=== PATIENT | female | born 1965 | race Caucasian/White ===

== ENCOUNTER 2016-04-28 14:10 | Emergency (ER) | payer MEDICAID ==
[2016-04-28] MEDS ORDERED: NORMAL SALINE 1000 ML 1,000 ML IV ONE ×2 (14:49→18:01)
--- NOTE | 2016-04-28 15:07 | ER Document Report ---
ED General - General Chief Complaint: High Blood Sugar Stated Complaint: ALTERED MENTAL STATUS Mode of Arrival: Medic Information source: Patient, [facility] Records Notes: This is a 51-year-old female with multiple medical problems to include type I diabetes who presents to the emergency department via EMS with a chief complaint of high blood sugar. She states that her blood sugar has been in the 300s since awakening this morning, and she has also had several episodes of nausea vomiting and diarrhea today. The patient was reportedly somewhat combative with EMS and she received Benadryl and Haldol in route to the ER. Per EMS, this patient has a history of becoming combative when her blood sugar is high. Currently patient states that she feels okay other than "pain all over ". She has no chest pain. No shortness of breath. She denies any recent fevers. She states that she last ate 2 days ago. TRAVEL OUTSIDE OF THE [place] IN LAST 30 DAYS: No - Related Data Allergies/Adverse Reactions: erythromycin base [Erythromycin Base] Allergy (Severe, Verified 03/11/15 16:27) Anaphylaxis fexofenadine HCl [From Shae] Allergy (Severe, Verified 03/11/15 16:27) Confusion levetiracetam [From Keppra] Allergy (Severe, Verified 03/11/15 16:27) passes out, loses time Penicillins Allergy (Severe, Verified 03/11/15 16:27) Anaphylaxis vancomycin [Vancomycin] Allergy (Severe, Verified 03/11/15 16:27) Blood pressure bottomed out Past Medical History - General Information source: Patient, [facility] Records - Social History Smoking Status: Former Smoker Family History: Reviewed & Not Pertinent - Past Medical History Cardiac Medical History: Reports: Hx Coronary Artery Disease - 2 blockages, Hx DVT, Hx Hypertension, Hx Pulmonary Embolism, Hx Heart Murmur Pulmonary Medical History: Reports: Hx COPD, Hx Pneumonia - 2 weeks ago Comment Only: Hx Bronchitis - Not since she quit smoking Neurological Medical History: Reports: Hx Cerebrovascular Accident - 5 yrs ago Endocrine Medical History: Reports: Hx Diabetes Mellitus Type 1 - History of DKA GI Medical History: Reports: Hx Gastroesophageal Reflux Disease, Hx Ulcer Musculoskeltal Medical History: Reports Hx Arthritis Past Surgical History: Reports: Hx Appendectomy, Hx Hysterectomy, Hx Orthopedic Surgery - Neck fusion, wrist surgery, knee surgery, Hx Tubal Ligation - Immunizations Hx Diphtheria, Pertussis, Tetanus Vaccination: Yes Hx Pneumococcal Vaccination: 11/09/11 Review of Systems - Review of Systems Notes: REVIEW OF SYSTEMS: CONSTITUTIONAL : Denies fever, chills, or sweats. Denies recent illness. EENT: Denies eye, ear, throat, or mouth pain or symptoms. Denies nasal or sinus congestion. CARDIOVASCULAR: Denies chest pain. RESPIRATORY: Denies cough, cold, or chest congestion. Denies shortness of breath, difficulty breathing, or wheezing. GASTROINTESTINAL: Denies abdominal pain. Nausea vomiting and diarrhea today as per history of present illness GENITOURINARY: She endorses dysuria for the past few days MUSCULOSKELETAL: Denies neck or back pain or joint pain or swelling. SKIN: Denies rash or skin lesions. HEMATOLOGIC : Denies easy bruising or bleeding. LYMPHATIC: Denies swollen, enlarged glands. NEUROLOGICAL: Denies headache. Denies focal weakness or paresthesias. PSYCHIATRIC: Denies anxiety or stress or depression. ALL OTHER SYSTEMS REVIEWED AND NEGATIVE. Physical Exam - Vital signs Vitals: Temp 97.8 F 04/28/16 14:15 - Notes Notes: PHYSICAL EXAMINATION: GENERAL: Frail, disheveled, appears older than stated age but in no acute distress. HEAD: Atraumatic, normocephalic. EYES: Pupils equal round and reactive to light, extraocular movements intact, sclera anicteric, conjunctiva are normal. ENT: nares patent, oropharynx clear without exudates. Dry mucous membranes. NECK: Normal range of motion, supple without lymphadenopathy LUNGS: Breath sounds clear to auscultation bilaterally and equal. No wheezes rales or rhonchi. HEART: Regular rate and rhythm. Harsh 3/6 systolic murmur at the sternal border ABDOMEN: Thin,Soft, nontender, normoactive bowel sounds. No guarding, no rebound. No masses appreciated. EXTREMITIES: Normal range of motion, no pitting or edema. No cyanosis. NEUROLOGICAL: Cranial nerves grossly intact. Normal speech Normal sensory, motor exams. Alert to person and place, not to date PSYCH: Normal mood, somewhat anxious affect. SKIN: Warm, Dry, no rashes or lesions noted. Course - Re-evaluation Re-evalutation: 04/28/16 23:34 Patient was reevaluated. She is alert and conversant and states she feels so much better. She has tolerated fluids by mouth here in the emergency department and she has had no vomiting or diarrhea. She has a benign abdominal exam and her vital signs are stable her Accu-Chek is 217. She states that she is ready to go home and she does not want hospitalization. She has had multiple prior episodes of altered mental status and combativeness secondary to her hyperglycemia, and this episode was very similar to prior episodes. She is instructed to follow-up with her primary care physician this week. We also discussed strict return precautions and she is comfortable with this plan. 04/29/16 03:40 - Vital Signs Vital signs: Temp Pulse Resp BP Pulse Ox 97.8 F 90 19 162/96 H 100 04/28/16 14:15 04/29/16 00:00 04/29/16 00:00 04/29/16 00:00 04/29/16 00:00 - Laboratory Result Diagrams: 04/28/16 16:46 04/28/16 16:46 Laboratory results interpreted by me: 04/28/16 04/28/16 04/28/16 15:15 16:46 16:46 Hgb 16.7 H Hct 49.7 H MCV 102 H MCH 34.2 H Plt Count 136 L Seg Neutrophils % 79.7 H Lymphocytes % 12.8 L Absolute Neutrophils 8.4 H Sodium 136.9 L Carbon Dioxide 17 L Anion Gap 20 H BUN 32 H Est GFR (Non-Af Amer) 59 L Glucose 366 H POC Glucose Total Bilirubin 1.5 H Creatine Kinase 329 H Urine Glucose (UA) >=500 H Urine Ketones 80 H Ur Leukocyte Esterase TRACE H Salicylates < 1.0 L Acetaminophen < 10 L 04/28/16 04/28/16 04/28/16 20:43 21:30 23:23 Hgb Hct MCV MCH Plt Count Seg Neutrophils % Lymphocytes % Absolute Neutrophils Sodium Carbon Dioxide Anion Gap BUN Est GFR (Non-Af Amer) Glucose POC Glucose 378 H 289 H 216 H Total Bilirubin Creatine Kinase Urine Glucose (UA) Urine Ketones Ur Leukocyte Esterase Salicylates Acetaminophen - Diagnostic Test Radiology reviewed: Reports reviewed - hyperexpansion, no consolidation/effusion - EKG Interpretation by Me EKG shows normal: Sinus rhythm Rate: Normal Rhythm: NSR Discharge - Discharge Clinical Impression: Hyperglycemia due to type 1 diabetes mellitus Altered mental status Qualifiers: Altered mental status type: transient alteration of awareness Qualified Code(s) : R40.4 - Transient alteration of awareness UTI (urinary tract infection) Qualifiers: Urinary tract infection type: site unspecified Hematuria presence: without hematuria Qualified Code(s): N39.0 - Urinary tract infection, site not specified Condition: Stable Disposition: HOME, SELF-CARE Instructions: Nitrofurantoin ([facility]) Additional Instructions: HYPERGLYCEMIA (HIGH BLOOD SUGAR): You have an abnormally high blood sugar. Not all high blood sugar requires long-term treatment. High blood sugar can be due to medications, , or the stress of illness. (These cases are "borderline diabetes.") If the doctor feels your high blood sugar might resolve with time, you may not require treatment now. It's very important that you follow through, to see if the blood sugar returns to normal levels. Uncontrolled high blood sugar leads to early heart disease, strokes, nerve damage, eye damage, and kidney damage. Call the physician if there is faintness, excess sleepiness, or very rapid breathing. INSULIN: Insulin is a natural hormone that lowers blood sugar. Normal blood sugar prevents complications of diabetes. For most diabetics, insulin is the best way to treat the illness. Be sure you know how to measure the insulin correctly. Insulin is measured in "units." There are three types of insulin: N (NPH or long acting), R (regular or short acting), and L (Lente or very long acting). Be sure you are using the right amount of each type. Insulin must be injected into the fat. You can use the abdomen, upper arms , and thighs. Select a different injection site every time. Wipe the site with alcohol before injecting. When first starting insulin, some adjusting of the insulin dose is necessary. Keep a record of each insulin dose and time of injection, and of the blood sugar and the time you test it. Sometimes insulin can make the blood sugar too low. If you become dizzy, sweaty, shaky, or confused, you may be having a hypoglycemic episode. Immediately use juice or some other sweet food. Call the doctor if the symptoms don't go away. URINARY TRACT INFECTION: Your evaluation indicates that you have a urinary tract infection. This is due to germs growing in the bladder. This is a common problem. This infection usually responds quickly to antibiotics. Your antibiotic should be taken exactly as prescribed. Drink plenty of fluids -- three to four quarts a day. Occasionally, a bladder anesthetic will be prescribed to help stop the feeling of urgency until the antibiotic has a chance to clear the infection. This may cause your urine to be dark orange. Certain urine infections require a culture. If the doctor obtained a culture, the results will be back in two days. You should call to see if a change in treatment is needed. A repeat urinalysis after you finish treatment is often recommended. The physician will let you know if further testing is required. Call the doctor if you develop fever, chills, flank pain, inability to urinate, or blood in the urine. ANTIBIOTIC THERAPY: You have been given an antibiotic prescription. It's important that you take all the medication, unless instructed otherwise by your physician. Failure to complete the entire course can result in relapse of your condition. Common side effects of antibiotics include nausea, intestinal cramping, or diarrhea. Women may develop vaginal yeast infections, and babies can get yeast (thrush) in the mouth following the use of antibiotics. Contact your physician if you develop significant side effects from this medication. Allergy to this antibiotic can result in hives, wheezing, faintness, or itching. If symptoms of allergy occur, stop the medication and call the doctor. NITROFURANTOIN (MACRODANTIN, MACROBID): You have received a prescription for nitrofurantoin (Macrodantin). This antibiotic is used for urinary tract infections. Women who are or nursing should notify the physician before taking this medicine. If you have ever had a problem caused by this medication in the past, be sure the physician is aware of it. Common side effects of this medicine include nausea, vomiting, or decreased appetite. Notify your physician if these side effects become severe. Immediately stop this medicine and call the physician if you develop cough , shortness of breath, chest pain, weakness, jaundice (yellow color of the skin and whites of the eyes), or a skin rash. FOLLOW-UP CARE: If you have been referred to a physician for follow-up care, call the physician s office for an appointment as you were instructed or within the next two days. If you experience worsening or a significant change in your symptoms, notify the physician immediately or return to the Emergency Department at any time for re-evaluation. FOLLOW-UP CARE: If you have been referred to a physician for follow-up care, call the physician s office for an appointment as you were instructed or within the next two days. If you experience worsening or a significant change in your symptoms, notify the physician immediately or return to the Emergency Department at any time for re-evaluation. Prescriptions: Nitrofurantoin/Nitrofuran Mac [Macrobid 100 mg Capsule] 1 tab PO BID #20 capsule Referrals: CONCEPCION GONCALVES MD [Primary Care Provider] - Follow up as needed
[2016-04-28 15:32] LABS: APPEARANCE,URINE SLIGHTLY-CLOUDY; BILIRUBIN,URINE NEGATIVE (NEGATIVE); GLUCOSE, URINE >=500 mg/dL (NEGATIVE); KETONES,URINE 80 mg/dL (NEGATIVE); LEUKOCYTE ESTERASE,URINE TRACE (NEGATIVE); NITRITE,URINE NEGATIVE (NEGATIVE); PROTEIN,URINE NEGATIVE (NEGATIVE); URINE SPECIFIC GRAVITY 1.027; UROBILINOGEN,URINE NEGATIVE mg/dL (<2.0)
[2016-04-28] MEDS ORDERED: CEFTRIAXONE 1 GM/D5W RTU 50 ML IV ONE (15:37)
[2016-04-28 15:47] LABS: URINE BARBITURATES SCREEN NEGATIVE; URINE METHADONE SCREEN NEGATIVE; URINE OPIATES LOW NEGATIVE; URINE PHENCYCLIDINE SCREEN NEGATIVE
[2016-04-28 16:59] LABS: ABSOLUTE BASOPHILS # (AUTO) 0.1 10^3/uL (0.0-0.2); ABSOLUTE LYMPHOCYTES (AUTO) 1.3 10^3/uL (0.5-4.7); ABSOLUTE MONOCYTES (AUTO) 0.6 10^3/uL (0.1-1.4); ABSOLUTE NEUT (AUTO) 8.4 10^3/uL (1.7-8.2); BASOPHILS % (AUTO) 1.1 % (0-2); EOSINOPHILS % (AUTO) 0.3 % (0-6); HEMATOCRIT 49.7 % (36.0-47.0); HEMOGLOBIN 16.7 g/dL (12.0-15.5); HGB HCT DIFFERENCE 0.4; LYMPHOCYTES % (AUTO) 12.8 % (13-45); MEAN CORPUSCULAR HEMOGLOBIN 34.2 pg (27.0-33.4); MEAN CORPUSCULAR HGB CONC 33.6 g/dL (32.0-36.0); MEAN CORPUSCULAR VOLUME 102 fl (80-97); MONOCYTES % (AUTO) 6.1 % (3-13); RED BLOOD COUNT 4.87 10^6/uL (3.72-5.28); RED CELL DISTRIBUTION WIDTH 13.5 % (11.5-14.0); SEGMENTED NEUTROPHILS % (AUTO) 79.7 % (42-78); WHITE BLOOD COUNT 10.5 10^3/uL (4.0-10.5)
[2016-04-28 17:08] LABS: PARTIAL THROMBOPLASTIN TIME 23.8 SEC (23.5-35.8)
[2016-04-28 17:14] LABS: ALANINE AMINOTRANSFERASE 17 U/L (9-52); ALBUMIN 4.1 g/dL (3.5-5.0); ALKALINE PHOSPHATASE 87 U/L (38-126); ASPARTATE AMINO TRANSFERASE 30 U/L (14-36); BILIRUBIN,TOTAL 1.5 mg/dL (0.2-1.3); BLOOD UREA NITROGEN 32 mg/dL (7-20); CALCIUM 9.5 mg/dL (8.4-10.2); CARBON DIOXIDE 17 mmol/L (22-30); CHLORIDE 100 mmol/L (98-107); CREATINE KINASE 329 U/L (30-135); CREATININE RESULT 0.99 mg/dL (0.52-1.25); GLUCOSE 366 mg/dL (75-110); MAGNESIUM 1.8 mg/dL (1.6-2.3); SODIUM 136.9 mmol/L (137-145); TOTAL PROTEIN 6.9 g/dL (6.3-8.2)
[2016-04-28 17:23] LABS: ALCOHOL < 10 mg/dL (NONE DETECTED); ANION GAP 20 (5-19)
[2016-04-28 17:25] LABS: CREATINE KINASE MB 2.89 ng/mL (<4.55)
[2016-04-28 17:31] LABS: TROPONIN I 0.042 ng/mL
[2016-04-28] MEDS ORDERED: INSULIN REG, HUMAN 100 UNIT/ML 3 ML VIAL (PYX) IV ONE ×2 (17:42→21:38)
--- NOTE | 2016-04-28 21:52 | EKG REPORT ---
SEVERITY:- ABNORMAL ECG - SINUS RHYTHM SHORT ND INTERVAL, ACCELERATED AV CONDUCTION RIGHT ATRIAL ABNORMALITY BORDERLINE INFERIOR Q WAVES ST DEPRESSION, CONSIDER ISCHEMIA, INF LEADS BORDERLINE ST ELEVATION, ANTEROLATERAL LEADS : Confirmed by: Gabriella Redding 28-Apr-2016 21:52:00
[2016-04-29 00:04] VITALS: BP 162/96
== END 2016-04-29 | disposition home or self-care (01) ==
LOC: ER 14:10
DX: E10.65 Type 1 diabetes mellitus with hyperglycemia (principal); N39.0 Urinary tract infection, site not specified; R11.2 Nausea with vomiting, unspecified; R19.7 Diarrhea, unspecified; R52 Pain, unspecified; I25.10 Atherosclerotic heart disease of native coronary artery without angina pectoris; I10 Essential (primary) hypertension; J44.9 Chronic obstructive pulmonary disease, unspecified; Z88.8 Allergy status to other drugs, medicaments and biological substances; Z88.0 Allergy status to penicillin; Z87.892 Personal history of anaphylaxis; Z88.1 Allergy status to other antibiotic agents; Z87.891 Personal history of nicotine dependence; Z86.73 Personal history of transient ischemic attack (TIA), and cerebral infarction without residual deficits; Z90.49 Acquired absence of other specified parts of digestive tract; Z90.710 Acquired absence of both cervix and uterus; Z86.711 Personal history of pulmonary embolism; Z86.718 Personal history of other venous thrombosis and embolism; R01.1 Cardiac murmur, unspecified
CPT/HCPCS: 93005; 99284; 96361; 96365; 36415; 82553; 82962; 80307 ×4; 82550; 83735; 85025; 85610; 85730; 80053; 81001; 84484; 71010; 93010; J1815; J7030; J0696

== ENCOUNTER 2016-06-15 14:37 | Inpatient (IN) | payer MEDICAID ==
--- NOTE | 2016-06-15 15:06 | ER Document Report ---
ED General - General Stated Complaint: NAUSEA,VOMITING,DIARRHEA Time seen by provider: 15:03 Mode of Arrival: Medic Information source: Patient, Emergency Med Personnel Notes: This is a 51-year-old female with a complicated medical history including insulin requiring diabetes, primary hypothyroidism, hypertension, metabolic encephalopathy in the past, chronic pain syndrome. EMS was called to the home today because of an altered mental status in the setting of 2 day history of nausea, vomiting and diarrhea and not tolerating oral medicines. EMS arrived at the scene and found the patient to be combative. Her blood sugar at that time was 308. Currently, the patient is lethargic but does answer questions and complains of "dehydration, nausea". TRAVEL OUTSIDE OF THE [place] IN LAST 30 DAYS: No - HPI Onset: Last week Onset/Duration: Sudden Quality of pain: No pain Severity: None Pain Level: Denies Associated symptoms: None. denies: Fever, Shortness of breath Exacerbated by: Denies Relieved by: Denies Similar symptoms previously: No Recently seen / treated by doctor: No - Related Data Allergies/Adverse Reactions: erythromycin base [Erythromycin Base] Allergy (Severe, Verified 03/11/15 16:27) Anaphylaxis fexofenadine HCl [From Shae] Allergy (Severe, Verified 03/11/15 16:27) Confusion levetiracetam [From Keppra] Allergy (Severe, Verified 03/11/15 16:27) passes out, loses time Penicillins Allergy (Severe, Verified 03/11/15 16:27) Anaphylaxis vancomycin [Vancomycin] Allergy (Severe, Verified 03/11/15 16:27) Blood pressure bottomed out Past Medical History - General Information source: Patient - Social History Smoking Status: Never Smoker Cigarette use (# per day): No Chew tobacco use (# tins/day): No Frequency of alcohol use: None Drug Abuse: None Lives with: Family Family History: Reviewed & Not Pertinent - Past Medical History Cardiac Medical History: Reports: Hx Coronary Artery Disease - 2 blockages, Hx DVT, Hx Hypertension, Hx Pulmonary Embolism, Hx Heart Murmur Pulmonary Medical History: Reports: Hx COPD, Hx Pneumonia - 2 weeks ago Comment Only: Hx Bronchitis - Not since she quit smoking Neurological Medical History: Reports: Hx Cerebrovascular Accident - 5 yrs ago Endocrine Medical History: Reports: Hx Diabetes Mellitus Type 1 - History of DKA GI Medical History: Reports: Hx Gastroesophageal Reflux Disease, Hx Ulcer Musculoskeltal Medical History: Reports Hx Arthritis Past Surgical History: Reports: Hx Appendectomy, Hx Hysterectomy, Hx Orthopedic Surgery - Neck fusion, wrist surgery, knee surgery, Hx Tubal Ligation - Immunizations Hx Diphtheria, Pertussis, Tetanus Vaccination: Yes Hx Pneumococcal Vaccination: 11/09/11 Review of Systems - Review of Systems Notes: Review of systems: Constitutional: See H&P EENT: Denies ear pain, sinus tenderness, throat pain, throat swelling. Cardiovascular: Denies chest pain, palpitations, dyspnea or edema. Respiratory: Denies wheezing, cough, hemoptysis. Abdomen: Positive for nausea, vomiting, diarrhea. Denies abdominal pain. Denies BRBPR or melena. Genitourinary: Denies dysuria, pyuria, hematuria, flank pain. Musculoskeletal: denies joint pain or swelling, denies back pain. Neurologic: Altered mental status: Confusion, combativeness. Denies headache, photophobia, neck stiffness, weakness. Denies loss of bowel or bladder function. Denies saddle anesthesia. Skin: Denies rash, lesions. Constitutional: No symptoms reported EENT: No symptoms reported Cardiovascular: No symptoms reported Respiratory: No symptoms reported Gastrointestinal: See HPI Genitourinary: No symptoms reported Female Genitourinary: No symptoms reported Musculoskeletal: No symptoms reported Skin: No symptoms reported Hematologic/Lymphatic: No symptoms reported Neurological/Psychological: No symptoms reported Physical Exam - Vital signs Vitals: Temp Pulse Resp BP Pulse Ox 98.3 F 99 18 144/90 H 100 06/15/16 15:14 06/15/16 15:14 06/15/16 15:14 06/15/16 15:14 06/15/16 15:14 Notes: Physical exam: GENERAL: 51-year-old female, appears weak and dehydrated. She is answering questions. HEAD: Atraumatic, normocephalic. EYES: Pupils equal round and reactive to light, extraocular movements intact, sclera anicteric, conjunctiva are normal. ENT: TMs normal, nares patent, oropharynx clear without exudates. Dry mucous membranes. NECK: Normal range of motion, supple without lymphadenopathy or JVD. LUNGS: Breath sounds clear to auscultation bilaterally and equal. No wheezes rales or rhonchi. HEART: Regular rate and rhythm without murmurs, rubs or gallops. ABDOMEN: Soft, normoactive bowel sounds. No tenderness to palpation. No guarding, no rebound. No masses appreciated. EXTREMITIES: Normal range of motion, no pitting or edema. No clubbing or cyanosis. NEUROLOGICAL: Cranial nerves II through XII grossly intact. Normal speech, normal gait. SKIN: Warm, Dry, normal turgor, no rashes or lesions noted. Course - Re-evaluation Re-evalutation: 06/16/16 00:26 Note: Patient has been observed several hours, treated with IV fluids and IV antiemetics. She remains quite unsteady and is still having significant vomiting and does not feel significantly better. - Vital Signs Vital signs: Temp Pulse Resp BP Pulse Ox 98.3 F 99 18 144/90 H 100 06/15/16 15:14 06/15/16 15:14 06/15/16 15:14 06/15/16 15:14 06/15/16 15:14 - Laboratory Result Diagrams: 06/15/16 17:29 06/15/16 17:29 Laboratory results interpreted by me: 06/15/16 06/15/16 06/15/16 17:29 17:29 20:30 WBC 12.8 H Hgb 16.9 H Hct 51.0 H MCV 101 H MCH 33.6 H Seg Neutrophils % 83.8 H Lymphocytes % 10.0 L Absolute Neutrophils 10.7 H Carbon Dioxide 21 L BUN 27 H Glucose 300 H POC Glucose 234 H Creatine Kinase 29 L Urine Glucose (UA) Urine Ketones 06/15/16 21:34 WBC Hgb Hct MCV MCH Seg Neutrophils % Lymphocytes % Absolute Neutrophils Carbon Dioxide BUN Glucose POC Glucose Creatine Kinase Urine Glucose (UA) >=500 H Urine Ketones 20 H - Diagnostic Test Radiology reviewed: Image reviewed, Reports reviewed - EKG Interpretation by Me Rate: Tachycardia Rhythm: NSR - EKG shows sinus tachycardia with a ventricular rate of 101, evidence of LVH. The EKG is very similar to an EKG on 04/28/2016. Discharge - Discharge Clinical Impression: intractable nausea and vomiting, dehydration Condition: Stable Disposition: ADMITTED OBSERVATION Admitting Provider: Hospitalist - Dr. Macdonald
[2016-06-15] MEDS ORDERED: ONDANSETRON 4 MG TAB.RAPDIS PO ONE (16:38)
[2016-06-15] MEDS ORDERED: NORMAL SALINE 1000 ML 1,000 ML IV PRN (17:33)
[2016-06-15 17:43] LABS: ABSOLUTE BASOPHILS # (AUTO) 0.1 10^3/uL (0.0-0.2); ABSOLUTE LYMPHOCYTES (AUTO) 1.3 10^3/uL (0.5-4.7); ABSOLUTE MONOCYTES (AUTO) 0.7 10^3/uL (0.1-1.4); ABSOLUTE NEUT (AUTO) 10.7 10^3/uL (1.7-8.2); BASOPHILS % (AUTO) 0.6 % (0-2); HEMOGLOBIN 16.9 g/dL (12.0-15.5); HGB HCT DIFFERENCE -0.3; MEAN CORPUSCULAR HEMOGLOBIN 33.6 pg (27.0-33.4); MEAN CORPUSCULAR HGB CONC 33.2 g/dL (32.0-36.0); MEAN CORPUSCULAR VOLUME 101 fl (80-97); MONOCYTES % (AUTO) 5.6 % (3-13); RED BLOOD COUNT 5.04 10^6/uL (3.72-5.28); RED CELL DISTRIBUTION WIDTH 13.4 % (11.5-14.0); SEGMENTED NEUTROPHILS % (AUTO) 83.8 % (42-78); WHITE BLOOD COUNT 12.8 10^3/uL (4.0-10.5)
[2016-06-15 18:03] LABS: ALANINE AMINOTRANSFERASE 23 U/L (9-52); ALBUMIN 4.5 g/dL (3.5-5.0); ALKALINE PHOSPHATASE 79 U/L (38-126); ANION GAP 16 (5-19); ASPARTATE AMINO TRANSFERASE 15 U/L (14-36); BILIRUBIN,DIRECT 0.4 mg/dL (0.0-0.4); BILIRUBIN,TOTAL 1.1 mg/dL (0.2-1.3); BLOOD UREA NITROGEN 27 mg/dL (7-20); CALCIUM 9.9 mg/dL (8.4-10.2); CARBON DIOXIDE 21 mmol/L (22-30); CHLORIDE 100 mmol/L (98-107); CREATINE KINASE 29 U/L (30-135); CREATININE RESULT 0.89 mg/dL (0.52-1.25); GLUCOSE 300 mg/dL (75-110); POTASSIUM 3.6 mmol/L (3.6-5.0); SODIUM 137.2 mmol/L (137-145); TOTAL PROTEIN 6.6 g/dL (6.3-8.2)
--- NOTE | 2016-06-15 20:44 | EKG REPORT ---
SEVERITY:- ABNORMAL ECG - SINUS RHYTHM NONSPECIFIC INTRAVENTRICULAR CONDUCTION DELAY ANTERIOR INFARCT, AGE INDETERMINATE ST DEPRESSION, CONSIDER ISCHEMIA, INF LEADS RIGHTATRIAL AND LEFT ATRIAL ENLARGEMENT : Confirmed by: Gabriella Redding 15-Jun-2016 20:44:19
[2016-06-15] MEDS ORDERED: 1/2 NORMAL SALINE 1,000 ML IV ONE (21:06)
[2016-06-15] MEDS ORDERED: ONDANSETRON HCL INJ/PF 4 MG/2 ML SDV IV ONE (21:07)
[2016-06-15 21:54] LABS: APPEARANCE,URINE SLIGHTLY-CLOUDY; BILIRUBIN,URINE NEGATIVE (NEGATIVE); GLUCOSE, URINE >=500 mg/dL (NEGATIVE); KETONES,URINE 20 mg/dL (NEGATIVE); LEUKOCYTE ESTERASE,URINE NEGATIVE (NEGATIVE); NITRITE,URINE NEGATIVE (NEGATIVE); PROTEIN,URINE NEGATIVE (NEGATIVE); URINE SPECIFIC GRAVITY 1.009; UROBILINOGEN,URINE NEGATIVE mg/dL (<2.0)
[2016-06-16 01:11] LABS: ADD ON TESTING BLD IN LAB ACKNOWLEDGE
[2016-06-16 01:22] LABS: MAGNESIUM 1.9 mg/dL (1.6-2.3)
[2016-06-16] MEDS ORDERED: DEXTROSE 50%-WATER 25 GM/50 ML DISP.SYRIN IV PRN ×2 (03:37)
[2016-06-16] MEDS ORDERED: GLUCAGON,HUMAN RECOMB 1 MG INJ IM PRN (03:37)
[2016-06-16] MEDS ORDERED: DEXTROSE 40% GEL 15 GM TUBE PO PRN ×2 (03:37)
[2016-06-16] MEDS ORDERED: NICOTINE 7 MG/24 HR PATCH.TD24 TD PRN (03:38)
[2016-06-16] MEDS ORDERED: ACETAMINOPHEN 325 MG TABLET PO PRN (03:42)
[2016-06-16] MEDS ORDERED: IPRATROPIUM/ALBUTEROL 0.5-2.5 MG/3 ML AMPUL NEB PRN (03:42)
[2016-06-16] MEDS ORDERED: PROMETHAZINE HCL INJ 25 MG/1 ML VIAL IV PRN (03:46)
[2016-06-16] MEDS: NORMAL SALINE 1000 ML 1,000 ML IV PRN (03:57)
--- NOTE | 2016-06-16 04:23 | PDOC H&P ---
History of Present Illness Admission Date/PCP: 06/16/16 00:37 PCP ?? Patient complains of: N/V/D, AMS History of Present Illness: TEX MORRIS is a 51 year old female with a fairly complicated past medical history who presents to the emergency room by EMS for evaluation of above complaints. Patient has been discussed with emergency room physician who evaluated the patient. Patient herself is a quite poor historian. She answers most questions with only one or 2 word answers, typically "yes," or "no," even when some questions are asked more than one time. Rather odd affect at times. Seems almost resistant at times to answering questions. She's had approximately 2 day history of nausea vomiting and diarrhea. No blood. No unusual oral intake. No friends or family with similar complaints. Subjective fever. examination of the chart reveals comment that she was treated for pneumonia 2 weeks ago. I asked her if she were hospitalized. She stated yes. When I ask her where, she stated at our facility. I ask her if she were sure that she simply did not come to the emergency room. She stated no she was hospitalized at our facility. There is no record of her presenting to our facility, even to the emergency room, before current ER visit, since April of this year. The last discharge summary we have for her is dated November of last year. Note from EMS is on the chart that patient was noted to be verbally abusive and physically violent. 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 History and physical and discharge summary have been reviewed. Laboratory results are listed in [email or web address] and are reviewed. X-ray summary results are listed below, with full report(s) reviewed. . EKG reviewed. And compared to a tracing from April 28 of this year. Social history/personal habits: . One child. Unemployed. Does not live alone. Denies use of alcohol or illicit drugs. When asked her how much she is currently smoking, she stated "enough." She would not elaborate. Allergies/adverse reactions are listed in [email or web address] and are reviewed. Home medications Home medications initially autopopulated into [employer] may not accurately reflect patient's true medications, dosages, and/or frequencies. environmental tech to reconcile medications. Unfortunately, patient uncertain of medications/dosages/frequencies. REVIEW OF SYSTEMS: Constitutional: See history and present illness. Eyes: Wears contacts. ENT: Chronic dysphagia without aspiration. States her primary care provider is aware of this. No hearing problems or complaints. Pulmonary: No current complaints. Cardiovascular: No current complaints, including chest pain. Gastrointestinal: See history and present illness. Skin: No current complaints, including rashes. Hematologic: Easy bruising. Neurologic: Prior stroke, but when asked patient if it still affects her, she merely stated "it affects me." Musculoskeletal: Chronic back pain Psychiatric: depression; denies suicidal or homicidal ideation. Endocrine: No current complaints, including polyuria. Genitourinary: No current complaints, including dysuria. 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 5 feet 4 inches tall. 48.5 kg. BMI 18.4 kg/m.Temperature 98.3. Pulse 76 and regular. Blood pressure 145/89. Respirations are 15 and unlabored. 100% saturation on room air. Thin chronically ill-appearing female who appears quite a number of years older than her stated age. She is awake, but appears somewhat fatigued. Mildly anxious, without agitation. As noted in history and present illness, answers virtually all questions with only one or 2 word answers, typically either "yes," or "no." Makes no attempt to elaborate answers, even when some questions are asked more than one time. Skin is warm and dry. No grossly obvious evidence of rash in areas of skin examined. No subcutaneous nodules palpated. ENT: Hearing grossly normal to normal conversation. Tongue midline on protrusion pink and slightly tacky. Eyes: No scleral icterus. Pupils equal and reactive to light at 4 mm. [place] conjunctivae. Neck is supple and nontender to gentle active range of motion and palpation. Midline trachea. No palpable thyroid nodule mass enlargement or tenderness. Lymphatic: No palpable cervical or clavicular nodes. Neck and lymphatic exams limited by patient body habitus. Psychiatric: At best appears to have poor insight into acute and chronic medical issues. Patient realizes she is at [facility], but did not know the year. When asked her why she was here, she stated "I had nothing better to do.". Lungs: Auscultation reveals clear and equal breath sounds bilaterally. No use of accessory respiratory muscles. Cardiovascular: Heart regular rate and rhythm, without gallop murmur or rub. No carotid or abdominal aortic bruits. No ankle or pedal edema. Faintly palpable dorsalis pedis pulses. Abdomen: soft, , nontender with positive bowel sounds. No upper abdominal mass or organomegaly is palpated.. Extremities: Feet are warm and dry. No calf tenderness to compression. No grossly obvious visual evidence of calf swelling. Gentle manipulation of lower extremities fails to reveal any obvious evidence of injury or instability to knees hips or ankles. Neurologic: Moves upper extremities grossly normally. Patellar reflexes absent. Absent Babinski. Light touch is intact at feet. Dorsiflexion and plantarflexion of feet 5 / 5 and symmetric. Occasional mild tremor involving her lower extremities. Past Medical History Cardiac Medical History: Reports: Coronary Artery Disease - 2 blockages, DVT - States her anticoagulant was stopped by her physician., Hyperlipidema, Hypertension, Pulmonary Embolism, Heart Murmur Pulmonary Medical History: Reports: Chronic Obstructive Pulmonary Disease (COPD) , Pneumonia - 2 weeks ago Comment Only: Bronchitis - Not since she quit smoking Neurological Medical History: Reports: Ischemic CVA - Uncertain long-term effects., Seizures - History of same; states she is not supposed to be on antiepileptics. Endocrine Medical History: Reports: Diabetes Mellitus Type 1 - History of DKA, Hypothyroidism Denies: Hyperthyroidism GI Medical History: Reports: Cirrhosis, Gastroesophageal Reflux Disease Denies: Hepatitis Musculoskeltal Medical History: Reports: Arthritis, Other - Chronic back pain Psychiatric Medical History: Reports: Depression, Tobacco Dependency Denies: Alcohol Dependency, General Anxiety Disorder, Substance Abuse Hematology: Reports: Anemia - As a child Infectious Medical History: Denies: Hepatitis B, Hepatitis C Past Surgical History Past Surgical History: Reports: Appendectomy, Hysterectomy, Orthopedic Surgery - Neck fusion, wrist surgery, knee surgery, Tubal Ligation Social History Information Source: Patient, Emergency Med Personnel, [facility] Records Lives with: Family Smoking Status: Current Every Day Smoker Frequency of Alcohol Use: None Hx Recreational Drug Use: No Drugs: None Hx Prescription Drug Abuse: No - Advance Directive Resuscitation Status: Full Code Surrogate healthcare decision maker:: Her sons Family History Family History: Reviewed & Not Pertinent, Malignancy Parental Family History Reviewed: Yes Children Family History Reviewed: Yes Sibling(s) Family History Reviewed.: Yes Medication/Allergy Home Medications: RX: Insulin Pump Syringe, 3 ml [Minimed [place]] 1 dose SUBCUT CONTINUOUS PRN 02/26/11 RX: Amlodipine Besylate [Norvasc 2.5 mg Tablet] 5 mg PO BID 05/16/11 RX: Ropinirole HCl 1 mg PO QHS 05/16/11 RX: Metoclopramide HCl [Reglan 10 mg Tablet] 10 mg PO BID 09/22/11 RX: Lisinopril [Prinivil 2.5 mg Tablet] 2.5 mg PO QHS 05/20/12 RX: Diazepam [Valium] 10 mg PO TIDP PRN 09/29/13 RX: Fludrocortisone Acetate 0.1 mg PO DAILY 10/28/15 RX: Omeprazole 20 mg PO DAILY 10/28/15 RX: Ondansetron [Zofran Odt] 8 mg PO TID PRN 10/28/15 RX: Venlafaxine HCl ER [Effexor Xr 37.5 mg Cap.sr] 37.5 mg PO DAILY #30 cap.sr.24h 10/30/15 RX: Atorvastatin Calcium [Lipitor 20 mg Tablet] 40 mg PO QHS #30 tablet RX: Levothyroxine Sodium [Synthroid 0.05 mg Tablet] 0.05 mg PO DAILY #30 tablet 11/24/15 RX: Cyclobenzaprine HCl 5 mg PO TID 06/16/16 RX: Escitalopram Oxalate 10 mg PO DAILY 06/16/16 RX: Gabapentin [Neurontin 100 mg Capsule] 100 mg PO TID 06/16/16 RX: Ranolazine [Ranexa] 1,000 mg PO Q12 06/16/16 RX: Trazodone HCl 100 mg PO QHS 06/16/16 RX: Valacyclovir HCl [Valacyclovir] 500 mg PO DAILY 06/16/16 Allergies/Adverse Reactions: erythromycin base [Erythromycin Base] Allergy (Severe, Verified 03/11/15 16:27) Anaphylaxis fexofenadine HCl [From Shae] Allergy (Severe, Verified 03/11/15 16:27) Confusion levetiracetam [From Keppra] Allergy (Severe, Verified 03/11/15 16:27) passes out, loses time Penicillins Allergy (Severe, Verified 01/02/16 16:27) Anaphylaxis vancomycin [Vancomycin] Allergy (Severe, Verified 03/11/15 16:27) Blood pressure bottomed out Physical Exam Vital Signs: Temp Pulse Resp BP Pulse Ox 98.3 F 99 15 145/89 H 100 06/15/16 15:14 06/15/16 15:14 06/16/16 02:00 06/16/16 02:00 06/16/16 02:00 Intake & Output 06/15/16 06/16/16 06/17/16 00:59 00:59 00:59 Weight 48.5 kg Results Impressions: Acute Abdomen Series 06/15/16 17:34 IMPRESSION: Nonspecific bowel gas pattern. Clear lungs. Assessment & Plan - Diagnosis (1) Acute encephalopathy Is this a current diagnosis for this admission?: YesPlan: Should resolve with time and treatment. Suspect at least partly due to an element of dehydration. (2) Nausea vomiting and diarrhea Is this a current diagnosis for this admission?: YesPlan: IV fluids. Clear liquid diet. When necessary Phenergan. I have strongly encouraged patient not to get out of bed without notifying staff , to avoid a fall with injury. Knee high SCDs for DVT prophylaxis, [along with subcutaneous heparin. Impression and plans were discussed with patient, who concurs. Time spent in evaluation and management of patient: 62 minutes. (3) Cirrhosis Qualifiers: Hepatic cirrhosis type: unspecified hepatic cirrhosis (4) Diabetes mellitus type 1 Qualifiers: Diabetes mellitus complication status: without complication Qualified Code(s): E10.9 - Type 1 diabetes mellitus without complications Is this a current diagnosis for this admission?: YesPlan: Patient to continue her insulin pump. Clear liquid diet; advance as tolerated. Accu-Cheks before meals and at bedtime. (5) HLD (hyperlipidemia) Qualifiers: Hyperlipidemia type: unspecified Qualified Code(s): E78.5 - Hyperlipidemia, unspecified Is this a current diagnosis for this admission?: YesPlan: Resume home medications as appropriate once these have been determined and reviewed. (6) History of seizure Is this a current diagnosis for this admission?: YesPlan: Seizure precautions (7) Hypothyroid Qualifiers: Hypothyroidism type: unspecified Qualified Code(s): E03.9 - Hypothyroidism, unspecified Is this a current diagnosis for this admission?: YesPlan: TSH. Resume home medications as appropriate once these have been determined and reviewed. (8) Tobacco dependency Is this a current diagnosis for this admission?: YesPlan: When necessary nicotine patch.
[2016-06-16 04:49] LABS: ABSOLUTE BASOPHILS # (AUTO) 0.1 10^3/uL (0.0-0.2); ABSOLUTE LYMPHOCYTES (AUTO) 1.4 10^3/uL (0.5-4.7); ABSOLUTE MONOCYTES (AUTO) 0.6 10^3/uL (0.1-1.4); ABSOLUTE NEUT (AUTO) 7.5 10^3/uL (1.7-8.2); BASOPHILS % (AUTO) 0.9 % (0-2); EOSINOPHILS % (AUTO) 0.2 % (0-6); HEMATOCRIT 48.1 % (36.0-47.0); HEMOGLOBIN 16.8 g/dL (12.0-15.5); HGB HCT DIFFERENCE 2.3; LYMPHOCYTES % (AUTO) 14.9 % (13-45); MEAN CORPUSCULAR HEMOGLOBIN 34.6 pg (27.0-33.4); MEAN CORPUSCULAR HGB CONC 34.9 g/dL (32.0-36.0); MEAN CORPUSCULAR VOLUME 99 fl (80-97); MONOCYTES % (AUTO) 5.9 % (3-13); RED BLOOD COUNT 4.85 10^6/uL (3.72-5.28); RED CELL DISTRIBUTION WIDTH 13.2 % (11.5-14.0); SEGMENTED NEUTROPHILS % (AUTO) 78.1 % (42-78); WHITE BLOOD COUNT 9.7 10^3/uL (4.0-10.5)
[2016-06-16 05:06] LABS: ANION GAP 13 (5-19); BLOOD UREA NITROGEN 20 mg/dL (7-20); CARBON DIOXIDE 23 mmol/L (22-30); CHLORIDE 102 mmol/L (98-107); CREATININE RESULT 0.72 mg/dL (0.52-1.25); GLUCOSE 225 mg/dL (75-110); MAGNESIUM 1.5 mg/dL (1.6-2.3); POTASSIUM 3.3 mmol/L (3.6-5.0); SODIUM 137.9 mmol/L (137-145)
[2016-06-16] MEDS ORDERED: POTASSI CL 20 MEQ/50 ML RIDER 20 MEQ/50 ML RTUPB IV SCH (06:00)
[2016-06-16] MEDS: MAGNESIUM SULFATE/D5W 1 GM/100 ML RTUPB IV SCH ×2 (06:28→07:54)
[2016-06-16] MEDS: HEPARIN SOD (PORCINE) 5,000 UNIT/ML 1 ML SYRINGE SUBCUT SCH ×2 (09:29→09:32)
[2016-06-16] MEDS ORDERED: ONDANSETRON HCL INJ/PF 4 MG/2 ML SDV IV PRN (11:27)
--- NOTE | 2016-06-16 14:11 | PDOC PROGRESS REPORT ---
Subjective Progress Note for:: 06/16/16 Subjective:: Patient is seen on morning rounds. She is sleeping soundly in bed. She awakens served stimuli. She continues to complain of nausea, no further emesis or diarrhea at the present time. She does not want to eat or drink. She continues to appear somewhat altered in her answers. Vitals stable. She denies any other symptoms. Physical Exam Vital Signs: Temp Pulse Resp BP Pulse Ox 98.5 F 80 16 137/78 H 100 06/16/16 11:16 06/16/16 11:16 06/16/16 11:16 06/16/16 11:16 06/16/16 11:16 Intake & Output 06/15/16 06/16/16 06/17/16 06:59 06:59 06:59 Intake Total 425 Balance 425 General appearance: PRESENT: no acute distress, thin, well-developed, other - older than stated age Head exam: PRESENT: atraumatic, normocephalic Eye exam: PRESENT: conjunctiva pink, EOMI, PERRLA. ABSENT: scleral icterus Ear exam: PRESENT: normal external ear exam Mouth exam: PRESENT: moist, tongue midline Neck exam: ABSENT: carotid bruit, JVD, lymphadenopathy, thyromegaly Respiratory exam: PRESENT: clear to auscultation peterson. ABSENT: rales, rhonchi, wheezes Cardiovascular exam: PRESENT: RRR. ABSENT: diastolic murmur, rubs, systolic murmur Pulses: PRESENT: normal dorsalis pedis pul Vascular exam: PRESENT: normal capillary refill GI/Abdominal exam: PRESENT: normal bowel sounds, soft. ABSENT: distended, guarding, mass, organolmegaly, rebound, tenderness Rectal exam: PRESENT: deferred Extremities exam: PRESENT: full ROM. ABSENT: calf tenderness, clubbing, pedal edema Neurological exam: PRESENT: alert, awake, oriented to person, oriented to place , oriented to time, oriented to situation, CN II-XII grossly intact. ABSENT: motor sensory deficit Psychiatric exam: PRESENT: flat affect, normal mood. ABSENT: homicidal ideation , suicidal ideation Skin exam: PRESENT: dry, intact, warm. ABSENT: cyanosis, rash Results Laboratory Results: 06/16/16 04:41 06/16/16 04:41 06/16/16 06/16/16 06/16/16 04:41 04:41 04:41 WBC 9.7 RBC 4.85 Hgb 16.8 H Hct 48.1 H MCV 99 H MCH 34.6 H MCHC 34.9 RDW 13.2 Plt Count 115 L Seg Neutrophils % 78.1 H Lymphocytes % 14.9 Monocytes % 5.9 Eosinophils % 0.2 Basophils % 0.9 Absolute Neutrophils 7.5 Absolute Lymphocytes 1.4 Absolute Monocytes 0.6 Absolute Eosinophils 0.0 Absolute Basophils 0.1 Sodium 137.9 Potassium 3.3 L Chloride 102 Carbon Dioxide 23 Anion Gap 13 BUN 20 Creatinine 0.72 Est GFR ( Amer) > 60 Est GFR (Non-Af Amer) > 60 Glucose 225 H Calcium 9.0 Magnesium 1.5 L TSH 0.03 L Impressions: Acute Abdomen Series 06/15/16 17:34 IMPRESSION: Nonspecific bowel gas pattern. Clear lungs. Assessment & Plan - Diagnosis (1) Nausea vomiting and diarrhea Is this a current diagnosis for this admission?: YesPlan: Continue IV fluids and when necessary Zofran. She is a type I diabetic, therefore we are concerned regarding DKA occurring (2) Acute encephalopathy Is this a current diagnosis for this admission?: YesPlan: This has resolved she is now cooperative. Question overuse of narcotic opioids and dehydration causing encephalopathy (3) Diabetes mellitus type 1 Qualifiers: Diabetes mellitus complication status: without complication Qualified Code(s): E10.9 - Type 1 diabetes mellitus without complications Is this a current diagnosis for this admission?: YesPlan: A new insulin pump and sliding scale (4) Intractable vomiting Qualifiers: Vomiting type: unspecified Nausea presence: with nausea Qualified Code(s): R11.2 - Nausea with vomiting, unspecified Is this a current diagnosis for this admission?: YesPlan: Now resolved we'll continue IV fluids and Zofran (5) Tobacco dependency Is this a current diagnosis for this admission?: YesPlan: Patient has been counseled - Time Time Spent with patient: 25-34 minutes Critical Time spent with patient: 15-24 minutes Smoking Cessation Education: 3 to 10 minutes Medications reviewed and adjusted accordingly: Yes Anticipated discharge: Home
[2016-06-16 17:19] LABS: URINE BARBITURATES SCREEN NEGATIVE; URINE METHADONE SCREEN NEGATIVE; URINE OPIATES LOW NEGATIVE; URINE PHENCYCLIDINE SCREEN NEGATIVE
[2016-06-16] MEDS ORDERED: INSULIN LISPRO 100 UNIT/ML 3 ML VIAL ONE (22:27)
[2016-06-16] MEDS: INSULIN LISPRO 100 UNIT/ML 3 ML VIAL SUBCUT PRN (22:45)
[2016-06-17] MEDS ORDERED: DIAZEPAM 5 MG TABLET PO PRN (07:49)
[2016-06-17] MEDS ORDERED: LEVOTHYROXINE SODIUM 0.05 MG TABLET PO SCH (08:00)
--- NOTE | 2016-06-17 08:46 | Physician Advisory Note ---
Physician Advisor ProgressNote .: Pursuant to the plan for [facility], I have reviewed the medical record for this patient. Physician Advisor Statement: Nice documentation of concerns 06/16, need for continued hospital care. Possible documentation opportunities if attending agrees: 1. Status - see below. As always, if concerned about any unstable VS or abnormal labs, please comment on them & note what doing about them, & please document each day the potential clinical problems you are concerned could occur if pt not kept in hospital for tx at this time. Discussion: 51yo female w/ chronic co-morbidities including DM-1, central hypothyroidism, HTN, metabolic encephalopathy felt to be due to opiates, chronic pain syndrome, CAD, DVT/PE, COPD, CVA - presented 06/15 PM to ED w/AMS - combative then lethargic, not tolerating po meds. (+) appearing weak & lethargic in ED, w/dry mucosae, HR 99, R 18, BP 144/90. WBC 12.8, Hgb 16.9, bicarb 21, BUN 27, Cr 0.89, glc 300, lactate 1.0, U/A w/> 500 glc & 20 ketones, UDS (+)benzo, C.diff neg. Given IVF, IV antiemetics in ED but "still quite unsteady, still signifcant vomiting." Attending ordered I/Os, tele monitoring, falls prec.s, seizure precautions, NS @ 125 after 2L IVF boluses, PRN IV Phenergan. Status: A pt w/N/V/D/dehydration is typically most appropriate for Outpt Obs status initially, w/hopes for quick response to IVF etc & quick D/C. However, this pt, after 1 night in hospital care in ED, still w/significant sx, still w/high Hgb 16.8 consistent with intravascular hypovolemia (baseline Hgb 13 -15 in past 6mo), new hypokalemia & hypomagnesemia, continued hyperglycemia. Having continued nausea, not ready to eat/drink, still altered mental status in answering ?s. Had FSBS as high as 448 on 06/16 PM, with recurrent tachycardia 90 -95 on 49 PM. Attending concerned for risk of DKA, need for continued IVF, adding IV Zofran for further anti-nausea control. Also suspecting overuse narcotics contributing to sx. Continued tx & monitoring in inpatient hospital setting medically reasonable & necessary to protect pt's health, safety, & medical condition. Appropriate to change to Inpt status as of 4/9 PM. Thanks for your help with documentation accuracy/specificity improvement! Sophia Adan MD [facility] Physician Advisor, Fellow of Hospital Medicine
[2016-06-17] MEDS: GABAPENTIN 100 MG CAPSULE PO SCH ×2 (09:19→14:10)
[2016-06-17] MEDS: CYCLOBENZAPRINE HCL 10 MG TABLET PO SCH ×2 (09:20→14:10)
[2016-06-17] MEDS ORDERED: RANOLAZINE 500 MG TAB.SR.12H PO SCH (10:00)
[2016-06-17] MEDS ORDERED: FLUDROCORTISONE ACETATE 0.1 MG TABLET PO SCH (10:00)
[2016-06-17] MEDS ORDERED: ESCITALOPRAM OXALATE 10 MG TABLET PO SCH (10:00)
[2016-06-17] MEDS ORDERED: (PENDING PHARMACY ID) (Ranolazine [Ranexa] 1,000 MG) PO SCH (10:00)
[2016-06-17] MEDS ORDERED: VALACYCLOVIR HCL 500 MG TABLET PO SCH (10:00)
[2016-06-17] MEDS ORDERED: METOCLOPRAMIDE HCL 10 MG TABLET PO SCH (10:00)
[2016-06-17] MEDS ORDERED: INSULIN GLARGINE,HUM.REC.ANLOG 300 UNIT/3 ML INSULN.PEN SUBCUT SCH (10:00)
[2016-06-17] MEDS ORDERED: (PENDING PHARMACY ID) (Cyclobenzaprine Hcl [Cyclobenzaprine Hcl] 5 MG) PO SCH (10:00)
[2016-06-17] MEDS ORDERED: VENLAFAXINE HCL 37.5 MG CAP.SR.24H PO SCH (10:00)
[2016-06-17] MEDS ORDERED: AMLODIPINE BESYLATE 5 MG TABLET PO SCH (10:00)
[2016-06-17] MEDS: INSULIN LISPRO 100 UNIT/ML 3 ML VIAL SUBCUT PRN (11:27)
[2016-06-17] MEDS: NORMAL SALINE 1000 ML 1,000 ML IV PRN (14:37)
--- NOTE | 2016-06-17 15:19 | PDOC DISCHARGE SUMMARY ---
General - Admit/Disc Date/PCP Admission Date/Primary Care Provider: 06/16/16 14:00 Discharge Date: 06/17/16 - Discharge Diagnosis (1) Nausea vomiting and diarrhea Is this a current diagnosis for this admission?: YesSummary: Secondary to viral gastroenteritis and narcotic use. Now resolved (2) Acute encephalopathy Is this a current diagnosis for this admission?: YesSummary: Secondary to dehydration and narcotic use. She has been rehydrated with IV fluid and now resolved. She is now tolerating a regular diabetic diet. Counseled on the need for adequate hydration with her DMI. (3) Diabetes mellitus type 1 Is this a current diagnosis for this admission?: YesSummary: Patient's insulin pump malfunction. Social work assisted patient's in contacting [employer] they will ship a new pump to her house overnight. In the interim she will check her sugars every 4 hours and cover with her sliding scale Humalog insulin. She will call [facility] once she receives the pump tomorrow. (4) Intractable vomiting Is this a current diagnosis for this admission?: YesSummary: This resolved (5) Tobacco dependency Is this a current diagnosis for this admission?: YesSummary: Counseled on her need to quit. She verbalizses no intentions - Additional Information Resuscitation Status: Full Code Discharge Activity: Activity As Tolerated, Balance Activity w/Rest Home Medications: Insulin Pump Syringe, 3 ml [Minimed Tamora] 1 dose SUBCUT CONTINUOUS PRN 27/01 Amlodipine Besylate [Norvasc 2.5 mg Tablet] 5 mg PO BID 05/16/11 Ropinirole HCl 1 mg PO QHS 05/16/11 Metoclopramide HCl [Reglan 10 mg Tablet] 10 mg PO BID 09/22/11 Lisinopril [Prinivil 2.5 mg Tablet] 2.5 mg PO QHS 05/20/12 Diazepam [Valium] 10 mg PO TIDP PRN 09/29/13 Fludrocortisone Acetate 0.1 mg PO DAILY 10/28/15 Omeprazole 20 mg PO DAILY 10/28/15 Ondansetron [Zofran Odt] 8 mg PO TID PRN 10/28/15 Venlafaxine HCl ER [Effexor Xr 37.5 mg Cap.sr] 37.5 mg PO DAILY #30 cap.sr.24h 10/30/15 Atorvastatin Calcium [Lipitor 20 mg Tablet] 40 mg PO QHS #30 tablet 11/24/15 Levothyroxine Sodium [Synthroid 0.05 mg Tablet] 0.05 mg PO DAILY #30 tablet Cyclobenzaprine HCl 5 mg PO TID 06/16/16 Escitalopram Oxalate 10 mg PO DAILY 06/16/16 Gabapentin [Neurontin 100 mg Capsule] 100 mg PO TID 06/16/16 Ranolazine [Ranexa] 1,000 mg PO Q12 06/16/16 Trazodone HCl 100 mg PO QHS 06/16/16 Valacyclovir HCl [Valacyclovir] 500 mg PO DAILY 06/16/16 History of Present Illness Patient complains of: Nausea, vomiting, diarrhea, and altered mental status History of Present Illness: TEX MORRIS is a 51 year old female with a fairly complicated past medical history who presents to the emergency room by EMS for evaluation of above complaints. Patient has been discussed with emergency room physician who evaluated the patient. Patient herself is a quite poor historian. He answers most questions with only one or 2 word answers, typically "yes," or "no," even when some questions are asked more than one time. Rather odd affect at times. Seems almost resistant at times to answering questions. examination of the chart that she was treated for pneumonia 2 weeks ago. I asked her if she were hospitalized. She stated yes. When I ask her where, she stated at this facility. I ask her if she were sure that she simply did not come to the emergency room. She stated no she was hospitalized at this facility. There is no record of her presenting to our facility, even to the emergency room before current ER visit since April of this year. The last discharge summary we have for her is dated November of last year. Note from EMS is on the chart that patient was noted to be verbally abusive and physically violent. According to emergency room physician note, patient was noted to be "combative." She's had approximately 2 day history of nausea vomiting and diarrhea. No blood. No unusual oral intake. No friends or family with similar complaints. Subjective fever. 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 History and physical and discharge summary have been reviewed. Hospital Course Hospital Course: Patient was referred to the hospitalist service she was admitted to telemetry overnight. She was hydrated with IV fluids and given Zofran for nausea. The following morning she continued to be nauseated, tolerating only small amounts of clear liquids. We therefore continued IV fluids due to our concerns for patient with type I diabetes mellitus, develop dehydration easily and ending up in DKA. Her mentation also cleared IV hydration. Today she feels much improved she was able to eat a regular diabetic breakfast and lunch. She was found to have her insulin pump malfunctioning. Discharge planning was called to help her require new pump from [facility] prior to her being discharged. She will have a new insulin pump she [facility] overnight to her home. In the meantime she was counseled to check her sugars every 4 hours while she is awake , and cover with Humalog sliding scale coverage at her circular head saw operator has provided her. Physical Exam Vital Signs: Temp Pulse Resp BP Pulse Ox 99.0 F 82 18 149/90 H 99 06/17/16 07:33 06/17/16 11:14 06/17/16 11:14 06/17/16 07:33 06/17/16 11:14 Intake & Output 06/16/16 06/17/16 06/18/16 06:59 06:59 06:59 Intake Total 4853 Output Total 2800 Balance 2052 Weight 49.4 kg General appearance: PRESENT: no acute distress, thin, well-developed Head exam: PRESENT: atraumatic, normocephalic Eye exam: PRESENT: conjunctiva pink, EOMI, PERRLA. ABSENT: scleral icterus Ear exam: PRESENT: normal external ear exam Mouth exam: PRESENT: moist, tongue midline Neck exam: ABSENT: carotid bruit, JVD, lymphadenopathy, thyromegaly Respiratory exam: PRESENT: clear to auscultation peterson. ABSENT: rales, rhonchi, wheezes Cardiovascular exam: PRESENT: RRR. ABSENT: diastolic murmur, rubs, systolic murmur Pulses: PRESENT: normal dorsalis pedis pul Vascular exam: PRESENT: normal capillary refill GI/Abdominal exam: PRESENT: normal bowel sounds, soft. ABSENT: distended, guarding, mass, organolmegaly, rebound, tenderness Rectal exam: PRESENT: deferred Extremities exam: PRESENT: full ROM. ABSENT: calf tenderness, clubbing, pedal edema Neurological exam: PRESENT: alert, awake, oriented to person, oriented to place , oriented to time, oriented to situation, CN II-XII grossly intact. ABSENT: motor sensory deficit Psychiatric exam: PRESENT: flat affect, normal mood. ABSENT: homicidal ideation , suicidal ideation Skin exam: PRESENT: dry, intact, warm. ABSENT: cyanosis, rash Results Impressions: Acute Abdomen Series 06/15/16 17:34 IMPRESSION: Nonspecific bowel gas pattern. Clear lungs. Qualifiers PATEINT BEING DISCHARGED WITH ANY OF THE FOLLOWING DIAGNOSIS?: No Plan Discharge Plan: Discharge home Time Spent: Less than 30 Minutes
[2016-06-17 16:29] VITALS: BP 139/82
[2016-06-17] MEDS ORDERED: ROPINIROLE HCL 1 MG TABLET PO SCH (22:00)
[2016-06-17] MEDS ORDERED: (PENDING PHARMACY ID) (Lisinopril [Prinivil 2.5 Mg Tablet] 2.5 MG) PO SCH (22:00)
[2016-06-17] MEDS ORDERED: TRAZODONE HCL 50 MG TABLET PO SCH (22:00)
[2016-06-17] MEDS ORDERED: LISINOPRIL 5 MG TABLET PO SCH (22:00)
[2016-06-17] MEDS ORDERED: ATORVASTATIN CALCIUM 40 MG TABLET PO SCH (22:00)
== END 2016-06-17 17:30 | disposition home or self-care (01) | DRG 640 ==
LOC: ER 14:37 → UNDOADMOB 06-16 00:37 → EH 06-16 00:37 → 4S 06-16 02:45 → EH 06-16 02:45 → 4S 06-16 03:42 → OBSVTOIN 06-16 14:00
PROVIDERS: ADMIT Family Medicine; ATTEND Family Medicine
DX: E86.0 Dehydration (principal); G93.41 Metabolic encephalopathy; T85.694A Other mechanical complication of insulin pump, initial encounter; A08.4 Viral intestinal infection, unspecified; E03.9 Hypothyroidism, unspecified; E10.65 Type 1 diabetes mellitus with hyperglycemia; Z96.41 Presence of insulin pump (external) (internal); F17.200 Nicotine dependence, unspecified, uncomplicated; I10 Essential (primary) hypertension; G89.4 Chronic pain syndrome; I25.10 Atherosclerotic heart disease of native coronary artery without angina pectoris; K21.9 Gastro-esophageal reflux disease without esophagitis; J44.9 Chronic obstructive pulmonary disease, unspecified; G40.909 Epilepsy, unspecified, not intractable, without status epilepticus; Z79.891 Long term (current) use of opiate analgesic; M19.90 Unspecified osteoarthritis, unspecified site; Z86.718 Personal history of other venous thrombosis and embolism; Z86.711 Personal history of pulmonary embolism; Z86.73 Personal history of transient ischemic attack (TIA), and cerebral infarction without residual deficits; Z90.710 Acquired absence of both cervix and uterus; Z90.49 Acquired absence of other specified parts of digestive tract; Z98.51 Tubal ligation status; Z79.899 Other long term (current) drug therapy; Z88.0 Allergy status to penicillin; Z88.1 Allergy status to other antibiotic agents; Z79.4 Long term (current) use of insulin
CPT/HCPCS: 36415; 36591; 74022; 80048; 80053; 80307; 81001; 82272; 82550; 82553; 82962; 83605; 83735; 84443; 84484; 85025; 87045; 87205; 87493; 93005; 93010; 96361; 96374; 99285; G0378; J1644; J1815; J2405; J3475; J3480; J3490; J7030

== ENCOUNTER 2016-07-10 18:03 | Emergency (ER) | payer MEDICAID ==
[2016-07-10 18:09] VITALS: BP 102/77
[2016-07-10] MEDS ORDERED: OXYCODONE-ACETAMINOPHEN 5-325 MG TABLET PO ONE (18:38)
--- NOTE | 2016-07-10 18:41 | ER Document Report ---
ED Extremity Problem, Upper - General Chief Complaint: Arm Injury Stated Complaint: FALL,LEFT ARM PAIN/SWELLING Time seen by provider: 18:39 Mode of Arrival: Ambulatory Information source: Patient TRAVEL OUTSIDE OF THE [place] IN LAST 30 DAYS: No - HPI Patient complains to provider of: Injury, Left, Wrist Onset: This morning Recent injury: Yes Where: Home Quality of pain: Achy Severity of pain: Moderate Pain Level: 4 Context: Fall Associated symptoms: None Exacerbated by: Movement Relieved by: Nothing Similar symptoms previously: No Recently seen / treated by doctor: No Notes: Patient is a 51-year-old female presents to the emergency room complaining of trip and fall over her dog this morning, falling backwards and landing on outstretched arm, causing injury to her left wrist, she reports pain with range of motion testing, swelling, reports mild pain in the elbow and shoulder, but her main area of concern is the left wrist, she denies a head injury or loss of consciousness - Related Data Allergies/Adverse Reactions: erythromycin base [Erythromycin Base] Allergy (Severe, Verified 07/10/16 18:06) Anaphylaxis fexofenadine HCl [From Shae] Allergy (Severe, Verified 07/10/16 18:06) Confusion levetiracetam [From Keppra] Allergy (Severe, Verified 07/10/16 18:06) passes out, loses time Penicillins Allergy (Severe, Verified 07/10/16 18:06) Anaphylaxis vancomycin [Vancomycin] Allergy (Severe, Verified 07/10/16 18:06) Blood pressure bottomed out Past Medical History - General Information source: Patient - Social History Smoking Status: Current Every Day Smoker Family History: Reviewed & Not Pertinent, Malignancy Patient has suicidal ideation: No Patient has homicidal ideation: No - Past Medical History Cardiac Medical History: Reports: Hx Coronary Artery Disease - 2 blockages, Hx DVT - States her anticoagulant was stopped by her physician., Hx Hypercholesterolemia, Hx Hypertension, Hx Pulmonary Embolism, Hx Heart Murmur Pulmonary Medical History: Reports: Hx COPD, Hx Pneumonia - 2 weeks ago Comment Only: Hx Bronchitis - Not since she quit smoking Neurological Medical History: Reports: Hx Cerebrovascular Accident - 5 yrs ago, Hx Seizures - History of same; states she is not supposed to be on antiepileptics. Endocrine Medical History: Reports: Hx Diabetes Mellitus Type 1 - History of DKA , Hx Hypothyroidism. Denies: Hx Hyperthyroidism Renal/ Medical History: Denies: Hx Peritoneal Dialysis GI Medical History: Reports: Hx Cirrhosis, Hx Gastroesophageal Reflux Disease, Hx Ulcer. Denies: Hx Hepatitis Musculoskeltal Medical History: Reports Hx Arthritis Psychiatric Medical History: Reports: Hx Depression Infectious Medical History: Denies: Hx Hepatitis Past Surgical History: Reports: Hx Appendectomy, Hx Hysterectomy, Hx Orthopedic Surgery - Neck fusion, wrist surgery, knee surgery, Hx Tubal Ligation - Immunizations Hx Diphtheria, Pertussis, Tetanus Vaccination: Yes Hx Pneumococcal Vaccination: 11/09/11 Review of Systems - Review of Systems Constitutional: No symptoms reported EENT: No symptoms reported Cardiovascular: No symptoms reported Respiratory: No symptoms reported Gastrointestinal: No symptoms reported Genitourinary: No symptoms reported Female Genitourinary: No symptoms reported Musculoskeletal: See HPI Skin: No symptoms reported Hematologic/Lymphatic: No symptoms reported Neurological/Psychological: No symptoms reported -: Yes All other systems reviewed and negative Physical Exam - Vital signs Vitals: Temp Pulse Resp BP Pulse Ox 99.0 F 95 16 102/77 96 07/10/16 18:06 07/10/16 18:06 07/10/16 18:06 07/10/16 18:06 07/10/16 18:06 - Notes Notes: - General General appearance: Appears well, Alert In distress: None - HEENT Head: Normocephalic, Atraumatic Eyes: Normal Conjunctiva: Normal Extraocular movements intact: Yes Eyelashes: Normal Pupils: PERRL - Respiratory Respiratory status: No respiratory distress - Cardiovascular Rhythm: Regular - Abdominal Inspection: Normal - Back Back: Normal - Extremities General upper extremity: Left wrist with swelling, tenderness to palpate, pain with range of motion testing, 2+ radial pulses, distal sensation and motor is intact General lower extremity: Normal inspection - Neurological Neuro grossly intact: Yes Orientation: AAOx4 Jonn Coma Scale Eye Opening: Spontaneous Jonn Coma Scale Verbal: Oriented Jonn Coma Scale Motor: Obeys Commands Sterling Coma Scale Total: 15 - Psychological Associated symptoms: Normal affect, Normal mood - Skin Skin Temperature: Warm Skin Moisture: Dry Skin Color: Normal Course - Re-evaluation Re-evalutation: 07/10/16 19:18 Imaging findings discussed with patient, which are unremarkable, symptoms consistent with wrist sprain, she was placed in a splint, provided with pain medication and information for follow-up with orthopedics, advised to return if symptoms worsen, patient acknowledges understanding and agreement with this plan - Vital Signs Vital signs: Temp Pulse Resp BP Pulse Ox 99.0 F 95 16 102/77 96 07/10/16 18:06 07/10/16 18:06 07/10/16 18:06 07/10/16 18:06 07/10/16 18:06 - Diagnostic Test Radiology reviewed: Image reviewed, Reports reviewed Procedures - Immobilization Left Wrist Time completed: 19:18 Pre-Proc Neuro Vasc Exam: Normal Immobilizer type: Volar splint Performed by: PCT Post-Proc Neuro Vasc Exam: Normal Alignment checked and good: Yes Discharge - Discharge Clinical Impression: Left wrist sprain Qualifiers: Encounter type: initial encounter Qualified Code(s): S63.502A - Unspecified sprain of left wrist, initial encounter Condition: Stable Disposition: HOME, SELF-CARE Instructions: Wrist Sprain ([facility]), Temporary Splint ([facility]), Ice & Elevation ([facility]) Additional Instructions: Follow up with your primary care provider and an orthopedic surgeon in one to 2 days. Return to the emergency room immediately if symptoms worsen or any additional concerns. Ice and elevate the affected extremity. Prescriptions: Hydrocodone/Acetaminophen [Hydrocodon-Acetaminophen 5-325] 1 each PO Q6 #20 tablet Referrals: KWAN BOOKER MD [ACTIVE STAFF] - Follow up as needed
[2016-07-10] MEDS ORDERED: HYDROCODONE/ACETAMINOPHEN 5-325 MG 6 TAB/DSPK PO PRN (19:17)
== END 2016-07-10 19:43 | disposition home or self-care (01) ==
LOC: ER 18:03
PROC: 2W3DX1Z Immobilization of Left Lower Arm using Splint (ICD-10-PCS; principal; 2016-07-10)
DX: S63.502A Unspecified sprain of left wrist, initial encounter (principal); W01.0XXA Fall on same level from slipping, tripping and stumbling without subsequent striking against object, initial encounter; Y92.009 Unspecified place in unspecified non-institutional (private) residence as the place of occurrence of the external cause; M25.529 Pain in unspecified elbow; M25.519 Pain in unspecified shoulder; I25.10 Atherosclerotic heart disease of native coronary artery without angina pectoris; I10 Essential (primary) hypertension; J44.9 Chronic obstructive pulmonary disease, unspecified; F17.200 Nicotine dependence, unspecified, uncomplicated; Z88.8 Allergy status to other drugs, medicaments and biological substances; Z87.892 Personal history of anaphylaxis; Z88.1 Allergy status to other antibiotic agents; Z88.0 Allergy status to penicillin; Z86.718 Personal history of other venous thrombosis and embolism; Z86.711 Personal history of pulmonary embolism
CPT/HCPCS: 99283

== ENCOUNTER 2016-08-24 15:17 | Inpatient (IN) | payer MEDICAID ==
[2016-08-24] MEDS ORDERED: NORMAL SALINE 1000 ML 1,000 ML IV ONE (15:31)
--- NOTE | 2016-08-24 15:36 | ER Document Report ---
ED General - General Mode of Arrival: Medic Information source: Patient, Emergency Med Personnel Cannot obtain history due to: Uncooperative TRAVEL OUTSIDE OF THE [place] IN LAST 30 DAYS: No - HPI Onset: Other - Refer to HPI notes Similar symptoms previously: No Recently seen / treated by doctor: No <DORIS PAYNE - Last Filed: 08/24/16 17:51> <SILVINA GUILLERMO - Last Filed: 09/01/16 06:58> - General Chief Complaint: Altered Mental Status Stated Complaint: CHANGE IN MENTAL STATUS Notes: Patient is a 51 year old female presenting to the emergency department for hyperglycemia and altered metal status. Patient is uncooperative with history. Patient states she has recently been sick. Patient and states her checked her blood glucose level at home and her level was too high to read. Patient has an insulin pump connected. Patient's son told EMS that she has not been getting out of bed or eating over the last few days. EMS removed the patient's Fentanyl patch en route. Patient also received 2 mg versed for "swinging her face at EMS. " Patient is very uncooperative and does not provide much information for the HPI. Patient's primary care physician is Dr. Saenz. (DORIS PAYNE) - Related Data Allergies/Adverse Reactions: erythromycin base [Erythromycin Base] Allergy (Severe, Verified 07/10/16 18:06) Anaphylaxis fexofenadine HCl [From Shae] Allergy (Severe, Verified 07/10/16 18:06) Confusion levetiracetam [From Keppra] Allergy (Severe, Verified 07/10/16 18:06) passes out, loses time Penicillins Allergy (Severe, Verified 07/10/16 18:06) Anaphylaxis vancomycin [Vancomycin] Allergy (Severe, Verified 07/10/16 18:06) Blood pressure bottomed out Home Medications: Current Home Medications Acetaminophen with Codeine [Tylenol #3 Tablet] 1 tab PO Q6HP PRN 08/25/16 [ History] Amlodipine Besylate [Norvasc 5 mg Tablet] 5 mg PO Q12 08/25/16 [History] Atorvastatin Calcium [Lipitor 40 mg Tablet] 40 mg PO QHS 08/25/16 [History] Cyclobenzaprine HCl [Flexeril 5 mg Tablet] 5 mg PO TIDP PRN 08/25/16 [History] Diazepam [Valium] 10 mg PO TIDP PRN 08/25/16 [History] Escitalopram Oxalate [Lexapro 10 mg Tablet] 10 mg PO DAILY 08/25/16 [History] Estrogens,Conjugated [Premarin Vaginal Cream (0.625 mg/gm) 30 gm] 1 applic VG QHS 08/25/16 [History] Fentanyl [Duragesic 100 Mcg/Hr Transdermal Patch] 1 patch TD Q2D 08/25/16 [ History] Fludrocortisone Acetate [Florinef 0.1 mg Tablet] 0.1 mg PO DAILY 08/25/16 [ History] Gabapentin [Neurontin 100 mg Capsule] 100 mg PO Q8 08/25/16 [History] Levothyroxine Sodium [Synthroid 0.05 mg Tablet] 50 mcg PO DAILY 08/25/16 [ History] Lisinopril [Prinivil 2.5 mg Tablet] 2.5 mg PO QHS 08/25/16 [History] Metoclopramide HCl [Reglan 10 mg Tablet] 10 mg PO Q12 08/25/16 [History] Omeprazole 20 mg PO DAILY 08/25/16 [History] Ondansetron HCl [Zofran 8 mg Tablet] 8 mg PO Q8HP PRN 08/25/16 [History] Ranolazine [Ranexa] 1,000 mg PO Q12 08/25/16 [History] Ropinirole HCl 1 mg PO QHS 08/25/16 [History] Trazodone HCl [Desyrel] 100 mg PO QHS 08/25/16 [History] Valacyclovir HCl [Valacyclovir] 500 mg PO DAILY 08/25/16 [History] Past Medical History - General Information source: Patient - Social History Smoking Status: Current Every Day Smoker Frequency of alcohol use: Occasional Family History: Malignancy - Past Medical History Cardiac Medical History: Reports: Hx Coronary Artery Disease - 2 blockages, Hx DVT - States her anticoagulant was stopped by her physician., Hx Hypercholesterolemia, Hx Hypertension, Hx Pulmonary Embolism, Hx Heart Murmur Pulmonary Medical History: Reports: Hx Bronchitis - Not since she quit smoking, Hx COPD, Hx Pneumonia - 2 weeks ago Neurological Medical History: Reports: Hx Cerebrovascular Accident - 5 yrs ago, Hx Seizures - History of same; states she is not supposed to be on antiepileptics. 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 History of DKA., Hx Hypothyroidism GI Medical History: Reports: Hx Cirrhosis, Hx Gastroesophageal Reflux Disease, Hx Ulcer Musculoskeltal Medical History: Reports Hx Arthritis Psychiatric Medical History: Reports: Hx Depression Past Surgical History: Reports: Hx Appendectomy, Hx Hysterectomy, Hx Orthopedic Surgery - Neck fusion, wrist surgery, knee surgery, Hx Tubal Ligation - Immunizations Hx Diphtheria, Pertussis, Tetanus Vaccination: Yes Hx Pneumococcal Vaccination: 11/09/11 <DORIS PAYNE - Last Filed: 08/24/16 17:51> Review of Systems - Review of Systems -: Yes ROS unobtainable due to patient's medical condition - Patient is altered and has a high blood glucose level <DORIS PAYNE - Last Filed: 08/24/16 17:51> Physical Exam - General General appearance: Alert, Other - Chronically ill-appearing, uncooperative In distress: Mild - HEENT Head: Normocephalic, Atraumatic Eyes: Normal Pupils: PERRL Mucous membranes: Dry - Respiratory Respiratory status: No respiratory distress Chest status: Nontender Breath sounds: Normal Chest palpation: Normal - Cardiovascular Rhythm: Regular Heart sounds: Normal auscultation Murmur: No - Abdominal Inspection: Other - Insulin pump in place Distension: No distension Bowel sounds: Normal Tenderness: Nontender Organomegaly: No organomegaly - Back Back: Normal, Nontender - Extremities General upper extremity: Normal inspection, Normal ROM, Normal strength General lower extremity: Normal inspection, Normal ROM, Normal strength - Neurological Neuro grossly intact: Yes Cognition: Normal Jonn Coma Scale Eye Opening: Spontaneous Rogers Coma Scale Verbal: Oriented Jonn Coma Scale Motor: Obeys Commands Rogers Coma Scale Total: 15 Speech: Normal - Psychological Associated symptoms: Uncooperative - Skin Skin Temperature: Warm Skin Moisture: Dry <DORIS PAYNE - Last Filed: 08/24/16 17:51> - Neurological Cognition: Confused. No: Normal Orientation: Disoriented to place, Disoriented to time Jonn Coma Scale Verbal: Confused Jonn Coma Scale Motor: Localizes to Pain - Psychological Associated symptoms: Irritable, Uncooperative <SILVINA GUILLERMO - Last Filed: 09/01/16 06:58> - Vital signs Vitals: Pulse Ox 99 08/24/16 15:46 Blood glucose level during exam was 220. (DORIS PAYNE) Course - Laboratory Result Diagrams: 08/24/16 16:35 08/24/16 16:12 - Consults Dr. Peter Time consulted: 17:49 Consulted provider: will see as inpatient <DORIS PAYNE - Last Filed: 08/24/16 17:51> - Laboratory Result Diagrams: 08/28/16 06:20 08/28/16 06:20 - Diagnostic Test Radiology reviewed: Reports reviewed <SILVINA GUILLERMO - Last Filed: 09/01/16 06:58> - Re-evaluation Re-evalutation: 08/24/16 Patient is a 51-year-old female who is brought in for altered mental status. Patient has a history of diabetes. No evidence for infection. Vitals are stable. However, the patient is still confused. Patient will be referred to the hospitalist service. She is a history of polypharmacy and I could account for her symptoms today. However, I cannot send her home with her encephalopathy at this time. (SILVINA GUILLERMO) - Vital Signs Vital signs: Temp Pulse Resp BP Pulse Ox 99.0 F 82 15 130/80 H 96 08/28/16 15:46 08/28/16 15:46 08/28/16 15:46 08/28/16 15:46 08/28/16 15:46 - Laboratory Laboratory results interpreted by me: 08/24/16 08/24/16 08/24/16 15:34 16:12 16:12 WBC Hgb MCV RDW Seg Neutrophils % Lymphocytes % Absolute Neutrophils VBG pH 7.48 H Sodium 136.6 L Potassium 3.5 L Chloride Carbon Dioxide BUN 31 H Glucose 245 H POC Glucose 220 H Urine Protein Urine Glucose (UA) Urine Ketones 08/24/16 08/24/16 08/24/16 16:35 17:07 18:23 WBC 11.5 H Hgb MCV 98 H RDW Seg Neutrophils % 82.8 H Lymphocytes % 10.3 L Absolute Neutrophils 9.5 H VBG pH Sodium Potassium Chloride Carbon Dioxide BUN Glucose POC Glucose 315 H Urine Protein 30 H Urine Glucose (UA) 150 H Urine Ketones 20 H 08/24/16 08/25/16 08/25/16 22:18 02:20 05:55 WBC 12.5 H Hgb MCV 100 H RDW 14.3 H Seg Neutrophils % 82.1 H Lymphocytes % 10.8 L Absolute Neutrophils 10.2 H VBG pH Sodium Potassium Chloride Carbon Dioxide BUN Glucose POC Glucose 417 H* 226 H Urine Protein Urine Glucose (UA) Urine Ketones 08/25/16 08/25/16 08/25/16 05:55 06:00 10:59 WBC Hgb MCV RDW Seg Neutrophils % Lymphocytes % Absolute Neutrophils VBG pH Sodium Potassium Chloride 108 H Carbon Dioxide 19 L BUN 32 H Glucose 269 H POC Glucose 255 H 362 H Urine Protein Urine Glucose (UA) Urine Ketones 08/25/16 08/25/16 08/26/16 15:05 21:40 05:50 WBC 13.7 H Hgb 15.6 H MCV 100 H RDW Seg Neutrophils % 81.5 H Lymphocytes % 11.4 L Absolute Neutrophils 11.1 H VBG pH Sodium Potassium 3.4 L Chloride 109 H Carbon Dioxide BUN 25 H Glucose 120 H POC Glucose 43 L Urine Protein Urine Glucose (UA) Urine Ketones 08/26/16 08/26/16 05:50 11:33 WBC Hgb MCV RDW Seg Neutrophils % Lymphocytes % Absolute Neutrophils VBG pH Sodium Potassium 3.5 L Chloride Carbon Dioxide BUN Glucose POC Glucose 256 H Urine Protein Urine Glucose (UA) Urine Ketones - Consults Dr. Peter Reason for consultation: 08/24/16 17:[address] Peter, he will be admitted. (DORIS PAYNE) Discharge <DORIS PAYNE - Last Filed: 08/24/16 17:51> - Discharge Admitting Provider: [facility] [place] [facility] Admitted: Telemetry <SILVINA GUILLERMO - Last Filed: 09/01/16 06:58> - Discharge Clinical Impression: Encephalopathy, Hyperglycemia Diabetes mellitus type 1 Qualifiers: Diabetes mellitus complication status: with unspecified complications Qualified Code(s): E10.8 - Type 1 diabetes mellitus with unspecified complications Condition: Stable Disposition: ADMITTED INPATIENT Scribe Attestation: 09/01/16 06:58 I personally performed the services described in the documentation, reviewed and edited the documentation which was dictated to the scribe in my presence, and it accurately records my words and actions. (SILVINA GUILLERMO) Scribe Documentation - Scribe Written by Scribe:: Doris Payne, Alainae 08/24/16 16:20 acting as scribe for :: Delia <DORIS PAYNE - Last Filed: 08/24/16 17:51>
--- NOTE | 2016-08-24 16:07 | RADIOLOGY REPORT (SQ) ---
EXAM DESCRIPTION: CHEST SINGLE VIEW COMPLETED DATE/TIME: 08/24/2016 3:55 pm REASON FOR STUDY: AMS COMPARISON: Chest films 11/22/2015, 04/28/2016 CT chest 06/05/2015 EXAM PARAMETERS: NUMBER OF VIEWS: One view. TECHNIQUE: Single frontal radiographic view of the chest acquired. RADIATION DOSE: NA LIMITATIONS: None. FINDINGS: LUNGS AND PLEURA: No opacities, masses or pneumothorax. No pleural effusion. MEDIASTINUM AND HILAR STRUCTURES: No masses. Contour normal. HEART AND VASCULAR STRUCTURES: Heart normal in size. Normal vasculature. BONES: No acute findings. HARDWARE: Left-sided permanent central line tip superior vena cava OTHER: Benign dense breast calcification projects over the left anterior 6th rib IMPRESSION: NO ACUTE RADIOGRAPHIC FINDING IN THE CHEST. TECHNICAL DOCUMENTATION: JOB ID: [id number]
[2016-08-24 16:32] LABS: VENOUS BLOOD BASE EXCESS 3.7 mmol/L; VENOUS BLOOD PCO2 36.7 mmHg (35-63); VENOUS BLOOD PH 7.48 (7.30-7.42)
[2016-08-24 16:34] LABS: PROTHROMBIN TIME 13.5 SEC (11.4-15.4)
[2016-08-24 16:46] LABS: ABSOLUTE BASOPHILS # (AUTO) 0.1 10^3/uL (0.0-0.2); ABSOLUTE LYMPHOCYTES (AUTO) 1.2 10^3/uL (0.5-4.7); ABSOLUTE MONOCYTES (AUTO) 0.7 10^3/uL (0.1-1.4); ABSOLUTE NEUT (AUTO) 9.5 10^3/uL (1.7-8.2); BASOPHILS % (AUTO) 0.5 % (0-2); EOSINOPHILS % (AUTO) 0.1 % (0-6); HEMATOCRIT 45.3 % (36.0-47.0); HEMOGLOBIN 15.1 g/dL (12.0-15.5); LYMPHOCYTES % (AUTO) 10.3 % (13-45); MEAN CORPUSCULAR HEMOGLOBIN 32.8 pg (27.0-33.4); MEAN CORPUSCULAR HGB CONC 33.4 g/dL (32.0-36.0); MEAN CORPUSCULAR VOLUME 98 fl (80-97); MONOCYTES % (AUTO) 6.3 % (3-13); RED BLOOD COUNT 4.61 10^6/uL (3.72-5.28); SEGMENTED NEUTROPHILS % (AUTO) 82.8 % (42-78); WHITE BLOOD COUNT 11.5 10^3/uL (4.0-10.5)
[2016-08-24 16:53] LABS: ALANINE AMINOTRANSFERASE 23 U/L (9-52); ALBUMIN 4.6 g/dL (3.5-5.0); ALKALINE PHOSPHATASE 86 U/L (38-126); ANION GAP 11 (5-19); ASPARTATE AMINO TRANSFERASE 17 U/L (14-36); BILIRUBIN,DIRECT 0.3 mg/dL (0.0-0.4); BILIRUBIN,TOTAL 1.2 mg/dL (0.2-1.3); BLOOD UREA NITROGEN 31 mg/dL (7-20); CARBON DIOXIDE 25 mmol/L (22-30); CHLORIDE 101 mmol/L (98-107); CREATINE KINASE 88 U/L (30-135); CREATININE RESULT 0.97 mg/dL (0.52-1.25); GLUCOSE 245 mg/dL (75-110); POTASSIUM 3.5 mmol/L (3.6-5.0); SODIUM 136.6 mmol/L (137-145); TOTAL PROTEIN 7.4 g/dL (6.3-8.2)
[2016-08-24 17:05] LABS: TROPONIN I 0.012 ng/mL
[2016-08-24 17:20] LABS: APPEARANCE,URINE SLIGHTLY-CLOUDY; BILIRUBIN,URINE NEGATIVE (NEGATIVE); GLUCOSE, URINE 150 mg/dL (NEGATIVE); KETONES,URINE 20 mg/dL (NEGATIVE); LEUKOCYTE ESTERASE,URINE NEGATIVE (NEGATIVE); NITRITE,URINE NEGATIVE (NEGATIVE); PROTEIN,URINE 30 mg/dL (NEGATIVE); URINE SPECIFIC GRAVITY 1.021; UROBILINOGEN,URINE NEGATIVE mg/dL (<2.0)
[2016-08-24] MEDS ORDERED: INSULIN LISPRO 100 UNIT/ML 3 ML VIAL SUBCUT PRN (18:03)
[2016-08-24] MEDS ORDERED: GLUCAGON,HUMAN RECOMB 1 MG INJ IM PRN (18:03)
[2016-08-24] MEDS ORDERED: DEXTROSE 40% GEL 15 GM TUBE PO PRN ×2 (18:03)
[2016-08-24] MEDS ORDERED: DEXTROSE 50%-WATER 25 GM/50 ML DISP.SYRIN IV PRN ×2 (18:03)
[2016-08-24] MEDS ORDERED: HYDRALAZINE HCL INJ/PF 20 MG/1 ML SDV IV PRN (18:06)
[2016-08-24] MEDS ORDERED: ACETAMINOPHEN 325 MG TABLET PO PRN (18:07)
--- NOTE | 2016-08-24 18:21 | RADIOLOGY REPORT (SQ) ---
EXAM DESCRIPTION: CT HEAD WITHOUT COMPLETED DATE/TIME: 08/24/2016 6:06 pm REASON FOR STUDY: AMS COMPARISON: 10/28/2015 TECHNIQUE: Axial images acquired through the brain without intravenous contrast. Images reviewed wi th bone, brain and subdural windows. Images stored on PACS. All CT scanners at this facility use dose modulation, iterative reconstruction, and/or weight based d osing when appropriate to reduce radiation dose to as low as reasonably achievable (ALARA). [facility]: Dose Right [facility]: CareDose [facility]: Dose Right [facility]: Teradose 4D [facility]: Quarterly RADIATION DOSE: 64.61 mGy. LIMITATIONS: None. FINDINGS: VENTRICLES: Normal size and contour. CEREBRUM: No masses. No hemorrhage. No midline shift. Normal falk/white matter differentiation. N o evidence for acute infarction. CEREBELLUM: No masses. No hemorrhage. No alteration of density. No evidence for acute infarction. EXTRAAXIAL SPACES: No fluid collections. No masses. ORBITS AND GLOBE: No intra- or extraconal masses. Normal contour of globe without masses. CALVARIUM: No fracture. PARANASAL SINUSES: No fluid or mucosal thickening. SOFT TISSUES: No mass or hematoma. OTHER: No other significant finding. IMPRESSION: NORMAL BRAIN CT WITHOUT CONTRAST. TECHNICAL DOCUMENTATION: JOB ID: [id number] Quality ID # [id number]: Final reports with documentation of one or more dose reduction techniques (e.g., Au tomated exposure control, adjustment of the mA and/or kV according to patient size, use of iterative reconstruction technique) 2010 [employer]- All Rights Reserved
[2016-08-24] MEDS ORDERED: DIAZEPAM 5 MG TABLET PO PRN (18:37)
--- NOTE | 2016-08-24 18:40 | PDOC H&P ---
History of Present Illness Admission Date/PCP: CONCEPCION GONCALVES MD Patient complains of: Altered mental status History of Present Illness: TEX MORRIS is a 51 year old female with past medical history of CVA, diabetes, hypertension, chronic pain with chronic opiate dependence, anxiety disorder that was found by her family today to have altered mental status. Patient had fentanyl patch on it was taken off by EMS. She is starting to act more normal in the emergency department since then. At the time that I evaluate her she is able to provide me some history although she is still a little bit drowsy. She states that she has not been feeling well in terms of generalized weakness for the past couple days. Her blood glucose has been running in the 300s. In review of records patient has had prior admissions for encephalopathy that was thought to be secondary to polypharmacy. Review of her medication list shows that she is on multiple neuroactive medications by her primary care provider. Medications listed below have not been verified. Past Medical History Cardiac Medical History: Reports: Coronary Artery Disease - 2 blockages, DVT - States her anticoagulant was stopped by her physician., Hyperlipidema, Hypertension, Pulmonary Embolism, Heart Murmur Pulmonary Medical History: Reports: Bronchitis - Not since she quit smoking, Chronic Obstructive Pulmonary Disease (COPD), Pneumonia - 2 weeks ago Neurological Medical History: Reports: Ischemic CVA, Seizures - History of same ; states she is not supposed to be on antiepileptics. Endocrine Medical History: Reports: Diabetes Mellitus Type 1 - Insulin dependent. History of DKA., Hypothyroidism Denies: Hyperthyroidism GI Medical History: Reports: Cirrhosis, Gastroesophageal Reflux Disease Denies: Hepatitis Musculoskeltal Medical History: Reports: Arthritis Psychiatric Medical History: Reports: Depression Hematology: Reports: Anemia - As a child Past Surgical History Past Surgical History: Reports: Appendectomy, Hysterectomy, Orthopedic Surgery - Neck fusion, wrist surgery, knee surgery, Tubal Ligation, Other - Left chest Port-A-Cath Social History Information Source: Patient Lives with: Family Smoking Status: Current Every Day Smoker Frequency of Alcohol Use: None Hx Recreational Drug Use: No Drugs: None Hx Prescription Drug Abuse: No - Advance Directive Resuscitation Status: Full Code Family History Family History: Malignancy Parental Family History Reviewed: Yes Children Family History Reviewed: Yes Sibling(s) Family History Reviewed.: Yes Medication/Allergy Home Medications: Insulin Pump Syringe, 3 ml [Minimed [place]] 1 dose SUBCUT CONTINUOUS PRN 27/01 Amlodipine Besylate [Norvasc 2.5 mg Tablet] 5 mg PO BID 05/16/11 Ropinirole HCl 1 mg PO QHS 05/16/11 Metoclopramide HCl [Reglan 10 mg Tablet] 10 mg PO BID 09/22/11 Lisinopril [Prinivil 2.5 mg Tablet] 2.5 mg PO QHS 05/20/12 Diazepam [Valium] 10 mg PO TIDP PRN 09/29/13 Fludrocortisone Acetate 0.1 mg PO DAILY 10/28/15 Omeprazole 20 mg PO DAILY 10/28/15 Ondansetron [Zofran Odt] 8 mg PO TID PRN 10/28/15 Venlafaxine HCl ER [Effexor Xr 37.5 mg Cap.sr] 37.5 mg PO DAILY #30 cap.sr.24h 10/30/15 Atorvastatin Calcium [Lipitor 20 mg Tablet] 40 mg PO QHS #30 tablet 11/24/15 Levothyroxine Sodium [Synthroid 0.05 mg Tablet] 0.05 mg PO DAILY #30 tablet Cyclobenzaprine HCl 5 mg PO TID 06/16/16 Escitalopram Oxalate 10 mg PO DAILY 06/16/16 Gabapentin [Neurontin 100 mg Capsule] 100 mg PO TID 06/16/16 Ranolazine [Ranexa] 1,000 mg PO Q12 06/16/16 Trazodone HCl 100 mg PO QHS 06/16/16 Valacyclovir HCl [Valacyclovir] 500 mg PO DAILY 06/16/16 Hydrocodone/Acetaminophen [Hydrocodon-Acetaminophen 5-325] 1 each PO Q6 #20 tablet 07/10/16 Allergies/Adverse Reactions: erythromycin base [Erythromycin Base] Allergy (Severe, Verified 07/10/16 18:06) Anaphylaxis fexofenadine HCl [From Shae] Allergy (Severe, Verified 07/10/16 18:06) Confusion levetiracetam [From Keppra] Allergy (Severe, Verified 07/10/16 18:06) passes out, loses time Penicillins Allergy (Severe, Verified 07/10/16 18:06) Anaphylaxis vancomycin [Vancomycin] Allergy (Severe, Verified 07/10/16 18:06) Blood pressure bottomed out Review of Systems Constitutional: PRESENT: weakness. ABSENT: chills, fever(s), headache(s), weight gain, weight loss Eyes: ABSENT: visual disturbances Ears: ABSENT: hearing changes Cardiovascular: ABSENT: chest pain, dyspnea on exertion, edema, orthropnea, palpitations Respiratory: ABSENT: cough, hemoptysis Gastrointestinal: ABSENT: abdominal pain, constipation, diarrhea, hematemesis, hematochezia, nausea, vomiting Genitourinary: ABSENT: dysuria, hematuria Musculoskeletal: ABSENT: joint swelling Integumentary: ABSENT: rash, wounds Neurological: ABSENT: abnormal gait, abnormal speech, confusion, dizziness, focal weakness, syncope Psychiatric: ABSENT: anxiety, depression, homidical ideation, suicidal ideation Endocrine: ABSENT: cold intolerance, heat intolerance, polydipsia, polyuria Hematologic/Lymphatic: ABSENT: easy bleeding, easy bruising Physical Exam Vital Signs: Temp Pulse Resp BP Pulse Ox 21 H 145/92 H 99 08/24/16 17:01 08/24/16 17:01 08/24/16 17:01 PHYSICAL EXAM: GENERAL: Appears well, no acute distress HEENT: Normocephalic, no scleral icterus, conjunctiva clear, EOEM intact, PERRLA , moist mucous membranes NECK: trachea midline, no thyromegally RESPIRATORY: Clear to auscultation, no wheezes/rhonchi CARDIAC: Regular rate and rhythm, no murmur/kristen/rub ABDOMEN: Soft, no distension, no tenderness, no guarding, normal bowel sounds, negative Noel sign RECTAL: deferred : deferred EXTREMITIES: No edema, cyanosis, clubbing MUSCULOSKELETAL: No joint swelling or deformity VASCULAR: normal peripheral pulses NEUROLOGIC: Somnolent, oriented to person/place/time, normal speech, cranial nerves grossly intact, 5/5 strength in all extremities, tactile sensation intact in all extremities SKIN: No rash, no wounds, no worrisome skin lesions PSYCHIATRIC: Normal mood, normal affect Results Laboratory Results: 08/24/16 16:35 08/24/16 16:12 08/24/16 08/24/16 08/24/16 16:12 16:12 16:12 WBC RBC Hgb Hct MCV MCH MCHC RDW Plt Count Seg Neutrophils % Lymphocytes % Monocytes % Eosinophils % Basophils % Absolute Neutrophils Absolute Lymphocytes Absolute Monocytes Absolute Eosinophils Absolute Basophils VBG pH 7.48 H VBG pCO2 36.7 VBG HCO3 27.0 VBG Base Excess 3.7 Sodium 136.6 L Potassium 3.5 L Chloride 101 Carbon Dioxide 25 Anion Gap 11 BUN 31 H Creatinine 0.97 Est GFR ( Amer) > 60 Est GFR (Non-Af Amer) > 60 Glucose 245 H Lactic Acid 1.2 Calcium 10.0 Total Bilirubin 1.2 AST 17 ALT 23 Alkaline Phosphatase 86 Total Protein 7.4 Albumin 4.6 Urine Color Urine Appearance Urine pH Ur Specific [place] Urine Protein Urine Glucose (UA) Urine Ketones Urine Blood Urine Nitrite Ur Leukocyte Esterase Urine WBC (Auto) Urine RBC (Auto) 08/24/16 08/24/16 16:35 17:07 WBC 11.5 H RBC 4.61 Hgb 15.1 Hct 45.3 MCV 98 H MCH 32.8 MCHC 33.4 RDW 14.0 Plt Count 192 Seg Neutrophils % 82.8 H Lymphocytes % 10.3 L Monocytes % 6.3 Eosinophils % 0.1 Basophils % 0.5 Absolute Neutrophils 9.5 H Absolute Lymphocytes 1.2 Absolute Monocytes 0.7 Absolute Eosinophils 0.0 Absolute Basophils 0.1 VBG pH VBG pCO2 VBG HCO3 VBG Base Excess Sodium Potassium Chloride Carbon Dioxide Anion Gap BUN Creatinine Est GFR ( Amer) Est GFR (Non-Af Amer) Glucose Lactic Acid Calcium Total Bilirubin AST ALT Alkaline Phosphatase Total Protein Albumin Urine Color YELLOW Urine Appearance SLIGHTLY-CLOUDY Urine pH 6.0 Ur Specific [place] 1.021 Urine Protein 30 H Urine Glucose (UA) 150 H Urine Ketones 20 H Urine Blood NEGATIVE Urine Nitrite NEGATIVE Ur Leukocyte Esterase NEGATIVE Urine WBC (Auto) 2 Urine RBC (Auto) 1 08/24/16 08/24/16 16:12 16:12 Creatine Kinase 88 CK-MB (CK-2) 1.00 Troponin I 0.012 Impressions: Chest X-Ray 08/24/16 15:31 IMPRESSION: NO ACUTE RADIOGRAPHIC FINDING IN THE CHEST. Head CT 08/24/16 17:55 IMPRESSION: NORMAL BRAIN CT WITHOUT CONTRAST. Assessment & Plan - Diagnosis (1) Encephalopathy Is this a current diagnosis for this admission?: YesPlan: Most likely secondary to polypharmacy as patient takes multiple neuroactive medications and has presented similarly in the past for this. I will hold neuroactive medications for now. Check ammonia level as patient has history of cirrhosis. Patient also has reported history of seizure so this is a consideration. We will use seizure precautions. (2) Chronic pain Is this a current diagnosis for this admission?: YesPlan: Hold narcotics for now, as well as other neuroactive pain medication. (3) Heart murmur Is this a current diagnosis for this admission?: Yes (4) Hypertension Is this a current diagnosis for this admission?: YesPlan: As needed IV hydralazine for now. (5) Diabetes mellitus type 1 Qualifiers: Is this a current diagnosis for this admission?: YesPlan: Hold insulin pump for now as patient has taken this off and does not have a new catheter. Temporarily start Lantus 20 units subcu daily. Sliding scale insulin. (6) Cirrhosis Qualifiers: Hepatic cirrhosis type: unspecified hepatic cirrhosis Is this a current diagnosis for this admission?: Yes (7) History of seizure Is this a current diagnosis for this admission?: Yes (8) Hypothyroid Qualifiers: Hypothyroidism type: unspecified Qualified Code(s): E03.9 - Hypothyroidism, unspecified Is this a current diagnosis for this admission?: YesPlan: Verify home dose of Synthroid and resume. (9) Tobacco dependency Is this a current diagnosis for this admission?: Yes - Time Time Spent: Greater than 70 Minutes Anticipated discharge: Home Within: within 48 hours
[2016-08-24 18:51] LABS: URINE BARBITURATES SCREEN NEGATIVE; URINE METHADONE SCREEN NEGATIVE; URINE OPIATES LOW NEGATIVE; URINE PHENCYCLIDINE SCREEN NEGATIVE
[2016-08-24] MEDS ORDERED: INSULIN GLARGINE,HUM.REC.ANLOG 1,000 UNIT/10 ML UNIT SUBCUT ONE (21:00)
[2016-08-24] MEDS ORDERED: INSULIN GLARGINE,HUM.REC.ANLOG 300 UNIT/3 ML INSULN.PEN SUBCUT ONE (21:22)
[2016-08-24] MEDS: INSULIN LISPRO 100 UNIT/ML 3 ML VIAL SUBCUT PRN (22:41)
[2016-08-24] MEDS: POTASSI CL 20 MEQ/NS 1L 1,000 ML IV PRN (22:41)
[2016-08-25 06:25] LABS: ABSOLUTE BASOPHILS # (AUTO) 0.1 10^3/uL (0.0-0.2); ABSOLUTE LYMPHOCYTES (AUTO) 1.3 10^3/uL (0.5-4.7); ABSOLUTE MONOCYTES (AUTO) 0.8 10^3/uL (0.1-1.4); ABSOLUTE NEUT (AUTO) 10.2 10^3/uL (1.7-8.2); BASOPHILS % (AUTO) 0.7 % (0-2); EOSINOPHILS % (AUTO) 0.1 % (0-6); HEMATOCRIT 45.7 % (36.0-47.0); HEMOGLOBIN 15.1 g/dL (12.0-15.5); HGB HCT DIFFERENCE -0.4; LYMPHOCYTES % (AUTO) 10.8 % (13-45); MEAN CORPUSCULAR HEMOGLOBIN 32.9 pg (27.0-33.4); MEAN CORPUSCULAR VOLUME 100 fl (80-97); MONOCYTES % (AUTO) 6.3 % (3-13); RED BLOOD COUNT 4.58 10^6/uL (3.72-5.28); RED CELL DISTRIBUTION WIDTH 14.3 % (11.5-14.0); SEGMENTED NEUTROPHILS % (AUTO) 82.1 % (42-78); WHITE BLOOD COUNT 12.5 10^3/uL (4.0-10.5)
[2016-08-25 06:39] LABS: ANION GAP 13 (5-19); BLOOD UREA NITROGEN 32 mg/dL (7-20); CALCIUM 9.2 mg/dL (8.4-10.2); CARBON DIOXIDE 19 mmol/L (22-30); CHLORIDE 108 mmol/L (98-107); CREATININE RESULT 0.86 mg/dL (0.52-1.25); GLUCOSE 269 mg/dL (75-110); POTASSIUM 3.7 mmol/L (3.6-5.0); SODIUM 139.5 mmol/L (137-145)
[2016-08-25] MEDS: ONDANSETRON HCL INJ/PF 4 MG/2 ML SDV IV PRN (08:22)
[2016-08-25] MEDS: POTASSI CL 20 MEQ/NS 1L 1,000 ML IV PRN ×2 (08:23→21:41)
[2016-08-25] MEDS: INSULIN LISPRO 100 UNIT/ML 3 ML VIAL SUBCUT PRN ×2 (09:50→11:01)
[2016-08-25] MEDS: ENOXAPARIN SODIUM INJ 40 MG/0.4 ML DISP.SYRIN SUBCUT SCH (09:51)
[2016-08-25] MEDS ORDERED: POTASSI CL 20 MEQ/NS 1L 1,000 ML IV PRN (10:13)
[2016-08-25] MEDS ORDERED: LORAZEPAM INJ 2 MG/1 ML VIAL IV PRN (10:15)
[2016-08-25] MEDS ORDERED: HYDROMORPHONE HCL INJ/PF 2 MG/ML AMPULE IV PRN (10:15)
[2016-08-25] MEDS ORDERED: NORMAL SALINE 1000 ML 1,000 ML IV ONE (10:18)
[2016-08-25] MEDS: INSULIN GLARGINE,HUM.REC.ANLOG 300 UNIT/3 ML INSULN.PEN SUBCUT SCH (10:22)
--- NOTE | 2016-08-25 12:56 | EKG REPORT ---
SEVERITY:- ABNORMAL ECG - SINUS RHYTHM SHORT HI INTERVAL, ACCELERATED AV CONDUCTION BIATRIAL ABNORMALITIES PROBABLE LEFT VENTRICULAR HYPERTROPHY BORDERLINE T ABNORMALITIES, INFERIOR LEADS : Confirmed by: Melisa Lam MD 25-Aug-2016 12:55:19
--- NOTE | 2016-08-25 14:55 | PDOC PROGRESS REPORT ---
Subjective Progress Note for:: 08/25/16 Subjective:: Patient is alert and appropriate today. She still feels generally weak and nauseous. Patient denies fever, chills, headache, new focal weakness, chest pain, shortness of breath, abdominal pain, vomiting, diarrhea, constipation. Physical Exam Vital Signs: Temp Pulse Resp BP Pulse Ox 98.2 F 88 14 135/92 H 100 08/25/16 11:08 08/25/16 11:08 08/25/16 11:08 08/25/16 11:08 08/25/16 11:08 Intake & Output 08/24/16 08/25/16 08/26/16 06:59 06:59 06:59 Intake Total 800 330 Balance 800 330 Weight 48.6 kg GENERAL: No acute distress HEENT: Conjunctiva clear, nonicteric, moist mucous membranes, no JVD, midline trachea RESPIRATORY: Clear to auscultation bilaterally, no wheezes, no rhonchi CARDIAC: Regular rate and rhythm, no murmurs/gallops/rubs ABDOMEN: Soft, nondistended, nontender, positive bowel sounds, no rebound, no guarding EXTREMETIES: No edema, cyanosis, clubbing NEUROLOGIC: Alert, oriented to person/place/time, CN's grossly intact, no focal deficits SKIN: No rash, wounds PSYCH: Normal mood, normal affect Results Laboratory Results: 08/25/16 05:55 08/25/16 05:55 08/24/16 08/25/16 08/25/16 20:00 05:55 05:55 WBC 12.5 H RBC 4.58 Hgb 15.1 Hct 45.7 MCV 100 H MCH 32.9 MCHC 33.0 RDW 14.3 H Plt Count 191 Seg Neutrophils % 82.1 H Lymphocytes % 10.8 L Monocytes % 6.3 Eosinophils % 0.1 Basophils % 0.7 Absolute Neutrophils 10.2 H Absolute Lymphocytes 1.3 Absolute Monocytes 0.8 Absolute Eosinophils 0.0 Absolute Basophils 0.1 Sodium 139.5 Potassium 3.7 Chloride 108 H Carbon Dioxide 19 L Anion Gap 13 BUN 32 H Creatinine 0.86 Est GFR ( Amer) > 60 Est GFR (Non-Af Amer) > 60 Glucose 269 H Calcium 9.2 Ammonia Cancelled Impressions: Chest X-Ray 08/24/16 15:31 IMPRESSION: NO ACUTE RADIOGRAPHIC FINDING IN THE CHEST. Head CT 08/24/16 17:55 IMPRESSION: NORMAL BRAIN CT WITHOUT CONTRAST. Assessment & Plan - Diagnosis (1) Diabetes mellitus type 1 Qualifiers: Is this a current diagnosis for this admission?: YesPlan: Continue Lantus and sliding scale insulin for now. Patient uses insulin pump as an outpatient. Give aggressive IV fluids this morning and repeat basic metabolic panel this afternoon. If patient is still hyperglycemic and acidotic may start insulin drip. (2) Encephalopathy Is this a current diagnosis for this admission?: YesPlan: Resolved. Most likely secondary to polypharmacy as patient takes multiple neuroactive medications and has presented similarly in the past for this. Patient also has reported history of seizure so this is a consideration. We will use seizure precautions. (3) Chronic pain Is this a current diagnosis for this admission?: YesPlan: Hold narcotics for now, as well as other neuroactive pain medication. (4) Heart murmur Is this a current diagnosis for this admission?: Yes (5) Hypertension Is this a current diagnosis for this admission?: YesPlan: As needed IV hydralazine for now. (6) Cirrhosis Qualifiers: Hepatic cirrhosis type: unspecified hepatic cirrhosis Is this a current diagnosis for this admission?: Yes (7) History of seizure Is this a current diagnosis for this admission?: Yes (8) Hypothyroid Qualifiers: Hypothyroidism type: unspecified Qualified Code(s): E03.9 - Hypothyroidism, unspecified Is this a current diagnosis for this admission?: YesPlan: Verify home dose of Synthroid and resume. (9) Tobacco dependency Is this a current diagnosis for this admission?: Yes - Time Time Spent with patient: 35 or more minutes
[2016-08-25 15:27] LABS: ANION GAP 9 (5-19); BLOOD UREA NITROGEN 25 mg/dL (7-20); CALCIUM 8.7 mg/dL (8.4-10.2); CARBON DIOXIDE 23 mmol/L (22-30); CHLORIDE 109 mmol/L (98-107); CREATININE RESULT 0.74 mg/dL (0.52-1.25); GLUCOSE 120 mg/dL (75-110); POTASSIUM 3.4 mmol/L (3.6-5.0); SODIUM 140.9 mmol/L (137-145)
[2016-08-26] MEDS: POTASSI CL 20 MEQ/NS 1L 1,000 ML IV PRN ×3 (04:19→19:31)
[2016-08-26 06:14] LABS: ABSOLUTE BASOPHILS # (AUTO) 0.1 10^3/uL (0.0-0.2); ABSOLUTE EOSINOPHILS # (AUTO) 0.1 10^3/uL (0.0-0.6); ABSOLUTE LYMPHOCYTES (AUTO) 1.6 10^3/uL (0.5-4.7); ABSOLUTE MONOCYTES (AUTO) 0.8 10^3/uL (0.1-1.4); ABSOLUTE NEUT (AUTO) 11.1 10^3/uL (1.7-8.2); BASOPHILS % (AUTO) 0.7 % (0-2); EOSINOPHILS % (AUTO) 0.5 % (0-6); HEMOGLOBIN 15.6 g/dL (12.0-15.5); HGB HCT DIFFERENCE -0.2; LYMPHOCYTES % (AUTO) 11.4 % (13-45); MEAN CORPUSCULAR HEMOGLOBIN 33.1 pg (27.0-33.4); MEAN CORPUSCULAR HGB CONC 33.2 g/dL (32.0-36.0); MEAN CORPUSCULAR VOLUME 100 fl (80-97); MONOCYTES % (AUTO) 5.9 % (3-13); RED BLOOD COUNT 4.72 10^6/uL (3.72-5.28); RED CELL DISTRIBUTION WIDTH 13.9 % (11.5-14.0); SEGMENTED NEUTROPHILS % (AUTO) 81.5 % (42-78); WHITE BLOOD COUNT 13.7 10^3/uL (4.0-10.5)
[2016-08-26 06:16] LABS: ANION GAP 8 (5-19); BLOOD UREA NITROGEN 14 mg/dL (7-20); CALCIUM 8.9 mg/dL (8.4-10.2); CARBON DIOXIDE 25 mmol/L (22-30); CHLORIDE 105 mmol/L (98-107); CREATININE RESULT 0.68 mg/dL (0.52-1.25); GLUCOSE 101 mg/dL (75-110); POTASSIUM 3.5 mmol/L (3.6-5.0); SODIUM 137.8 mmol/L (137-145)
[2016-08-26] MEDS: LEVOFLOXACIN 750 MG TABLET PO SCH (09:00)
[2016-08-26] MEDS: ENOXAPARIN SODIUM INJ 40 MG/0.4 ML DISP.SYRIN SUBCUT SCH (09:00)
[2016-08-26] MEDS: INSULIN GLARGINE,HUM.REC.ANLOG 300 UNIT/3 ML INSULN.PEN SUBCUT SCH (09:59)
--- NOTE | 2016-08-26 11:29 | Physician Advisory Note ---
Physician Advisor ProgressNote .: Pursuant to the plan for [facility], I have reviewed the medical record for this patient. Physician Advisor Statement: Possible documentation opportunities if attending agrees: 1. "Mild hyponatremia, likely due to intravascular volume depletion" 2. "Acute metabolic acidosis, suspect due to " [ a type of infxn? ] 3. Principal Dx - please make clear which dx is Principal Dx, by making it Dx # 1 or specifying in the text which it is [H&P states encephalop due to polypharmacy is dx #1, PN has DM-1 as dx #1.] As always, if concerned about any unstable VS or abnormal labs, please comment on them - what bad things they might indicate, why they concern you - & note what doing about them. Please also document each day the potential clinical problems you are concerned could occur if pt not kept in hospital for tx at this time. (These points are de la vega - if present in each note, attending's status decision should be sufficiently supported.) Discussion: 51yo female w/ chronic co-morbidities including repeated prior admissions for AMS due to polypharmacy, who has chronic opiate dependence, polypharmacy for chronic pain, cirrhosis, GERD, peptic ulcer, DM-1 w/insulin pump, CAD, past DVT & PE, HTN, HLD, COPD, past CVA, past sz.s but no ongoing sx meds, dep/anx - presented 08/24 to ED w/AMS & hyperglycemia complaints. She was so uncooperative she required Versed on the way in. EMS removed her Fentanyl patch. Family reported no eating or getting OOB for a few days. (+) HR 106, dry mucosae, mild distress, still confused in ED. WBC 11.5, Na 136.6, K 3.5, bicarb 25, BUN 31, Cr 0.97, glc 245, U/A w/(+)pro/glc/ketones - consistent with poor po intake of liquids & calories recently. ED gave 1L NS bolus. Attending documented pt still somnolent but starting to act more normal by time of H&P. Attending held opioids/neuroactive meds, ordered NH3 level, sz precautions, gave IVF 2/K at 100, Lantus 20 units, prn Valium, I/Os, BR w/BRP, tele monitoring, sz prec.s, VS q5h, daily wts, FSBS's & SSI, f/u labs. Status: Appropriate to bring in as Outpt Obs initially for AMS due to polypharmacy, intravascular volume depletion, given potential for quick improvement. However, on 08/25, although she was by then alert & appropriate, she was weak & nauseated, w/worsened WBC 12.5, worsened bicarb of 19, BUN no better at 32. Attending increased IVF to 150ml/hr, plus add'l KCl, Lantus 20 daily to continue in absence of her insulin pump, OOB with assist, prn IV DIlaudid & Ativan. That PM, pt developed hypoglycemia to 43 at 21:40. On 08/26, although metabolic acidosis appears resolved, leukocytosis is even worse, at 13.7, & patient continues to have recurrent tachycardia so she is not hemodynamically stable. Although BUN has dropped to 14 with IVF, she now has a high Hct that is concerning for ongoing hemoconcentration. Attending is clearly concerned for possible infectious cause, & has ordered Levaquin, as well as abd U/S, & f/u labs for 08/27. Tx & monitoring in inpatient hospital setting medically reasonable & necessary to protect pt's health, safety, & medical condition. Appropriate for INpt status. Thanks for your help with documentation accuracy/specificity improvement! Sophia Adan MD [facility] Physician Advisor, Fellow of Hospital Medicine
[2016-08-26] MEDS: INSULIN LISPRO 100 UNIT/ML 3 ML VIAL SUBCUT PRN ×3 (12:37→22:00)
--- NOTE | 2016-08-26 14:17 | RADIOLOGY REPORT (SQ) ---
EXAM DESCRIPTION: U/S ABDOMEN LTD W/DOPPLER COMPLETED DATE/TIME: 08/26/2016 2:06 pm REASON FOR STUDY: RUQ u/s. elevated WBC, RUQ tenderness COMPARISON: None. TECHNIQUE: Dynamic and static grayscale images acquired of the abdomen and recorded on PACS. Carolo tim selected color Doppler and spectral images recorded. LIMITATIONS: None. FINDINGS: PANCREAS: No masses. Visualized pancreatic duct normal caliber. LIVER: No masses. Echotexture normal. LIVER VASCULATURE: Normal directional flow of the main portal vein and hepatic veins. GALLBLADDER: Contracted. No stones. Normal wall thickness. No pericholecystic fluid. ULTRASOUND-DETECTED SAMPSON'S SIGN: Negative. INTRAHEPATIC DUCTS AND COMMON DUCT: CBD and intrahepatic ducts normal caliber. No filling defects. INFERIOR VENA CAVA: Normal flow. AORTA: No aneurysm. RIGHT KIDNEY: Normal size. Normal echogenicity. No solid or suspicious masses. No hydronephrosis. No calcifications. PERITONEAL AND RIGHT PLEURAL SPACE: No ascites or effusions. OTHER: No other significant findings. IMPRESSION: NORMAL RIGHT UPPER QUADRANT ULTRASOUND. TECHNICAL DOCUMENTATION: JOB ID: [id number]- All Rights Reserved
[2016-08-26] MEDS ORDERED: HYDRALAZINE HCL INJ/PF 20 MG/1 ML SDV IV PRN (14:53)
--- NOTE | 2016-08-26 15:15 | PDOC PROGRESS REPORT ---
Subjective Progress Note for:: 08/26/16 Subjective:: Patient is feeling better in general since she did on admission. She has no complaints but upon review review of systems does state that she has abdominal discomfort. He denies fever, chills, chest pain, shortness of breath, nausea, vomiting. Physical Exam Vital Signs: Temp Pulse Resp BP Pulse Ox 98.6 F 98 20 140/86 H 100 08/26/16 11:41 08/26/16 11:41 08/26/16 11:41 08/26/16 11:41 08/26/16 11:41 GENERAL: No acute distress HEENT: Conjunctiva clear, nonicteric, moist mucous membranes, no JVD, midline trachea RESPIRATORY: Clear to auscultation bilaterally, no wheezes, no rhonchi CARDIAC: Regular rate and rhythm, no murmurs/gallops/rubs ABDOMEN: Soft, nondistended, mild epigastric to right upper quadrant tenderness , positive bowel sounds, no rebound, no guarding EXTREMETIES: No edema, cyanosis, clubbing NEUROLOGIC: Alert, oriented to person/place/time, CN's grossly intact, no focal deficits SKIN: No rash, wounds PSYCH: Normal mood, normal affect Results Impressions: Chest X-Ray 08/24/16 15:31 IMPRESSION: NO ACUTE RADIOGRAPHIC FINDING IN THE CHEST. Head CT 08/24/16 17:55 IMPRESSION: NORMAL BRAIN CT WITHOUT CONTRAST. Abdomen Ultrasound 08/26/16 10:35 IMPRESSION: NORMAL RIGHT UPPER QUADRANT ULTRASOUND. Assessment & Plan - Diagnosis (1) Encephalopathy Is this a current diagnosis for this admission?: YesPlan: Resolved. Most likely secondary to polypharmacy as patient takes multiple neuroactive medications and has presented similarly in the past for this. Mild DKA may have been contributing as well. Patient also has reported history of seizure so this is a consideration. (2) Diabetes mellitus type 1 Qualifiers: Is this a current diagnosis for this admission?: YesPlan: Continue Lantus and sliding scale insulin for now. Patient uses insulin pump as an outpatient. Patient had mild DKA on presentation that has now corrected. She corrected within hours with just aggressive IV fluid and subcutaneous insulin. Did not require insulin drip. (3) Leukocytosis Is this a current diagnosis for this admission?: YesPlan: Etiology unclear. Started empiric Levaquin. Urinalysis negative. Chest x-ray negative. Right upper quadrant ultrasound negative. (4) Chronic pain Is this a current diagnosis for this admission?: YesPlan: Patient should readdress chronic pain regimen with Dr. Saenz she has been admitted on several occasions for altered mental status at least partially associated with polypharmacy. (5) Heart murmur Is this a current diagnosis for this admission?: Yes (6) Hypertension Is this a current diagnosis for this admission?: YesPlan: As needed IV hydralazine for now. (7) Cirrhosis Qualifiers: Hepatic cirrhosis type: unspecified hepatic cirrhosis Is this a current diagnosis for this admission?: Yes (8) History of seizure Is this a current diagnosis for this admission?: Yes (9) Hypothyroid Qualifiers: Hypothyroidism type: unspecified Qualified Code(s): E03.9 - Hypothyroidism, unspecified Is this a current diagnosis for this admission?: Yes (10) Tobacco dependency Is this a current diagnosis for this admission?: Yes (11) Metabolic acidosis Is this a current diagnosis for this admission?: Yes - Time Time Spent with patient: 35 or more minutes Anticipated discharge: Home Within: within 24 hours
[2016-08-27] MEDS: POTASSI CL 20 MEQ/NS 1L 1,000 ML IV PRN ×3 (03:09→23:34)
[2016-08-27] MEDS: ONDANSETRON HCL INJ/PF 4 MG/2 ML SDV IV PRN ×2 (04:02→23:11)
[2016-08-27 05:31] LABS: ABSOLUTE LYMPHOCYTES (AUTO) 1.4 10^3/uL (0.5-4.7); ABSOLUTE MONOCYTES (AUTO) 0.7 10^3/uL (0.1-1.4); ABSOLUTE NEUT (AUTO) 8.1 10^3/uL (1.7-8.2); BASOPHILS % (AUTO) 0.3 % (0-2); EOSINOPHILS % (AUTO) 0.1 % (0-6); HEMATOCRIT 44.1 % (36.0-47.0); HEMOGLOBIN 14.7 g/dL (12.0-15.5); LYMPHOCYTES % (AUTO) 13.8 % (13-45); MEAN CORPUSCULAR HEMOGLOBIN 33.2 pg (27.0-33.4); MEAN CORPUSCULAR HGB CONC 33.4 g/dL (32.0-36.0); MEAN CORPUSCULAR VOLUME 100 fl (80-97); RED BLOOD COUNT 4.43 10^6/uL (3.72-5.28); RED CELL DISTRIBUTION WIDTH 13.6 % (11.5-14.0); SEGMENTED NEUTROPHILS % (AUTO) 78.8 % (42-78); WHITE BLOOD COUNT 10.3 10^3/uL (4.0-10.5)
[2016-08-27 06:00] LABS: ALANINE AMINOTRANSFERASE 23 U/L (9-52); ALBUMIN 3.1 g/dL (3.5-5.0); ALKALINE PHOSPHATASE 65 U/L (38-126); ANION GAP 10 (5-19); ASPARTATE AMINO TRANSFERASE 14 U/L (14-36); BILIRUBIN,DIRECT 0.3 mg/dL (0.0-0.4); BILIRUBIN,TOTAL 1.5 mg/dL (0.2-1.3); BLOOD UREA NITROGEN 19 mg/dL (7-20); CALCIUM 7.6 mg/dL (8.4-10.2); CARBON DIOXIDE 19 mmol/L (22-30); CHLORIDE 104 mmol/L (98-107); CREATININE RESULT 0.72 mg/dL (0.52-1.25); GLUCOSE 341 mg/dL (75-110); MAGNESIUM 1.5 mg/dL (1.6-2.3); SODIUM 132.7 mmol/L (137-145); TOTAL PROTEIN 5.2 g/dL (6.3-8.2)
[2016-08-27 06:14] LABS: POTASSIUM 4.7 mmol/L (3.6-5.0)
[2016-08-27] MEDS ORDERED: (PENDING PHARMACY ID) (Cyclobenzaprine Hcl [Flexeril 5 Mg Tablet] 5 MG) PO PRN (07:34)
[2016-08-27] MEDS ORDERED: ACETAMINOPHEN WITH CODEINE #3 TABLET PO PRN (07:34)
[2016-08-27] MEDS ORDERED: NORMAL SALINE 1000 ML 1,000 ML IV ONE ×2 (07:39→12:00)
[2016-08-27] MEDS ORDERED: DIAZEPAM 5 MG TABLET PO PRN (07:44)
[2016-08-27] MEDS ORDERED: CYCLOBENZAPRINE HCL 10 MG TABLET PO PRN (07:49)
[2016-08-27] MEDS: FLUDROCORTISONE ACETATE 0.1 MG TABLET PO SCH (09:10)
[2016-08-27] MEDS: INSULIN LISPRO 100 UNIT/ML 3 ML VIAL SUBCUT PRN ×3 (09:11→16:47)
[2016-08-27] MEDS: CALCIUM CARBONATE 500 MG TAB.CHEW PO SCH ×4 (09:12→23:19)
[2016-08-27] MEDS: MAGNESIUM SULFATE/D5W 1 GM/100 ML RTUPB IV SCH ×2 (09:12→10:41)
[2016-08-27] MEDS: LEVOFLOXACIN 750 MG TABLET PO SCH (09:14)
[2016-08-27] MEDS: ENOXAPARIN SODIUM INJ 40 MG/0.4 ML DISP.SYRIN SUBCUT SCH (09:15)
[2016-08-27] MEDS: LEVOTHYROXINE SODIUM 0.05 MG TABLET PO SCH (09:16)
[2016-08-27] MEDS: SENNOSIDES/DOCUSATE 8.6-50 MG 1 EACH TABLET PO SCH ×2 (09:16→16:35)
[2016-08-27] MEDS: AMLODIPINE BESYLATE 5 MG TABLET PO SCH ×2 (09:17→23:13)
[2016-08-27] MEDS: DOCUSATE SODIUM 100 MG CAPSULE PO SCH ×2 (09:17→16:35)
[2016-08-27] MEDS: ESCITALOPRAM OXALATE 10 MG TABLET PO SCH (09:17)
[2016-08-27] MEDS: VALACYCLOVIR HCL 500 MG TABLET PO SCH (09:18)
[2016-08-27] MEDS: RANOLAZINE 500 MG TAB.SR.12H PO SCH ×2 (09:18→23:16)
--- NOTE | 2016-08-27 09:20 | RADIOLOGY REPORT (SQ) ---
EXAM DESCRIPTION: KUB/ABDOMEN (SINGLE VIEW) COMPLETED DATE/TIME: 08/27/2016 9:03 am REASON FOR STUDY: abdominal pain COMPARISON: 06/15/2016. NUMBER OF VIEWS: One view. TECHNIQUE: Supine radiographic image of the abdomen acquired. LIMITATIONS: None. FINDINGS: BOWEL GAS PATTERN: Normal bowel gas pattern. No dilated loops. Moderate amount of fecal m aterial in the colon. CALCIFICATIONS: No suspicious calcifications. Stable calcifications right pelvis felt to represent p hleboliths. SOFT TISSUES: No gross mass or suggestion of organomegaly. HARDWARE: None in the abdomen. BONES: No acute fracture. No worrisome bone lesions. OTHER: No other significant finding. IMPRESSION: NO RADIOGRAPHIC EVIDENCE FOR ACUTE ABDOMINAL DISEASE. TECHNICAL DOCUMENTATION: JOB ID: [id number] [employer]- All Rights Reserved
[2016-08-27] MEDS ORDERED: FENTANYL 100 MCG/HR PATCH.TD72 TD SCH (10:00)
[2016-08-27] MEDS ORDERED: INSULIN GLARGINE,HUM.REC.ANLOG 300 UNIT/3 ML INSULN.PEN SUBCUT SCH (10:00)
[2016-08-27] MEDS ORDERED: (PENDING PHARMACY ID) (Ranolazine [Ranexa] 1,000 MG) PO SCH (10:00)
[2016-08-27] MEDS ORDERED: MAGNESIUM CITRATE 296 ML BOTTLE PO ONE (12:00)
[2016-08-27] MEDS: LACTULOSE SYRUP 20 GM/30 ML UDCUP PO SCH ×2 (13:09→16:30)
[2016-08-27] MEDS: GABAPENTIN 100 MG CAPSULE PO SCH ×2 (13:14→23:15)
[2016-08-27] MEDS ORDERED: MAGNESIUM SULFATE/D5W 1 GM/100 ML RTUPB IV ONE (15:00)
--- NOTE | 2016-08-27 16:31 | PDOC PROGRESS REPORT ---
Subjective Progress Note for:: 08/27/16 Subjective:: Patient reports that she is leaving today. Patient is unable to recall the year. Have informed patient that I am happy to sign her out AGAINST MEDICAL ADVICE to her next of kin if they are willing to accept this responsibility. Patient complains of pain all over. Denies chest pain, shortness of breath, fever, chills. Complains of nausea and abdominal pain. Patient reports diarrhea. Physical Exam Vital Signs: Temp Pulse Resp BP Pulse Ox 98.6 F 99 16 155/97 H 99 08/27/16 07:08 08/27/16 07:08 08/27/16 07:08 08/27/16 07:08 08/27/16 07:08 Intake & Output 08/26/16 08/27/16 08/28/16 06:59 06:59 06:59 Intake Total 4009 Output Total 2350 Balance 1659 Weight 49.9 kg Exam: GENERAL: No acute distress, thin, older than stated age appearing HEENT: Right eye conjunctiva injection, mild right eye swelling, nonicteric, moist mucous membranes, no JVD, midline trachea RESPIRATORY: Clear to auscultation bilaterally, no wheezes, no rhonchi CARDIAC: Regular rate and rhythm, no murmurs/gallops/rubs ABDOMEN: Soft, nondistended, NTTP, hypoactive bowel sounds, no rebound, no guarding EXTREMETIES: No edema, cyanosis, clubbing NEUROLOGIC: Alert, oriented to person/place, not oriented to time, CN's grossly intact, tremulous SKIN: No rash, wounds PSYCH: Normal mood, normal affect Results Laboratory Results: 08/27/16 04:30 08/27/16 04:30 08/27/16 08/27/16 04:30 04:30 WBC 10.3 RBC 4.43 Hgb 14.7 Hct 44.1 MCV 100 H MCH 33.2 MCHC 33.4 RDW 13.6 Plt Count 152 Seg Neutrophils % 78.8 H Lymphocytes % 13.8 Monocytes % 7.0 Eosinophils % 0.1 Basophils % 0.3 Absolute Neutrophils 8.1 Absolute Lymphocytes 1.4 Absolute Monocytes 0.7 Absolute Eosinophils 0.0 Absolute Basophils 0.0 Sodium 132.7 L Potassium 4.7 D Chloride 104 Carbon Dioxide 19 L Anion Gap 10 BUN 19 Creatinine 0.72 Est GFR ( Amer) > 60 Est GFR (Non-Af Amer) > 60 Glucose 341 H Calcium 7.6 L Magnesium 1.5 L Total Bilirubin 1.5 H AST 14 ALT 23 Alkaline Phosphatase 65 Total Protein 5.2 L Albumin 3.1 L Impressions: Chest X-Ray 08/24/16 15:31 IMPRESSION: NO ACUTE RADIOGRAPHIC FINDING IN THE CHEST. Head CT 08/24/16 17:55 IMPRESSION: NORMAL BRAIN CT WITHOUT CONTRAST. Abdomen Ultrasound 08/26/16 10:35 IMPRESSION: NORMAL RIGHT UPPER QUADRANT ULTRASOUND. KUB X-Ray 08/27/16 00:00 IMPRESSION: NO RADIOGRAPHIC EVIDENCE FOR ACUTE ABDOMINAL DISEASE. Assessment & Plan - Diagnosis (1) Diabetic ketoacidosis Qualifiers: Diabetes mellitus type: type 1 Diabetes mellitus complication detail: without coma Qualified Code(s): E10.10 - Type 1 diabetes mellitus with ketoacidosis without coma Is this a current diagnosis for this admission?: YesPlan: This appears to have improved and is likely secondary to not using her pump and poor p.o. intake. (2) Encephalopathy Is this a current diagnosis for this admission?: YesPlan: Pain, but not yet back to baseline. Patient is not completely oriented. Likely secondary to patient's polypharmacy and DKA. (3) Opiate abuse, episodic Is this a current diagnosis for this admission?: YesPlan: Has a history of episodic opiate abuse. Currently opiate dependent. Have re-started patient's fentanyl patch and Tylenol with codeine. (4) History of seizure Is this a current diagnosis for this admission?: Yes (5) Hypothyroid Qualifiers: Hypothyroidism type: unspecified Qualified Code(s): E03.9 - Hypothyroidism, unspecified Is this a current diagnosis for this admission?: Yes (6) Tobacco dependency Is this a current diagnosis for this admission?: Yes (7) Hypomagnesemia Is this a current diagnosis for this admission?: YesPlan: Replete and recheck (8) Protein-calorie malnutrition, moderate Is this a current diagnosis for this admission?: YesPlan: Have obtained dietary consultation. Patient is quite weak. (9) HLD (hyperlipidemia) Qualifiers: Hyperlipidemia type: unspecified Qualified Code(s): E78.5 - Hyperlipidemia, unspecified Is this a current diagnosis for this admission?: Yes - Time Time Spent with patient: 25-34 minutes Medications reviewed and adjusted accordingly: Yes Anticipated discharge: Home with Homehealth Within: within 24 hours
[2016-08-27] MEDS ORDERED: TRAZODONE HCL 50 MG TABLET PO SCH (22:00)
[2016-08-27] MEDS ORDERED: ROPINIROLE HCL 1 MG TABLET PO SCH (22:00)
[2016-08-27] MEDS ORDERED: LISINOPRIL 5 MG TABLET PO SCH (22:00)
[2016-08-27] MEDS ORDERED: ESTROGENS,CONJUGATED 0.625 MG/1 GM 30 GM TUBE VG SCH (22:00)
[2016-08-27] MEDS ORDERED: (PENDING PHARMACY ID) (Trazodone Hcl [Desyrel] 100 MG) PO SCH (22:00)
[2016-08-27] MEDS ORDERED: ATORVASTATIN CALCIUM 40 MG TABLET PO SCH (22:00)
[2016-08-27] MEDS ORDERED: (PENDING PHARMACY ID) (Lisinopril [Prinivil 2.5 Mg Tablet] 2.5 MG) PO SCH (22:00)
[2016-08-27 22:36] LABS: ANION GAP 9 (5-19); BLOOD UREA NITROGEN 25 mg/dL (7-20); CALCIUM 8.1 mg/dL (8.4-10.2); CARBON DIOXIDE 24 mmol/L (22-30); CHLORIDE 106 mmol/L (98-107); CREATININE RESULT 0.96 mg/dL (0.52-1.25); GLUCOSE 84 mg/dL (75-110); SODIUM 138.7 mmol/L (137-145)
[2016-08-27 22:45] LABS: POTASSIUM 3.4 mmol/L (3.6-5.0)
[2016-08-27] MEDS: INSULIN GLARGINE,HUM.REC.ANLOG 300 UNIT/3 ML INSULN.PEN SUBCUT SCH (23:37)
[2016-08-28] MEDS ORDERED: LANSOPRAZOLE 15 MG TAB.RAP.DR PO SCH (06:00)
[2016-08-28] MEDS: GABAPENTIN 100 MG CAPSULE PO SCH ×2 (06:29→13:46)
[2016-08-28] MEDS: POTASSI CL 20 MEQ/NS 1L 1,000 ML IV PRN (06:49)
[2016-08-28 06:51] LABS: ABSOLUTE BASOPHILS # (AUTO) 0.1 10^3/uL (0.0-0.2); ABSOLUTE LYMPHOCYTES (AUTO) 2.5 10^3/uL (0.5-4.7); ABSOLUTE MONOCYTES (AUTO) 0.6 10^3/uL (0.1-1.4); BASOPHILS % (AUTO) 0.9 % (0-2); EOSINOPHILS % (AUTO) 0.2 % (0-6); HEMATOCRIT 41.3 % (36.0-47.0); HEMOGLOBIN 14.1 g/dL (12.0-15.5); LYMPHOCYTES % (AUTO) 22.5 % (13-45); MEAN CORPUSCULAR HEMOGLOBIN 33.4 pg (27.0-33.4); MEAN CORPUSCULAR HGB CONC 34.2 g/dL (32.0-36.0); MEAN CORPUSCULAR VOLUME 98 fl (80-97); MONOCYTES % (AUTO) 5.5 % (3-13); RED BLOOD COUNT 4.22 10^6/uL (3.72-5.28); RED CELL DISTRIBUTION WIDTH 13.7 % (11.5-14.0); SEGMENTED NEUTROPHILS % (AUTO) 70.9 % (42-78); WHITE BLOOD COUNT 11.3 10^3/uL (4.0-10.5)
[2016-08-28 07:10] LABS: ANION GAP 7 (5-19); BLOOD UREA NITROGEN 18 mg/dL (7-20); CARBON DIOXIDE 25 mmol/L (22-30); CHLORIDE 105 mmol/L (98-107); CREATININE RESULT 0.76 mg/dL (0.52-1.25); GLUCOSE 151 mg/dL (75-110); MAGNESIUM 1.9 mg/dL (1.6-2.3); POTASSIUM 3.8 mmol/L (3.6-5.0); SODIUM 137.4 mmol/L (137-145)
[2016-08-28] MEDS: LEVOFLOXACIN 750 MG TABLET PO SCH (08:11)
[2016-08-28] MEDS: CALCIUM CARBONATE 500 MG TAB.CHEW PO SCH ×3 (08:11→16:22)
[2016-08-28] MEDS: INSULIN LISPRO 100 UNIT/ML 3 ML VIAL SUBCUT PRN ×3 (08:11→17:02)
[2016-08-28] MEDS: SENNOSIDES/DOCUSATE 8.6-50 MG 1 EACH TABLET PO SCH ×2 (09:27→17:03)
[2016-08-28] MEDS: DOCUSATE SODIUM 100 MG CAPSULE PO SCH ×2 (09:27→17:03)
[2016-08-28] MEDS: AMLODIPINE BESYLATE 5 MG TABLET PO SCH (09:28)
[2016-08-28] MEDS: VALACYCLOVIR HCL 500 MG TABLET PO SCH (09:28)
[2016-08-28] MEDS: LEVOTHYROXINE SODIUM 0.05 MG TABLET PO SCH (09:28)
[2016-08-28] MEDS: ENOXAPARIN SODIUM INJ 40 MG/0.4 ML DISP.SYRIN SUBCUT SCH (09:29)
[2016-08-28] MEDS: RANOLAZINE 500 MG TAB.SR.12H PO SCH (09:29)
[2016-08-28] MEDS: FLUDROCORTISONE ACETATE 0.1 MG TABLET PO SCH (09:29)
[2016-08-28] MEDS: ESCITALOPRAM OXALATE 10 MG TABLET PO SCH (09:29)
[2016-08-28] MEDS: LACTULOSE SYRUP 20 GM/30 ML UDCUP PO SCH ×3 (09:30→17:03)
[2016-08-28] MEDS: INSULIN GLARGINE,HUM.REC.ANLOG 300 UNIT/3 ML INSULN.PEN SUBCUT SCH (09:30)
--- NOTE | 2016-08-28 12:57 | RADIOLOGY REPORT (SQ) ---
EXAM DESCRIPTION: CT FACIAL AREA WITHOUT COMPLETED DATE/TIME: 08/28/2016 12:34 pm REASON FOR STUDY: concern for septal cellulitis COMPARISON: CT brain 08/24/2016 TECHNIQUE: Noncontrasted images through the facial bones and orbits windowed for bone and soft tissu e. Additional coronal and sagittal reconstructed images reviewed. All images stored on PACS. All CT scanners at this facility use dose modulation, iterative reconstruction, and/or weight based d osing when appropriate to reduce radiation dose to as low as reasonably achievable (ALARA). [facility]: Dose Right [facility]: CareDose [facility]: Dose Right [facility]: Teradose 4D [facility]: [employer] RADIATION DOSE: 45mGy. LIMITATIONS: None. FINDINGS: Patient is post recent lower teeth extraction along the alveolar ridge of the mandible. I n this area, there are empty tooth sockets for the right lower incisors and canine tooth, with some b ynes erosion of the mandibular cortex. Overlying soft tissue swelling cellulitis over the chin, with stranding in the subcutaneous fat and thickening of the skin. Findings likely represent facial cellu litis related to dental infection and mandibular osteomyelitis. No gross well-circumscribed abscess. Please note that sensitivity for abscess is decreased given the lack of IV contrast. These results were discussed with Dr. Khan. FACIAL BONES: No fracture or bone lesion. ORBITS: Intact. No fracture. Symmetric intact globes and retroorbital soft tissues. No evidence of retrobulbar abscess. PARANASAL SINUSES: Clear. No significant mucosal thickening, mass or fluid. No nasal polyps. Maxill tor sinus outlets are patent. SOFT TISSUES: Facial cellulitis over the chin soft tissues. Incidental finding of a 7 mm sebaceous c yst over the left pre maxillary soft tissues. INFERIOR BRAIN: Limited view. No acute findings. OTHER: No other significant finding. IMPRESSION: Post recent lower tooth extraction along the alveolar ridge of the mandible, with overly ing facial cellulitis. No gross evidence of abscess. TECHNICAL DOCUMENTATION: JOB ID: [id number] Quality ID # [id number]: Final reports with documentation of one or more dose reduction techniques (e.g., Au tomated exposure control, adjustment of the mA and/or kV according to patient size, use of iterative reconstruction technique) 2010 [employer]- All Rights Reserved
[2016-08-28] MEDS: POLYMYXIN B SULFATE/TMP OPH SOLN 10 ML OD SCH ×2 (13:46→17:03)
[2016-08-28 15:51] VITALS: BP 130/80
[2016-08-28] MEDS ORDERED: CLINDAMYCIN HCL 150 MG CAPSULE PO SCH (18:00)
--- NOTE | 2016-08-29 18:56 | PDOC DISCHARGE SUMMARY ---
General - Admit/Disc Date/PCP Admission Date/Primary Care Provider: 08/26/16 13:28 CONCEPCION GONCALVES MD Discharge Date: 08/28/16 - Discharge Diagnosis (1) Diabetic ketoacidosis Is this a current diagnosis for this admission?: Yes (2) Encephalopathy Is this a current diagnosis for this admission?: Yes (3) Opiate abuse, episodic Is this a current diagnosis for this admission?: Yes (4) History of seizure Is this a current diagnosis for this admission?: Yes (5) Hypothyroid Is this a current diagnosis for this admission?: Yes (6) Tobacco dependency Is this a current diagnosis for this admission?: Yes (7) Hypomagnesemia Is this a current diagnosis for this admission?: Yes (8) Protein-calorie malnutrition, moderate Is this a current diagnosis for this admission?: Yes (9) HLD (hyperlipidemia) Is this a current diagnosis for this admission?: Yes (10) Conjunctivitis Is this a current diagnosis for this admission?: Yes (11) Cellulitis and abscess of face Is this a current diagnosis for this admission?: Yes - Additional Information Resuscitation Status: Full Code Discharge Diet: Diabetic Discharge Activity: Activity As Tolerated Home Medications: Acetaminophen with Codeine [Tylenol #3 Tablet] 1 tab PO Q6HP PRN 08/25/16 Amlodipine Besylate [Norvasc 5 mg Tablet] 5 mg PO Q12 08/25/16 Atorvastatin Calcium [Lipitor 40 mg Tablet] 40 mg PO QHS 08/25/16 Cyclobenzaprine HCl [Flexeril 5 mg Tablet] 5 mg PO TIDP PRN 08/25/16 Diazepam [Valium] 10 mg PO TIDP PRN 08/25/16 Escitalopram Oxalate [Lexapro 10 mg Tablet] 10 mg PO DAILY 08/25/16 Estrogens,Conjugated [Premarin Vaginal Cream (0.625 mg/gm) 30 gm] 1 applic VG QHS 08/25/16 Fentanyl [Duragesic 100 Mcg/Hr Transdermal Patch] 1 patch TD Q2D 08/25/16 Fludrocortisone Acetate [Florinef 0.1 mg Tablet] 0.1 mg PO DAILY 08/25/16 Gabapentin [Neurontin 100 mg Capsule] 100 mg PO Q8 08/25/16 Levothyroxine Sodium [Synthroid 0.05 mg Tablet] 50 mcg PO DAILY 08/25/16 Lisinopril [Prinivil 2.5 mg Tablet] 2.5 mg PO QHS 08/25/16 Metoclopramide HCl [Reglan 10 mg Tablet] 10 mg PO Q12 08/25/16 Omeprazole 20 mg PO DAILY 08/25/16 Ondansetron HCl [Zofran 8 mg Tablet] 8 mg PO Q8HP PRN 08/25/16 Ranolazine [Ranexa] 1,000 mg PO Q12 08/25/16 Ropinirole HCl 1 mg PO QHS 08/25/16 Trazodone HCl [Desyrel] 100 mg PO QHS 08/25/16 Valacyclovir HCl [Valacyclovir] 500 mg PO DAILY 08/25/16 Clindamycin HCl [Cleocin 150 mg Capsule] 600 mg PO Q8 #60 capsule 08/28/16 Insulin Glargine,Hum.rec.anlog [Lantus Solostar] 15 unit SQ BID #0 08/28/16 Polymyxin B Sulfate/Tmp [Polytrim Oph Soln 10 ml] 2 drop OD Q6 #1 bottle History of Present Illness History of Present Illness: TEX MORRIS is a 51 year old femalewith past medical history of CVA, diabetes, hypertension, chronic pain with chronic opiate dependence, anxiety disorder that was found by her family today to have altered mental status. Patient had fentanyl patch on it was taken off by EMS. She is starting to act more normal in the emergency department since then. At the time that I evaluate her she is able to provide me some history although she is still a little bit drowsy. She states that she has not been feeling well in terms of generalized weakness for the past couple days. Her blood glucose has been running in the 300s. In review of records patient has had prior admissions for encephalopathy that was thought to be secondary to polypharmacy. Review of her medication list shows that she is on multiple neuroactive medications by her primary care provider. Hospital Course Hospital Course: DKA and this was quickly corrected with insulin drip and fluids. Patient's encephalopathy was felt to be secondary to this. Although improved on the second day patient developed conjunctivitis which was felt to be viral and monitored overnight. The following day patient had erythema of her neck area and CT was obtained which revealed cellulitis without focal abscess. I discussed this with radiology. And I have advised patient strongly to complete her course of clindamycin and to follow with her oral surgeon as patient has had recent oral surgery. Complained initially of some abdominal pain right upper quadrant ultrasound was performed and this was negative. KUB was obtained the patient had a moderate amount of stool. She does report that she has diarrhea, but I did discuss with patient at length that she was likely fecally impacted. Patient refused cathartics. Discharged home in stable condition. Physical Exam Vital Signs: Temp Pulse Resp BP Pulse Ox 99.0 F 82 15 130/80 H 96 08/28/16 15:46 08/28/16 15:46 08/28/16 15:46 08/28/16 15:46 08/28/16 15:46 Intake & Output 08/28/16 08/29/16 08/30/16 06:59 06:59 06:59 Intake Total 4720 502 Output Total 1350 Balance 3370 502 Weight 48.5 kg Exam: GENERAL: No acute distress, thin, older than stated age appearing HEENT: Right eye conjunctiva injection, mild right eye swelling, nonicteric, moist mucous membranes, no JVD, midline trachea, bilateral neck erythema RESPIRATORY: Clear to auscultation bilaterally, no wheezes, no rhonchi CARDIAC: Regular rate and rhythm, no murmurs/gallops/rubs ABDOMEN: Soft, nondistended, NTTP, hypoactive bowel sounds, no rebound, no guarding EXTREMETIES: No edema, cyanosis, clubbing NEUROLOGIC: Alert, oriented to person/place/time, CN's grossly intact SKIN: No rash, wounds PSYCH: Normal mood, normal affect Results Laboratory Results: 08/28/16 06:20 08/28/16 06:20 Impressions: Chest X-Ray 08/24/16 15:31 IMPRESSION: NO ACUTE RADIOGRAPHIC FINDING IN THE CHEST. Head CT 08/24/16 17:55 IMPRESSION: NORMAL BRAIN CT WITHOUT CONTRAST. Abdomen Ultrasound 08/26/16 10:35 IMPRESSION: NORMAL RIGHT UPPER QUADRANT ULTRASOUND. KUB X-Ray 08/27/16 00:00 IMPRESSION: NO RADIOGRAPHIC EVIDENCE FOR ACUTE ABDOMINAL DISEASE. Facial Bones CT 08/28/16 00:00 IMPRESSION: Post recent lower tooth extraction along the alveolar ridge of the mandible, with overlying facial cellulitis. No gross evidence of abscess. Qualifiers PATEINT BEING DISCHARGED WITH ANY OF THE FOLLOWING DIAGNOSIS?: No Plan Time Spent: Less than 30 Minutes
== END 2016-08-28 18:14 | disposition home or self-care (01) | DRG 638 ==
LOC: ER 15:17 → EH 18:07 → UNDOADMOB 18:35 → EH 18:35 → 4N 21:08 → OBSVTOIN 08-26 13:28
DX: E10.10 Type 1 diabetes mellitus with ketoacidosis without coma (principal); E44.0 Moderate protein-calorie malnutrition; Z68.1 Body mass index [BMI] 19.9 or less, adult; L03.211 Cellulitis of face; G40.909 Epilepsy, unspecified, not intractable, without status epilepticus; F11.10 Opioid abuse, uncomplicated; E03.9 Hypothyroidism, unspecified; E83.42 Hypomagnesemia; E78.5 Hyperlipidemia, unspecified; F17.210 Nicotine dependence, cigarettes, uncomplicated; B30.9 Viral conjunctivitis, unspecified; I10 Essential (primary) hypertension; G89.29 Other chronic pain; F41.9 Anxiety disorder, unspecified; K56.41 Fecal impaction; I25.10 Atherosclerotic heart disease of native coronary artery without angina pectoris; J44.9 Chronic obstructive pulmonary disease, unspecified; K21.9 Gastro-esophageal reflux disease without esophagitis; M19.90 Unspecified osteoarthritis, unspecified site; F32.9 Major depressive disorder, single episode, unspecified; K74.60 Unspecified cirrhosis of liver; R01.1 Cardiac murmur, unspecified; Z96.41 Presence of insulin pump (external) (internal); Z90.710 Acquired absence of both cervix and uterus; Z79.4 Long term (current) use of insulin; Z79.899 Other long term (current) drug therapy; Z86.73 Personal history of transient ischemic attack (TIA), and cerebral infarction without residual deficits; Z86.718 Personal history of other venous thrombosis and embolism; Z86.711 Personal history of pulmonary embolism; Z88.3 Allergy status to other anti-infective agents; Z88.8 Allergy status to other drugs, medicaments and biological substances; Z88.0 Allergy status to penicillin; Z80.9 Family history of malignant neoplasm, unspecified
CPT/HCPCS: 36415; 36591; 51701; 70450; 70486; 71010; 74000; 76705; 80048; 80053; 80307; 81001; 82140; 82550; 82553; 82803; 82962; 83036; 83605; 83735; 84484; 85025; 85610; 87040; 87086; 93005; 93010; 93976; 99285; G0378; J1650; J1815; J2405; J3475; J3480; J3490; J7030

== ENCOUNTER 2016-11-08 00:48 | Inpatient (IN) | payer MEDICAID ==
--- NOTE | 2016-11-08 01:12 | ER Document Report ---
ED General - General Stated Complaint: ALTERED MENTAL STATUS Time Seen by Provider: 11/08/16 01:01 Mode of Arrival: Medic Information source: Patient Cannot obtain history due to: Uncooperative TRAVEL OUTSIDE OF THE [place] IN LAST 30 DAYS: No - HPI Onset: This morning - EMS reports that they have been out to the patient's house 3 times today she has disabled child at home who contacted MRI this morning with concerns of overdose. He said that he gave her Narcan according to EMS that was this morning and did not get a response she was they were kicked out of the house and not allowed to return. This son again called a second time today. Libradoight he called to say that he is having trouble waking her up EMS reports that she would intermittently answer questions for them that she is covered in feces. Onset/Duration: Persistent Severity: Moderate Associated symptoms: Other Similar symptoms previously: Yes - encephalopathy - Related Data Allergies/Adverse Reactions: erythromycin base [Erythromycin Base] Allergy (Severe, Verified 07/10/16 18:06) Anaphylaxis fexofenadine HCl [From Shae] Allergy (Severe, Verified 07/10/16 18:06) Confusion levetiracetam [From Keppra] Allergy (Severe, Verified 07/10/16 18:06) passes out, loses time Penicillins Allergy (Severe, Verified 07/10/16 18:06) Anaphylaxis vancomycin [Vancomycin] Allergy (Severe, Verified 07/10/16 18:06) Blood pressure bottomed out Past Medical History - Social History Smoking Status: Current Every Day Smoker Frequency of alcohol use: unknown Drug Abuse: Prescription drugs Lives with: Other - son Family History: Reviewed & Not Pertinent, Malignancy - Past Medical History Cardiac Medical History: Reports: Hx Coronary Artery Disease - 2 blockages, Hx DVT - States her anticoagulant was stopped by her physician., Hx Hypercholesterolemia, Hx Hypertension, Hx Pulmonary Embolism, Hx Heart Murmur Pulmonary Medical History: Reports: Hx Bronchitis - Not since she quit smoking, Hx COPD, Hx Pneumonia - 2 weeks ago Neurological Medical History: Reports: Hx Cerebrovascular Accident - 5 yrs ago, Hx Seizures - History of same; states she is not supposed to be on antiepileptics. 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 History of DKA., Hx Hypothyroidism. Denies: Hx Hyperthyroidism Renal/ Medical History: Denies: Hx Peritoneal Dialysis GI Medical History: Reports: Hx Cirrhosis, Hx Gastroesophageal Reflux Disease, Hx Ulcer. Denies: Hx Hepatitis Musculoskeltal Medical History: Reports Hx Arthritis Psychiatric Medical History: Reports: Hx Depression Infectious Medical History: Denies: Hx Hepatitis Past Surgical History: Reports: Hx Appendectomy, Hx Hysterectomy, Hx Orthopedic Surgery - Neck fusion, wrist surgery, knee surgery, Hx Tubal Ligation, Other - Left chest Port-A-Cath - Immunizations Hx Diphtheria, Pertussis, Tetanus Vaccination: Yes Hx Pneumococcal Vaccination: 11/09/11 Review of Systems - Review of Systems Notes: Unable to obtain due to patient's status patient will intermittently answer questions but in no detail and refuses to answer any additional questions Physical Exam - General In distress: None - Patient is alert upon prompting her she answers questions and verbally cusses at me and tries to kick me in the face. She is covered in feces but cooperates with sitting up and allows me to do an exam. - HEENT Head: Normocephalic, Atraumatic Eyes: Other - Patient refuses to hold her eyes open for exam squints and gets angry when I try to open them Ears: Normal External canal: Normal Nasal: Normal Mouth/Lips: Normal Pharynx: Normal Neck: Normal - Respiratory Respiratory status: No respiratory distress Chest status: Nontender Breath sounds: Normal - Cardiovascular Rhythm: Regular Heart sounds: Normal auscultation Murmur: No - Abdominal Distension: No distension Bowel sounds: Normal Tenderness: Nontender. No: Tender, McBurney's point, Noel's sign, Guarding Organomegaly: No organomegaly. No: Hepatomegaly, Splenomegaly - Back Back: Nontender. No: Vertebra tenderness - Extremities General upper extremity: Normal inspection General lower extremity: Normal inspection - Neurological Cognition: Inattentive, Short term memory loss Orientation: Disoriented to time Jonn Coma Scale Eye Opening: Spontaneous [place] Coma Scale Verbal: Confused [place] Coma Scale Motor: Obeys Commands [place] Coma Scale Total: 14 Speech: Normal Cranial nerves: No: Facial palsy Cerebellar coordination: Other - Unable to ambulate due to concerns for falling Sensory: Normal - Skin Skin Temperature: Warm Skin Moisture: Dry Skin Color: Normal
--- NOTE | 2016-11-08 02:13 | RADIOLOGY REPORT (SQ) ---
EXAM DESCRIPTION: CHEST SINGLE VIEW COMPLETED DATE/TIME: 11/08/2016 1:56 am REASON FOR STUDY: ams COMPARISON: None. EXAM PARAMETERS: NUMBER OF VIEWS: One view. TECHNIQUE: Single frontal radiographic view of the chest acquired. RADIATION DOSE: NA LIMITATIONS: None. FINDINGS: LUNGS AND PLEURA: No opacities, masses or pneumothorax. No pleural effusion. Mild interst itial markings. Moderate hyperinflation. Calcified granuloma of the left lower hemithorax. MEDIASTINUM AND HILAR STRUCTURES: No masses. Contour normal. HEART AND VASCULAR STRUCTURES: Heart normal in size. Normal vasculature. BONES: No acute findings. HARDWARE: Left subclavian mini port catheter tip at the cavoatrial junction OTHER: No other significant finding. IMPRESSION: No acute cardiopulmonary findings. Stable. TECHNICAL DOCUMENTATION: JOB ID: [id number]
--- NOTE | 2016-11-08 02:19 | RADIOLOGY REPORT (SQ) ---
EXAM DESCRIPTION: CT HEAD WITHOUT COMPLETED DATE/TIME: 11/08/2016 1:57 am REASON FOR STUDY: ams COMPARISON: 6.17 TECHNIQUE: Axial images acquired through the brain without intravenous contrast. Images reviewed wi th bone, brain and subdural windows. Images stored on PACS. All CT scanners at this facility use dose modulation, iterative reconstruction, and/or weight based d osing when appropriate to reduce radiation dose to as low as reasonably achievable (ALARA). [facility]: Dose Right [facility]: CareDose [facility]: Dose Right [facility]: Teradose 4D [facility]: [employer] RADIATION DOSE: Up-to-date CT equipment and radiation dose reduction techniques were employed. CTDIv ol: 67.0 mGy. DLP: 1316 mGy-cm. mGy. LIMITATIONS: None. FINDINGS: VENTRICLES: Normal size and contour. CEREBRUM: No masses. No hemorrhage. No midline shift. No evidence for acute infarction. Normal gra y/white matter differentiation. No areas of low density in the white matter. CEREBELLUM: No masses. No hemorrhage. No alteration of density. No evidence for acute infarction. EXTRAAXIAL SPACES: No fluid collections. No masses. ORBITS AND GLOBE: No intra- or extraconal masses. Normal contour of globe without masses. CALVARIUM: No fracture. PARANASAL SINUSES: No fluid or mucosal thickening. SOFT TISSUES: No mass or hematoma. OTHER: No other significant finding. IMPRESSION: NORMAL BRAIN CT WITHOUT CONTRAST. COMMENT: Quality ID # [id number]: Final reports with documentation of one or more dose reduction techniques (e.g., Automated exposure control, adjustment of the mA and/or kV according to patient size, use of iterative reconstruction technique) TECHNICAL DOCUMENTATION: JOB ID: [id number]- All Rights Reserved
[2016-11-08 02:37] LABS: ABSOLUTE LYMPHOCYTES (AUTO) 0.9 10^3/uL (0.5-4.7); ABSOLUTE MONOCYTES (AUTO) 0.4 10^3/uL (0.1-1.4); ABSOLUTE NEUT (AUTO) 6.8 10^3/uL (1.7-8.2); BASOPHILS % (AUTO) 0.6 % (0-2); HEMATOCRIT 48.6 % (36.0-47.0); HEMOGLOBIN 16.4 g/dL (12.0-15.5); HGB HCT DIFFERENCE 0.6; LYMPHOCYTES % (AUTO) 11.1 % (13-45); MEAN CORPUSCULAR HEMOGLOBIN 33.7 pg (27.0-33.4); MEAN CORPUSCULAR HGB CONC 33.7 g/dL (32.0-36.0); MEAN CORPUSCULAR VOLUME 100 fl (80-97); MONOCYTES % (AUTO) 5.2 % (3-13); RED BLOOD COUNT 4.86 10^6/uL (3.72-5.28); RED CELL DISTRIBUTION WIDTH 13.7 % (11.5-14.0); SEGMENTED NEUTROPHILS % (AUTO) 83.1 % (42-78); WHITE BLOOD COUNT 8.2 10^3/uL (4.0-10.5)
[2016-11-08 02:45] LABS: ALBUMIN 4.4 g/dL (3.5-5.0); ANION GAP 14 (5-19); BLOOD UREA NITROGEN 19 mg/dL (7-20); CALCIUM 10.3 mg/dL (8.4-10.2); CARBON DIOXIDE 22 mmol/L (22-30); CHLORIDE 102 mmol/L (98-107); GLUCOSE 261 mg/dL (75-110); POTASSIUM 4.1 mmol/L (3.6-5.0); SODIUM 137.5 mmol/L (137-145); TOTAL PROTEIN 6.8 g/dL (6.3-8.2)
[2016-11-08 02:46] LABS: ALANINE AMINOTRANSFERASE 25 U/L (9-52); ALKALINE PHOSPHATASE 93 U/L (38-126); ASPARTATE AMINO TRANSFERASE 18 U/L (14-36); BILIRUBIN,DIRECT 0.5 mg/dL (0.0-0.4); BILIRUBIN,TOTAL 1.2 mg/dL (0.2-1.3); MAGNESIUM 1.6 mg/dL (1.6-2.3)
[2016-11-08 02:48] LABS: ARTERIAL BLOOD BASE EXCESS 1.8 mmol/L; ARTERIAL BLOOD O2 SATURATION 85.4 % (94-98)
[2016-11-08 02:49] LABS: ALCOHOL < 10 mg/dL (NONE DETECTED)
[2016-11-08 02:55] LABS: AMORPHOUS SEDIMENT,URINE TRACE /HPF; APPEARANCE,URINE CLOUDY; BILIRUBIN,URINE NEGATIVE (NEGATIVE); GLUCOSE, URINE >=500 mg/dL (NEGATIVE); KETONES,URINE 20 mg/dL (NEGATIVE); LEUKOCYTE ESTERASE,URINE NEGATIVE (NEGATIVE); NITRITE,URINE NEGATIVE (NEGATIVE); PROTEIN,URINE 30 mg/dL (NEGATIVE); URINE SPECIFIC GRAVITY 1.013; UROBILINOGEN,URINE NEGATIVE mg/dL (<2.0)
[2016-11-08 02:57] LABS: CREATINE KINASE MB 0.68 ng/mL (<4.55); TROPONIN I 0.015 ng/mL
[2016-11-08 03:05] LABS: URINE BARBITURATES SCREEN NEGATIVE; URINE METHADONE SCREEN NEGATIVE; URINE OPIATES LOW NEGATIVE; URINE PHENCYCLIDINE SCREEN NEGATIVE
[2016-11-08] MEDS ORDERED: IPRATROPIUM/ALBUTEROL 0.5-2.5 MG/3 ML AMPUL NEB PRN (03:27)
[2016-11-08] MEDS ORDERED: DEXTROSE 50%-WATER 25 GM/50 ML DISP.SYRIN IV PRN ×2 (03:27)
[2016-11-08] MEDS ORDERED: GLUCAGON,HUMAN RECOMB 1 MG INJ IM PRN (03:27)
[2016-11-08] MEDS ORDERED: MAG HYDROX/AL HYDROX/SIMETH SUSP 30 ML UDCUP PO PRN (03:27)
[2016-11-08] MEDS ORDERED: ACETAMINOPHEN 325 MG TABLET PO PRN (03:27)
[2016-11-08] MEDS ORDERED: DEXTROSE 40% GEL 15 GM TUBE PO PRN ×2 (03:27)
--- NOTE | 2016-11-08 03:29 | ER Document Report ---
Doctor's Note Notes: 11/08/16 03:26 EKG shows junctional tachycardia [address] segment elevation or depression
[2016-11-08] MEDS ORDERED: NALOXONE HCL INJ/PF 0.4 MG/1 ML SDV IV PRN (03:36)
[2016-11-08] MEDS: NORMAL SALINE 1000 ML 1,000 ML IV SCH ×2 (04:28→20:41)
--- NOTE | 2016-11-08 05:27 | PDOC H&P ---
History of Present Illness Admission Date/PCP: 11/08/16 03:27 CONCEPCION GONCALVES MD Patient complains of: Altered mental status History of Present Illness: TEX MORRIS is a 51 year old female with a past medical history of CVA, diabetes, hypertension, chronic pain with opiate dependence, anxiety disorder and polypharmacy. Patient has had multiple ER visits and admissions with encephalopathy secondary to the above who is in her usual state of health until approximately 12 hours ago her EMS. Patient's son noted altered mental status and administered Narcan, contacting EMS who found her with excessive sedation and removing a fentanyl patch. She declined transport to the emergency room earlier in the day 2. In the emergency room she is arousable but uncooperative with tachypnea, tachycardia, yawning and trearing. No nystagmus or seizure activity. Other than mild hypercalcemia and hyperglycemia without renal failure or acidosis she has an unremarkable workup and referred to the hospitalist for admission. Patient is unable to provide history. Past Medical History Cardiac Medical History: Reports: Coronary Artery Disease - 2 blockages, DVT - States her anticoagulant was stopped by her physician., Hyperlipidema, Hypertension, Pulmonary Embolism, Heart Murmur Pulmonary Medical History: Reports: Bronchitis - Not since she quit smoking, Chronic Obstructive Pulmonary Disease (COPD), Pneumonia - 2 weeks ago Neurological Medical History: Reports: Seizures - History of same; states she is not supposed to be on antiepileptics. Endocrine Medical History: Reports: Diabetes Mellitus Type 1 - Insulin dependent. History of DKA., Hypothyroidism Denies: Hyperthyroidism GI Medical History: Reports: Cirrhosis, Gastroesophageal Reflux Disease Denies: Hepatitis Musculoskeltal Medical History: Reports: Arthritis Psychiatric Medical History: Reports: Depression Hematology: Reports: Anemia - As a child Past Surgical History Past Surgical History: Reports: Appendectomy, Hysterectomy, Orthopedic Surgery - Neck fusion, wrist surgery, knee surgery, Tubal Ligation, Other - Left chest Port-A-Cath Social History Information Source: [facility] Records Lives with: Other - son Smoking Status: Current Every Day Smoker Frequency of Alcohol Use: None Hx Recreational Drug Use: No Drugs: None Hx Prescription Drug Abuse: No - Advance Directive Resuscitation Status: Full Code Family History Family History: Malignancy Parental Family History Reviewed: Yes - Unobtainable Children Family History Reviewed: Yes - Unobtainable Sibling(s) Family History Reviewed.: Yes - Unobtainable Medication/Allergy Home Medications: Acetaminophen with Codeine [Tylenol #3 Tablet] 1 tab PO Q6HP PRN 08/25/16 Amlodipine Besylate [Norvasc 5 mg Tablet] 5 mg PO Q12 08/25/16 Atorvastatin Calcium [Lipitor 40 mg Tablet] 40 mg PO QHS 08/25/16 Cyclobenzaprine HCl [Flexeril 5 mg Tablet] 5 mg PO TIDP PRN 08/25/16 Diazepam [Valium] 10 mg PO TIDP PRN 08/25/16 Escitalopram Oxalate [Lexapro 10 mg Tablet] 10 mg PO DAILY 08/25/16 Estrogens,Conjugated [Premarin Vaginal Cream (0.625 mg/gm) 30 gm] 1 applic VG QHS 08/25/16 Fentanyl [Duragesic 100 Mcg/Hr Transdermal Patch] 1 patch TD Q2D 08/25/16 Fludrocortisone Acetate [Florinef 0.1 mg Tablet] 0.1 mg PO DAILY 08/25/16 Gabapentin [Neurontin 100 mg Capsule] 100 mg PO Q8 08/25/16 Levothyroxine Sodium [Synthroid 0.05 mg Tablet] 50 mcg PO DAILY 08/25/16 Lisinopril [Prinivil 2.5 mg Tablet] 2.5 mg PO QHS 08/25/16 Metoclopramide HCl [Reglan 10 mg Tablet] 10 mg PO Q12 08/25/16 Omeprazole 20 mg PO DAILY 08/25/16 Ondansetron HCl [Zofran 8 mg Tablet] 8 mg PO Q8HP PRN 08/25/16 Ranolazine [Ranexa] 1,000 mg PO Q12 08/25/16 Ropinirole HCl 1 mg PO QHS 08/25/16 Trazodone HCl [Desyrel] 100 mg PO QHS 08/25/16 Valacyclovir HCl [Valacyclovir] 500 mg PO DAILY 08/25/16 Clindamycin HCl [Cleocin 150 mg Capsule] 600 mg PO Q8 #60 capsule 08/28/16 Insulin Glargine,Hum.rec.anlog [Lantus Solostar] 15 unit SQ BID #0 08/28/16 Polymyxin B Sulfate/Tmp [Polytrim Oph Soln 10 ml] 2 drop OD Q6 #1 bottle Allergies/Adverse Reactions: erythromycin base [Erythromycin Base] Allergy (Severe, Verified 07/10/16 18:06) Anaphylaxis fexofenadine HCl [From Shae] Allergy (Severe, Verified 07/10/16 18:06) Confusion levetiracetam [From Keppra] Allergy (Severe, Verified 07/10/16 18:06) passes out, loses time Penicillins Allergy (Severe, Verified 07/10/16 18:06) Anaphylaxis vancomycin [Vancomycin] Allergy (Severe, Verified 07/10/16 18:06) Blood pressure bottomed out Review of Systems ROS unobtainable: Due to mental status Physical Exam Vital Signs: Temp Pulse Resp BP Pulse Ox 98.6 F 18 131/89 H 98 11/08/16 04:01 11/08/16 04:01 11/08/16 04:01 11/08/16 04:01 General appearance: PRESENT: no acute distress, disheveled, thin Head exam: PRESENT: atraumatic, normocephalic Eye exam: PRESENT: conjunctiva pink, EOMI, PERRLA. ABSENT: scleral icterus Ear exam: PRESENT: normal external ear exam Mouth exam: PRESENT: moist, tongue midline Neck exam: ABSENT: carotid bruit, JVD, lymphadenopathy, thyromegaly Respiratory exam: PRESENT: clear to auscultation epterson. ABSENT: rales, rhonchi, wheezes Cardiovascular exam: PRESENT: RRR, +S1, +S2, systolic murmur, tachycardia Pulses: PRESENT: normal dorsalis pedis pul Vascular exam: PRESENT: normal capillary refill GI/Abdominal exam: PRESENT: normal bowel sounds, soft. ABSENT: distended, guarding, mass, organolmegaly, rebound, tenderness Rectal exam: PRESENT: deferred Extremities exam: PRESENT: full ROM. ABSENT: calf tenderness, clubbing, pedal edema Neurological exam: PRESENT: altered Psychiatric exam: PRESENT: flat affect Skin exam: PRESENT: dry, intact, warm. ABSENT: cyanosis, rash Results Impressions: Chest X-Ray 11/08/16 01:02 IMPRESSION: No acute cardiopulmonary findings. Stable. Head CT 11/08/16 01:03 IMPRESSION: NORMAL BRAIN CT WITHOUT CONTRAST. Assessment & Plan - Diagnosis (1) Encephalopathy Is this a current diagnosis for this admission?: Yes Plan: Likely polypharmacy given med list however will check a TSH, urine tox benzodiazepines positive. Protecting her airway continue supportive measures (2) Polypharmacy Is this a current diagnosis for this admission?: Yes Plan: Valium 10 mg 3 times daily, fentanyl 200 mcg transdermal every 72, Flexeril, Reglan, trazodone and Requip. All meds held weaning to avoid lauren withdrawal as needed (4) Hyperglycemia Is this a current diagnosis for this admission?: Yes Plan: No evidence for hyperosmolar state home insulin regiment reduced by half with sliding scale every 6 hour until eating. - Time Time Spent: 50 to 70 Minutes - Inpatient Certification Medical Necessity: Need Close Monitoring Due to Risk of Patient Decompensation
[2016-11-08] MEDS: HEPARIN SOD (PORCINE) 5,000 UNIT/ML 1 ML SYRINGE SUBCUT SCH ×3 (06:04→22:11)
[2016-11-08] MEDS: INSULIN LISPRO 100 UNIT/ML 3 ML VIAL SUBCUT PRN ×2 (06:48→12:38)
[2016-11-08 08:56] LABS: ABSOLUTE BASOPHILS # (AUTO) 0.1 10^3/uL (0.0-0.2); ABSOLUTE LYMPHOCYTES (AUTO) 1.1 10^3/uL (0.5-4.7); ABSOLUTE MONOCYTES (AUTO) 0.4 10^3/uL (0.1-1.4); BASOPHILS % (AUTO) 0.7 % (0-2); HEMOGLOBIN 16.9 g/dL (12.0-15.5); HGB HCT DIFFERENCE 0.7; LYMPHOCYTES % (AUTO) 10.8 % (13-45); MEAN CORPUSCULAR HGB CONC 33.9 g/dL (32.0-36.0); MEAN CORPUSCULAR VOLUME 100 fl (80-97); MONOCYTES % (AUTO) 3.4 % (3-13); RED BLOOD COUNT 4.99 10^6/uL (3.72-5.28); RED CELL DISTRIBUTION WIDTH 13.7 % (11.5-14.0); SEGMENTED NEUTROPHILS % (AUTO) 85.1 % (42-78); WHITE BLOOD COUNT 10.6 10^3/uL (4.0-10.5)
--- NOTE | 2016-11-08 09:12 | PDOC PROGRESS REPORT ---
Subjective Progress Note for:: 11/08/16 Subjective:: Patient is sedated but is arousable. Physical Exam Vital Signs: Temp Pulse Resp BP Pulse Ox 97.8 F 125 H 16 120/83 100 11/08/16 07:39 11/08/16 07:39 11/08/16 07:39 11/08/16 07:39 11/08/16 07:39 Intake & Output 11/07/16 11/08/16 11/09/16 06:59 06:59 06:59 Intake Total 400 Output Total 0 Balance 400 Weight 51.8 kg General appearance: PRESENT: no acute distress Eye exam: PRESENT: conjunctiva pink. ABSENT: scleral icterus Mouth exam: PRESENT: moist, tongue midline Neck exam: ABSENT: JVD Respiratory exam: PRESENT: clear to auscultation peterson. ABSENT: rales, rhonchi, wheezes Cardiovascular exam: PRESENT: RRR. ABSENT: diastolic murmur, rubs, systolic murmur GI/Abdominal exam: PRESENT: normal bowel sounds, soft. ABSENT: distended, guarding, mass, organolmegaly, rebound, tenderness Extremities exam: ABSENT: calf tenderness, clubbing, pedal edema Neurological exam: PRESENT: other - Patient is drowsy but arousable. She is oriented to person Psychiatric exam: PRESENT: flat affect Skin exam: PRESENT: dry, intact, warm. ABSENT: cyanosis, rash Results Laboratory Results: 11/08/16 08:38 11/08/16 08:38 WBC 10.6 H RBC 4.99 Hgb 16.9 H Hct 50.0 H MCV 100 H MCH 34.0 H MCHC 33.9 RDW 13.7 Plt Count 148 L Seg Neutrophils % 85.1 H Lymphocytes % 10.8 L Monocytes % 3.4 Eosinophils % 0.0 Basophils % 0.7 Absolute Neutrophils 9.0 H Absolute Lymphocytes 1.1 Absolute Monocytes 0.4 Absolute Eosinophils 0.0 Absolute Basophils 0.1 Impressions: Chest X-Ray 11/08/16 01:02 IMPRESSION: No acute cardiopulmonary findings. Stable. Head CT 11/08/16 01:03 IMPRESSION: NORMAL BRAIN CT WITHOUT CONTRAST. Assessment & Plan - Diagnosis (1) Encephalopathy Is this a current diagnosis for this admission?: Yes Plan: Most likely secondary to medications. Patient does not show any evidence for infection as a cause. Her Duragesic patches have been removed. Patient is more awake than she was last night. Continue to hold medications until she is at a normal mental status. (2) Hyperglycemia Is this a current diagnosis for this admission?: Yes Plan: We will continue with fingerstick blood sugars and sliding scale insulin. (3) Polypharmacy Is this a current diagnosis for this admission?: Yes Plan: Psychiatry has been consulted. (4) Hypothyroid Qualifiers: Hypothyroidism type: unspecified Qualified Code(s): E03.9 - Hypothyroidism , unspecified Is this a current diagnosis for this admission?: Yes Plan: TSH is low but T4 is normal. Will hold the Synthroid. Unlikely that the thyroid is the cause for her mental status changes. - Time Time Spent with patient: 25-34 minutes - Inpatient Certification Medical Necessity: Need Close Monitoring Due to Risk of Patient Decompensation
[2016-11-08 09:32] LABS: CREATINE KINASE MB 0.77 ng/mL (<4.55)
[2016-11-08] MEDS: DOCUSATE SODIUM 100 MG CAPSULE PO SCH ×2 (09:36→17:00)
[2016-11-08 09:39] LABS: TROPONIN I < 0.012 ng/mL
[2016-11-08] MEDS: INSULIN GLARGINE,HUM.REC.ANLOG 300 UNIT/3 ML INSULN.PEN SUBCUT SCH ×2 (09:40→22:11)
[2016-11-08] MEDS ORDERED: INSULIN GLARGINE,HUM.REC.ANLOG 300 UNIT/3 ML INSULN.PEN SUBCUT SCH (10:00)
[2016-11-08 10:01] LABS: ANION GAP 14 (5-19); BLOOD UREA NITROGEN 20 mg/dL (7-20); CARBON DIOXIDE 21 mmol/L (22-30); CHLORIDE 106 mmol/L (98-107); CREATININE RESULT 0.85 mg/dL (0.52-1.25); GLUCOSE 243 mg/dL (75-110); POTASSIUM 3.7 mmol/L (3.6-5.0); SODIUM 140.5 mmol/L (137-145)
--- NOTE | 2016-11-08 15:32 | PSYCHOLOGICAL NOTE ---
Psych Note - Psych Note Psych Note: Patient is a 51 year old female who has been admitted to [facility] Hospitalist's services due to encephalopathy, likely resulting from polypharm overdose/ misuse. Patient was brought into the ER overnight and admitted to the floor. Patient's son reportedly contacted EMS a total of 3 times last night; however, patient refused treatment during the first 2 episodes. RN states EMS reported that upon the 3rd visit, patient was found covered in feces. Patient this afternoon is dowsy and difficult to arouse. When woken, patient struggles to remain awake. Patient does deny she was attempting suicide. Patient further denies misusing/overusing medications. Patient does provide verbal consent to speak with her son. Patient's son, Eduardo or states: no answer at either number. Will attempt to evaluate patient at a later time, likely tomorrow once her mental status has improved. Will continue to attempt to gather collateral information.
[2016-11-08 15:40] LABS: CREATINE KINASE MB 0.81 ng/mL (<4.55); TROPONIN I 0.033 ng/mL
--- NOTE | 2016-11-08 19:52 | XCELERA REPORT ---
[address] [address] Transthoracic Echocardiogram Report Name: TEX MORRIS Age: 51 yrs Gender: Female : 1965 Patient Status: Inpatient Patient Location: [address] [place] [address] Study Date: 11/08/2016 01:10 PM Height: 63 in Weight: 114 lb BSA: 1.5 m2 Procedure: A complete two-dimensional transthoracic echocardiogram was performed (2D, M-mode, spectral and color flow Doppler). The study was technically difficult with many images being suboptimal in quality. Reason For Study: systolic murmur Ordering Physician: SOL ALVARADO Performed By: Adan Aguilar Interpretation Summary The study was technically difficult with many images being suboptimal in quality. The left ventricle is hyperdynamic. Doppler measurements suggest pseudonormalized left ventricular relaxation, which is associated with grade II/IV or mild to moderate diastolic dysfunction Wall motion cannot be accurately commented on, but no definite regional wall motion abnormalities noted. There is moderate concentric left ventricular hypertrophy. The left ventricle is grossly normal size. The right ventricular systolic function is normal. The right atrium is normal in size The left atrial size is normal. There is a trace amount of mitral regurgitation There is no mitral valve stenosis. There is moderate aortic stenosis There is a trace amount of aortic regurgitation There is a trace to mild amount of tricuspid regurgitation There is mild pulmonary hypertension by echo Right ventricular systolic pressure is estimated to be elevated at 30- 40mmHg. The aortic root is not well visualized. The inferior vena cava appeared normal and decreased > 50% with respiration (RAP 5-10 mmHg) There is no pericardial effusion. MMode/2D Measurements & Calculations RVDd: 1.7 cm LVIDd: 3.9 cm FS: 44.0 % Ao root diam: 3.0 cm IVSd: 1.3 cm LVIDs: 2.2 cm EDV(Teich): 67.4 ml LVPWd: 1.1 cm ESV(Teich): 16.3 ml Ao root area: 7.3 cm2 EF(Teich): 75.8 % LA dimension: 2.6 cm LVOT diam: 2.0 cm LVOT area: 3.2 cm2 Doppler Measurements & Calculations MV E max marcell: MV P1/2t max marcell: Ao V2 max: LV V1 max P.6 cm/sec 68.0 cm/sec 364.2 cm/sec 3.6 mmHg MV A max marcell: MV P1/2t: 41.6 msec Ao max PG: LV V1 mean P.2 cm/sec MVA(P1/2t): 5.3 cm2 53.1 mmHg 1.8 mmHg MV E/A: 0.71 MV dec slope: Ao V2 mean: LV V1 max: 479.2 cm/sec2 251.5 cm/sec 95.0 cm/sec Ao mean PG: LV V1 mean: 29.9 mmHg 63.2 cm/sec Ao V2 VTI: 58.5 cmLV V1 VTI: EMANUEL(I,D): 0.99 cm218.2 cm EMANUEL(V,D): 0.83 cm2 SV(LVOT): 58.0 ml PA V2 max: TR max marcell: RAP systole: 117.4 cm/sec 237.5 cm/sec 10.0 mmHg PA max P.5 mmHg TR max P.3 mmHg RVSP(TR): 33.3 mmHg Left Ventricle The left ventricle is grossly normal size. There is moderate concentric left ventricular hypertrophy. The left ventricle is hyperdynamic. Doppler measurements suggest pseudonormalized left ventricular relaxation, which is associated with grade II/IV or mild to moderate diastolic dysfunction. Wall motion cannot be accurately commented on, but no definite regional wall motion abnormalities noted. Right Ventricle The right ventricle is grossly normal size. There is normal right ventricular wall thickness. The right ventricular systolic function is normal. Atria The right atrium is normal in size. The left atrial size is normal. Interarterial septum not well visualized and not well dopplered. Cannot comment on ASD/PFO presence. Mitral Valve The mitral valve is grossly normal. There is no mitral valve stenosis. There is a trace amount of mitral regurgitation. Aortic Valve The aortic valve is mildly calcified. There is moderate aortic stenosis. There is a trace amount of aortic regurgitation. Tricuspid Valve The tricuspid valve is not well visualized, but is grossly normal. There is no tricuspid stenosis. There is a trace to mild amount of tricuspid regurgitation. There is mild pulmonary hypertension by echo. Right ventricular systolic pressure is estimated to be elevated at 30-40mmHg. Pulmonic Valve The pulmonic valve is not well visualized. Great Vessels The aortic root is not well visualized. The inferior vena cava appeared normal and decreased > 50% with respiration (RAP 5-10 mmHg). Effusions There is no pericardial effusion. : SOL ALVARADO > Gabriella Redding
[2016-11-08 20:48] LABS: CREATINE KINASE MB 0.88 ng/mL (<4.55); TROPONIN I 0.032 ng/mL
--- NOTE | 2016-11-08 21:56 | EKG REPORT ---
SEVERITY:- ABNORMAL ECG - SINUS TACHYCARDIA RIGHT ATRIAL ABNORMALITY BORDERLINE INFERIOR Q WAVES ST DEPRESSION, CONSIDER ISCHEMIA, INF LEADS : Confirmed by: Gabriella Redding 08-Nov-2016 21:55:41
--- NOTE | 2016-11-08 21:57 | EKG REPORT ---
SEVERITY:- ABNORMAL ECG - SINUS TACHYCARDIA PROBABLE LEFT VENTRICULAR HYPERTROPHY PROBABLE INFERIOR INFARCT, AGE INDETERMINATE BI ATRIAL ENLARGEMENT : Confirmed by: Gabriella Redding 08-Nov-2016 21:56:29
[2016-11-09] MEDS: HEPARIN SOD (PORCINE) 5,000 UNIT/ML 1 ML SYRINGE SUBCUT SCH ×2 (05:13→13:46)
[2016-11-09 05:35] LABS: ABSOLUTE BASOPHILS # (AUTO) 0.1 10^3/uL (0.0-0.2); ABSOLUTE LYMPHOCYTES (AUTO) 1.4 10^3/uL (0.5-4.7); ABSOLUTE MONOCYTES (AUTO) 0.7 10^3/uL (0.1-1.4); ABSOLUTE NEUT (AUTO) 11.3 10^3/uL (1.7-8.2); BASOPHILS % (AUTO) 0.6 % (0-2); EOSINOPHILS % (AUTO) 0.1 % (0-6); HEMATOCRIT 52.4 % (36.0-47.0); HEMOGLOBIN 17.6 g/dL (12.0-15.5); HGB HCT DIFFERENCE 0.4; LYMPHOCYTES % (AUTO) 10.3 % (13-45); MEAN CORPUSCULAR HEMOGLOBIN 33.5 pg (27.0-33.4); MEAN CORPUSCULAR HGB CONC 33.6 g/dL (32.0-36.0); MEAN CORPUSCULAR VOLUME 100 fl (80-97); MONOCYTES % (AUTO) 5.4 % (3-13); RED BLOOD COUNT 5.26 10^6/uL (3.72-5.28); RED CELL DISTRIBUTION WIDTH 13.8 % (11.5-14.0); SEGMENTED NEUTROPHILS % (AUTO) 83.6 % (42-78); WHITE BLOOD COUNT 13.5 10^3/uL (4.0-10.5)
[2016-11-09 05:49] LABS: ANION GAP 12 (5-19); BLOOD UREA NITROGEN 26 mg/dL (7-20); CALCIUM 10.3 mg/dL (8.4-10.2); CARBON DIOXIDE 23 mmol/L (22-30); CHLORIDE 105 mmol/L (98-107); CREATININE RESULT 0.85 mg/dL (0.52-1.25); GLUCOSE 264 mg/dL (75-110); POTASSIUM 3.6 mmol/L (3.6-5.0); SODIUM 140.1 mmol/L (137-145)
[2016-11-09] MEDS: INSULIN LISPRO 100 UNIT/ML 3 ML VIAL SUBCUT PRN ×2 (06:21→12:44)
--- NOTE | 2016-11-09 09:52 | PDOC PROGRESS REPORT ---
Subjective Progress Note for:: 11/09/16 Subjective:: When I examined the patient she would not open her eyes and interact with me. According to the nursing staff just prior to me going in there she had been up and walking around and use the bathroom. Physical Exam Vital Signs: Temp Pulse Resp BP Pulse Ox 98.4 F 113 H 18 148/96 H 100 11/09/16 04:05 11/09/16 07:46 11/09/16 07:46 11/09/16 07:46 11/09/16 07:46 Intake & Output 11/08/16 11/09/16 11/10/16 06:59 06:59 06:59 Intake Total 400 886 Output Total 0 Balance 400 886 Weight 51.8 kg 50.6 kg General appearance: PRESENT: no acute distress Eye exam: PRESENT: conjunctiva pink. ABSENT: scleral icterus Mouth exam: PRESENT: moist, tongue midline Neck exam: ABSENT: JVD Respiratory exam: PRESENT: clear to auscultation peterson. ABSENT: rales, rhonchi, wheezes Cardiovascular exam: PRESENT: RRR. ABSENT: diastolic murmur, rubs, systolic murmur GI/Abdominal exam: PRESENT: normal bowel sounds, soft. ABSENT: distended, guarding, mass, organolmegaly, rebound, tenderness Extremities exam: ABSENT: calf tenderness, clubbing, pedal edema Neurological exam: PRESENT: other - Patient will not cooperate for an exam. Psychiatric exam: PRESENT: other - Patient would not cooperate with an exam. Skin exam: PRESENT: dry, intact, warm. ABSENT: cyanosis, rash Results Laboratory Results: 11/09/16 05:30 11/09/16 05:10 11/08/16 11/09/16 11/09/16 08:38 05:10 05:30 WBC 13.5 H RBC 5.26 Hgb 17.6 H Hct 52.4 H MCV 100 H MCH 33.5 H MCHC 33.6 RDW 13.8 Plt Count 152 Seg Neutrophils % 83.6 H Lymphocytes % 10.3 L Monocytes % 5.4 Eosinophils % 0.1 Basophils % 0.6 Absolute Neutrophils 11.3 H Absolute Lymphocytes 1.4 Absolute Monocytes 0.7 Absolute Eosinophils 0.0 Absolute Basophils 0.1 Sodium 140.5 140.1 Potassium 3.7 3.6 Chloride 106 105 Carbon Dioxide 21 L 23 Anion Gap 14 12 BUN 20 26 H Creatinine 0.85 0.85 Est GFR ( Amer) > 60 > 60 Est GFR (Non-Af Amer) > 60 > 60 Glucose 243 H 264 H Calcium 10.0 10.3 H 11/08/16 11/08/16 11/08/16 08:38 08:38 14:14 Creatine Kinase 26 L 31 CK-MB (CK-2) 0.77 Troponin I < 0.012 11/08/16 11/08/16 11/08/16 14:14 20:05 20:05 Creatine Kinase 31 CK-MB (CK-2) 0.81 0.88 Troponin I 0.033 0.032 Impressions: Chest X-Ray 11/08/16 01:02 IMPRESSION: No acute cardiopulmonary findings. Stable. Head CT 11/08/16 01:03 IMPRESSION: NORMAL BRAIN CT WITHOUT CONTRAST. Assessment & Plan - Diagnosis (1) Encephalopathy Is this a current diagnosis for this admission?: Yes Plan: Most likely secondary to medications. Patient does not show any evidence for infection as a cause. Her Duragesic patches have been removed. She was evaluated by psychiatry yesterday and they did not feel that this was a suicide attempt. Feels most likely just substance abuse. The patient would not interact with me but according to the nurse staff she had been up 15 minutes prior to my being in the room. We will continue to hold her narcotics until she is awake alert and oriented. (2) Hyperglycemia Is this a current diagnosis for this admission?: Yes Plan: We will continue with fingerstick blood sugars and sliding scale insulin. (3) Polypharmacy Is this a current diagnosis for this admission?: Yes Plan: Psychiatry has evaluated the patient and feel that she is not a suicide risk. (4) Hypothyroid Qualifiers: Hypothyroidism type: unspecified Qualified Code(s): E03.9 - Hypothyroidism , unspecified Is this a current diagnosis for this admission?: Yes Plan: TSH is low but T4 is normal. Will hold the Synthroid. Unlikely that the thyroid is the cause for her mental status changes. - Time Time Spent with patient: 25-34 minutes - Inpatient Certification Medical Necessity: Need Close Monitoring Due to Risk of Patient Decompensation
[2016-11-09] MEDS: DOCUSATE SODIUM 100 MG CAPSULE PO SCH ×2 (10:41→17:07)
[2016-11-09] MEDS: INSULIN GLARGINE,HUM.REC.ANLOG 300 UNIT/3 ML INSULN.PEN SUBCUT SCH (10:46)
--- NOTE | 2016-11-09 12:36 | PSYCHOLOGICAL NOTE ---
Psych Note - Psych Note Psych Note: Conducted check in with patient who is a 51 year old female who has been admitted to [facility] Hospitalist's Services. Patient today continues to present lethargic, and struggles to remain awake. Patient does verbalize she is followed by Dr. Saenz at [facility], but cannot report the medications she is prescribed. Patient additionally states she was not attempting suicide. Patient continues to deny she misused or attempted to overdose in attempt at by suicide. Eduardo, states there is nothing new for the patient, just "going through what she normally goes through." He states she has episodes where she "is out of it," and goes to the hospital because her medications build up in her system. He denies the patient has been suicidal, or expressing SI. He states when she gets out of it, she tells him to leave her alone. Son states he is not concerned she will attempt suicide. He states to his knowledge, patient had one prior attempt at age 13. He states he has been told she tried to jump off a bridge.He states he will assist her in following up with a provider upon discharge. Son was encouraged to monitor the patient's use of medications. Patient is lethargic, but orientedx4. Mood is irritable with flat affect. Patient denies suicidal/homicidal ideations, intent, plan, means. Patient denies A/VH; delusions not noted. Thought processes were guarded, but appeared to be organized. Conversational speech was low for rate, tone, and prosody. Note at times patient's conversational speech was in audible. Intellectual abilities were estimated within average range. Attention and focus were poor. Insight, judgment, impulse control are poor. 296.80 (F31.8) Unspecified Bipolar and Related Disorder, per history Diabetes COPD Patient is psychiatrically cleared for discharge. Patient is recommended to follow-up with her psychiatric provider for a medication evaluation. Patient has presented multiple times in the past due to encephalopathy possibly resulting from comorbid etiology (diabetes and medications). Both patient and patient's son with whom she resides denied patient attempted suicide via overdose or misuses her medications. Patient's son is in agreement to manage the patient's medications and oversee her usage. I consulted with Dr. Spain in regards to the care and management of this patient. Hospitalist made aware of disposition and recommendations and states he is in agreement. Thank you kindly for this consultation request.
[2016-11-10] MEDS ORDERED: NORMAL SALINE 1000 ML 1,000 ML IV ONE (00:51)
[2016-11-10] MEDS: INSULIN GLARGINE,HUM.REC.ANLOG 300 UNIT/3 ML INSULN.PEN SUBCUT SCH ×3 (02:01→22:34)
[2016-11-10] MEDS: HEPARIN SOD (PORCINE) 5,000 UNIT/ML 1 ML SYRINGE SUBCUT SCH ×4 (02:06→22:25)
[2016-11-10] MEDS: INSULIN LISPRO 100 UNIT/ML 3 ML VIAL SUBCUT PRN ×4 (03:04→22:39)
[2016-11-10 04:54] LABS: ANION GAP 19 (5-19); BLOOD UREA NITROGEN 35 mg/dL (7-20); CALCIUM 10.3 mg/dL (8.4-10.2); CARBON DIOXIDE 19 mmol/L (22-30); CHLORIDE 102 mmol/L (98-107); CREATININE RESULT 1.03 mg/dL (0.52-1.25); GLUCOSE 357 mg/dL (75-110); POTASSIUM 4.1 mmol/L (3.6-5.0)
[2016-11-10] MEDS ORDERED: INSULIN REG, HUMAN 100 UNIT/ML 3 ML VIAL (PYX) ONE (05:15)
[2016-11-10 05:45] LABS: ABSOLUTE BASOPHILS # (AUTO) 0.2 10^3/uL (0.0-0.2); ABSOLUTE LYMPHOCYTES (AUTO) 1.7 10^3/uL (0.5-4.7); ABSOLUTE MONOCYTES (AUTO) 0.1 10^3/uL (0.1-1.4); ABSOLUTE NEUT (AUTO) 12.1 10^3/uL (1.7-8.2); BASOPHILS % (AUTO) 1.3 % (0-2); HEMATOCRIT 49.7 % (36.0-47.0); HEMOGLOBIN 17.2 g/dL (12.0-15.5); HGB HCT DIFFERENCE 1.9; MEAN CORPUSCULAR HEMOGLOBIN 33.8 pg (27.0-33.4); MEAN CORPUSCULAR HGB CONC 34.6 g/dL (32.0-36.0); MEAN CORPUSCULAR VOLUME 98 fl (80-97); RED BLOOD COUNT 5.09 10^6/uL (3.72-5.28); RED CELL DISTRIBUTION WIDTH 14.2 % (11.5-14.0); SEGMENTED NEUTROPHILS % (AUTO) 85.7 % (42-78); WHITE BLOOD COUNT 14.1 10^3/uL (4.0-10.5)
[2016-11-10] MEDS: DOCUSATE SODIUM 100 MG CAPSULE PO SCH ×2 (08:50→17:10)
[2016-11-10] MEDS: NORMAL SALINE 1000 ML 1,000 ML IV PRN ×3 (08:53→20:12)
[2016-11-10] MEDS ORDERED: GLUCAGON,HUMAN RECOMB 1 MG INJ IM PRN (09:03)
[2016-11-10] MEDS ORDERED: DEXTROSE 50%-WATER SYRINGE 12.5 GM/25 ML DOSE IV PRN (09:03)
[2016-11-10] MEDS ORDERED: DEXTROSE 40% GEL 15 GM TUBE PO PRN (09:03)
[2016-11-10] MEDS ORDERED: DEXTROSE 40% GEL 15 GM TUBE X 2 PO PRN (09:03)
[2016-11-10] MEDS ORDERED: DEXTROSE 50%-WATER SYRINGE 25 GM/50 ML DOSE IV PRN (09:03)
[2016-11-10] MEDS ORDERED: FENTANYL 50 MCG/HR PATCH.TD72 TD SCH (10:00)
--- NOTE | 2016-11-10 11:25 | PDOC PROGRESS REPORT ---
Subjective Progress Note for:: 11/10/16 Subjective:: Patient has had some nausea and vomiting. Patient has been using an insulin pump and this has been DC'd overnight. Physical Exam Vital Signs: Temp Pulse Resp BP Pulse Ox 97.4 F 92 16 153/92 H 97 11/10/16 07:29 11/10/16 08:57 11/10/16 08:57 11/10/16 07:29 11/10/16 08:57 Intake & Output 11/09/16 11/10/16 11/11/16 06:59 06:59 06:59 Intake Total 886 1838 Balance 886 1838 Weight 50.6 kg 51.1 kg General appearance: PRESENT: no acute distress Eye exam: PRESENT: conjunctiva pink. ABSENT: scleral icterus Mouth exam: PRESENT: moist, tongue midline Neck exam: ABSENT: JVD Respiratory exam: PRESENT: clear to auscultation peterson. ABSENT: rales, rhonchi, wheezes Cardiovascular exam: PRESENT: RRR. ABSENT: diastolic murmur, rubs, systolic murmur GI/Abdominal exam: PRESENT: normal bowel sounds, soft. ABSENT: distended, guarding, mass, organolmegaly, rebound, tenderness Extremities exam: ABSENT: calf tenderness, clubbing, pedal edema Neurological exam: PRESENT: alert, awake, oriented to person, oriented to place , oriented to time, oriented to situation, CN II-XII grossly intact. ABSENT: motor sensory deficit Psychiatric exam: PRESENT: appropriate affect Skin exam: PRESENT: dry, intact, warm. ABSENT: cyanosis, rash Results Laboratory Results: 11/10/16 05:30 11/10/16 04:27 11/10/16 11/10/16 11/10/16 04:27 04:27 05:30 WBC Cancelled 14.1 H RBC Cancelled 5.09 Hgb Cancelled 17.2 H Hct Cancelled 49.7 H MCV Cancelled 98 H MCH Cancelled 33.8 H MCHC Cancelled 34.6 RDW Cancelled 14.2 H Plt Count Cancelled 136 L Seg Neutrophils % Cancelled 85.7 H Lymphocytes % Cancelled 12.0 L Monocytes % Cancelled 1.0 L Eosinophils % Cancelled 0.0 Basophils % Cancelled 1.3 Absolute Neutrophils Cancelled 12.1 H Absolute Lymphocytes Cancelled 1.7 Absolute Monocytes Cancelled 0.1 Absolute Eosinophils Cancelled 0.0 Absolute Basophils Cancelled 0.2 Sodium 140.0 Potassium 4.1 Chloride 102 Carbon Dioxide 19 L Anion Gap 19 BUN 35 H Creatinine 1.03 Est GFR ( Amer) > 60 Est GFR (Non-Af Amer) 56 L Glucose 357 H Calcium 10.3 H 11/08/16 11/08/16 11/08/16 08:38 08:38 14:14 Creatine Kinase 26 L 31 CK-MB (CK-2) 0.77 Troponin I < 0.012 11/08/16 11/08/16 11/08/16 14:14 20:05 20:05 Creatine Kinase 31 CK-MB (CK-2) 0.81 0.88 Troponin I 0.033 0.032 Impressions: Chest X-Ray 11/08/16 01:02 IMPRESSION: No acute cardiopulmonary findings. Stable. Head CT 11/08/16 01:03 IMPRESSION: NORMAL BRAIN CT WITHOUT CONTRAST. Assessment & Plan - Diagnosis (1) Encephalopathy Is this a current diagnosis for this admission?: Yes Plan: Most likely secondary to medications. Patient does not show any evidence for infection as a cause. Her Duragesic patches have been removed. She was evaluated by psychiatry yesterday and they did not feel that this was a suicide attempt. Feels most likely just substance abuse. The patient is alert and oriented today. She complains of pain and nausea and vomiting consistent with narcotic withdrawal. Because of this we will start her back on her Duragesic patch but at a lower dose. (2) Hyperglycemia Is this a current diagnosis for this admission?: Yes Plan: The patient had not informed anybody that she had an insulin pump present. The patient removed that last night. She has been started on long-acting insulin and she is somewhat acidotic. We will not start insulin drip at this time and just cover with Lantus and sliding scale insulin. She will be given IV fluids however. (3) Polypharmacy Is this a current diagnosis for this admission?: Yes Plan: Psychiatry has evaluated the patient and feel that she is not a suicide risk. (4) Hypothyroid Qualifiers: Hypothyroidism type: unspecified Qualified Code(s): E03.9 - Hypothyroidism , unspecified Is this a current diagnosis for this admission?: Yes Plan: TSH is low but T4 is normal. Will hold the Synthroid. Unlikely that the thyroid is the cause for her mental status changes. - Time Time Spent with patient: 25-34 minutes - Plan Summary Plan Summary: If she continues to improve we can hopefully discharge home tomorrow.
[2016-11-11] MEDS: NORMAL SALINE 1000 ML 1,000 ML IV PRN (01:58)
[2016-11-11] MEDS: HEPARIN SOD (PORCINE) 5,000 UNIT/ML 1 ML SYRINGE SUBCUT SCH (06:20)
[2016-11-11 07:30] LABS: ABSOLUTE BASOPHILS # (AUTO) 0.1 10^3/uL (0.0-0.2); ABSOLUTE EOSINOPHILS # (AUTO) 0.1 10^3/uL (0.0-0.6); ABSOLUTE MONOCYTES (AUTO) 0.5 10^3/uL (0.1-1.4); ABSOLUTE NEUT (AUTO) 7.4 10^3/uL (1.7-8.2); BASOPHILS % (AUTO) 1.4 % (0-2); EOSINOPHILS % (AUTO) 0.7 % (0-6); HEMATOCRIT 42.2 % (36.0-47.0); HGB HCT DIFFERENCE 2.8; LYMPHOCYTES % (AUTO) 19.6 % (13-45); MEAN CORPUSCULAR HEMOGLOBIN 34.8 pg (27.0-33.4); MEAN CORPUSCULAR HGB CONC 35.5 g/dL (32.0-36.0); MEAN CORPUSCULAR VOLUME 98 fl (80-97); MONOCYTES % (AUTO) 5.2 % (3-13); RED BLOOD COUNT 4.32 10^6/uL (3.72-5.28); RED CELL DISTRIBUTION WIDTH 14.1 % (11.5-14.0); SEGMENTED NEUTROPHILS % (AUTO) 73.1 % (42-78); WHITE BLOOD COUNT 10.2 10^3/uL (4.0-10.5)
[2016-11-11] MEDS: DOCUSATE SODIUM 100 MG CAPSULE PO SCH (09:26)
[2016-11-11 11:20] VITALS: BP 125/93
[2016-11-11] MEDS: INSULIN GLARGINE,HUM.REC.ANLOG 300 UNIT/3 ML INSULN.PEN SUBCUT SCH (11:23)
--- NOTE | 2016-11-11 11:32 | PDOC DISCHARGE SUMMARY ---
General - Admit/Disc Date/PCP Admission Date/Primary Care Provider: 11/08/16 03:27 CONCEPCION GONCALVES MD Discharge Date: 11/11/16 - Discharge Diagnosis (1) Encephalopathy Is this a current diagnosis for this admission?: Yes Summary: [place] to be secondary to medications. Her Duragesic patch was held as well as her Valium. She then woke up and was alert and oriented. She was restarted on a lower dose of Duragesic at 50 mcg every 72 hours. Her Valium was changed from scheduled to as needed. (2) Polypharmacy Is this a current diagnosis for this admission?: Yes (3) Hypothyroid Is this a current diagnosis for this admission?: Yes (4) Coronary artery disease Is this a current diagnosis for this admission?: Yes (5) COPD (chronic obstructive pulmonary disease) Is this a current diagnosis for this admission?: Yes (6) Hypertension Is this a current diagnosis for this admission?: Yes (7) Cirrhosis Is this a current diagnosis for this admission?: Yes (8) Diabetes mellitus type 1 Is this a current diagnosis for this admission?: Yes (9) HLD (hyperlipidemia) Is this a current diagnosis for this admission?: Yes - Additional Information Resuscitation Status: Full Code Discharge Diet: Diabetic Discharge Activity: Activity As Tolerated Home Medications: Amlodipine Besylate [Norvasc 5 mg Tablet] 5 mg PO Q12 11/08/16 Atorvastatin Calcium [Lipitor 40 mg Tablet] 40 mg PO QHS 11/08/16 Cyclobenzaprine HCl [Flexeril 5 mg Tablet] 5 mg PO TIDP PRN 11/08/16 Escitalopram Oxalate [Lexapro 10 mg Tablet] 10 mg PO DAILY 11/08/16 Fludrocortisone Acetate [Florinef 0.1 mg Tablet] 0.1 mg PO DAILY 11/08/16 Gabapentin [Neurontin 100 mg Capsule] 100 mg PO Q8 11/08/16 Insulin Glargine,Hum.rec.anlog [Lantus Solostar] 15 units SUBCUT DAILY 11/08/16 Insulin Lispro [Humalog] 0 units SUBCUT ASDIR PRN 11/08/16 Levothyroxine Sodium [Synthroid 0.05 mg Tablet] 0.05 mg PO DAILY 11/08/16 Lisinopril [Zestril] 2.5 mg PO QHS 11/08/16 Metoclopramide HCl [Reglan 10 mg Tablet] 10 mg PO BID 11/08/16 Omeprazole 20 mg PO DAILY 11/08/16 Ondansetron [Zofran Odt] 8 mg PO Q8HP PRN 11/08/16 Ranolazine [Ranexa] 1,000 mg PO Q12 11/08/16 Ropinirole HCl 1 mg PO QHS 11/08/16 Trazodone HCl [Desyrel] 100 mg PO QHS 11/08/16 Valacyclovir HCl [Valacyclovir] 500 mg PO DAILY 11/08/16 Venlafaxine HCl ER [Effexor Xr 37.5 mg Cap.sr] 37.5 mg PO DAILY 11/08/16 Diazepam [Valium] 10 mg PO Q8 PRN #0 11/11/16 Fentanyl [Duragesic 50 Mcg/Hr Transdermal Patch] 1 each TD Q3DAYS #1 patch.[id number] 11/11/16 History of Present Illness History of Present Illness: TEX MORRIS is a 51 year old female who has a history of CVA and diabetes who also has chronic pain and is on chronic opioids who presented after her son called EMS. Patient was confused and he gave her Narcan. EMS responded and she declined transportation earlier in the day 2 separate times before she was finally brought in which she was unarousable. The patient was felt to most likely have symptoms because of the narcotics and the benzodiazepines that she had been using. Patient is admitted for further workup. Hospital Course Hospital Course: 51-year-old female who has problems with chronic pain and has been on opioids and diazepam's. The patient presented with altered mental status and her son had given her Narcan called EMS. The patient refused transportation to the hospital 2 separate times before she was finally enough that they brought her in any count. The patient had her Duragesic patches removed and her Valium was held. The patient slowly woke up and she was alert and oriented 4. The patient was restarted on her Duragesic patch at a lower dose of 50 mcg from the 100 mcg she been using previously. Her Valium also was changed from scheduled every 8 hours to as needed. Patient also does have diabetes. She did not initially inform us that she was using an insulin pump however she removed that. Because of this we switched her over to Lantus and sliding scale insulin. I will defer to her primary care doctor whether or not she needs to restart her insulin pump given her mental status. The patient did not have any significant hypoglycemia during this hospitalization. The patient's other problems including coronary artery disease and hypertension were stable during this hospitalization. Physical Exam Vital Signs: Temp Pulse Resp BP Pulse Ox 98.6 F 99 16 125/93 H 100 11/11/16 11:18 11/11/16 11:18 11/11/16 11:18 11/11/16 11:18 11/11/16 11:18 Intake & Output 11/10/16 11/11/16 11/12/16 06:59 06:59 06:59 Intake Total 1838 4631 Balance 1838 4631 Weight 51.1 kg 52.9 kg General appearance: PRESENT: no acute distress Eye exam: PRESENT: conjunctiva pink. ABSENT: scleral icterus Mouth exam: PRESENT: moist, tongue midline Neck exam: ABSENT: JVD Respiratory exam: PRESENT: clear to auscultation peterson. ABSENT: rales, rhonchi, wheezes Cardiovascular exam: PRESENT: RRR. ABSENT: diastolic murmur, rubs, systolic murmur GI/Abdominal exam: PRESENT: normal bowel sounds, soft. ABSENT: distended, guarding, mass, organolmegaly, rebound, tenderness Extremities exam: ABSENT: calf tenderness, clubbing, pedal edema Neurological exam: PRESENT: alert, awake, oriented to person, oriented to place , oriented to time, oriented to situation, CN II-XII grossly intact. ABSENT: motor sensory deficit Psychiatric exam: PRESENT: appropriate affect, normal mood. ABSENT: homicidal ideation, suicidal ideation Skin exam: PRESENT: dry, intact, warm. ABSENT: cyanosis, rash Results Laboratory Results: 11/11/16 06:50 11/11/16 08:16 11/11/16 11/11/16 11/11/16 06:50 06:50 08:16 WBC 10.2 RBC 4.32 Hgb 15.0 D Hct 42.2 MCV 98 H MCH 34.8 H MCHC 35.5 RDW 14.1 H Plt Count 132 L Seg Neutrophils % 73.1 Lymphocytes % 19.6 Monocytes % 5.2 Eosinophils % 0.7 Basophils % 1.4 Absolute Neutrophils 7.4 Absolute Lymphocytes 2.0 Absolute Monocytes 0.5 Absolute Eosinophils 0.1 Absolute Basophils 0.1 Sodium Cancelled Cancelled Potassium Cancelled Cancelled Chloride Cancelled Cancelled Carbon Dioxide Cancelled Cancelled Anion Gap Cancelled Cancelled BUN Cancelled Cancelled Creatinine Cancelled Cancelled Est GFR ( Amer) Cancelled Cancelled Est GFR (Non-Af Amer) Cancelled Cancelled Glucose Cancelled Cancelled Calcium Cancelled Cancelled 11/08/16 11/08/16 11/08/16 08:38 08:38 14:14 Creatine Kinase 26 L 31 CK-MB (CK-2) 0.77 Troponin I < 0.012 11/08/16 11/08/16 11/08/16 14:14 20:05 20:05 Creatine Kinase 31 CK-MB (CK-2) 0.81 0.88 Troponin I 0.033 0.032 Impressions: Chest X-Ray 11/08/16 01:02 IMPRESSION: No acute cardiopulmonary findings. Stable. Head CT 11/08/16 01:03 IMPRESSION: NORMAL BRAIN CT WITHOUT CONTRAST. Qualifiers PATEINT BEING DISCHARGED WITH ANY OF THE FOLLOWING DIAGNOSIS?: No Plan Discharge Plan: Patient is discharged home. She will follow-up with her primary care doctor in 1-2 weeks. Time Spent: Greater than 30 Minutes
== END 2016-11-11 11:40 | disposition home or self-care (01) | DRG 92 ==
LOC: ER 00:48 → EH 03:27 → UNDOADMIN 03:32 → 3W 05:15
PROVIDERS: ADMIT Internal Medicine; ATTEND Internal Medicine
DX: G92 Toxic encephalopathy (principal); F11.288 Opioid dependence with other opioid-induced disorder; T40.2X5A Adverse effect of other opioids, initial encounter; K21.9 Gastro-esophageal reflux disease without esophagitis; E10.9 Type 1 diabetes mellitus without complications; I10 Essential (primary) hypertension; G89.29 Other chronic pain; E78.5 Hyperlipidemia, unspecified; J44.9 Chronic obstructive pulmonary disease, unspecified; K74.60 Unspecified cirrhosis of liver; I25.10 Atherosclerotic heart disease of native coronary artery without angina pectoris; E03.9 Hypothyroidism, unspecified; F31.9 Bipolar disorder, unspecified; G40.909 Epilepsy, unspecified, not intractable, without status epilepticus; F17.210 Nicotine dependence, cigarettes, uncomplicated; Z96.41 Presence of insulin pump (external) (internal); Y92.019 Unspecified place in single-family (private) house as the place of occurrence of the external cause; Z86.718 Personal history of other venous thrombosis and embolism; Z86.711 Personal history of pulmonary embolism; Z86.73 Personal history of transient ischemic attack (TIA), and cerebral infarction without residual deficits; Z88.0 Allergy status to penicillin; Z79.4 Long term (current) use of insulin; Z79.899 Other long term (current) drug therapy
CPT/HCPCS: 36415; 51701; 70450; 71010; 80048; 80053; 80307; 81001; 82550; 82553; 82803; 82962; 83735; 83880; 84439; 84443; 84484; 85025; 93005; 93010; 93306; 99291; J1642; J1644; J1815; J3490; J7030

== ENCOUNTER 2016-12-19 09:51 | Emergency (ER) | payer MEDICAID ==
[2016-12-19] MEDS ORDERED: NORMAL SALINE 500 ML IV PRN (10:43)
--- NOTE | 2016-12-19 10:43 | ER Document Report ---
ED General - General Stated Complaint: ALTERED MENTAL STATUS Time Seen by Provider: 12/19/16 10:32 Mode of Arrival: Medic Information source: Emergency Med Personnel Notes: This is a 51-year-old female with a history of insulin requiring diabetes and a history of DKA in the past, history of polypharmacy encephalopathy in the past who is brought in by EMS because of an altered mental status. EMS reports that the patient was combative at the scene. They report that the patient's son and reported that the mental status changes it started 2 days ago. TRAVEL OUTSIDE OF THE [place] IN LAST 30 DAYS: No - HPI Onset: Yesterday Onset/Duration: Gradual Quality of pain: No pain Severity: None Pain Level: Denies Associated symptoms: denies: Chest pain, Fever, Shortness of breath Exacerbated by: Denies Relieved by: Denies Similar symptoms previously: Yes Recently seen / treated by doctor: Yes - Related Data Allergies/Adverse Reactions: erythromycin base [Erythromycin Base] Allergy (Severe, Verified 07/10/16 18:06) Anaphylaxis fexofenadine HCl [From Shae] Allergy (Severe, Verified 07/10/16 18:06) Confusion levetiracetam [From Keppra] Allergy (Severe, Verified 07/10/16 18:06) passes out, loses time Penicillins Allergy (Severe, Verified 07/10/16 18:06) Anaphylaxis vancomycin [Vancomycin] Allergy (Severe, Verified 07/10/16 18:06) Blood pressure bottomed out Home Medications: Current Home Medications Amlodipine Besylate [Norvasc 5 mg Tablet] 5 mg PO Q12 12/19/16 [History] Atorvastatin Calcium [Lipitor 40 mg Tablet] 40 mg PO QHS 12/19/16 [History] Cyclobenzaprine HCl [Flexeril 5 mg Tablet] 5 mg PO Q8HP PRN 12/19/16 [History] Diazepam [Valium] 10 mg PO Q8HP PRN 12/19/16 [History] Escitalopram Oxalate [Lexapro 10 mg Tablet] 10 mg PO DAILY 12/19/16 [History] Fentanyl [Duragesic 100 Mcg/Hr Transdermal Patch] 1 patch TOP Q2D 12/19/16 [ History] Fludrocortisone Acetate [Florinef 0.1 mg Tablet] 0.1 mg PO DAILY 12/19/16 [ History] Insulin Lispro [Humalog Insulin (Lispro) 100 unit/mL] 0 unit PUMP .ASDIR [History] Levothyroxine Sodium [Synthroid] 50 mcg PO DAILY 12/19/16 [History] Lisinopril [Prinivil 2.5 mg Tablet] 2.5 mg PO QHS 12/19/16 [History] Metoclopramide HCl [Reglan 10 mg Tablet] 10 mg PO BID 12/19/16 [History] Omeprazole 20 mg PO DAILY 12/19/16 [History] Ondansetron HCl [Zofran 8 mg Tablet] 8 mg PO Q8HP PRN 12/19/16 [History] Pregabalin [Lyrica 75 mg Capsule] 75 mg PO Q12 12/19/16 [History] Ranolazine [Ranexa] 1,000 mg PO Q12 12/19/16 [History] Ropinirole HCl [Requip] 1 mg PO QHS 12/19/16 [History] Trazodone HCl [Desyrel] 100 mg PO QHS 12/19/16 [History] Valacyclovir HCl [Valtrex 500 mg Tablet] 500 mg PO DAILY 12/19/16 [History] Venlafaxine HCl ER [Effexor Xr 37.5 mg Cap.sr] 37.5 mg PO DAILY 12/19/16 [ History] Past Medical History - General Information source: Patient - Social History Smoking Status: Current Every Day Smoker Cigarette use (# per day): Yes Chew tobacco use (# tins/day): No Smoking Education Provided: No Frequency of alcohol use: None Drug Abuse: Other Lives with: Family Family History: Malignancy Patient has suicidal ideation: No Patient has homicidal ideation: No - Past Medical History Cardiac Medical History: Reports: Hx Coronary Artery Disease - 2 blockages, Hx DVT - States her anticoagulant was stopped by her physician., Hx Hypercholesterolemia, Hx Hypertension, Hx Pulmonary Embolism, Hx Heart Murmur Pulmonary Medical History: Reports: Hx Bronchitis - Not since she quit smoking, Hx COPD, Hx Pneumonia - 2 weeks ago Neurological Medical History: Reports: Hx Cerebrovascular Accident - 5 yrs ago, Hx Seizures - History of same; states she is not supposed to be on antiepileptics. 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 History of DKA., Hx Hypothyroidism. Denies: Hx Hyperthyroidism Renal/ Medical History: Denies: Hx Peritoneal Dialysis GI Medical History: Reports: Hx Cirrhosis, Hx Gastroesophageal Reflux Disease, Hx Ulcer. Denies: Hx Hepatitis Musculoskeltal Medical History: Reports Hx Arthritis Psychiatric Medical History: Reports: Hx Depression Infectious Medical History: Denies: Hx Hepatitis Past Surgical History: Reports: Hx Appendectomy, Hx Hysterectomy, Hx Orthopedic Surgery - Neck fusion, wrist surgery, knee surgery, Hx Tubal Ligation, Other - Left chest Port-A-Cath - Immunizations Hx Diphtheria, Pertussis, Tetanus Vaccination: Yes Hx Pneumococcal Vaccination: 11/09/11 Review of Systems - Review of Systems Constitutional: denies: Chills, Fever EENT: No symptoms reported Cardiovascular: No symptoms reported Respiratory: No symptoms reported Gastrointestinal: No symptoms reported Genitourinary: No symptoms reported Female Genitourinary: No symptoms reported Musculoskeletal: No symptoms reported Skin: No symptoms reported Hematologic/Lymphatic: No symptoms reported Neurological/Psychological: See HPI Physical Exam - Vital signs Vitals: Temp Resp BP Pulse Ox 98.7 F 17 143/95 H 99 12/19/16 10:09 12/19/16 10:09 12/19/16 10:09 12/19/16 10:09 Notes: Physical exam: GENERAL: 51-year-old female, lethargic but arousable, confused, appears dehydrated, tachycardic (107), denies any pain. Temperature is 99.1 rectally. The patient does have a strong urine smell (she has been incontinent). HEAD: Atraumatic, normocephalic. EYES: Pupils equal round and reactive to light, extraocular movements intact, sclera anicteric, conjunctiva are normal. ENT: TMs normal, nares patent, oropharynx clear without exudates. dry mucous membranes. NECK: Normal range of motion, supple without obvious mass or JVD. LUNGS: Breath sounds clear to auscultation bilaterally and equal. No wheezes rales or rhonchi. HEART: Regular rate and rhythm without murmurs, rubs or gallops. ABDOMEN: Soft, normoactive bowel sounds. No tenderness to palpation. No guarding, no rebound. No masses appreciated. EXTREMITIES: Normal range of motion, no pitting or edema. No clubbing or cyanosis. NEUROLOGICAL: Cranial nerves II through XII grossly intact. Lethargic, moving all extremities, No obvious meningismus. PSYCH: Normal mood, normal affect. SKIN: Warm, Dry, normal turgor, no rashes or lesions noted. Course - Vital Signs Vital signs: Temp Pulse Resp BP Pulse Ox 98.1 F 13 140/97 H 100 12/19/16 14:18 12/19/16 15:01 12/19/16 15:00 12/19/16 15:01 - Laboratory Result Diagrams: 12/19/16 10:50 12/19/16 10:50 Laboratory results interpreted by me: 12/19/16 12/19/16 12/19/16 10:31 10:50 10:50 Hgb 16.4 H Hct 47.9 H RDW 14.4 H Seg Neutrophils % 85.7 H Lymphocytes % 9.3 L Absolute Neutrophils 8.4 H BUN 31 H Est GFR (Non-Af Amer) 59 L Glucose 223 H POC Glucose 201 H Calcium 10.3 H Total Bilirubin 1.5 H Direct Bilirubin 0.6 H Urine Protein Urine Glucose (UA) Urine Ketones 12/19/16 13:14 Hgb Hct RDW Seg Neutrophils % Lymphocytes % Absolute Neutrophils BUN Est GFR (Non-Af Amer) Glucose POC Glucose Calcium Total Bilirubin Direct Bilirubin Urine Protein 30 H Urine Glucose (UA) 150 H Urine Ketones 20 H - Diagnostic Test Radiology reviewed: Image reviewed, Reports reviewed - CT of the head shows no acute bleed or mass-effect. Chest x-ray is clear. - EKG Interpretation by Me Rate: Tachycardia Rhythm: NSR - EKG shows sinus tachycardia with a ventricular rate of 105, left atrial enlargement, no acute ST-T wave changes. Discharge - Discharge Clinical Impression: Altered mental status Condition: Stable Disposition: HOME, SELF-CARE Additional Instructions: In summary: A head CT was normal today. Your chest x-ray looked good. Your sugar was acceptable. Your electrolytes and kidney functions were good. The urine analysis was acceptable. Specific signs to look out for: Worsening mental status changes, worsening confusion, any concerns or getting worse. Any other instructions: Continue current medicines, follow-up with your primary care doctor Thank you for choosing [facility] for your care. The examination and treatment you have received in the Emergency Department today has been rendered on an emergency basis only and is not intended to be a substitute for complete medical care. You should contact your follow-up physician as it is important that he or she examine you for any new or remaining problems. If given a copy of any lab tests or radiology reports, please bring them with you when you see your physician. If your problem worsens or new symptoms appear and you are unable to arrange prompt follow-up care, return to the Emergency Department. Referrals: CONCEPCION GONCALVES MD [Primary Care Provider] - Follow up as needed
[2016-12-19 11:18] LABS: ABSOLUTE BASOPHILS # (AUTO) 0.1 10^3/uL (0.0-0.2); ABSOLUTE LYMPHOCYTES (AUTO) 0.9 10^3/uL (0.5-4.7); ABSOLUTE MONOCYTES (AUTO) 0.4 10^3/uL (0.1-1.4); ABSOLUTE NEUT (AUTO) 8.4 10^3/uL (1.7-8.2); BASOPHILS % (AUTO) 1.1 % (0-2); HEMATOCRIT 47.9 % (36.0-47.0); HEMOGLOBIN 16.4 g/dL (12.0-15.5); HGB HCT DIFFERENCE 1.3; LYMPHOCYTES % (AUTO) 9.3 % (13-45); MEAN CORPUSCULAR HEMOGLOBIN 33.1 pg (27.0-33.4); MEAN CORPUSCULAR HGB CONC 34.2 g/dL (32.0-36.0); MEAN CORPUSCULAR VOLUME 97 fl (80-97); MONOCYTES % (AUTO) 3.9 % (3-13); RED BLOOD COUNT 4.95 10^6/uL (3.72-5.28); RED CELL DISTRIBUTION WIDTH 14.4 % (11.5-14.0); SEGMENTED NEUTROPHILS % (AUTO) 85.7 % (42-78); WHITE BLOOD COUNT 9.8 10^3/uL (4.0-10.5)
[2016-12-19 11:30] LABS: PROTHROMBIN TIME 13.4 SEC (11.4-15.4)
--- NOTE | 2016-12-19 11:40 | RADIOLOGY REPORT (SQ) ---
EXAM DESCRIPTION: CHEST SINGLE VIEW COMPLETED DATE/TIME: 12/19/2016 11:21 am REASON FOR STUDY: chest pain COMPARISON: 11/22/2015 EXAM PARAMETERS: NUMBER OF VIEWS: One view. TECHNIQUE: Single frontal radiographic view of the chest acquired. RADIATION DOSE: NA LIMITATIONS: None. FINDINGS: LUNGS AND PLEURA: No opacities, masses or pneumothorax. No pleural effusion. MEDIASTINUM AND HILAR STRUCTURES: No masses. Contour normal. HEART AND VASCULAR STRUCTURES: Heart normal in size. Normal vasculature. BONES: No acute findings. HARDWARE: An injection port is present on the left. OTHER: No other significant finding. IMPRESSION: NO ACUTE RADIOGRAPHIC FINDING IN THE CHEST. TECHNICAL DOCUMENTATION: JOB ID: [id number]
[2016-12-19 11:42] LABS: ALANINE AMINOTRANSFERASE 34 U/L (9-52); ALBUMIN 4.6 g/dL (3.5-5.0); ALKALINE PHOSPHATASE 95 U/L (38-126); ANION GAP 15 (5-19); ASPARTATE AMINO TRANSFERASE 18 U/L (14-36); BILIRUBIN,DIRECT 0.6 mg/dL (0.0-0.4); BILIRUBIN,TOTAL 1.5 mg/dL (0.2-1.3); BLOOD UREA NITROGEN 31 mg/dL (7-20); CALCIUM 10.3 mg/dL (8.4-10.2); CARBON DIOXIDE 24 mmol/L (22-30); CHLORIDE 103 mmol/L (98-107); CREATININE RESULT 0.98 mg/dL (0.52-1.25); GLUCOSE 223 mg/dL (75-110); POTASSIUM 3.8 mmol/L (3.6-5.0); SODIUM 141.5 mmol/L (137-145); TOTAL PROTEIN 7.1 g/dL (6.3-8.2)
--- NOTE | 2016-12-19 11:44 | RADIOLOGY REPORT (SQ) ---
EXAM DESCRIPTION: CT HEAD WITHOUT COMPLETED DATE/TIME: 12/19/2016 11:20 am REASON FOR STUDY: encephalopathy COMPARISON: 11/08/2016 TECHNIQUE: Axial images acquired through the brain without intravenous contrast. Images reviewed wi th bone, brain and subdural windows. Images stored on PACS. All CT scanners at this facility use dose modulation, iterative reconstruction, and/or weight based d osing when appropriate to reduce radiation dose to as low as reasonably achievable (ALARA). [facility]: Dose Right [facility]: CareDose [facility]: Dose Right [facility]: Teradose 4D [facility]: [employer] RADIATION DOSE: Up-to-date CT equipment and radiation dose reduction techniques were employed. CTDIv ol: 64.6 mGy. DLP: 1163 mGy-cm. mGy. LIMITATIONS: None. FINDINGS: VENTRICLES: Normal size and contour. CEREBRUM: No masses. No hemorrhage. No midline shift. No evidence for acute infarction. Normal gra y/white matter differentiation. No areas of low density in the white matter. CEREBELLUM: No masses. No hemorrhage. No alteration of density. No evidence for acute infarction. EXTRAAXIAL SPACES: No fluid collections. No masses. ORBITS AND GLOBE: No intra- or extraconal masses. Normal contour of globe without masses. CALVARIUM: No fracture. PARANASAL SINUSES: No fluid or mucosal thickening. SOFT TISSUES: No mass or hematoma. OTHER: No other significant finding. IMPRESSION: NORMAL BRAIN CT WITHOUT CONTRAST. EVIDENCE OF ACUTE STROKE: NO. COMMENT: Quality ID # [id number]: Final reports with documentation of one or more dose reduction techniques (e.g., Automated exposure control, adjustment of the mA and/or kV according to patient size, use of iterative reconstruction technique) TECHNICAL DOCUMENTATION: JOB ID: [id number]- All Rights Reserved
[2016-12-19] MEDS: NORMAL SALINE 1000 ML 1,000 ML IV PRN ×2 (12:31→15:32)
[2016-12-19 13:39] LABS: APPEARANCE,URINE SLIGHTLY-CLOUDY; BILIRUBIN,URINE NEGATIVE (NEGATIVE); GLUCOSE, URINE 150 mg/dL (NEGATIVE); KETONES,URINE 20 mg/dL (NEGATIVE); LEUKOCYTE ESTERASE,URINE NEGATIVE (NEGATIVE); NITRITE,URINE NEGATIVE (NEGATIVE); PROTEIN,URINE 30 mg/dL (NEGATIVE); URINE SPECIFIC GRAVITY 1.027; UROBILINOGEN,URINE NEGATIVE mg/dL (<2.0)
[2016-12-19 14:01] LABS: URINE BARBITURATES SCREEN NEGATIVE; URINE METHADONE SCREEN NEGATIVE; URINE OPIATES LOW NEGATIVE; URINE PHENCYCLIDINE SCREEN NEGATIVE
--- NOTE | 2016-12-19 19:49 | EKG REPORT ---
SEVERITY:- ABNORMAL ECG - SINUS TACHYCARDIA PROBABLE LEFT VENTRICULAR HYPERTROPHY BIATRIAL ENLARGEMENT. : Confirmed by: Andrea Christensen MD 19-Dec-2016 19:48:53
[2016-12-19 21:05] VITALS: BP 114/83
== END 2016-12-19 21:07 | disposition home or self-care (01) ==
LOC: ER 09:51
DX: R41.0 Disorientation, unspecified (principal); R32 Unspecified urinary incontinence; R53.83 Other fatigue; I51.7 Cardiomegaly; R00.0 Tachycardia, unspecified; E10.9 Type 1 diabetes mellitus without complications; F17.210 Nicotine dependence, cigarettes, uncomplicated; I25.10 Atherosclerotic heart disease of native coronary artery without angina pectoris; I10 Essential (primary) hypertension; J44.9 Chronic obstructive pulmonary disease, unspecified; Z86.718 Personal history of other venous thrombosis and embolism; Z88.1 Allergy status to other antibiotic agents; Z88.8 Allergy status to other drugs, medicaments and biological substances; Z88.0 Allergy status to penicillin; Z87.892 Personal history of anaphylaxis; Z86.711 Personal history of pulmonary embolism; Z86.73 Personal history of transient ischemic attack (TIA), and cerebral infarction without residual deficits
CPT/HCPCS: 93005; 36591; 99285; 96360; 96361; 51702; 36415; 87040; 87086; 82962; 85025; 85610; 80053; 81001; 80307; 83605; 71010; 70450; 93010; J7030; J7040

== ENCOUNTER 2016-12-20 11:53 | Emergency (ER) | payer MEDICAID ==
[2016-12-20] MEDS ORDERED: NORMAL SALINE 1000 ML 1,000 ML IV ONE (14:53)
--- NOTE | 2016-12-20 15:19 | RADIOLOGY REPORT (SQ) ---
EXAM DESCRIPTION: CHEST SINGLE VIEW COMPLETED DATE/TIME: 12/20/2016 3:10 pm REASON FOR STUDY: ams COMPARISON: 12/19/2016 EXAM PARAMETERS: NUMBER OF VIEWS: One view. TECHNIQUE: Single frontal radiographic view of the chest acquired. RADIATION DOSE: NA LIMITATIONS: None. FINDINGS: LUNGS AND PLEURA: No opacities, masses or pneumothorax. No pleural effusion. MEDIASTINUM AND HILAR STRUCTURES: No masses. Contour normal. HEART AND VASCULAR STRUCTURES: Heart normal in size. Normal vasculature. BONES: No acute findings. HARDWARE: An injection port is present on the left. OTHER: No other significant finding. IMPRESSION: NO ACUTE RADIOGRAPHIC FINDING IN THE CHEST. TECHNICAL DOCUMENTATION: JOB ID: [id number]
--- NOTE | 2016-12-20 15:26 | ER Document Report ---
ED General - General Chief Complaint: Altered Mental Status Stated Complaint: ALTERED MENTAL STATUS Time Seen by Provider: 12/20/16 14:14 Mode of Arrival: Stretcher TRAVEL OUTSIDE OF THE [place] IN LAST 30 DAYS: No - HPI Patient complains to provider of: Change in mental status Associated symptoms: Slow to respond Notes: Patient was brought to the emergency room for change in mental status, she is nonverbal at time of my exam, will shake her head yes or no for simple questions but otherwise does not offer any additional information and no family members are at bedside, she was seen in the department yesterday for altered mental status as well, appeared to improve after narcotic pain medication patch was removed - Related Data Allergies/Adverse Reactions: erythromycin base [Erythromycin Base] Allergy (Severe, Verified 07/10/16 18:06) Anaphylaxis fexofenadine HCl [From Shae] Allergy (Severe, Verified 07/10/16 18:06) Confusion levetiracetam [From Keppra] Allergy (Severe, Verified 07/10/16 18:06) passes out, loses time Penicillins Allergy (Severe, Verified 07/10/16 18:06) Anaphylaxis vancomycin [Vancomycin] Allergy (Severe, Verified 07/10/16 18:06) Blood pressure bottomed out Past Medical History - General Information source: Emergency Med Personnel - Social History Smoking Status: Former Smoker Family History: Malignancy - Past Medical History Cardiac Medical History: Reports: Hx Coronary Artery Disease - 2 blockages, Hx DVT - States her anticoagulant was stopped by her physician., Hx Hypercholesterolemia, Hx Hypertension, Hx Pulmonary Embolism, Hx Heart Murmur Pulmonary Medical History: Reports: Hx Bronchitis - Not since she quit smoking, Hx COPD, Hx Pneumonia - 2 weeks ago Neurological Medical History: Reports: Hx Cerebrovascular Accident - 5 yrs ago, Hx Seizures - History of same; states she is not supposed to be on antiepileptics. 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 History of DKA., Hx Hypothyroidism. Denies: Hx Hyperthyroidism Renal/ Medical History: Denies: Hx Peritoneal Dialysis GI Medical History: Reports: Hx Cirrhosis, Hx Gastroesophageal Reflux Disease, Hx Ulcer. Denies: Hx Hepatitis Musculoskeltal Medical History: Reports Hx Arthritis Psychiatric Medical History: Reports: Hx Depression Infectious Medical History: Denies: Hx Hepatitis Past Surgical History: Reports: Hx Appendectomy, Hx Hysterectomy, Hx Orthopedic Surgery - Neck fusion, wrist surgery, knee surgery, Hx Tubal Ligation, Other - Left chest Port-A-Cath - Immunizations Hx Diphtheria, Pertussis, Tetanus Vaccination: Yes Hx Pneumococcal Vaccination: 11/09/11 Review of Systems - Review of Systems -: Yes ROS unobtainable due to patient's medical condition Physical Exam - Vital signs Vitals: Temp 97.5 F 12/20/16 12:22 Interpretation: Normal - General General appearance: Alert In distress: None - HEENT Head: Normocephalic, Atraumatic Eyes: Normal Conjunctiva: Normal Eyelashes: Normal Pupils: PERRL Mucous membranes: Dry - Respiratory Respiratory status: No respiratory distress Chest status: Nontender Breath sounds: Normal Chest palpation: Normal - Cardiovascular Rhythm: Regular Murmur: Yes Systolic murmur grade 1-6: 4 - Abdominal Inspection: Normal Distension: No distension Bowel sounds: Normal Tenderness: Tender - Mild diffuse tenderness Organomegaly: No organomegaly - Back Back: Normal, Nontender - Extremities General upper extremity: Normal inspection General lower extremity: Normal inspection - Neurological Vanderbilt Coma Scale Eye Opening: Spontaneous Jonn Coma Scale Verbal: None Jonn Coma Scale Motor: Withdraws to Pain Vanderbilt Coma Scale Total: 9 - Skin Skin Temperature: Warm Skin Moisture: Dry Skin Color: Normal Course - Re-evaluation Re-evalutation: 12/20/16 22:59 Patient is answering questions much more appropriately at this point in time, she was seen yesterday in the emergency room and was evaluated by the mental health team, Dr. Spain knows her quite well and reports that some of her altered mental status is intact, and she will pretend that she cannot speak when you were in the room but then as you turn to walk out of the room she will give you the middle finger behind her back repeatedly, Dr. Spain was concerned that patient is likely abusing EMS services in the emergency department when she does not have an actual medical problem that requires a visit to the emergency room, she did recommend that if patient does not improve to have any medical issues today that I call the local law enforcement and have patient arrested for abuse of medical services, however patient does have mild dehydration and urinary tract infection today, she was treated with IV fluids and started on antibiotics, she was advised to follow-up with her primary care provider or return if symptoms worsen, patient acknowledges understanding and agreement with this plan - Vital Signs Vital signs: Temp Pulse Resp BP Pulse Ox 98.7 F 12/20/16 15:00 - Laboratory Result Diagrams: 12/20/16 17:15 12/20/16 17:15 Laboratory results interpreted by me: 12/20/16 12/20/16 12/20/16 12:50 17:15 17:15 MCV 98 H Plt Count 143 L Seg Neutrophils % 81.9 H Lymphocytes % 12.5 L VBG pCO2 Carbon Dioxide 18 L BUN 27 H Glucose 389 H POC Glucose 239 H Total Bilirubin 2.0 H Direct Bilirubin 0.8 H Urine Glucose (UA) Urine Ketones Ur Leukocyte Esterase 12/20/16 12/20/16 12/20/16 17:15 18:05 21:00 MCV Plt Count Seg Neutrophils % Lymphocytes % VBG pCO2 34.0 L Carbon Dioxide BUN Glucose POC Glucose 382 H Total Bilirubin Direct Bilirubin Urine Glucose (UA) >=500 H Urine Ketones 80 H Ur Leukocyte Esterase TRACE H - Diagnostic Test Radiology reviewed: Image reviewed, Reports reviewed - EKG Interpretation by Me EKG shows normal: Sinus rhythm Rate: Normal Rhythm: NSR Discharge - Discharge Clinical Impression: Hyperglycemia Urinary tract infection Qualifiers: Urinary tract infection type: site unspecified Hematuria presence: without hematuria Qualified Code(s): N39.0 - Urinary tract infection, site not specified Condition: Stable Disposition: HOME, SELF-CARE Instructions: Urinary Tract Infection ([facility]) Additional Instructions: Follow up with your primary care provider in one to 2 days. Return to the emergency room immediately if symptoms worsen or any additional concerns. Prescriptions: Cephalexin Monohydrate [Keflex 500 mg Capsule] 500 mg PO BID #20 capsule
[2016-12-20 18:00] LABS: ABSOLUTE LYMPHOCYTES (AUTO) 1.1 10^3/uL (0.5-4.7); ABSOLUTE MONOCYTES (AUTO) 0.5 10^3/uL (0.1-1.4); ABSOLUTE NEUT (AUTO) 7.5 10^3/uL (1.7-8.2); BASOPHILS % (AUTO) 0.4 % (0-2); LYMPHOCYTES % (AUTO) 12.5 % (13-45); MEAN CORPUSCULAR HEMOGLOBIN 33.4 pg (27.0-33.4); MEAN CORPUSCULAR HGB CONC 34.1 g/dL (32.0-36.0); MEAN CORPUSCULAR VOLUME 98 fl (80-97); MONOCYTES % (AUTO) 5.2 % (3-13); RED BLOOD COUNT 4.49 10^6/uL (3.72-5.28); RED CELL DISTRIBUTION WIDTH 13.9 % (11.5-14.0); SEGMENTED NEUTROPHILS % (AUTO) 81.9 % (42-78); VENOUS BLOOD BASE EXCESS -3.5 mmol/L; VENOUS BLOOD HCO3 20.4 mmol/L (20-32); VENOUS BLOOD PH 7.4 (7.30-7.42); WHITE BLOOD COUNT 9.1 10^3/uL (4.0-10.5)
[2016-12-20 18:18] LABS: ALANINE AMINOTRANSFERASE 23 U/L (9-52); ALBUMIN 4.3 g/dL (3.5-5.0); ALKALINE PHOSPHATASE 87 U/L (38-126); ANION GAP 18 (5-19); ASPARTATE AMINO TRANSFERASE 18 U/L (14-36); BILIRUBIN,DIRECT 0.8 mg/dL (0.0-0.4); BLOOD UREA NITROGEN 27 mg/dL (7-20); CALCIUM 9.7 mg/dL (8.4-10.2); CARBON DIOXIDE 18 mmol/L (22-30); CHLORIDE 102 mmol/L (98-107); CREATININE RESULT 0.91 mg/dL (0.52-1.25); GLUCOSE 389 mg/dL (75-110); POTASSIUM 3.6 mmol/L (3.6-5.0); SODIUM 138.4 mmol/L (137-145); TOTAL PROTEIN 6.4 g/dL (6.3-8.2)
--- NOTE | 2016-12-20 18:23 | EKG REPORT ---
SEVERITY:- ABNORMAL ECG - SINUS TACHYCARDIA PAC PROBABLE LEFT VENTRICULAR HYPERTROPHY NONSPECIFIC T ABNORMALITIES, INFERIOR LEADS : Confirmed by: Andrea Christensen MD 20-Dec-2016 18:23:24
[2016-12-20] MEDS ORDERED: NORMAL SALINE 1000 ML 1,000 ML IV PRN ×2 (18:24→19:28)
[2016-12-20 18:37] LABS: APPEARANCE,URINE SLIGHTLY-CLOUDY; BILIRUBIN,URINE NEGATIVE (NEGATIVE); GLUCOSE, URINE >=500 mg/dL (NEGATIVE); KETONES,URINE 80 mg/dL (NEGATIVE); LEUKOCYTE ESTERASE,URINE TRACE (NEGATIVE); NITRITE,URINE NEGATIVE (NEGATIVE); PROTEIN,URINE NEGATIVE (NEGATIVE); URINE SPECIFIC GRAVITY 1.022; UROBILINOGEN,URINE NEGATIVE mg/dL (<2.0)
[2016-12-20 19:37] LABS: PROTHROMBIN TIME 14.1 SEC (11.4-15.4)
[2016-12-20] MEDS ORDERED: HEPARIN SOD (PORCINE) 1,000 UNIT/ML 10 ML VIAL ONE (22:52)
== END 2016-12-20 23:03 | disposition home or self-care (01) ==
LOC: ER 11:53
DX: R41.82 Altered mental status, unspecified (principal); I25.10 Atherosclerotic heart disease of native coronary artery without angina pectoris; E78.00 Pure hypercholesterolemia, unspecified; I10 Essential (primary) hypertension; E10.9 Type 1 diabetes mellitus without complications; Z79.4 Long term (current) use of insulin; Z86.718 Personal history of other venous thrombosis and embolism; Z87.891 Personal history of nicotine dependence; Z88.3 Allergy status to other anti-infective agents; Z88.0 Allergy status to penicillin; Z86.711 Personal history of pulmonary embolism; Z86.73 Personal history of transient ischemic attack (TIA), and cerebral infarction without residual deficits; Z90.710 Acquired absence of both cervix and uterus
CPT/HCPCS: 93005; 36591; 99285; 96360; 96361; 51701; 36415; 87040; 87086; 82962; 85025; 85610; 87077; 87088; 80053; 81001; 87186; 82803; 83605; 71010; 93010; J7030

== ENCOUNTER 2016-12-28 13:40 | Observation (INO) | payer MEDICAID ==
[2016-12-28] MEDS ORDERED: NORMAL SALINE 1000 ML 500 ML IV ONE (14:05)
--- NOTE | 2016-12-28 14:13 | ER Document Report ---
ED General - General Stated Complaint: ALTERED MENTAL STATUS Time Seen by Provider: 12/28/16 14:02 Mode of Arrival: Medic Information source: Patient Notes: Patient is a 51-year-old female who presents today with EMS secondary to reported altered mental status. Patient has a past medical history as recorded and has had multiple visits for altered mental status in the past. Patient was seen and evaluated here for similar complaint December 20 and found also to have a urinary tract infection. Urine cultures grew out Klebsiella. Patient was given antibiotics and states she completed the course. Patient had a fentanyl patch removed by EMS upon arrival. They stated that the patient's blood pressure initially was 80 systolic. They stated that the patient was at her baseline when they arrived answering questions appropriately being slightly "combative" verbally. She herself denies any headache, neck pain, chest pain, abdominal pain, weakness or numbness. She states she is only here because "my son is an asshole and called ems". TRAVEL OUTSIDE OF THE [place] IN LAST 30 DAYS: No - HPI Onset: This morning Onset/Duration: Gradual Quality of pain: No pain Severity: Mild Pain Level: 1 Associated symptoms: Other - See above Exacerbated by: Denies Relieved by: Denies Similar symptoms previously: Yes Recently seen / treated by doctor: Yes - Related Data Allergies/Adverse Reactions: erythromycin base [Erythromycin Base] Allergy (Severe, Verified 07/10/16 18:06) Anaphylaxis fexofenadine HCl [From Shae] Allergy (Severe, Verified 07/10/16 18:06) Confusion levetiracetam [From Keppra] Allergy (Severe, Verified 07/10/16 18:06) passes out, loses time Penicillins Allergy (Severe, Verified 07/10/16 18:06) Anaphylaxis vancomycin [Vancomycin] Allergy (Severe, Verified 07/10/16 18:06) Blood pressure bottomed out Past Medical History - General Information source: Patient - Social History Smoking Status: Unknown if Ever Smoked Cigarette use (# per day): No Chew tobacco use (# tins/day): No Smoking Education Provided: No Frequency of alcohol use: None Family History: Reviewed & Not Pertinent, Malignancy - Past Medical History Cardiac Medical History: Reports: Hx Coronary Artery Disease - 2 blockages, Hx DVT - States her anticoagulant was stopped by her physician., Hx Hypercholesterolemia, Hx Hypertension, Hx Pulmonary Embolism, Hx Heart Murmur Pulmonary Medical History: Reports: Hx Bronchitis - Not since she quit smoking, Hx COPD, Hx Pneumonia - 2 weeks ago Neurological Medical History: Reports: Hx Cerebrovascular Accident - 5 yrs ago, Hx Seizures - History of same; states she is not supposed to be on antiepileptics. 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 History of DKA., Hx Hypothyroidism. Denies: Hx Hyperthyroidism Renal/ Medical History: Denies: Hx Peritoneal Dialysis GI Medical History: Reports: Hx Cirrhosis, Hx Gastroesophageal Reflux Disease, Hx Ulcer. Denies: Hx Hepatitis Musculoskeltal Medical History: Reports Hx Arthritis Psychiatric Medical History: Reports: Hx Depression Infectious Medical History: Denies: Hx Hepatitis Past Surgical History: Reports: Hx Appendectomy, Hx Hysterectomy, Hx Orthopedic Surgery - Neck fusion, wrist surgery, knee surgery, Hx Tubal Ligation, Other - Left chest Port-A-Cath - Immunizations Hx Diphtheria, Pertussis, Tetanus Vaccination: Yes Hx Pneumococcal Vaccination: 11/09/11 Review of Systems - Review of Systems Constitutional: denies: Fever EENT: denies: Eye discharge, Nose discharge Respiratory: denies: Short of breath Gastrointestinal: denies: Vomiting Genitourinary: denies: Dysuria Musculoskeletal: denies: Leg swelling Skin: Other - no hives. denies: Rash Neurological/Psychological: Other - no slurred speech -: Yes All other systems reviewed and negative Physical Exam - Vital signs Notes: Reviewed vital signs and nursing note as charted by RN. CONSTITUTIONAL: Alert and oriented and responds appropriately to questions. Well -appearing; well-nourished HEAD: Normocephalic; atraumatic EYES: PERRL; Conjunctivae clear, no nystagmus noted, sclerae non-icteric ENT: Normal nose; no rhinorrhea; moist mucous membranes; pharynx without lesions noted NECK: Supple without meningismus; non-tender; no carotid bruits CARD: Regular rate and rhythm; no murmurs, no clicks, no rubs, no gallops; symmetric distal pulses RESP: Normal chest excursion without splinting or tachypnea; breath sounds clear and equal bilaterally; no wheezes, no rhonchi, no rales ABD/GI: Normal bowel sounds; non-distended; soft, non-tender, no abdominal bruits or palpable masses BACK: The back appears normal and is non-tender to palpation, there is no CVA tenderness EXT: Normal ROM in all joints; non-tender to palpation; no cyanosis, no effusions, no edema SKIN: Normal color for age and race; warm; dry; good turgor; capillary refill < 2 seconds; no acute lesions noted NEURO: CN II through XII are intact. Moves all extremities equally; Motor and sensory function intact PSYCH: The patient's mood and manner are appropriate. Grooming and personal hygiene are appropriate. Course - Re-evaluation Re-evalutation: 12/28/16 14:15 Heart rate is currently 82. Blood pressure was 101/75. Patient denies any pain. Patient is oriented 4 on my questioning. Patient had a fentanyl patch removed upon EMS arrival. Patient has some chronic back pain and wears a back brace. Patient also states that she did not know she was supposed to stop taking her lisinopril last evening. She supposedly was told to stop lisinopril by her primary care physician according to EMS. Patient denies any pain at this time. I will obtain basic labs and reassess the patient. I will attempt to contact the patient's son. Patient had an unwitnessed episode where she fell trying to get out of the bed in the room. Patient was on her buttocks. She states she did not hit her head. She denies any pain at this time. 12/28/16 14:17 I called and spoke to Eduardo the son. He states that the patient has been taking the antibiotics appropriately. She still has 2 days of antibiotics. I have looked up the culture results and the patient was given Keflex and a Klebsiella she was diagnosed with showed a positive susceptibility. Patient denies any symptoms at this time. She does state she would like to go home. She has allowed us to draw labs and a repeat urinalysis. 12/28/16 16:13 EKG shows a heart of 63, normal sinus rhythm, normal axis, no obvious ST elevation or depression. Flattening T waves in lead III, aVL, V2, and V5 12/28/16 17:04 Urinalysis as recorded. It appears that the patient has a persistent urinary tract infection. I have provided Rocephin and have sent a urine culture. Patient does appear to be suffering slightly from possible delirium. She states she is seeing ants on the floor. Patient is still concerned that someone stole her credit cards. She has had the fentanyl patch removed for an extended period of time. Previous urine culture should have been susceptible to Keflex but is unknown if the patient has been taking the medications appropriately. - Laboratory Result Diagrams: 12/28/16 16:06 12/28/16 16:06 Laboratory results interpreted by me: 12/28/16 12/28/16 12/28/16 16:06 16:06 16:06 RBC 3.37 L Hgb 11.4 L Hct 32.8 L MCH 33.9 H Plt Count 135 L Creatinine 1.27 H Est GFR ( Amer) 53 L Est GFR (Non-Af Amer) 44 L Glucose 173 H AST 37 H Total Protein 5.5 L Urine Glucose (UA) 150 H Ur Leukocyte Esterase MODERATE H Discharge - Discharge Clinical Impression: UTI (urinary tract infection) Qualifiers: Urinary tract infection type: site unspecified Hematuria presence: without hematuria Qualified Code(s): N39.0 - Urinary tract infection, site not specified Altered mental status, unspecified Qualifiers: Altered mental status type: unspecified Qualified Code(s): R41.82 - Altered mental status, unspecified Condition: Fair Disposition: ADMITTED OBSERVATION Admitting Provider: Hospitalist Unit Admitted: Telemetry
--- NOTE | 2016-12-28 15:21 | RADIOLOGY REPORT (SQ) ---
EXAM DESCRIPTION: CHEST PA/LAT COMPLETED DATE/TIME: 12/28/2016 3:02 pm REASON FOR STUDY: 4, ams COMPARISON: 12/19/2016 EXAM PARAMETERS: NUMBER OF VIEWS: two views TECHNIQUE: Digital Frontal and Lateral radiographic views of the chest acquired. RADIATION DOSE: NA LIMITATIONS: none FINDINGS: LUNGS AND PLEURA: No opacities, masses or pneumothorax. No pleural effusion. MEDIASTINUM AND HILAR STRUCTURES: No masses or contour abnormalities. HEART AND VASCULAR STRUCTURES: Cardiac silhouette is at the upper limits of normal in size BONES: No acute findings. HARDWARE: None in the chest. OTHER: No other significant finding. IMPRESSION: NO SIGNIFICANT RADIOGRAPHIC FINDING IN THE CHEST. TECHNICAL DOCUMENTATION: JOB ID: [id number] [employer]- All Rights Reserved
[2016-12-28 16:30] LABS: ABSOLUTE BASOPHILS # (AUTO) 0.1 10^3/uL (0.0-0.2); ABSOLUTE LYMPHOCYTES (AUTO) 1.3 10^3/uL (0.5-4.7); ABSOLUTE MONOCYTES (AUTO) 0.7 10^3/uL (0.1-1.4); ABSOLUTE NEUT (AUTO) 6.1 10^3/uL (1.7-8.2); BASOPHILS % (AUTO) 0.8 % (0-2); HEMATOCRIT 32.8 % (36.0-47.0); HEMOGLOBIN 11.4 g/dL (12.0-15.5); HGB HCT DIFFERENCE 1.4; LYMPHOCYTES % (AUTO) 16.2 % (13-45); MEAN CORPUSCULAR HEMOGLOBIN 33.9 pg (27.0-33.4); MEAN CORPUSCULAR HGB CONC 34.9 g/dL (32.0-36.0); MEAN CORPUSCULAR VOLUME 97 fl (80-97); MONOCYTES % (AUTO) 8.4 % (3-13); RED BLOOD COUNT 3.37 10^6/uL (3.72-5.28); RED CELL DISTRIBUTION WIDTH 12.9 % (11.5-14.0); SEGMENTED NEUTROPHILS % (AUTO) 74.6 % (42-78); WHITE BLOOD COUNT 8.2 10^3/uL (4.0-10.5)
[2016-12-28 16:48] LABS: APPEARANCE,URINE SLIGHTLY-CLOUDY; BILIRUBIN,URINE NEGATIVE (NEGATIVE); GLUCOSE, URINE 150 mg/dL (NEGATIVE); KETONES,URINE NEGATIVE (NEGATIVE); LEUKOCYTE ESTERASE,URINE MODERATE (NEGATIVE); NITRITE,URINE NEGATIVE (NEGATIVE); PROTEIN,URINE NEGATIVE (NEGATIVE); URINE SPECIFIC GRAVITY 1.011; UROBILINOGEN,URINE NEGATIVE mg/dL (<2.0)
[2016-12-28 16:50] LABS: ALANINE AMINOTRANSFERASE 31 U/L (9-52); ALBUMIN 3.7 g/dL (3.5-5.0); ALKALINE PHOSPHATASE 64 U/L (38-126); ANION GAP 11 (5-19); ASPARTATE AMINO TRANSFERASE 37 U/L (14-36); BILIRUBIN,DIRECT 0.4 mg/dL (0.0-0.4); BILIRUBIN,TOTAL 0.7 mg/dL (0.2-1.3); BLOOD UREA NITROGEN 16 mg/dL (7-20); CARBON DIOXIDE 28 mmol/L (22-30); CHLORIDE 101 mmol/L (98-107); CREATININE RESULT 1.27 mg/dL (0.52-1.25); GLUCOSE 173 mg/dL (75-110); POTASSIUM 4.5 mmol/L (3.6-5.0); SODIUM 139.9 mmol/L (137-145); TOTAL PROTEIN 5.5 g/dL (6.3-8.2)
[2016-12-28] MEDS ORDERED: CEFTRIAXONE 1 GM/D5W RTU 1 GM/50 ML RTUPB IV ONE (16:55)
[2016-12-28] MEDS ORDERED: FLUCONAZOLE 100 MG TABLET PO ONE (17:08)
[2016-12-28] MEDS ORDERED: ACETAMINOPHEN 325 MG TABLET PO PRN (17:50)
[2016-12-28] MEDS ORDERED: ONDANSETRON 4 MG TAB.RAPDIS PO PRN (17:50)
--- NOTE | 2016-12-28 18:16 | PDOC H&P ---
History of Present Illness Admission Date/PCP: 12/28/16 17:41 Patient complains of: Pt found confused at home and hypotensive. History of Present Illness: TEX MORRIS is a 51 year old female patient presents to the emergency room via EMS due to being found at home confused with SBP in the 70s. Per ER ER physician states that patient had fentanyl patch and place. ER also reports the patient was diagnosed with Klebsiella pneumonia where she was placed on Keflex however they are unsure she was taken medication. At time of my encounter patient denies being confused patient states that she knows where she is that she knows what year it is. Patient denies any nausea vomiting patient denies fever patient states that she has been taking her antibiotics as directed. Past Medical History Cardiac Medical History: Reports: Coronary Artery Disease - 2 blockages, DVT - States her anticoagulant was stopped by her physician., Hyperlipidema, Hypertension, Pulmonary Embolism, Heart Murmur Pulmonary Medical History: Reports: Bronchitis - Not since she quit smoking, Chronic Obstructive Pulmonary Disease (COPD), Pneumonia - 2 weeks ago Neurological Medical History: Reports: Seizures - History of same; states she is not supposed to be on antiepileptics. Endocrine Medical History: Reports: Diabetes Mellitus Type 1 - Insulin dependent. History of DKA., Hypothyroidism Denies: Hyperthyroidism GI Medical History: Reports: Cirrhosis, Gastroesophageal Reflux Disease Denies: Hepatitis Musculoskeltal Medical History: Reports: Arthritis Psychiatric Medical History: Reports: Depression Hematology: Reports: Anemia - As a child Past Surgical History Past Surgical History: Reports: Appendectomy, Hysterectomy, Orthopedic Surgery - Neck fusion, wrist surgery, knee surgery, Tubal Ligation, Other - Left chest Port-A-Cath Social History Smoking Status: Unknown if Ever Smoked Frequency of Alcohol Use: None Hx Recreational Drug Use: No Drugs: None Hx Prescription Drug Abuse: No - Advance Directive Resuscitation Status: Full Code Family History Family History: Reviewed & Not Pertinent, Malignancy Parental Family History Reviewed: Yes Children Family History Reviewed: Yes Sibling(s) Family History Reviewed.: Yes Medication/Allergy Home Medications: Cephalexin Monohydrate [Keflex 500 mg Capsule] 500 mg PO BID #20 capsule Allergies/Adverse Reactions: erythromycin base [Erythromycin Base] Allergy (Severe, Verified 07/10/16 18:06) Anaphylaxis fexofenadine HCl [From Shae] Allergy (Severe, Verified 07/10/16 18:06) Confusion levetiracetam [From Keppra] Allergy (Severe, Verified 07/10/16 18:06) passes out, loses time Penicillins Allergy (Severe, Verified 07/10/16 18:06) Anaphylaxis vancomycin [Vancomycin] Allergy (Severe, Verified 07/10/16 18:06) Blood pressure bottomed out Review of Systems Constitutional: ABSENT: chills, fever(s), headache(s), weight gain, weight loss Eyes: ABSENT: visual disturbances Ears: ABSENT: hearing changes Cardiovascular: ABSENT: chest pain, dyspnea on exertion, edema, orthropnea, palpitations Respiratory: ABSENT: cough, hemoptysis Gastrointestinal: ABSENT: abdominal pain, constipation, diarrhea, hematemesis, hematochezia, nausea, vomiting Genitourinary: ABSENT: dysuria, hematuria Musculoskeletal: PRESENT: as per HPI Integumentary: ABSENT: rash, wounds Neurological: ABSENT: abnormal gait, abnormal speech, confusion, dizziness, focal weakness, syncope Psychiatric: ABSENT: anxiety, depression, homidical ideation, suicidal ideation Endocrine: ABSENT: cold intolerance, heat intolerance, polydipsia, polyuria Hematologic/Lymphatic: ABSENT: easy bleeding, easy bruising Physical Exam Vital Signs: Temp Pulse Resp BP Pulse Ox 20 109/82 90 L 12/28/16 17:01 12/28/16 17:01 12/28/16 17:01 General appearance: PRESENT: no acute distress, thin Head exam: PRESENT: atraumatic, normocephalic Eye exam: PRESENT: conjunctiva pink, EOMI. ABSENT: scleral icterus Ear exam: PRESENT: normal external ear exam Mouth exam: PRESENT: moist, tongue midline Neck exam: ABSENT: carotid bruit, JVD, lymphadenopathy, thyromegaly Respiratory exam: PRESENT: clear to auscultation peterson. ABSENT: rales, rhonchi, wheezes Cardiovascular exam: PRESENT: RRR. ABSENT: diastolic murmur, rubs, systolic murmur Pulses: PRESENT: normal dorsalis pedis pul Vascular exam: PRESENT: normal capillary refill GI/Abdominal exam: PRESENT: normal bowel sounds, soft. ABSENT: distended, guarding, mass, organolmegaly, rebound, tenderness Rectal exam: PRESENT: deferred Extremities exam: PRESENT: full ROM. ABSENT: calf tenderness, clubbing, pedal edema Neurological exam: PRESENT: alert, awake, oriented to person, oriented to place , oriented to time, oriented to situation, CN II-XII grossly intact. ABSENT: motor sensory deficit Psychiatric exam: PRESENT: appropriate affect, normal mood. ABSENT: homicidal ideation, suicidal ideation Skin exam: PRESENT: dry, intact, warm. ABSENT: cyanosis, rash Results Impressions: Chest X-Ray 12/28/16 14:02 IMPRESSION: NO SIGNIFICANT RADIOGRAPHIC FINDING IN THE CHEST. Assessment & Plan - Diagnosis (1) Acute metabolic encephalopathy Is this a current diagnosis for this admission?: Yes Plan: Most likely secondary to patient's pain medication: Patient's fentanyl patch was removed patient appears to be at baseline. Per Dr. Spain's documentation that patient will act as though she is confused when she is actually not. Dr. Spain's notes seems to indicate that there could be a behavioral component to her presentation. (2) UTI (urinary tract infection) Qualifiers: Urinary tract infection type: site unspecified Hematuria presence: without hematuria Qualified Code(s): N39.0 - Urinary tract infection, site not specified Is this a current diagnosis for this admission?: Yes Plan: Secondary to Klebsiella pneumonia: We will continue Rocephin (4) Acute renal injury Is this a current diagnosis for this admission?: Yes Plan: In setting of normal renal function: We will give IV fluids for volume expansion. (5) Dehydration Is this a current diagnosis for this admission?: Yes Plan: Give IV fluids for volume expansion. (6) Chronic pain Is this a current diagnosis for this admission?: Yes Plan: We will hold some of patient's pain medication due to presentation. (7) Protein-calorie malnutrition, moderate Is this a current diagnosis for this admission?: Yes Plan: We will write for supplemental drinks. (8) DVT prophylaxis Is this a current diagnosis for this admission?: Yes Plan: SCDs - Time Time Spent: 30 to 50 Minutes
--- NOTE | 2016-12-28 18:29 | RADIOLOGY REPORT (SQ) ---
EXAM DESCRIPTION: CT HEAD WITHOUT COMPLETED DATE/TIME: 12/28/2016 6:20 pm REASON FOR STUDY: 4, ams COMPARISON: 12/19/2016, 11/08/2016 and 08/24/2016 TECHNIQUE: Axial images acquired through the brain without intravenous contrast. Images reviewed wi th bone, brain and subdural windows. Images stored on PACS. All CT scanners at this facility use dose modulation, iterative reconstruction, and/or weight based d osing when appropriate to reduce radiation dose to as low as reasonably achievable (ALARA). [facility]: Dose Right [facility]: CareDose [facility]: Dose Right [facility]: Teradose 4D [facility]: [employer] RADIATION DOSE: mGy. LIMITATIONS: None. FINDINGS: VENTRICLES: Normal size and contour. CEREBRUM: No masses. No hemorrhage. No midline shift. No evidence for acute infarction. Normal gra y/white matter differentiation. No areas of low density in the white matter. CEREBELLUM: No masses. No hemorrhage. No alteration of density. No evidence for acute infarction. EXTRAAXIAL SPACES: No fluid collections. No masses. ORBITS AND GLOBE: No intra- or extraconal masses. Normal contour of globe without masses. CALVARIUM: No fracture. PARANASAL SINUSES: No fluid or mucosal thickening. SOFT TISSUES: No mass or hematoma. OTHER: No other significant finding. IMPRESSION: NORMAL BRAIN CT WITHOUT CONTRAST. EVIDENCE OF ACUTE STROKE: NO. COMMENT: Quality ID # [id number]: Final reports with documentation of one or more dose reduction techniques (e.g., Automated exposure control, adjustment of the mA and/or kV according to patient size, use of iterative reconstruction technique) TECHNICAL DOCUMENTATION: JOB ID: [id number] [employer]- All Rights Reserved
--- NOTE | 2016-12-28 19:26 | EKG REPORT ---
SEVERITY:- BORDERLINE ECG - SINUS RHYTHM PROBABLE LEFT ATRIAL ABNORMALITY BORDERLINE RIGHT AXIS DEVIATION : Confirmed by: Melisa Lam MD 28-Dec-2016 19:26:25
[2016-12-28] MEDS: NORMAL SALINE 1000 ML 1,000 ML IV PRN (19:45)
[2016-12-28] MEDS ORDERED: INFLUENZA ADLT QUAD (36MOS+) 2017-18 VAC 0.5 ML SYR IM PRN (20:38)
[2016-12-29] MEDS: NORMAL SALINE 1000 ML 1,000 ML IV PRN (05:24)
[2016-12-29 05:46] LABS: HEMATOCRIT 30.4 % (36.0-47.0); HEMOGLOBIN 10.6 g/dL (12.0-15.5); HGB HCT DIFFERENCE 1.4; MEAN CORPUSCULAR HEMOGLOBIN 33.8 pg (27.0-33.4); MEAN CORPUSCULAR HGB CONC 34.8 g/dL (32.0-36.0); MEAN CORPUSCULAR VOLUME 97 fl (80-97); RED BLOOD COUNT 3.13 10^6/uL (3.72-5.28); RED CELL DISTRIBUTION WIDTH 13.1 % (11.5-14.0); WHITE BLOOD COUNT 7.3 10^3/uL (4.0-10.5)
[2016-12-29] MEDS ORDERED: LANSOPRAZOLE 30 MG TAB.RAP.DR PO SCH (06:00)
[2016-12-29 06:02] LABS: ANION GAP 5 (5-19); BLOOD UREA NITROGEN 13 mg/dL (7-20); CALCIUM 8.6 mg/dL (8.4-10.2); CARBON DIOXIDE 30 mmol/L (22-30); CHLORIDE 107 mmol/L (98-107); CREATININE RESULT 1.13 mg/dL (0.52-1.25); GLUCOSE 118 mg/dL (75-110); SODIUM 142.3 mmol/L (137-145)
--- NOTE | 2016-12-29 11:46 | PDOC DISCHARGE SUMMARY ---
General - Admit/Disc Date/PCP Admission Date/Primary Care Provider: 12/28/16 17:50 Discharge Date: 12/29/16 - Discharge Diagnosis (1) Acute metabolic encephalopathy Is this a current diagnosis for this admission?: Yes Summary: Secondary to opiate medication: Patient at time of admission was back to baseline once fentanyl patch was removed. Patient was alert and oriented to person place and time. This morning patient was alert and oriented to person place and time and denied that she ever had a problem. (2) UTI (urinary tract infection) Is this a current diagnosis for this admission?: Yes Summary: Secondary to Klebsiella pneumonia acute cystitis: We will continue Keflex. Patient's urine culture for 1 day has demonstrated no growth. (3) Diabetes type 2, controlled Is this a current diagnosis for this admission?: Yes Summary: Patient to continue home regimen. (4) Acute renal injury Is this a current diagnosis for this admission?: Yes Summary: Secondary to dehydration: Patient was placed on IV fluids and creatinine at time of discharge was 1.13. Patient was told to drink plenty of fluids. (5) Dehydration Is this a current diagnosis for this admission?: Yes Summary: Resolved (6) Chronic pain Is this a current diagnosis for this admission?: Yes Summary: Patient will need to follow-up with Dr. Saenz (7) Protein-calorie malnutrition, moderate Is this a current diagnosis for this admission?: Yes Summary: Encourage better nutritional intake - Additional Information Resuscitation Status: Full Code Discharge Diet: Cardiac, Diabetic Discharge Activity: Activity As Tolerated Home Medications: Cephalexin Monohydrate [Keflex 500 mg Capsule] 500 mg PO BID #20 capsule History of Present Illness Patient complains of: Delirium and UTI History of Present Illness: TEX MORRIS is a 51 year old female patient presents to the emergency room via EMS due to being found at home confused with SBP in the 70s. Per ER ER physician states that patient had fentanyl patch and place. ER also reports the patient was diagnosed with Klebsiella pneumonia where she was placed on Keflex however they are unsure she was taken medication. At time of my encounter patient denies being confused patient states that she knows where she is that she knows what year it is. Patient denies any nausea vomiting patient denies fever patient states that she has been taking her antibiotics as directed. Hospital Course Hospital Course: 51-year-old female that was admitted for delirium and UTI was found to have a fentanyl patch on in the emergency room. Patient's drug prescribing background was evaluated and was found that patient was last prescribed pain medication by Dr. Saenz September 30, 2016. Patient was not given any pain medicine during hospitalization and patient's mentation was back to baseline. Patient had presented to the emergency room before and was found to have Klebsiella pneumonia which she was given Keflex for. Patient's repeat urine culture for 1 day has demonstrated no growth. While here in the hospital patient was given Rocephin twice. Patient will be discharged home on Rocephin. Patient will need to follow-up with PCP for all other medical issues. Patient was noted to have dehydration which resolved with IV fluids and patient was noted to have elevated creatinine to 1.27 which resolved with IV fluids. Physical Exam Vital Signs: Temp Pulse Resp BP Pulse Ox 98.2 F 62 17 93/58 L 97 12/29/16 07:25 12/29/16 07:25 12/29/16 07:25 12/29/16 07:25 12/29/16 07:25 Intake & Output 12/28/16 12/29/16 12/30/16 06:59 06:59 06:59 Intake Total 2210 Output Total 700 Balance 1510 Weight 52.7 kg General appearance: PRESENT: no acute distress, well-developed, well-nourished Head exam: PRESENT: atraumatic, normocephalic Eye exam: PRESENT: conjunctiva pink, EOMI. ABSENT: scleral icterus Ear exam: PRESENT: normal external ear exam Mouth exam: PRESENT: moist, tongue midline Neck exam: ABSENT: carotid bruit, JVD, lymphadenopathy, thyromegaly Respiratory exam: PRESENT: clear to auscultation peterson. ABSENT: rales, rhonchi, wheezes Cardiovascular exam: PRESENT: RRR. ABSENT: diastolic murmur, rubs, systolic murmur Pulses: PRESENT: normal dorsalis pedis pul Vascular exam: PRESENT: normal capillary refill GI/Abdominal exam: PRESENT: normal bowel sounds, soft. ABSENT: distended, guarding, mass, organolmegaly, rebound, tenderness Rectal exam: PRESENT: deferred Extremities exam: PRESENT: full ROM. ABSENT: calf tenderness, clubbing, pedal edema Neurological exam: PRESENT: alert, awake, oriented to person, oriented to place , oriented to time, oriented to situation, CN II-XII grossly intact. ABSENT: motor sensory deficit Psychiatric exam: PRESENT: appropriate affect, normal mood. ABSENT: homicidal ideation, suicidal ideation Skin exam: PRESENT: dry, intact, warm. ABSENT: cyanosis, rash Results Laboratory Results: 12/29/16 05:33 12/29/16 05:33 12/29/16 12/29/16 05:33 05:33 WBC 7.3 RBC 3.13 L Hgb 10.6 L Hct 30.4 L MCV 97 MCH 33.8 H MCHC 34.8 RDW 13.1 Plt Count 121 L Sodium 142.3 Potassium 4.0 Chloride 107 Carbon Dioxide 30 Anion Gap 5 BUN 13 Creatinine 1.13 Est GFR ( Amer) > 60 Est GFR (Non-Af Amer) 50 L Glucose 118 H Calcium 8.6 Impressions: Chest X-Ray 12/28/16 14:02 IMPRESSION: NO SIGNIFICANT RADIOGRAPHIC FINDING IN THE CHEST. Head CT 12/28/16 17:31 IMPRESSION: NORMAL BRAIN CT WITHOUT CONTRAST. EVIDENCE OF ACUTE STROKE: NO.
[2016-12-29] MEDS ORDERED: CEFTRIAXONE 1 GM/D5W RTU 1 GM/50 ML RTUPB IV SCH ×2 (12:00→18:00)
[2016-12-29 12:31] VITALS: BP 115/65
== END 2016-12-29 14:20 | disposition home health service (06) ==
LOC: ER 13:40 → EH 17:41 → UNDOADMOB 17:41 → EH 17:50 → 4S 19:12 → EH 19:12
PROVIDERS: ADMIT Emergency Medicine; ATTEND Emergency Medicine
PROC: 3E0234Z Introduction of Serum, Toxoid and Vaccine into Muscle, Percutaneous Approach (ICD-10-PCS; principal; 2016-12-29)
DX: G92 Toxic encephalopathy (principal); T40.4X5A Adverse effect of other synthetic narcotics, initial encounter; N30.00 Acute cystitis without hematuria; B96.1 Klebsiella pneumoniae [K. pneumoniae] as the cause of diseases classified elsewhere; E11.9 Type 2 diabetes mellitus without complications; E86.0 Dehydration; N17.9 Acute kidney failure, unspecified; G89.29 Other chronic pain; M54.9 Dorsalgia, unspecified; E44.0 Moderate protein-calorie malnutrition; I25.10 Atherosclerotic heart disease of native coronary artery without angina pectoris; Z86.718 Personal history of other venous thrombosis and embolism; Z86.711 Personal history of pulmonary embolism; Z90.49 Acquired absence of other specified parts of digestive tract; Z86.73 Personal history of transient ischemic attack (TIA), and cerebral infarction without residual deficits; Z23 Encounter for immunization
CPT/HCPCS: 93005; 99285; 96365; 36415 ×2; 87086; 82962; 85025; 85027; 80048; 80053; 81001; 84484; 71020; 70450; 90686; 93010; 97162; J7030 ×2; J3490; J0696 ×2

== ENCOUNTER 2016-12-31 11:29 | Emergency (ER) | payer MEDICAID ==
--- NOTE | 2016-12-31 11:45 | ER Document Report ---
ED General - General Stated Complaint: ALTERED MENTAL STATUS Time Seen by Provider: 12/31/16 11:36 Mode of Arrival: Medic Information source: Patient, [facility] Records TRAVEL OUTSIDE OF THE [place] IN LAST 30 DAYS: No - HPI Patient complains to provider of: AMS Onset: Just prior to arrival Onset/Duration: Gradual Similar symptoms previously: Yes Recently seen / treated by doctor: Yes Notes: Patient is a 51-year-old female with chronic pain for which she wears a fentanyl patch. Patient was discharged from this facility 2 days ago after being admitted for altered mental status which was believed to be due to her fentanyl patch. She has been recently diagnosed with a UTI and is currently on Keflex however she presents today with a brand-new unopened bottle of Keflex so it is unclear if she is taking her antibiotics as directed. EMS was called due to her altered mental status at home. Upon arrival here, patient is drowsy but arousable. She does not complain of anything in particular. - Related Data Allergies/Adverse Reactions: erythromycin base [Erythromycin Base] Allergy (Severe, Verified 07/10/16 18:06) Anaphylaxis fexofenadine HCl [From Shae] Allergy (Severe, Verified 07/10/16 18:06) Confusion levetiracetam [From Keppra] Allergy (Severe, Verified 07/10/16 18:06) passes out, loses time Penicillins Allergy (Severe, Verified 07/10/16 18:06) Anaphylaxis vancomycin [Vancomycin] Allergy (Severe, Verified 07/10/16 18:06) Blood pressure bottomed out Home Medications: Current Home Medications Amlodipine Besylate 5 mg PO BID 12/31/16 [History] Atorvastatin Calcium 40 mg PO HSP PRN 12/31/16 [History] Cyclobenzaprine HCl 5 mg PO TID 12/31/16 [History] Diazepam 10 mg PO TID 12/31/16 [History] Escitalopram Oxalate 10 mg PO BID 12/31/16 [History] Fludrocortisone Acetate 0.1 mg PO DAILY 12/31/16 [History] Lisinopril [Zestril] 2.5 tab PO HSP PRN 12/31/16 [History] Metoclopramide HCl 10 mg PO BID 12/31/16 [History] Omeprazole 20 mg PO DAILY 12/31/16 [History] Pregabalin [Lyrica 75 mg Capsule] 75 mg PO BID 12/31/16 [History] Past Medical History - General Information source: [facility] Records - Social History Smoking Status: Unknown if Ever Smoked Family History: Reviewed & Not Pertinent, Malignancy - Past Medical History Cardiac Medical History: Reports: Hx Coronary Artery Disease - 2 blockages, Hx DVT - States her anticoagulant was stopped by her physician., Hx Hypercholesterolemia, Hx Hypertension, Hx Pulmonary Embolism, Hx Heart Murmur Pulmonary Medical History: Reports: Hx Bronchitis - Not since she quit smoking, Hx COPD, Hx Pneumonia - 2 weeks ago Neurological Medical History: Reports: Hx Cerebrovascular Accident - 5 yrs ago, Hx Seizures - History of same; states she is not supposed to be on antiepileptics. 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 History of DKA., Hx Hypothyroidism. Denies: Hx Hyperthyroidism Renal/ Medical History: Denies: Hx Peritoneal Dialysis GI Medical History: Reports: Hx Cirrhosis, Hx Gastroesophageal Reflux Disease, Hx Ulcer. Denies: Hx Hepatitis Musculoskeltal Medical History: Reports Hx Arthritis Psychiatric Medical History: Reports: Hx Depression Infectious Medical History: Denies: Hx Hepatitis Past Surgical History: Reports: Hx Appendectomy, Hx Hysterectomy, Hx Orthopedic Surgery - Neck fusion, wrist surgery, knee surgery, Hx Tubal Ligation, Other - Left chest Port-A-Cath - Immunizations Hx Diphtheria, Pertussis, Tetanus Vaccination: Yes Hx Pneumococcal Vaccination: 11/09/11 Review of Systems - Review of Systems Neurological/Psychological: Confusion -: Yes All other systems reviewed and negative Physical Exam - Vital signs Vitals: Resp 14 12/31/16 11:54 Interpretation: Normal - General General appearance: Appears well Notes: Patient is somewhat drowsy but she is arousable she is poorly capped - Respiratory Respiratory status: No respiratory distress Chest status: Nontender Breath sounds: Normal Chest palpation: Normal - Cardiovascular Rhythm: Regular Heart sounds: Normal auscultation Murmur: No - Abdominal Inspection: Normal Distension: No distension Bowel sounds: Normal Tenderness: Nontender Organomegaly: No organomegaly - Extremities General upper extremity: Normal inspection, Nontender, Normal color, Normal ROM , Normal temperature General lower extremity: Normal inspection, Nontender, Normal color, Normal ROM , Normal temperature, Normal weight bearing. No: Thuy's sign - Neurological Neuro grossly intact: Yes Cognition: Normal Orientation: AAOx4 Jonn Coma Scale Eye Opening: Spontaneous [place] Coma Scale Verbal: Oriented [place] Coma Scale Motor: Obeys Commands [place] Coma Scale Total: 15 Speech: Normal Motor strength normal: LUE, RUE, LLE, RLE Sensory: Normal - Skin Skin Temperature: Warm Skin Moisture: Dry Skin Color: Normal Course - Re-evaluation Re-evalutation: 12/31/16 14:05 Emergency department workup is unremarkable. I suspect patient may be overmedicated. She is on fentanyl and diazepam. 12/31/16 14:09 Patient is now awake, alert, oriented 4. I discussed results with her. She will follow-up with her primary care doctor. There is no indication for admission at this time. - Vital Signs Vital signs: Temp Pulse Resp BP Pulse Ox 98.5 F 15 100/68 96 12/31/16 12:44 12/31/16 13:26 12/31/16 13:26 12/31/16 13:26 - Laboratory Result Diagrams: 12/31/16 12:05 12/31/16 12:05 Laboratory results interpreted by me: 12/31/16 12/31/16 12/31/16 11:50 12:01 12:05 RBC 3.33 L Hgb 11.2 L Hct 32.3 L MCH 33.5 H Plt Count 128 L Carbon Dioxide Est GFR (Non-Af Amer) Glucose POC Glucose 239 H Total Protein Albumin Urine Glucose (UA) 150 H 12/31/16 12:05 RBC Hgb Hct MCH Plt Count Carbon Dioxide 32 H Est GFR (Non-Af Amer) 55 L Glucose 248 H POC Glucose Total Protein 5.4 L Albumin 3.3 L Urine Glucose (UA) - Diagnostic Test Radiology reviewed: Reports reviewed Radiology results interpreted by me: 12/31/16 14:09 Nothing acute per radiologist Discharge - Discharge Clinical Impression: Polypharmacy, Altered mental status Condition: Good Disposition: HOME, SELF-CARE Instructions: Altered Mental Status ([facility]) Additional Instructions: Be sure to take the medications only as prescribed. Follow-up with your primary care provider. Return to the emergency department if worse or for any other problems.
[2016-12-31 12:30] LABS: ABSOLUTE BASOPHILS # (AUTO) 0.1 10^3/uL (0.0-0.2); ABSOLUTE LYMPHOCYTES (AUTO) 1.1 10^3/uL (0.5-4.7); ABSOLUTE MONOCYTES (AUTO) 0.7 10^3/uL (0.1-1.4); BASOPHILS % (AUTO) 0.8 % (0-2); EOSINOPHILS % (AUTO) 0.1 % (0-6); HEMATOCRIT 32.3 % (36.0-47.0); HEMOGLOBIN 11.2 g/dL (12.0-15.5); HGB HCT DIFFERENCE 1.3; LYMPHOCYTES % (AUTO) 15.4 % (13-45); MEAN CORPUSCULAR HEMOGLOBIN 33.5 pg (27.0-33.4); MEAN CORPUSCULAR HGB CONC 34.5 g/dL (32.0-36.0); MEAN CORPUSCULAR VOLUME 97 fl (80-97); MONOCYTES % (AUTO) 10.3 % (3-13); RED BLOOD COUNT 3.33 10^6/uL (3.72-5.28); SEGMENTED NEUTROPHILS % (AUTO) 73.4 % (42-78); WHITE BLOOD COUNT 6.8 10^3/uL (4.0-10.5)
[2016-12-31 12:36] LABS: APPEARANCE,URINE CLEAR; BILIRUBIN,URINE NEGATIVE (NEGATIVE); GLUCOSE, URINE 150 mg/dL (NEGATIVE); KETONES,URINE NEGATIVE (NEGATIVE); LEUKOCYTE ESTERASE,URINE NEGATIVE (NEGATIVE); NITRITE,URINE NEGATIVE (NEGATIVE); PROTEIN,URINE NEGATIVE (NEGATIVE); URINE SPECIFIC GRAVITY 1.005; UROBILINOGEN,URINE NEGATIVE mg/dL (<2.0)
[2016-12-31 12:53] LABS: ALANINE AMINOTRANSFERASE 27 U/L (9-52); ALBUMIN 3.3 g/dL (3.5-5.0); ALKALINE PHOSPHATASE 75 U/L (38-126); ANION GAP 10 (5-19); ASPARTATE AMINO TRANSFERASE 22 U/L (14-36); BILIRUBIN,DIRECT 0.3 mg/dL (0.0-0.4); BILIRUBIN,TOTAL 0.8 mg/dL (0.2-1.3); BLOOD UREA NITROGEN 10 mg/dL (7-20); CALCIUM 8.5 mg/dL (8.4-10.2); CARBON DIOXIDE 32 mmol/L (22-30); CHLORIDE 100 mmol/L (98-107); CREATININE RESULT 1.04 mg/dL (0.52-1.25); GLUCOSE 248 mg/dL (75-110); POTASSIUM 3.8 mmol/L (3.6-5.0); SODIUM 141.5 mmol/L (137-145); TOTAL PROTEIN 5.4 g/dL (6.3-8.2)
--- NOTE | 2016-12-31 13:13 | RADIOLOGY REPORT (SQ) ---
EXAM DESCRIPTION: CHEST SINGLE VIEW COMPLETED DATE/TIME: 12/31/2016 1:02 pm REASON FOR STUDY: fever COMPARISON: Chest films 04/28/2016, 08/24/2016, 12/19/2016, 12/28/2016 EXAM PARAMETERS: NUMBER OF VIEWS: One view. TECHNIQUE: Single frontal radiographic view of the chest acquired. RADIATION DOSE: NA LIMITATIONS: None. FINDINGS: LUNGS AND PLEURA: No opacities, masses or pneumothorax. No pleural effusion. MEDIASTINUM AND HILAR STRUCTURES: No masses. Contour normal. HEART AND VASCULAR STRUCTURES: Heart normal in size. Normal vasculature. BONES: No acute findings. HARDWARE: Left-sided permanent central line tip superior vena cava OTHER: No other significant finding. IMPRESSION: NO ACUTE RADIOGRAPHIC FINDING IN THE CHEST. TECHNICAL DOCUMENTATION: JOB ID: [id number]
[2016-12-31 14:48] VITALS: BP 91/72
== END 2016-12-31 15:00 | disposition home or self-care (01) ==
LOC: ER 11:29
DX: R40.0 Somnolence (principal); G89.29 Other chronic pain; Z79.891 Long term (current) use of opiate analgesic; Z79.899 Other long term (current) drug therapy; N39.0 Urinary tract infection, site not specified; I25.10 Atherosclerotic heart disease of native coronary artery without angina pectoris; I10 Essential (primary) hypertension; E10.9 Type 1 diabetes mellitus without complications; Z88.8 Allergy status to other drugs, medicaments and biological substances; Z87.892 Personal history of anaphylaxis; Z88.1 Allergy status to other antibiotic agents; Z88.0 Allergy status to penicillin; Z86.718 Personal history of other venous thrombosis and embolism; Z86.711 Personal history of pulmonary embolism; Z86.73 Personal history of transient ischemic attack (TIA), and cerebral infarction without residual deficits
CPT/HCPCS: 36415; 71010; 80053; 81001; 82962; 83605; 85025; 99285

== ENCOUNTER → 2017-01-23 | Outpatient (CLI) | payer MEDICAID ==
[2017-01-23 17:10] LABS: ABSOLUTE BASOPHILS # (AUTO) 0.1 10^3/uL (0.0-0.2); ABSOLUTE LYMPHOCYTES (AUTO) 1.6 10^3/uL (0.5-4.7); ABSOLUTE MONOCYTES (AUTO) 0.4 10^3/uL (0.1-1.4); ABSOLUTE NEUT (AUTO) 3.8 10^3/uL (1.7-8.2); BASOPHILS % (AUTO) 1.2 % (0-2); HEMATOCRIT 31.2 % (36.0-47.0); HEMOGLOBIN 10.5 g/dL (12.0-15.5); HGB HCT DIFFERENCE 0.3; LYMPHOCYTES % (AUTO) 27.6 % (13-45); MEAN CORPUSCULAR HEMOGLOBIN 33.1 pg (27.0-33.4); MEAN CORPUSCULAR HGB CONC 33.8 g/dL (32.0-36.0); MEAN CORPUSCULAR VOLUME 98 fl (80-97); RED BLOOD COUNT 3.19 10^6/uL (3.72-5.28); RED CELL DISTRIBUTION WIDTH 13.7 % (11.5-14.0); SEGMENTED NEUTROPHILS % (AUTO) 65.2 % (42-78); WHITE BLOOD COUNT 5.9 10^3/uL (4.0-10.5)
[2017-01-23 17:16] LABS: ALANINE AMINOTRANSFERASE 23 U/L (9-52); ALBUMIN 3.6 g/dL (3.5-5.0); ALKALINE PHOSPHATASE 73 U/L (38-126); ANION GAP 11 (5-19); ASPARTATE AMINO TRANSFERASE 22 U/L (14-36); BILIRUBIN,DIRECT 0.4 mg/dL (0.0-0.4); BILIRUBIN,TOTAL 0.6 mg/dL (0.2-1.3); BLOOD UREA NITROGEN 13 mg/dL (7-20); CALCIUM 8.9 mg/dL (8.4-10.2); CARBON DIOXIDE 32 mmol/L (22-30); CHLORIDE 99 mmol/L (98-107); CREATININE RESULT 1.11 mg/dL (0.52-1.25); GLUCOSE 146 mg/dL (75-110); POTASSIUM 3.9 mmol/L (3.6-5.0); SODIUM 142.4 mmol/L (137-145); TOTAL PROTEIN 5.6 g/dL (6.3-8.2)
== END ==
LOC: OD 15:05
PROVIDERS: ATTEND Obstetrics & Gynecology
DX: E10.9 Type 1 diabetes mellitus without complications (principal); D64.9 Anemia, unspecified; I95.9 Hypotension, unspecified; Z51.81 Encounter for therapeutic drug level monitoring
CPT/HCPCS: 36415; 80053; 83036; 85025

== ENCOUNTER → 2017-01-23 | Outpatient (CLI) | payer MEDICAID ==
--- NOTE | 2017-01-23 15:25 | RADIOLOGY REPORT (SQ) ---
EXAM DESCRIPTION: LUMBAR SPINE COMPLETE COMPLETED DATE/TIME: 01/23/2017 3:02 pm REASON FOR STUDY: LOW BACK PAIN M54.5 LOW BACK PAIN COMPARISON: Abdominal films 09/04/2016, 06/15/2016 Lumbar spine films 03/09/2015 NUMBER OF VIEWS: Five views including obliques. TECHNIQUE: AP, lateral, oblique, and sacral radiographic images acquired of the lumbar spine. LIMITATIONS: None. FINDINGS: MINERALIZATION: Osteopenic SEGMENTATION: Normal. No transitional anatomy. ALIGNMENT: Normal. VERTEBRAE: Since the prior KUB exams, patient has developed a 25% upper endplate compression at L1 an d 25 to 50% compression of L2. These are likely subacute, there is mild bony sclerosis along the L1 and L2 upper endplates. DISCS: Preserved height. No significant osteophytes or end plate irregularity. POSTERIOR ELEMENTS: Pedicles and facets are intact. No pars defect or posterior arch defects. HARDWARE: None in the spine. PARASPINAL SOFT TISSUES: Normal. PELVIS: Bilateral SI joint sclerosis. No gross sacral fracture OTHER: No other significant finding. IMPRESSION: Subacute upper endplate compression deformities at L1 and L2. TECHNICAL DOCUMENTATION: JOB ID: [id number]- All Rights Reserved
== END ==
LOC: OD 14:41
PROVIDERS: ATTEND Obstetrics & Gynecology
DX: M54.5 Low back pain (principal)
CPT/HCPCS: 72110

== ENCOUNTER 2017-01-26 13:15 | Inpatient (IN) | payer MEDICAID ==
[2017-01-26] MEDS ORDERED: METHYLPREDNISOLONE INJ 125 MG/2 ML SDV IV ONE (13:26)
[2017-01-26] MEDS ORDERED: ACETAMINOPHEN 325 MG TABLET PO ONE (13:27)
[2017-01-26] MEDS ORDERED: IPRATROPIUM/ALBUTEROL 0.5-2.5 MG/3 ML AMPUL NEB ONE (13:33)
[2017-01-26] MEDS ORDERED: ALBUTEROL SULFATE 0.083% NEB 2.5 MG/3 ML AMPUL NEB ONE ×2 (13:33→15:18)
--- NOTE | 2017-01-26 14:04 | ER Document Report ---
ED General - General Mode of Arrival: Wheelchair Information source: Patient TRAVEL OUTSIDE OF THE [place] IN LAST 30 DAYS: No <JUAN GRIMALDO - Last Filed: 01/26/17 19:00> - General Cannot obtain history due to: Other - Somnolent, poor historian <TIEN QUEVEDO - Last Filed: 01/26/17 19:13> - General Chief Complaint: Altered Mental Status Stated Complaint: WEAKNESS Time Seen by Provider: 01/26/17 13:18 Notes: Patient is a 51 year old female with a history of CAD, and pneumonia presents to the emergency department via EMS complaining of general malaise and back pain. EMS states that they were called to the patients home earlier today due to general malaise and found that the patient had a fever and proceeded to tell the patient to take a Tylenol. Patient called EMS later today for confusion and not feeling well. Upon arrival to emergency department the patient complains of cough and shortness of breath. (JUAN GRIMALDO) - Related Data Allergies/Adverse Reactions: erythromycin base [Erythromycin Base] Allergy (Severe, Verified 01/13/17 09:36) Anaphylaxis fexofenadine HCl [From Shae] Allergy (Severe, Verified 01/13/17 09:36) Confusion levetiracetam [From Keppra] Allergy (Severe, Verified 01/13/17 09:36) passes out, loses time Penicillins Allergy (Severe, Verified 01/13/17 09:36) Anaphylaxis vancomycin [Vancomycin] Allergy (Severe, Verified 01/13/17 09:36) Blood pressure bottomed out Past Medical History - General Information source: Patient, Emergency Med Personnel - Social History Smoking Status: Current Every Day Smoker Chew tobacco use (# tins/day): No Frequency of alcohol use: None Family History: Reviewed & Not Pertinent, Malignancy - Past Medical History Cardiac Medical History: Reports: Hx Coronary Artery Disease - 2 blockages/ stents, Hx DVT - States her anticoagulant was stopped by her physician., Hx Hypercholesterolemia, Hx Hypertension, Hx Pulmonary Embolism, Hx Heart Murmur Pulmonary Medical History: Reports: Hx Bronchitis - Not since she quit smoking, Hx COPD, Hx Pneumonia - 2 weeks ago Neurological Medical History: Reports: Hx Cerebrovascular Accident - 5 yrs ago, Hx Seizures - History of same; states she is not supposed to be on antiepileptics. 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 History of DKA. Patient is on insulin pump., Hx Hypothyroidism GI Medical History: Reports: Hx Cirrhosis, Hx Gastroesophageal Reflux Disease, Hx Ulcer Musculoskeltal Medical History: Reports Hx Arthritis Psychiatric Medical History: Reports: Hx Depression Past Surgical History: Reports: Hx Appendectomy, Hx Hysterectomy, Hx Orthopedic Surgery - Neck fusion, wrist surgery, knee surgery, Hx Tubal Ligation, Other - Left chest Port-A-Cath - Immunizations Hx Diphtheria, Pertussis, Tetanus Vaccination: Yes Hx Pneumococcal Vaccination: 11/09/11 <JUAN GRIMALDO - Last Filed: 01/26/17 19:00> Review of Systems - Review of Systems -: Yes ROS unobtainable due to patient's medical condition Constitutional: See HPI, Malaise <JUAN GRIMALDO - Last Filed: 01/26/17 19:00> Physical Exam <JUAN GRIMALDO - Last Filed: 01/26/17 19:00> <TIEN QUEVEDO - Last Filed: 01/26/17 19:13> - Vital signs Vitals: Pulse Ox 92 01/26/17 13:22 - Notes Notes: GENERAL: Patient is somnolent . HEAD: Normocephalic, atraumatic. EYES: Pupils equal, round, and reactive to light. Extraocular movements intact. ENT: Oral mucosa moist, tongue midline. NECK: Full range of motion. Supple. Trachea midline. LUNGS: Expiratory wheezes. Respiratory distress. Short of breath. Poor air movement. Using accessory muscle for respiration. HEART: 3/6 systolic murmur. No gallops or rubs. ABDOMEN: Soft, non-tender. Non-distended. Bowel sounds present in all 4 quadrants. EXTREMITIES: Moves all 4 extremities spontaneously. No edema, radial and dorsalis pedis pulses 2/4 bilaterally. No cyanosis. NEUROLOGICAL: Patient is somnolent. Able to arouse. Normal speech. PSYCH: Flat affect, normal mood. SKIN: Warm, dry, normal turgor. No rashes or lesions noted. (JUAN GRIMALDO) Course - Laboratory Result Diagrams: 01/26/17 13:55 01/26/17 13:55 - Consults Dr. Martin Time consulted: 16:12 - Accepted into ICU <JUAN GRIMALDO - Last Filed: 01/26/17 19:00> - Laboratory Result Diagrams: 01/26/17 13:55 01/26/17 13:55 <TIEN QUEVEDO - Last Filed: 01/26/17 19:13> - Re-evaluation Re-evalutation: Patient became hypoxic and was given .4 Narcan to become responsive. Patient was on .8 Narcan per hour drip and is now on 2 per hour drip. 01/26/17 16:01 01/26/17 16:11 (JUAN GRIMALDO) 01/26/17 16:25 CBC shows anemia with hemoglobin 9.5, no leukocytosis, CMP grossly unremarkable , there are negative cardiac enzymes, elevated proBNP at 4270, venous blood gases concerning for acute hypoxic respiratory acidosis with a pH of 7.34 and a PCO2 of 64.7, some of this is likely due to COPD, some of this is likely due to the narcotics causing respiratory depression. I am not exactly sure where the source of her narcotics are at this time, patient is known to be on a fentanyl patch and we can see several locations were fentanyl patches used to be but we cannot find them on her body. I am very concerned at this point that the patient may have ingested a fentanyl patch, patient responds well when given 0.4 of Narcan however it then wears off and she becomes hypoxic despite being on BiPAP. Patient is started on a Narcan drip and wakes up partially when on the Narcan drip. She is neurologically intact when she begins to wake up. Chest x-ray does show worsening infiltrates concerning for possible pneumonia, given her structural lung disease, recent hospitalization and penicillin allergy she was started on Levaquin, gentamicin and aztreonam. Discussed the patient with Dr. Martin the hospitalist who agrees to accept the patient to his service in the intensive care unit. Patient also given steroids via EMS and breathing treatments here and in EMS. (TIEN QUEVEDO) - Vital Signs Vital signs: Temp Pulse Resp BP Pulse Ox 99.5 F 103 H 18 131/96 H 96 01/26/17 18:35 01/26/17 18:35 01/26/17 18:35 01/26/17 18:35 01/26/17 18:35 - Laboratory Laboratory results interpreted by me: 01/26/17 01/26/17 01/26/17 13:50 13:55 13:55 RBC 2.80 L Hgb 9.5 L Hct 27.8 L MCV 99 H MCH 33.8 H RDW 14.2 H Plt Count 123 L Seg Neutrophils % 82.7 H Lymphocytes % 9.8 L Carbonic Acid 1.95 H ABG pH 7.34 L ABG pCO2 64.7 H ABG HCO3 34.1 H ABG Total CO2 36.1 H Carbon Dioxide 31 H Glucose 74 L POC Glucose Calcium 8.3 L NT-Pro-B Natriuret Pep Total Protein 5.3 L Albumin 3.3 L 01/26/17 01/26/17 13:55 15:49 RBC Hgb Hct MCV MCH RDW Plt Count Seg Neutrophils % Lymphocytes % Carbonic Acid ABG pH ABG pCO2 ABG HCO3 ABG Total CO2 Carbon Dioxide Glucose POC Glucose 196 H Calcium NT-Pro-B Natriuret Pep 4270 H Total Protein Albumin - EKG Interpretation by Me Additional EKG results interpreted by me: 01/26/17 16:26 EKG shows sinus rhythm at a rate of 77, normal axis, normal intervals, no ST segment elevations or depressions, no T-wave inversions per my interpretation. ( TIEN QUEVEDO) Critical Care Note - Critical Care Note Total time excluding time spent on procedures (mins): 60 <TIEN QUEVEDO - Last Filed: 01/26/17 19:13> Discharge <JUAN GRIMALDO - Last Filed: 01/26/17 19:00> - Discharge Admitting Provider: [place] [facility] Unit Admitted: ICU <TIEN QUEVEDO - Last Filed: 01/26/17 19:13> - Discharge Clinical Impression: Acute respiratory failure with hypoxia and hypercapnia Opiate overdose Qualifiers: Encounter type: initial encounter Injury intent: undetermined intent Qualified Code(s): T40.604A - Poisoning by unspecified narcotics, undetermined, initial encounter CHF (congestive heart failure) Qualifiers: Congestive heart failure type: unspecified congestive heart failure type Congestive heart failure chronicity: acute Qualified Code(s): I50.9 - Heart failure, unspecified Condition: Critical Disposition: ADMITTED INPATIENT Scribe Attestation: 01/26/17 19:13 I personally performed the services described in the documentation, reviewed and edited the documentation which was dictated to the scribe in my presence, and it accurately records my words and actions. (TIEN QUEVEDO) Scribe Documentation - Scribe Written by Bird:: Bird Leigh, 01/26/2017 14:10 acting as scribe for :: Candace <JUAN GRIMALDO - Last Filed: 01/26/17 19:00>
[2017-01-26 14:23] LABS: ARTERIAL BLOOD BASE EXCESS 6.8 mmol/L; ARTERIAL BLOOD O2 SATURATION 95.4 % (94-98)
[2017-01-26 14:27] LABS: PROTHROMBIN TIME 13.4 SEC (11.4-15.4)
--- NOTE | 2017-01-26 14:32 | RADIOLOGY REPORT (SQ) ---
EXAM DESCRIPTION: CHEST SINGLE VIEW COMPLETED DATE/TIME: 01/26/2017 2:13 pm REASON FOR STUDY: SOB, fever, wheeze COMPARISON: 01/13/2017 and 12/31/2016. EXAM PARAMETERS: NUMBER OF VIEWS: One view. TECHNIQUE: Single frontal radiographic view of the chest acquired. RADIATION DOSE: NA LIMITATIONS: None. FINDINGS: LUNGS AND PLEURA: Increasing interstitial densities and faint opacities in the lower lobes . Indistinct appearance of the left hemidiaphragm. MEDIASTINUM AND HILAR STRUCTURES: No masses. Contour normal. HEART AND VASCULAR STRUCTURES: Mild cardiac enlargement. Normal vasculature. BONES: No acute findings. HARDWARE: Vascular access port. OTHER: No other significant finding. IMPRESSION: INCREASING DENSITIES, PARTICULARLY IN THE LUNG BASES, SUSPICIOUS FOR INFECTION. TECHNICAL DOCUMENTATION: JOB ID: [id number] [email or web address]- All Rights Reserved
[2017-01-26 14:33] LABS: ABSOLUTE LYMPHOCYTES (AUTO) 0.7 10^3/uL (0.5-4.7); ABSOLUTE MONOCYTES (AUTO) 0.5 10^3/uL (0.1-1.4); ABSOLUTE NEUT (AUTO) 5.8 10^3/uL (1.7-8.2); BASOPHILS % (AUTO) 0.6 % (0-2); HEMATOCRIT 27.8 % (36.0-47.0); HEMOGLOBIN 9.5 g/dL (12.0-15.5); HGB HCT DIFFERENCE 0.7; LYMPHOCYTES % (AUTO) 9.8 % (13-45); MEAN CORPUSCULAR HEMOGLOBIN 33.8 pg (27.0-33.4); MEAN CORPUSCULAR HGB CONC 34.2 g/dL (32.0-36.0); MEAN CORPUSCULAR VOLUME 99 fl (80-97); MONOCYTES % (AUTO) 6.9 % (3-13); RED CELL DISTRIBUTION WIDTH 14.2 % (11.5-14.0); SEGMENTED NEUTROPHILS % (AUTO) 82.7 % (42-78); WHITE BLOOD COUNT 7.1 10^3/uL (4.0-10.5)
[2017-01-26 14:40] LABS: ALANINE AMINOTRANSFERASE 26 U/L (9-52); ALBUMIN 3.3 g/dL (3.5-5.0); ALKALINE PHOSPHATASE 59 U/L (38-126); ANION GAP 9 (5-19); ASPARTATE AMINO TRANSFERASE 19 U/L (14-36); BILIRUBIN,DIRECT 0.4 mg/dL (0.0-0.4); BILIRUBIN,TOTAL 0.7 mg/dL (0.2-1.3); BLOOD UREA NITROGEN 7 mg/dL (7-20); CALCIUM 8.3 mg/dL (8.4-10.2); CARBON DIOXIDE 31 mmol/L (22-30); CHLORIDE 99 mmol/L (98-107); CREATINE KINASE 71 U/L (30-135); CREATININE RESULT 0.97 mg/dL (0.52-1.25); GLUCOSE 74 mg/dL (75-110); POTASSIUM 4.1 mmol/L (3.6-5.0); SODIUM 138.9 mmol/L (137-145); TOTAL PROTEIN 5.3 g/dL (6.3-8.2)
[2017-01-26] MEDS ORDERED: NALOXONE HCL INJ/PF 0.4 MG/1 ML SDV IV ONE ×2 (14:44→16:00)
[2017-01-26] MEDS ORDERED: ACETAMINOPHEN 650 MG SUPP.RECT PR ONE (14:44)
[2017-01-26 15:13] LABS: CREATINE KINASE MB 1.92 ng/mL (<4.55)
[2017-01-26 15:15] LABS: TROPONIN I 0.041 ng/mL
[2017-01-26] MEDS ORDERED: NORMAL SALINE 500 ML with NALOXONE HCL 2 MG IV PRN ×4 (15:16→16:51)
[2017-01-26 15:17] LABS: APPEARANCE,URINE CLEAR; BILIRUBIN,URINE NEGATIVE (NEGATIVE); GLUCOSE, URINE NEGATIVE (NEGATIVE); KETONES,URINE NEGATIVE (NEGATIVE); LEUKOCYTE ESTERASE,URINE NEGATIVE (NEGATIVE); NITRITE,URINE NEGATIVE (NEGATIVE); PROTEIN,URINE NEGATIVE (NEGATIVE); URINE SPECIFIC GRAVITY 1.008; UROBILINOGEN,URINE NEGATIVE mg/dL (<2.0)
[2017-01-26] MEDS ORDERED: FUROSEMIDE INJ/PF 40 MG/4 ML SDV IV ONE (15:18)
[2017-01-26] MEDS ORDERED: AZTREONAM 1 GM in DEXTROSE 5%-WATER 50 ML IV SCH (15:30)
[2017-01-26] MEDS ORDERED: GENTAMICIN SULFATE 0 MG in DEXTROSE 5%-WATER 100 ML IV NR (15:30)
[2017-01-26] MEDS ORDERED: NALOXONE HCL INJ 2 MG/2 ML DISP.SYRIN ONE (15:36)
[2017-01-26] MEDS ORDERED: NALOXONE HCL INJ/PF 0.4 MG/1 ML SDV ONE (15:46)
[2017-01-26] MEDS ORDERED: ACETAMINOPHEN 650 MG SUPP.RECT PR PRN (16:52)
[2017-01-26] MEDS ORDERED: ACETAMINOPHEN 325 MG TABLET PO PRN (16:52)
[2017-01-26] MEDS ORDERED: LEVALBUTEROL HCL NEB 0.63 MG/3 ML AMPUL NEB PRN (16:52)
[2017-01-26] MEDS ORDERED: ONDANSETRON HCL INJ/PF 4 MG/2 ML SDV IV PRN (16:52)
[2017-01-26 17:05] LABS: ARTERIAL BLOOD BASE EXCESS 4.1 mmol/L; ARTERIAL BLOOD O2 SATURATION 91.2 % (94-98)
[2017-01-26] MEDS ORDERED: DEXTROSE 40% GEL 15 GM TUBE PO PRN ×2 (17:37)
[2017-01-26] MEDS ORDERED: GLUCAGON,HUMAN RECOMB 1 MG INJ IM PRN (17:37)
[2017-01-26] MEDS ORDERED: DEXTROSE 50%-WATER 25 GM/50 ML DISP.SYRIN IV PRN ×2 (17:37)
--- NOTE | 2017-01-26 17:42 | PDOC H&P ---
History of Present Illness Admission Date/PCP: 01/26/17 16:41 CONCEPCION GONCALVES MD Patient complains of: Fever and malaise History of Present Illness: TEX MORRIS is a 51 year old female presents to ER with Fever and malaise. History obtained by ER due to patient being intubated. ER physician stated that pt had been coughing at home. ER physician noticed that pt was very sleepy. Pt was placed on BIPAP and then intubated. Pt was given Narcan and would wake up. Pt was placed on narcan drip. Pt was noted to have elevated CO2 on abg. Pt was placed on antibiotics for HCAP. Past Medical History Cardiac Medical History: Reports: Coronary Artery Disease - 2 blockages/stents, DVT - States her anticoagulant was stopped by her physician., Hyperlipidema, Hypertension, Pulmonary Embolism, Heart Murmur Pulmonary Medical History: Reports: Bronchitis - Not since she quit smoking, Chronic Obstructive Pulmonary Disease (COPD), Pneumonia - 2 weeks ago Neurological Medical History: Reports: Seizures - History of same; states she is not supposed to be on antiepileptics. Endocrine Medical History: Reports: Diabetes Mellitus Type 1 - Insulin dependent. History of DKA. Patient is on insulin pump., Hypothyroidism Denies: Hyperthyroidism GI Medical History: Reports: Cirrhosis, Gastroesophageal Reflux Disease Denies: Hepatitis Musculoskeltal Medical History: Reports: Arthritis Psychiatric Medical History: Reports: Depression Hematology: Reports: Anemia - As a child Past Surgical History Past Surgical History: Reports: Appendectomy, Hysterectomy, Orthopedic Surgery - Neck fusion, wrist surgery, knee surgery, Tubal Ligation, Other - Left chest Port-A-Cath Social History Smoking Status: Current Every Day Smoker Frequency of Alcohol Use: None Hx Recreational Drug Use: No Drugs: None Hx Prescription Drug Abuse: No Family History Family History: Reviewed & Not Pertinent, Malignancy Parental Family History Reviewed: Yes Children Family History Reviewed: Yes Sibling(s) Family History Reviewed.: Yes Medication/Allergy Home Medications: Atorvastatin Calcium 40 mg PO QHS 12/31/16 Cyclobenzaprine HCl 5 mg PO Q8HP PRN 12/31/16 Diazepam 10 mg PO Q8HP PRN 12/31/16 Escitalopram Oxalate 10 mg PO DAILY 12/31/16 Fentanyl [Duragesic 100 Mcg/Hr Transdermal Patch] 1 each TD Q2D 12/31/16 Fentanyl [Duragesic 50 Mcg/Hr Transdermal Patch] 1 each TD Q3D 12/31/16 Insulin Lispro [Humalog] 0 unit SUBCUT ASDIR PRN 12/31/16 Levothyroxine Sodium [Synthroid 0.05 mg Tablet] 50 mcg PO DAILY 12/31/16 Metoclopramide HCl 10 mg PO BID 12/31/16 Omeprazole 20 mg PO DAILY 12/31/16 Ondansetron HCl [Zofran 8 mg Tablet] 8 mg PO Q8HP PRN 12/31/16 Pregabalin [Lyrica 75 mg Capsule] 75 mg PO Q12 12/31/16 Ranolazine [Ranexa] 1,000 mg PO Q12 12/31/16 Ropinirole HCl [Requip] 1 mg PO QHS 12/31/16 Trazodone HCl [Desyrel] 100 mg PO QHS 12/31/16 Valacyclovir HCl [Valacyclovir] 500 mg PO DAILY 12/31/16 Venlafaxine HCl ER [Effexor Xr 37.5 mg Cap.sr] 37.5 mg PO DAILY 12/31/16 Fludrocortisone Acetate [Florinef 0.1 mg Tablet] 0.3 mg PO DAILY #30 tablet 09/23 Midodrine HCl [Proamatine 5 mg Tablet] 5 mg PO TID #90 tablet 01/14/17 Allergies/Adverse Reactions: erythromycin base [Erythromycin Base] Allergy (Severe, Verified 01/13/17 09:36) Anaphylaxis fexofenadine HCl [From Shae] Allergy (Severe, Verified 01/13/17 09:36) Confusion levetiracetam [From Keppra] Allergy (Severe, Verified 01/13/17 09:36) passes out, loses time Penicillins Allergy (Severe, Verified 01/13/17 09:36) Anaphylaxis vancomycin [Vancomycin] Allergy (Severe, Verified 01/13/17 09:36) Blood pressure bottomed out Review of Systems ROS unobtainable: Due to endotracheal tube Physical Exam Vital Signs: Temp Pulse Resp BP Pulse Ox 99.0 F 29 H 135/100 H 96 01/26/17 14:24 01/26/17 16:01 01/26/17 16:00 01/26/17 16:01 General appearance: PRESENT: mild distress, well-developed, well-nourished Head exam: PRESENT: atraumatic, normocephalic Eye exam: PRESENT: conjunctiva pink, EOMI. ABSENT: scleral icterus Ear exam: PRESENT: normal external ear exam Mouth exam: PRESENT: moist Neck exam: ABSENT: carotid bruit, JVD, lymphadenopathy, thyromegaly Respiratory exam: PRESENT: clear to auscultation peterson. ABSENT: rales, rhonchi, wheezes Cardiovascular exam: PRESENT: RRR. ABSENT: diastolic murmur, rubs, systolic murmur Pulses: PRESENT: normal dorsalis pedis pul Vascular exam: PRESENT: normal capillary refill GI/Abdominal exam: PRESENT: normal bowel sounds, soft. ABSENT: distended, guarding, mass, organolmegaly, rebound, tenderness Rectal exam: PRESENT: deferred Extremities exam: PRESENT: full ROM. ABSENT: calf tenderness, clubbing, pedal edema Neurological exam: PRESENT: other - +sedated with ETT in place Psychiatric exam: PRESENT: agitated Skin exam: PRESENT: dry, intact, warm. ABSENT: cyanosis, rash Results Laboratory Results: 01/26/17 16:50 Carbonic Acid 1.38 H HCO3/H2CO3 Ratio 21:1 ABG pH 7.42 ABG pCO2 45.9 H ABG pO2 59.7 L ABG HCO3 29.2 H ABG O2 Saturation 91.2 L ABG Base Excess 4.1 FiO2 50% Impressions: Chest X-Ray 01/26/17 13:27 IMPRESSION: INCREASING DENSITIES, PARTICULARLY IN THE LUNG BASES, SUSPICIOUS FOR INFECTION. Assessment & Plan - Diagnosis (1) Acute respiratory failure with hypoxia and hypercapnia Is this a current diagnosis for this admission?: Yes Plan: Pt currently intubated. Will continue Pulmonary for vent management. (2) CHF (congestive heart failure) Qualifiers: Congestive heart failure type: unspecified congestive heart failure type Congestive heart failure chronicity: acute Qualified Code(s): I50.9 - Heart failure, unspecified Is this a current diagnosis for this admission?: Yes Plan: Echo from 2017 did on give EF but reported that pt had elevated right heart pressure. Pt was given lasix in the er. BNP noted to be 4000. Will consult Cardiolgy. (3) Opiate overdose Qualifiers: Encounter type: initial encounter Injury intent: undetermined intent Qualified Code(s): T40.604A - Poisoning by unspecified narcotics, undetermined, initial encounter Is this a current diagnosis for this admission?: Yes Plan: ER reported concern that pt could have miss used on of her fentanyl patches ie ingested. Will continue Narcan drip. (4) Acute metabolic encephalopathy Is this a current diagnosis for this admission?: Yes Plan: Secondary to CO2 Narcosis and Opioid Overdose: Will continue current treatment. (5) Diabetes type 2, controlled Is this a current diagnosis for this admission?: Yes Plan: Will place pt on SSI. (6) Hypertension Is this a current diagnosis for this admission?: Yes Plan: Will monitor. It appears that last admission medications were adjusted due to hypotension. (7) Hypothyroid Qualifiers: Hypothyroidism type: unspecified Qualified Code(s): E03.9 - Hypothyroidism , unspecified Is this a current diagnosis for this admission?: Yes Plan: Will continue Synthroid. (8) Pneumonia Qualifiers: Pneumonia type: due to unspecified organism Laterality: left Lung location: unspecified part of lung Qualified Code(s): J18.9 - Pneumonia, unspecified organism Is this a current diagnosis for this admission?: Yes Plan: Concern for HCAP: Will continue antibiotic regimen. (9) Thrombocytopenia Is this a current diagnosis for this admission?: Yes Plan: Will place SCDs. Will check CBC in am. (10) DVT prophylaxis Is this a current diagnosis for this admission?: Yes Plan: Will place SCDS.
[2017-01-26] MEDS ORDERED: GENTAMICIN SULFATE 140 MG in DEXTROSE 5%-WATER 100 ML IV SCH ×2 (18:00)
[2017-01-26] MEDS ORDERED: LEVOFLOXACIN 750 MG/D5W RTU 750 MG/150 ML RTUPB IV SCH (18:00)
[2017-01-26] MEDS ORDERED: GENTAMICIN SULFATE IV PRN (18:05)
[2017-01-26] MEDS ORDERED: AZTREONAM INJ 1 GM VIAL IV SCH (18:15)
--- NOTE | 2017-01-26 20:05 | PDOC CONSULTATION ---
History of Present Illness Admission Date/PCP: 01/26/17 16:41 CONCEPCION GONCALVES MD Patient complains of: Shortness of breath History of Present Illness: TEX MORRIS is a 51 year old female presents to ER with Fever and malaise. History obtained by ER due to patient being intubated. ER physician stated that pt had been coughing at home. ER physician noticed that pt was very sleepy. Pt was placed on BIPAP and then intubated. Pt was given Narcan and would wake up. Pt was placed on narcan drip. Pt was noted to have elevated CO2 on abg. Pt was placed on antibiotics for HCAP. This history was reviewed and confirmed. Patient was noted to have elevated BNP level, therefore I was asked to evaluate this patient. Past Medical History Cardiac Medical History: Reports: Coronary Artery Disease - 2 blockages/stents, DVT - States her anticoagulant was stopped by her physician., Hyperlipidema, Hypertension, Pulmonary Embolism, Heart Murmur Pulmonary Medical History: Reports: Bronchitis - Not since she quit smoking, Chronic Obstructive Pulmonary Disease (COPD), Pneumonia - 2 weeks ago Neurological Medical History: Reports: Seizures - History of same; states she is not supposed to be on antiepileptics. Endocrine Medical History: Reports: Diabetes Mellitus Type 1 - Insulin dependent. History of DKA. Patient is on insulin pump., Hypothyroidism Denies: Hyperthyroidism GI Medical History: Reports: Cirrhosis, Gastroesophageal Reflux Disease Denies: Hepatitis Musculoskeltal Medical History: Reports: Arthritis Psychiatric Medical History: Reports: Depression Hematology: Reports: Anemia - As a child Past Surgical History Past Surgical History: Reports: Appendectomy, Hysterectomy, Orthopedic Surgery - Neck fusion, wrist surgery, knee surgery, Tubal Ligation, Other - Left chest Port-A-Cath Social History Information Source: Patient Smoking Status: Current Every Day Smoker Cigarettes Packs Per Day: 2 Frequency of Alcohol Use: None Hx Recreational Drug Use: No Drugs: None Hx Prescription Drug Abuse: Yes - Advance Directive Resuscitation Status: Full Code Family History Family History: Malignancy Parental Family History Reviewed: Yes Children Family History Reviewed: Yes Sibling(s) Family History Reviewed.: Yes Medication/Allergy Home Medications: Amlodipine Besylate [Norvasc 5 mg Tablet] 5 mg PO Q12 01/27/17 Atorvastatin Calcium [Lipitor 40 mg Tablet] 40 mg PO QHS 01/27/17 Cyclobenzaprine HCl [Flexeril 5 mg Tablet] 5 mg PO Q8HP PRN 01/27/17 Diazepam [Valium] 10 mg PO Q8HP PRN 01/27/17 Escitalopram Oxalate [Lexapro 10 mg Tablet] 10 mg PO DAILY 01/27/17 Fentanyl [Duragesic 50 Mcg/Hr Transdermal Patch] 1 patch TOP Q3D 01/27/17 Fludrocortisone Acetate [Florinef 0.1 mg Tablet] 0.1 mg PO DAILY 01/27/17 Insulin Lispro [Humalog Insulin (Lispro) 100 unit/mL] 0 units PUMP DAILY Levothyroxine Sodium [Synthroid 0.05 mg Tablet] 0.05 mg PO DAILY 01/27/17 Lisinopril [Prinivil 2.5 mg Tablet] 2.5 mg PO QHS 01/27/17 Metoclopramide HCl [Reglan 10 mg Tablet] 10 mg PO BID 01/27/17 Midodrine HCl [Proamatine 5 mg Tablet] 5 mg PO Q8 01/27/17 Omeprazole 20 mg PO DAILY 01/27/17 Ondansetron HCl [Zofran 8 mg Tablet] 8 mg PO Q8HP PRN 01/27/17 Pregabalin [Lyrica 75 mg Capsule] 75 mg PO Q12 01/27/17 Ranolazine [Ranexa] 1,000 mg PO Q12 01/27/17 Ropinirole HCl [Requip] 1 mg PO QHS 01/27/17 Teriparatide [Forteo] 2.4 ml PO DAILY 01/27/17 Trazodone HCl [Desyrel] 100 mg PO QHS 01/27/17 Valacyclovir HCl [Valtrex 500 mg Tablet] 500 mg PO DAILY 01/27/17 Venlafaxine HCl ER [Effexor Xr 37.5 mg Cap.sr] 37.5 mg PO DAILY 01/27/17 Allergies/Adverse Reactions: erythromycin base [Erythromycin Base] Allergy (Severe, Verified 01/13/17 09:36) Anaphylaxis fexofenadine HCl [From Shae] Allergy (Severe, Verified 01/13/17 09:36) Confusion levetiracetam [From Keppra] Allergy (Severe, Verified 01/13/17 09:36) passes out, loses time Penicillins Allergy (Severe, Verified 01/13/17 09:36) Anaphylaxis vancomycin [Vancomycin] Allergy (Severe, Verified 01/13/17 09:36) Blood pressure bottomed out Review of Systems Review of Systems: Please see history of present illness and past medical history as wall. System reveals somewhat limited because of patient's lethargy and only direct questioning was done. Constitutional: No fever or chills reported. Head : No recent chronic headaches, recent head injury. Eyes: No recent eye pain, diplopia, redness, discharge, acute visual changes. Ears: No recent chronic ear pain, acute hearing loss, ear discharge. Oral cavity: No recent ulcerations, bleeding, oral cavity discomfort. Neck: No recent acute neck pain reported. Hematologic: No recent easy bruising or bleeding or hematologic malignancy reported. Lymphatic: No recent lymphatic malignancy, chronic lymphadenopathy reported yet Cardiovascular system review: See history of present illness. Respiratory system review: History of chronic shortness of breath but no hemoptysis, blood clots in the lungs reported. Gastrointestinal system review: Negative for any recent acute or chronic abdominal pain, hematemesis, melena, recent change in bowel habits. Genitourinary system review: No recent acute or chronic hematuria, flank pain, UTI etc. reported. Skin system review: Negative for any recent abnormal bruising, no rash, no pruritus reported. Neurologic: No prior history of strokes, mini strokes, seizure disorder. Psychologic: No history of major psychosis or major depression reported. Musculoskeletal: Minor aches and pains reported. No acute joint swelling reported. Endocrine: No recent polyuria, polydipsia, recent heat or cold intolerance. Physical Exam Vital Signs: Temp Pulse Resp BP Pulse Ox 99.5 F 84 13 129/77 H 93 01/26/17 18:35 01/26/17 19:14 01/26/17 19:12 01/26/17 19:12 01/26/17 19:12 Intake & Output 01/25/17 01/26/17 01/27/17 06:59 06:59 06:59 Output Total 4500 Balance -4500 Weight 56.5 kg Exam: GENERAL: well-nourished and in no acute distress. Patient noted to be somewhat lethargic. She easily wakes up and responds appropriately. Formal orientation not checked. HEAD: Atraumatic, normocephalic. EYES: Pupils equal round and reactive to light, extraocular movements intact, sclera anicteric, conjunctiva are normal. ENT: TMs normal, nares patent, oropharynx clear without exudates. Moist mucous membranes. No oral ulcerations or bleeding gums noted NECK: supple without lymphadenopathy. Trachea is central. No cervical or axillary lymphadenopathy noted. Carotids are 2+, JVD WNL LUNGS: Respiration seems nonlabored, no significant accessory muscle action noted. Few bilateral crackles and few wheezes rales or rhonchi noted. No significant dullness noted on percussion. CHEST: Palpation of the chest wall shows no significant chest wall tenderness. No other significant abnormalities noted. HEART: [place] TRANSFORMATION LEAD, No PSH, 3/6 HILARIO aortic area, 1/6 mike systolic murmur mitral area , no rubs, no gallops. ABDOMEN: Soft, no significant tenderness appreciated, normoactive bowel sounds. No guarding, no rebound. No rigidity noted . No masses appreciated. EXTREMITIES: Pedal pulses are 1-2+, no calf tenderness noted. No clubbing or cyanosis.trace to 1+ pedal edema noted NEUROLOGICAL: Focused neurological exam showed no significant neurologic deficit. Normal speech, no focal weakness appreciated. PSYCH: Normal mood, normal affect. Judgment and insight within normal limits. SKIN: No significant ecchymosis, rash, ulcerations or signs of pruritus noted. MUSCULOSKELETAL EXAM: No significant joint swelling noted. Results Laboratory Results: 01/26/17 16:50 Carbonic Acid 1.38 H HCO3/H2CO3 Ratio 21:1 ABG pH 7.42 ABG pCO2 45.9 H ABG pO2 59.7 L ABG HCO3 29.2 H ABG O2 Saturation 91.2 L ABG Base Excess 4.1 FiO2 50% 01/26/17 17:54 Troponin I 0.046 EKG Comments: Shows sinus rhythm, no acute ST-T wave changes noted Impressions: Chest X-Ray 01/26/17 13:27 IMPRESSION: INCREASING DENSITIES, PARTICULARLY IN THE LUNG BASES, SUSPICIOUS FOR INFECTION. Assessment & Plan - Diagnosis (1) CHF (congestive heart failure) Qualifiers: Congestive heart failure type: unspecified congestive heart failure type Congestive heart failure chronicity: acute Qualified Code(s): I50.9 - Heart failure, unspecified Is this a current diagnosis for this admission?: Yes (2) Aortic stenosis Qualifiers: Cardiac valve disease etiology: etiology unspecified Qualified Code(s): I35.0 - Nonrheumatic aortic (valve) stenosis Is this a current diagnosis for this admission?: Yes (3) Acute respiratory failure with hypoxia and hypercapnia Is this a current diagnosis for this admission?: Yes (4) Opiate overdose Qualifiers: Encounter type: initial encounter Injury intent: undetermined intent Qualified Code(s): T40.604A - Poisoning by unspecified narcotics, undetermined, initial encounter Is this a current diagnosis for this admission?: Yes (5) Altered mental status, unspecified Qualifiers: Altered mental status type: disorientation Qualified Code(s): R41.0 - Disorientation, unspecified Is this a current diagnosis for this admission?: Yes (6) COPD (chronic obstructive pulmonary disease) Qualifiers: Emphysema type: centrilobular Is this a current diagnosis for this admission?: Yes (7) Coronary artery disease Qualifiers: Coronary Disease-Associated Artery/Lesion type: [place] artery [place] vs. transplanted heart: [place] heart Associated angina: angina presence unspecified Qualified Code(s): I25.10 - Atherosclerotic heart disease of [place] coronary artery without angina pectoris Is this a current diagnosis for this admission?: Yes (8) Tobacco dependency Is this a current diagnosis for this admission?: Yes - Notes Notes: Congestive heart failure: Based on recent echo review, patient seems to have CHF from diastolic dysfunction. This is felt to be just mild on clinical exam. Recommend low-dose beta-axel therapy. Aortic stenosis: [place] to be moderate based on prior echocardiogram. Coronary artery disease: Currently asymptomatic. EKG not showing any ischemic changes. Acute respiratory failure: Secondary to combination of hypoventilation from drug overdose and also COPD. COPD: Continue current management plans. Tobacco dependency: Patient would benefit from quitting smoking. Opioid overdose: This is being treated by the hospitalist. - Time Time Spent: 30 to 50 Minutes - More than 50% of the time spent coordinating care , discussing management plans with involved caregivers. Management plans discussed with involved personnels. Medical decision making was of moderate to high complexity, patient's has multiple comorbidities. Medications reviewed and adjusted accordingly: Yes
[2017-01-26] MEDS: IPRATROPIUM/ALBUTEROL 0.5-2.5 MG/3 ML AMPUL NEB SCH (20:24)
[2017-01-26] MEDS: INSULIN REG, HUMAN 100 UNIT/ML 3 ML VIAL (PYX) SUBCUT PRN (21:09)
[2017-01-26] MEDS: AZTREONAM 1 GM in DEXTROSE 5%-WATER 50 ML IV SCH (21:10)
[2017-01-26] MEDS ORDERED: PANTOPRAZOLE SODIUM 40 MG VIAL IV SCH (22:00)
[2017-01-26] MEDS: LEVOFLOXACIN 750 MG/D5W RTU 750 MG/150 ML RTUPB IV SCH (22:14)
[2017-01-27] MEDS: IPRATROPIUM/ALBUTEROL 0.5-2.5 MG/3 ML AMPUL NEB SCH ×4 (02:26→20:28)
[2017-01-27] MEDS: AZTREONAM 1 GM in DEXTROSE 5%-WATER 50 ML IV SCH ×3 (05:30→22:30)
[2017-01-27 06:14] LABS: HEMATOCRIT 30.5 % (36.0-47.0); HEMOGLOBIN 10.2 g/dL (12.0-15.5); HGB HCT DIFFERENCE 0.1; MEAN CORPUSCULAR HEMOGLOBIN 33.1 pg (27.0-33.4); MEAN CORPUSCULAR HGB CONC 33.4 g/dL (32.0-36.0); MEAN CORPUSCULAR VOLUME 99 fl (80-97); RED BLOOD COUNT 3.07 10^6/uL (3.72-5.28); RED CELL DISTRIBUTION WIDTH 14.4 % (11.5-14.0); WHITE BLOOD COUNT 5.1 10^3/uL (4.0-10.5)
--- NOTE | 2017-01-27 06:20 | RADIOLOGY REPORT (SQ) ---
EXAM DESCRIPTION: CHEST SINGLE VIEW CLINICAL HISTORY: shortness of breath COMPARISON: 01/26/2017 FINDINGS: Single frontal view of the chest. Left subclavian Mediport with tip in the SVC. Heart is not enlarged. Patchy bilateral perihilar opacities with slight improved aeration and inspiratory effort. No displaced rib fractures identified. Upper abdominal soft tissues are unremarkable. IMPRESSION: 1. Improved aeration bilaterally with persistent patchy bilateral perihilar airspace opacities concerning for pneumonia.
[2017-01-27 06:28] LABS: ALANINE AMINOTRANSFERASE 31 U/L (9-52); ALBUMIN 3.2 g/dL (3.5-5.0); ALKALINE PHOSPHATASE 87 U/L (38-126); ANION GAP 14 (5-19); ASPARTATE AMINO TRANSFERASE 17 U/L (14-36); BILIRUBIN,DIRECT 0.6 mg/dL (0.0-0.4); BILIRUBIN,TOTAL 0.9 mg/dL (0.2-1.3); BLOOD UREA NITROGEN 15 mg/dL (7-20); CALCIUM 8.4 mg/dL (8.4-10.2); CARBON DIOXIDE 29 mmol/L (22-30); CHLORIDE 96 mmol/L (98-107); POTASSIUM 4.2 mmol/L (3.6-5.0); SODIUM 138.8 mmol/L (137-145)
[2017-01-27 06:37] LABS: GLUCOSE 411 mg/dL (75-110)
[2017-01-27] MEDS: INSULIN REG, HUMAN 100 UNIT/ML 3 ML VIAL (PYX) SUBCUT PRN ×4 (06:41→23:01)
[2017-01-27 06:47] LABS: BASOPHILS % (MANUAL) 0 % (0-2); EOSINOPHILS % (MANUAL) 0 % (0-6); LYMPHOCYTES % (MANUAL) 4 % (13-45); TOTAL CELLS COUNTED 100
[2017-01-27 06:48] LABS: ANISOCYTOSIS SLIGHT; OVALOCYTES SLIGHT; POIKILOCYTOSIS SLIGHT
[2017-01-27] MEDS ORDERED: ACETAMINOPHEN 325 MG TABLET PO PRN (07:30)
[2017-01-27] MEDS ORDERED: ONDANSETRON HCL INJ/PF 4 MG/2 ML SDV IV PRN (08:00)
[2017-01-27] MEDS ORDERED: LEVALBUTEROL HCL NEB 0.63 MG/3 ML AMPUL NEB PRN (08:00)
[2017-01-27] MEDS ORDERED: ACETAMINOPHEN 650 MG SUPP.RECT PR PRN (08:00)
--- NOTE | 2017-01-27 09:06 | EKG REPORT ---
SEVERITY:- BORDERLINE ECG - SINUS RHYTHM PROBABLE LEFT ATRIAL ABNORMALITY : Confirmed by: Gabriella Redding 27-Jan-2017 09:05:29
--- NOTE | 2017-01-27 09:06 | EKG REPORT ---
SEVERITY:- ABNORMAL ECG - SINUS TACHYCARDIA CONSIDER LEFT VENTRICULAR HYPERTROPHY BORDERLINE PROLONGED QT INTERVAL : Confirmed by: Gabriella Redding 27-Jan-2017 09:05:18
[2017-01-27] MEDS ORDERED: ONDANSETRON HCL 8 MG TABLET PO PRN (09:30)
--- NOTE | 2017-01-27 09:34 | PDOC PROGRESS REPORT ---
Subjective Progress Note for:: 01/27/17 Subjective:: Pt states that she is doing ok. Pt states that she uses Fentanyl patches that Dr. Saenz gives her. Pt denies chest pain, fever, Nausea, Vomiting. Physical Exam Vital Signs: Temp Pulse Resp BP Pulse Ox 97.7 F 102 H 16 118/68 95 01/27/17 00:00 01/27/17 08:17 01/27/17 08:17 01/27/17 08:12 01/27/17 08:17 Intake & Output 01/26/17 01/27/17 01/28/17 06:59 06:59 06:59 Intake Total 627 Output Total 5650 35 Balance -5023 -35 Weight 59.6 kg General appearance: PRESENT: no acute distress, well-developed, well-nourished Head exam: PRESENT: atraumatic, normocephalic Eye exam: PRESENT: conjunctiva pink, EOMI, PERRLA. ABSENT: scleral icterus Ear exam: PRESENT: normal external ear exam Mouth exam: PRESENT: dry mucosa Neck exam: ABSENT: carotid bruit, JVD, lymphadenopathy, thyromegaly Respiratory exam: PRESENT: other - + coarse breath sounds with rhonchi heard bilaterally, no wheezing heard. Cardiovascular exam: PRESENT: RRR. ABSENT: diastolic murmur, rubs, systolic murmur Pulses: PRESENT: normal dorsalis pedis pul Vascular exam: PRESENT: normal capillary refill GI/Abdominal exam: PRESENT: normal bowel sounds, soft. ABSENT: distended, guarding, mass, organolmegaly, rebound, tenderness Rectal exam: PRESENT: deferred Extremities exam: PRESENT: full ROM. ABSENT: calf tenderness, clubbing, pedal edema Neurological exam: PRESENT: alert, awake, oriented to person, oriented to place , oriented to time, CN II-XII grossly intact. ABSENT: motor sensory deficit Psychiatric exam: PRESENT: depressed, flat affect. ABSENT: homicidal ideation, suicidal ideation Skin exam: PRESENT: dry, intact, warm. ABSENT: cyanosis, rash Results Laboratory Results: 01/27/17 05:35 01/27/17 05:35 01/26/17 01/27/17 01/27/17 16:50 05:35 05:35 WBC 5.1 RBC 3.07 L Hgb 10.2 L Hct 30.5 L MCV 99 H MCH 33.1 MCHC 33.4 RDW 14.4 H Plt Count 117 L Seg Neutrophils % Not Reportable Lymphocytes % Not Reportable Monocytes % Not Reportable Eosinophils % Not Reportable Basophils % Not Reportable Absolute Neutrophils Not Reportable Absolute Lymphocytes Not Reportable Absolute Monocytes Not Reportable Absolute Eosinophils Not Reportable Absolute Basophils Not Reportable Carbonic Acid 1.38 H HCO3/H2CO3 Ratio 21:1 ABG pH 7.42 ABG pCO2 45.9 H ABG pO2 59.7 L ABG HCO3 29.2 H ABG O2 Saturation 91.2 L ABG Base Excess 4.1 FiO2 50% Sodium 138.8 Potassium 4.2 Chloride 96 L Carbon Dioxide 29 Anion Gap 14 BUN 15 Creatinine 0.90 Est GFR ( Amer) > 60 Est GFR (Non-Af Amer) > 60 Glucose 411 H* Calcium 8.4 Total Bilirubin 0.9 AST 17 ALT 31 Alkaline Phosphatase 87 Total Protein 5.0 L Albumin 3.2 L 01/26/17 17:54 Troponin I 0.046 Impressions: Chest X-Ray 01/27/17 06:00 IMPRESSION: 1. Improved aeration bilaterally with persistent patchy bilateral perihilar airspace opacities concerning for pneumonia. Assessment & Plan - Diagnosis (1) Acute respiratory failure with hypoxia and hypercapnia Is this a current diagnosis for this admission?: Yes Plan: Resolved. Pt not requiring BIPAP. Pt on nasal canula. Pt was never Intubated error. (2) CHF (congestive heart failure) Qualifiers: Congestive heart failure type: unspecified congestive heart failure type Congestive heart failure chronicity: acute Qualified Code(s): I50.9 - Heart failure, unspecified Is this a current diagnosis for this admission?: Yes Plan: Echo from 2017 did on give EF but reported that pt had elevated right heart pressure. Pt seen by Cardiology who has placed her on Lasix. Will order for repeat Echo. (3) Hyperglycemia due to type 2 diabetes mellitus Is this a current diagnosis for this admission?: Yes Plan: Will continue SSI with lantus 15units SQ Qam (4) Opiate overdose Qualifiers: Encounter type: initial encounter Injury intent: undetermined intent Qualified Code(s): T40.604A - Poisoning by unspecified narcotics, undetermined, initial encounter Is this a current diagnosis for this admission?: Yes Plan: ER reported concern that pt could have miss used on of her fentanyl patches ie ingested. Pt currently not requiring narcan. Will transfer to the floow and monitor. (5) Acute metabolic encephalopathy Is this a current diagnosis for this admission?: Yes Plan: Secondary to CO2 Narcosis and Opioid Overdose: Pt currently on NC. Will continue to monitor. Pt alert and back to baseline. Will continue current treatment. (6) Diabetes type 2, controlled Is this a current diagnosis for this admission?: Yes Plan: Will continue SSI. Will place on diet today due to patient being alert. (7) Hypertension Is this a current diagnosis for this admission?: Yes Plan: Will monitor. It appears that last admission medications were adjusted due to hypotension. (8) Hypothyroid Qualifiers: Hypothyroidism type: unspecified Qualified Code(s): E03.9 - Hypothyroidism , unspecified Is this a current diagnosis for this admission?: Yes Plan: Will continue Synthroid. (9) Pneumonia Qualifiers: Pneumonia type: due to unspecified organism Laterality: left Lung location: unspecified part of lung Qualified Code(s): J18.9 - Pneumonia, unspecified organism Is this a current diagnosis for this admission?: Yes Plan: Concern for HCAP: Will continue antibiotic regimen. Will continue Aztreonam and Levofloxacin. Pt most likely has aspirated. (10) Thrombocytopenia Is this a current diagnosis for this admission?: Yes Plan: Will continue SCDs. Will continue to monitor platelets. (11) DVT prophylaxis Is this a current diagnosis for this admission?: Yes Plan: Will continue SCDS. - Time Time Spent with patient: 25-34 minutes Medications reviewed and adjusted accordingly: Yes
[2017-01-27] MEDS ORDERED: FUROSEMIDE 40 MG TABLET PO SCH (10:00)
[2017-01-27] MEDS ORDERED: LEVOTHYROXINE SODIUM INJ/PF 0.1 MG SDV IV SCH (10:00)
[2017-01-27] MEDS ORDERED: LEVOTHYROXINE SODIUM INJ/PF 0.5 MG SDV IV SCH (10:00)
[2017-01-27] MEDS ORDERED: LANSOPRAZOLE 30 MG TAB.RAP.DR PO ONE (10:00)
[2017-01-27] MEDS ORDERED: LEVOTHYROXINE SODIUM 0.05 MG TABLET PO ONE (10:00)
--- NOTE | 2017-01-27 10:11 | PDOC CONSULTATION ---
Consultation Consult Date: 01/27/17 Attending physician:: NICOLASA MORENO Consult reason:: Exacerbation of COPD History of Present Illness Admission Date/PCP: 01/26/17 16:41 CONCEPCION GONCALVES MD History of Present Illness: TEX MORRIS is a 51 year old female presents to ER with increasing lethargy per notes the patient has been coughing at home but the left she was significant enough in the ER the patient .she was given Narcan apparently was able to be awakened was noted to elevate have an elevated PCO2 on arterial blood gas was started on antibiotics placed in the ICU she states that she has been sick for several weeks but denies chills nausea vomiting diarrhea fever rhinorrhea sore throat or chest pain. She states she has had not had any chronic lung disease as a child that her PPD was negative but she is not sure when in the past it was last done she admits to exposure to passive smoke as a child as well as an adult she is smoked for smoked a pack a day for approximate 45 years. 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 She has no pets denies any recent travel. She denies angina-like chest pain, sleeps on one pillow, occasional PND, occasional nocturnal cough and rarely has edema. She denies snoring but admits admits to restless sleep nocturia 3 4 times a night unrestful sleep and excessive daytime somnolence. Past Medical History Cardiac Medical History: Reports: Coronary Artery Disease - 2 blockages/stents, DVT - States her anticoagulant was stopped by her physician., Hyperlipidema, Hypertension, Pulmonary Embolism, Heart Murmur Pulmonary Medical History: Reports: Bronchitis - Not since she quit smoking, Chronic Obstructive Pulmonary Disease (COPD), Pneumonia - 2 weeks ago EENT Medical History: Denies: Cataracts, Eyes Neurological Medical History: Reports: Seizures - History of same; states she is not supposed to be on antiepileptics. Denies: Hemorrhagic CVA, Ischemic CVA, Multiple Sclerosis Endocrine Medical History: Reports: Diabetes Mellitus Type 1 - Insulin dependent. History of DKA. Patient is on insulin pump., Hypothyroidism Denies: Gestational Diabetes, Hyperthyroidism, Obesity Renal/ Medical History: Denies: Chronic Kidney Disease, End Stage Renal Disease, Nephrolithiasis Malignancy Medical History: Reports: None GI Medical History: Reports: Cirrhosis, Gastroesophageal Reflux Disease Denies: Crohn's Disease, Diverticulitis, Hepatitis, Peptic Ulcer Disease, Ulcerative Colitis Musculoskeltal Medical History: Reports: Arthritis Denies: Gout Skin Medical History: Denies: Eczema, Psoriasis Psychiatric Medical History: Reports: Depression Denies: Substance Abuse, Tobacco Dependency Traumatic Medical History: Denies: Gunshot Wound, Pneumothorax, Stab Wound, Traumatic Brain Injury Hematology: Reports: Anemia - As a child Denies: Hemophilia, Sickle Cell Disease, Bleeding Tendencies Infectious Medical History: Denies: Hepatitis B, Hepatitis C Past Surgical History Past Surgical History: Reports: Appendectomy, Hysterectomy, Orthopedic Surgery - Neck fusion, wrist surgery, knee surgery, Tubal Ligation, Other - Left chest Port-A-Cath Social History Information Source: Patient, [facility] Records Smoking Status: Current Every Day Smoker Cigarettes Packs Per Day: 2 Number of Years Smokin Passive smoke exposure as: Both Frequency of Alcohol Use: None Hx Recreational Drug Use: No Drugs: None Hx Prescription Drug Abuse: Yes Do you have pets?: No Have you had any respiratory illnesses as a child?: No Have you been exposed to any sick contacts recently?: No Have you had any recent respiratory illnesses?: No Have you travelled outside of [place] in the past 12 months?: No - Advance Directive Resuscitation Status: Full Code Family History Family History: Malignancy Parental Family History Reviewed: Yes Children Family History Reviewed: Yes Sibling(s) Family History Reviewed.: Yes Medication/Allergy Home Medications: Atorvastatin Calcium 40 mg PO QHS 12/31/16 Cyclobenzaprine HCl 5 mg PO Q8HP PRN 12/31/16 Diazepam 10 mg PO Q8HP PRN 12/31/16 Escitalopram Oxalate 10 mg PO DAILY 12/31/16 Fentanyl [Duragesic 100 Mcg/Hr Transdermal Patch] 1 each TD Q2D 12/31/16 Fentanyl [Duragesic 50 Mcg/Hr Transdermal Patch] 1 each TD Q3D 12/31/16 Insulin Lispro [Humalog] 0 unit SUBCUT ASDIR PRN 12/31/16 Levothyroxine Sodium [Synthroid 0.05 mg Tablet] 50 mcg PO DAILY 12/31/16 Metoclopramide HCl 10 mg PO BID 12/31/16 Omeprazole 20 mg PO DAILY 12/31/16 Ondansetron HCl [Zofran 8 mg Tablet] 8 mg PO Q8HP PRN 12/31/16 Pregabalin [Lyrica 75 mg Capsule] 75 mg PO Q12 12/31/16 Ranolazine [Ranexa] 1,000 mg PO Q12 12/31/16 Ropinirole HCl [Requip] 1 mg PO QHS 12/31/16 Trazodone HCl [Desyrel] 100 mg PO QHS 12/31/16 Valacyclovir HCl [Valacyclovir] 500 mg PO DAILY 12/31/16 Venlafaxine HCl ER [Effexor Xr 37.5 mg Cap.sr] 37.5 mg PO DAILY 12/31/16 Fludrocortisone Acetate [Florinef 0.1 mg Tablet] 0.3 mg PO DAILY #30 tablet 09/23 Midodrine HCl [Proamatine 5 mg Tablet] 5 mg PO TID #90 tablet 01/14/17 Allergies/Adverse Reactions: erythromycin base [Erythromycin Base] Allergy (Severe, Verified 01/13/17 09:36) Anaphylaxis fexofenadine HCl [From Shae] Allergy (Severe, Verified 01/13/17 09:36) Confusion levetiracetam [From Keppra] Allergy (Severe, Verified 01/13/17 09:36) passes out, loses time Penicillins Allergy (Severe, Verified 01/13/17 09:36) Anaphylaxis vancomycin [Vancomycin] Allergy (Severe, Verified 01/13/17 09:36) Blood pressure bottomed out Review of Systems Constitutional: ABSENT: anorexia, headache(s) Eyes: ABSENT: visual disturbances Ears: ABSENT: hearing changes Nose, Mouth, and Throat: ABSENT: mouth pain Cardiovascular: PRESENT: dyspnea on exertion. ABSENT: chest pain, orthropnea, palpitations Respiratory: PRESENT: cough. ABSENT: hemoptysis Gastrointestinal: PRESENT: constipation, dysphagia. ABSENT: bloating, coffee ground emesis, diarrhea, heartburn, hematemesis, hematochezia, melena Genitourinary: PRESENT: nocturia. ABSENT: difficulty urinating, dysuria, hematuria Musculoskeletal: PRESENT: back pain. ABSENT: deformity, joint swelling Integumentary: ABSENT: diaphoresis, erythema, pruritus Neurological: ABSENT: abnormal gait, abnormal movements, focal weakness, numbness, paresthesias, tingling Psychiatric: ABSENT: homidical ideation, suicidal ideation Endocrine: ABSENT: cold intolerance, heat intolerance Physical Exam Vital Signs: Temp Pulse Resp BP Pulse Ox 97.7 F 102 H 16 118/68 95 01/27/17 00:00 01/27/17 08:17 01/27/17 08:17 01/27/17 08:12 01/27/17 08:17 Intake & Output 01/26/17 01/27/17 01/28/17 06:59 06:59 06:59 Intake Total 627 Output Total 5650 35 Balance -5023 -35 Weight 59.6 kg General appearance: PRESENT: no acute distress, cooperative, disheveled, thin Head exam: PRESENT: atraumatic, normocephalic Eye exam: PRESENT: conjunctiva pale, EOMI, PERRLA Mouth exam: PRESENT: dry mucosa, neck supple, tongue midline Teeth exam: PRESENT: poor dentation Neck exam: ABSENT: carotid bruit, JVD, lymphadenopathy, thyromegaly Respiratory exam: PRESENT: decreased breath sounds, prolonged expiratory phas, rhonchi, symmetrical, unlabored, wheezes. ABSENT: accessory muscle use, chest wall tenderness, clear to auscultation peterson, crackles, rales, retraction, stridor , tachypnea Cardiovascular exam: PRESENT: RRR, +S1, +S2, systolic murmur Pulses: PRESENT: normal radial pulses GI/Abdominal exam: PRESENT: normal bowel sounds, soft. ABSENT: distended, guarding, mass, organolmegaly, rebound, tenderness Gentrourinary exam: PRESENT: indwelling catheter Extremities exam: ABSENT: joint swelling, pedal edema, tenderness Musculoskeletal exam: ABSENT: deformity, dislocation, tenderness Neurological exam: PRESENT: alert, awake Psychiatric exam: PRESENT: flat affect Skin exam: PRESENT: dry, pallor, warm Results Laboratory Results: 01/27/17 05:35 01/27/17 05:35 01/26/17 01/27/17 01/27/17 16:50 05:35 05:35 WBC 5.1 RBC 3.07 L Hgb 10.2 L Hct 30.5 L MCV 99 H MCH 33.1 MCHC 33.4 RDW 14.4 H Plt Count 117 L Seg Neutrophils % Not Reportable Lymphocytes % Not Reportable Monocytes % Not Reportable Eosinophils % Not Reportable Basophils % Not Reportable Absolute Neutrophils Not Reportable Absolute Lymphocytes Not Reportable Absolute Monocytes Not Reportable Absolute Eosinophils Not Reportable Absolute Basophils Not Reportable Carbonic Acid 1.38 H HCO3/H2CO3 Ratio 21:1 ABG pH 7.42 ABG pCO2 45.9 H ABG pO2 59.7 L ABG HCO3 29.2 H ABG O2 Saturation 91.2 L ABG Base Excess 4.1 FiO2 50% Sodium 138.8 Potassium 4.2 Chloride 96 L Carbon Dioxide 29 Anion Gap 14 BUN 15 Creatinine 0.90 Est GFR ( Amer) > 60 Est GFR (Non-Af Amer) > 60 Glucose 411 H* Calcium 8.4 Total Bilirubin 0.9 AST 17 ALT 31 Alkaline Phosphatase 87 Total Protein 5.0 L Albumin 3.2 L 01/26/17 17:54 Troponin I 0.046 Impressions: Chest X-Ray 01/27/17 06:00 IMPRESSION: 1. Improved aeration bilaterally with persistent patchy bilateral perihilar airspace opacities concerning for pneumonia. Assessment & Plan - Diagnosis (1) Acute respiratory failure with hypoxia and hypercapnia Is this a current diagnosis for this admission?: Yes Plan: Historically has COPD radiographically has pneumonia and appears to have a large amount drugs on board (2) Aortic stenosis Qualifiers: Cardiac valve disease etiology: etiology unspecified Qualified Code(s): I35.0 - Nonrheumatic aortic (valve) stenosis Is this a current diagnosis for this admission?: Yes Plan: Echocardiogram for evaluation (3) Opiate overdose Qualifiers: Encounter type: initial encounter Injury intent: undetermined intent Qualified Code(s): T40.604A - Poisoning by unspecified narcotics, undetermined, initial encounter Is this a current diagnosis for this admission?: Yes Plan: Narcan as needed continue to follow closely (4) COPD (chronic obstructive pulmonary disease) Qualifiers: Emphysema type: centrilobular Is this a current diagnosis for this admission?: Yes Plan: Generic Name Dose Route Start Last Admin Trade Name Freq PRN Reason Stop Dose Admin Levalbuterol HCl 0.63 mg 01/27/17 08:00 Xopenex Neb 0.63 Mg/3 Ml Ampul NEB 02/25/17 16:51 RTQ4HP PRN WHEEZING/DYSPNEA Albuterol/Ipratropium 3 ml 01/26/17 20:00 01/27/17 08:15 Duoneb 3 Ml Ampul NEB 02/25/17 19:59 3 ml RTQ6 MARI Systemic steroids as necessary continue antibiotics biotic therapy for community -acquired pneumonia - Time Time Spent with patient: 50 minutes ICU time
[2017-01-27] MEDS: LEVOTHYROXINE SODIUM 0.05 MG TABLET PO SCH (11:30)
[2017-01-27] MEDS: FUROSEMIDE 20 MG TABLET PO SCH (11:34)
[2017-01-27] MEDS: MIDODRINE HCL 5 MG TABLET PO SCH ×3 (11:37→19:03)
[2017-01-27] MEDS: PREGABALIN 75 MG CAPSULE PO SCH ×2 (11:37→22:31)
[2017-01-27] MEDS: METOCLOPRAMIDE HCL 10 MG TABLET PO SCH ×2 (11:37→19:04)
[2017-01-27] MEDS: FLUDROCORTISONE ACETATE 0.1 MG TABLET PO SCH (11:38)
[2017-01-27] MEDS: ESCITALOPRAM OXALATE 10 MG TABLET PO SCH (11:38)
[2017-01-27] MEDS: VENLAFAXINE HCL 37.5 MG CAP.SR.24H PO SCH (14:09)
[2017-01-27] MEDS ORDERED: LANSOPRAZOLE 30 MG TAB.RAP.DR PO SCH (17:00)
[2017-01-27] MEDS: ROPINIROLE HCL 1 MG TABLET PO SCH (22:31)
[2017-01-27] MEDS: ATORVASTATIN CALCIUM 40 MG TABLET PO SCH (22:31)
[2017-01-27] MEDS: LEVOFLOXACIN 750 MG/D5W RTU 750 MG/150 ML RTUPB IV SCH (23:02)
[2017-01-28] MEDS: IPRATROPIUM/ALBUTEROL 0.5-2.5 MG/3 ML AMPUL NEB SCH ×4 (02:05→20:20)
[2017-01-28 04:33] LABS: HEMATOCRIT 31.1 % (36.0-47.0); HEMOGLOBIN 10.6 g/dL (12.0-15.5); HGB HCT DIFFERENCE 0.7; MEAN CORPUSCULAR HEMOGLOBIN 33.1 pg (27.0-33.4); MEAN CORPUSCULAR VOLUME 97 fl (80-97); RED BLOOD COUNT 3.19 10^6/uL (3.72-5.28); RED CELL DISTRIBUTION WIDTH 14.3 % (11.5-14.0); WHITE BLOOD COUNT 8.4 10^3/uL (4.0-10.5)
[2017-01-28 04:51] LABS: ALANINE AMINOTRANSFERASE 27 U/L (9-52); ALBUMIN 3.3 g/dL (3.5-5.0); ALKALINE PHOSPHATASE 81 U/L (38-126); ANION GAP 8 (5-19); ASPARTATE AMINO TRANSFERASE 15 U/L (14-36); BILIRUBIN,DIRECT 0.4 mg/dL (0.0-0.4); BILIRUBIN,TOTAL 0.8 mg/dL (0.2-1.3); BLOOD UREA NITROGEN 18 mg/dL (7-20); CALCIUM 8.4 mg/dL (8.4-10.2); CARBON DIOXIDE 35 mmol/L (22-30); CHLORIDE 98 mmol/L (98-107); CREATININE RESULT 0.87 mg/dL (0.52-1.25); GLUCOSE 211 mg/dL (75-110); MAGNESIUM 1.8 mg/dL (1.6-2.3); TOTAL PROTEIN 5.2 g/dL (6.3-8.2)
[2017-01-28 05:05] LABS: POTASSIUM 3.1 mmol/L (3.6-5.0)
[2017-01-28] MEDS: AZTREONAM 1 GM in DEXTROSE 5%-WATER 50 ML IV SCH ×3 (06:11→21:52)
[2017-01-28] MEDS: LEVOTHYROXINE SODIUM 0.05 MG TABLET PO SCH ×2 (06:11→09:07)
[2017-01-28] MEDS ORDERED: POTASSIUM CHLORIDE 10 MEQ TABLET.SA PO ONE (08:00)
[2017-01-28] MEDS: FLUDROCORTISONE ACETATE 0.1 MG TABLET PO SCH (09:04)
[2017-01-28] MEDS: METOCLOPRAMIDE HCL 10 MG TABLET PO SCH ×2 (09:05→17:09)
[2017-01-28] MEDS: PREGABALIN 75 MG CAPSULE PO SCH ×2 (09:06→21:52)
[2017-01-28] MEDS: VENLAFAXINE HCL 37.5 MG CAP.SR.24H PO SCH (09:06)
[2017-01-28] MEDS: FUROSEMIDE 20 MG TABLET PO SCH (09:07)
[2017-01-28] MEDS: ESCITALOPRAM OXALATE 10 MG TABLET PO SCH (09:08)
[2017-01-28] MEDS: MIDODRINE HCL 5 MG TABLET PO SCH (09:08)
--- NOTE | 2017-01-28 09:51 | PROGRESS NOTE E ---
Progress Note NAME: TEX MORRIS : 1965 AGE: 51Y DATE: 01/27/2017 ROOM: 603 SUBJECTIVE: The patient continues to have shortness of breath. She denies any PND or orthopnea. There is no leg edema. She has cough and brings out some yellow colored sputum. There is no wheezing. There is no chest pain or discomfort today. There is no TIA or CVA symptoms. OBJECTIVE: On examination, the patient appears to be emaciated and chronically ill. VITAL SIGNS: Afebrile with a temperature of 98.2 degrees Fahrenheit, pulse is 78 beats per minute, blood pressure is 112/95, respirations are 15 per minute, O2 sats are 99% on a facemask with Fio2 of 30%. HEAD: Atraumatic, normocephalic. EYES: Pupils are equal, round, regular, reactive to light and accommodation. Extraocular movements are normal. There is no conjunctival pallor. There is no scleral icterus. ENT: Negative. NECK: Supple. There is no JVD. Carotids are equal. There is no bruit. There is no goiter. There is no lymph node enlargement. LUNGS: A few rhonchi in the bases and a few dry crackles. Today I do not see any signs of heart failure. HEART: S1 and S2 are heard. There is no S3 gallop. There is no S4 gallop. There is a systolic murmur in the left sternal border and the apex. There is no rub. There is a murmur of aortic stenosis with and it looks severe . ABDOMEN: Soft, nontender. There is no hepatosplenomegaly. Bowel sounds are well heard. EXTREMITIES: Femorals are diminished. There is no femoral bruits. Leg pulses are diminished. There is no pedal edema. There is no DVT or cellulitis. There is no cyanosis or clubbing. 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 PSYCHIATRIC: The patient does not appear to be agitated but confused, although she is drowsy. The patient's chest x-ray done today shows increasing densities in the bases, suggestive of pneumonia. There is normal vasculature. No evidence of heart failure today. Her EKG shows sinus rhythm. . White count is 5,100, hemoglobin 10.2, hematocrit 30.5, platelet count is 117,000. Sodium 138.8, potassium 4.2, chloride 96, CO2 29, BUN 15, creatinine 0.90, GFR is greater than 60, and glucoses are controlled at 411. Liver function tests are normal except for elevated direct bilirubin of 0.6. Total protein is 15, and albumin is 3.2. IMPRESSION: 1. Most likely the patient has acute exacerbation of COPD with probable pneumonia bilaterally in the bases. 2. No definitive evidence of congestive heart failure. Her congestive heart failure is because of her moderate left ventricular hypertrophy, moderate aortic stenosis, and diastolic dysfunction. At present, seems to have resolved. 3. Moderate aortic stenosis. This seems to be stable. 4. Acute respiratory failure with hypoxia and hypercapnia. Patient is still requiring a facemask with 30% oxygen. 5. Opiate overdose. This is much improved. Patient was treated with Narcan. 6. Altered mental status. Now much improved but the patient still . 7. COPD with acute exacerbation. 8. Coronary artery disease with no evidence of angina. 9. Alcohol abuse disorder. 10. Post traumatic stress disorder. 11. Depression. 12. Bipolar disorder. 13. Diabetes mellitus. Note that the patient is on fludrocortisone and midodrine to bring her blood pressure up. 14. Hypothyroid, on replacement therapy. Continue that. RECOMMENDATIONS: 1. Continue antibiotics. 2. Continue respiratory treatments aggressively. 3. Continue Lyrica 75 mg p.o. q.12 h. 4. Continue Requip 1 mg p.o. at bedtime. 5. Continue Effexor extended release 37.5 mg p.o. daily. NOTE: Thirty minutes spent on this patient, with more than 50% of the time spent on direct patient care. Her medications have been reviewed. Her echo from 11/2016 showed that she had moderate concentric left ventricular hypertrophy, diastolic dysfunction, and moderate aortic stenosis but without . No other symptoms or findings. Note that the patient also has a history of DVT and pulmonary embolism. She is not on anticoagulation now. The patient has been counseled to stop smoking. Her medications have been reviewed as mentioned earlier. This case involves moderate to high complexity medical decision making. I discussed with the other physicians on the case. DICTATING PHYSICIAN: QUINN ESTRADA M.D. [id number] PHY#: [id number] ID: [id number] JOB#: [id number] ACCT: [id number] cc: >
--- NOTE | 2017-01-28 09:59 | PDOC PROGRESS REPORT ---
Subjective Progress Note for:: 01/28/17 - Acute on chronic respiratory failure exacerbation of COPD Subjective:: Feel nauseous Physical Exam Vital Signs: Temp Pulse Resp BP Pulse Ox 99.1 F 93 24 H 141/82 H 90 L 01/28/17 07:34 01/28/17 07:34 01/28/17 07:34 01/28/17 07:34 01/28/17 07:34 Intake & Output 01/27/17 01/28/17 01/29/17 06:59 06:59 06:59 Intake Total 627 578 Output Total 5650 3040 500 Balance -5023 -2462 -500 Weight 59.6 kg 55.6 kg General appearance: PRESENT: no acute distress, cooperative, disheveled, thin, well-developed Head exam: PRESENT: atraumatic, normocephalic Eye exam: PRESENT: conjunctiva pale, EOMI Mouth exam: PRESENT: dry mucosa, neck supple, tongue midline Teeth exam: PRESENT: poor dentation Respiratory exam: PRESENT: decreased breath sounds, prolonged expiratory phas, rhonchi, symmetrical, unlabored, wheezes. ABSENT: accessory muscle use, chest wall tenderness, clear to auscultation peterson, crackles, rales, retraction, stridor , tachypnea Cardiovascular exam: PRESENT: RRR, +S1, +S2. ABSENT: irregular rhythm Pulses: PRESENT: normal radial pulses GI/Abdominal exam: PRESENT: normal bowel sounds, soft. ABSENT: distended, guarding, mass, organolmegaly, rebound, tenderness Gentrourinary exam: PRESENT: indwelling catheter Extremities exam: PRESENT: calf tenderness, clubbing, joint swelling, pedal edema, tenderness Musculoskeletal exam: PRESENT: deformity, dislocation, tenderness Neurological exam: PRESENT: alert, awake Psychiatric exam: PRESENT: flat affect Skin exam: PRESENT: dry, pallor, warm Results Laboratory Results: 01/28/17 04:20 01/28/17 04:20 01/28/17 01/28/17 04:20 04:20 WBC 8.4 RBC 3.19 L Hgb 10.6 L Hct 31.1 L MCV 97 MCH 33.1 MCHC 34.0 RDW 14.3 H Plt Count 138 L Sodium 141.0 Potassium 3.1 L D Chloride 98 Carbon Dioxide 35 H Anion Gap 8 BUN 18 Creatinine 0.87 Est GFR ( Amer) > 60 Est GFR (Non-Af Amer) > 60 Glucose 211 H Calcium 8.4 Magnesium 1.8 Total Bilirubin 0.8 AST 15 ALT 27 Alkaline Phosphatase 81 Total Protein 5.2 L Albumin 3.3 L 01/26/17 17:54 Troponin I 0.046 Impressions: Chest X-Ray 01/27/17 06:00 IMPRESSION: 1. Improved aeration bilaterally with persistent patchy bilateral perihilar airspace opacities concerning for pneumonia. Assessment & Plan - Diagnosis (1) Acute respiratory failure with hypoxia and hypercapnia Is this a current diagnosis for this admission?: Yes Plan: Labs- All tests 24 hr 01/26/17 16:50 ABG pH 7.42 ABG pCO2 45.9 H ABG pO2 59.7 L ABG O2 Saturation 91.2 L FiO2 50% No current ABGs available patient in no obvious distress SaO2 91-94%. Pulse oximeter (2) Aortic stenosis Qualifiers: Cardiac valve disease etiology: etiology unspecified Qualified Code(s): I35.0 - Nonrheumatic aortic (valve) stenosis Is this a current diagnosis for this admission?: Yes (3) Opiate overdose Qualifiers: Encounter type: initial encounter Injury intent: undetermined intent Qualified Code(s): T40.604A - Poisoning by unspecified narcotics, undetermined, initial encounter Is this a current diagnosis for this admission?: Yes Plan: Cover for withdrawal (4) COPD (chronic obstructive pulmonary disease) Qualifiers: Emphysema type: centrilobular Is this a current diagnosis for this admission?: Yes Plan: Tmax 99.1 - Time Time Spent with patient: 40 minutes ICU time
[2017-01-28] MEDS: MORPHINE SULFATE 10 MG/ML INJ IV PRN (10:19)
[2017-01-28] MEDS: INSULIN REG, HUMAN 100 UNIT/ML 3 ML VIAL (PYX) SUBCUT PRN ×3 (11:14→23:04)
[2017-01-28] MEDS ORDERED: NORMAL SALINE 500 ML IV PRN (11:32)
[2017-01-28] MEDS ORDERED: METOPROLOL TARTRATE PF/INJ 5 MG/5 ML SDV IV ONE (12:00)
[2017-01-28] MEDS ORDERED: INSULIN REG, HUMAN 100 UNIT/ML 3 ML VIAL (PYX) SUBCUT ONE (12:45)
--- NOTE | 2017-01-28 17:47 | PSYCHOLOGICAL NOTE ---
Psych Note - Psych Note Psych Note: Patient is a 51 year old female who has been admitted to [facility] due to likely polypharm overdose with subsequent medical probs. Patient is known to this clinician for numerous prior episodes of similar etiology. Patient today is sleeping, but arousable. Patient states, "what do you want?" Patient initially engaged in conversation, with minimal response. Did attempt to discuss with patient concerns over her fentanyl patch. Patient initially avoided answering the questions and then eventually stated she threw it out. Patient is known to reside with her son, who is Autistic. Patient states she did not attempt suicide. Patient states "and you can leave." Will attempt again at evaluating patient. Patient is lethargic, but oriented to person, place, and year. Mood is irritable with flat affect. Patient denies suicidal/homicidal ideations, intent , plan, means. Patient denies A/VH; delusions not noted. Thought processes were guarded and at times confused. Conversational speech was low for rate, tone , and prosody. Note at times patient's conversational speech was in audible. Intellectual abilities were estimated within average range. Attention and focus were poor. Insight, judgment, impulse control are poor. 296.80 (F31.8) Unspecified Bipolar and Related Disorder, per history Diabetes COPD Patient is recommended to continue under IVC for further evaluation and disposition. Patient has numerous prior episodes, most recently in November. Patient has previously been recommended for follow up with substance abuse assessment. I consulted with Dr. Spain in regards to the care and management of this patient. Discussed with RN that the patient will be reevaluated, likely in the morning.
--- NOTE | 2017-01-28 19:46 | PDOC PROGRESS REPORT ---
Subjective Progress Note for:: 01/28/17 Subjective:: Patient noted to be tachycardic on the heart monitor but otherwise comfortable. She is denying any other discomfort. Physical Exam Vital Signs: Temp Pulse Resp BP Pulse Ox 99.3 F 80 18 129/83 H 95 01/28/17 16:00 01/28/17 19:00 01/28/17 18:00 01/28/17 17:03 01/28/17 18:00 Intake & Output 01/27/17 01/28/17 01/29/17 06:59 06:59 06:59 Intake Total 776 454 4866 Output Total 5650 3040 3945 Balance -9872 -8378 -6786 Weight 59.6 kg 55.6 kg Exam: GENERAL: well-nourished and in no acute distress. Alert and oriented x3, however does not want to communicate much. HEAD: Atraumatic, normocephalic. EYES: Pupils equal round and reactive to light, extraocular movements intact, sclera anicteric, conjunctiva are normal. ENT: TMs normal, nares patent, oropharynx clear without exudates. Moist mucous membranes. No oral ulcerations or bleeding gums noted NECK: supple without lymphadenopathy. Trachea is central. No cervical or axillary lymphadenopathy noted. Carotids are 2+, JVD WNL LUNGS: Respiration seems nonlabored, no significant accessory muscle action noted. Breath sounds clear to auscultation bilaterally and equal noted. No wheezes rales or rhonchi noted. No significant dullness noted on percussion. CHEST: Palpation of the chest wall shows no significant chest wall tenderness. No other significant abnormalities noted. HEART: [place] [employer], No PSH, 2-3/6 HILARIO aortic area, 1/6 mike systolic murmur mitral area, no rubs, no gallops. ABDOMEN: Soft, no significant tenderness appreciated, normoactive bowel sounds. No guarding, no rebound. No rigidity noted . No masses appreciated. EXTREMITIES: Pedal pulses are 1-2+, no calf tenderness noted. No clubbing or cyanosis.trace pedal edema noted NEUROLOGICAL: Focused neurological exam showed no significant neurologic deficit. Normal speech, no focal weakness appreciated. PSYCH: This could not be assessed on today's exam.. SKIN: No significant ecchymosis, rash, ulcerations or signs of pruritus noted. MUSCULOSKELETAL EXAM: No significant joint swelling noted. Results Laboratory Results: 01/28/17 04:20 01/28/17 04:20 01/28/17 01/28/17 04:20 04:20 WBC 8.4 RBC 3.19 L Hgb 10.6 L Hct 31.1 L MCV 97 MCH 33.1 MCHC 34.0 RDW 14.3 H Plt Count 138 L Sodium 141.0 Potassium 3.1 L D Chloride 98 Carbon Dioxide 35 H Anion Gap 8 BUN 18 Creatinine 0.87 Est GFR ( Amer) > 60 Est GFR (Non-Af Amer) > 60 Glucose 211 H Calcium 8.4 Magnesium 1.8 Total Bilirubin 0.8 AST 15 ALT 27 Alkaline Phosphatase 81 Total Protein 5.2 L Albumin 3.3 L 01/26/17 17:54 Troponin I 0.046 Impressions: Chest X-Ray 01/27/17 06:00 IMPRESSION: 1. Improved aeration bilaterally with persistent patchy bilateral perihilar airspace opacities concerning for pneumonia. Assessment & Plan - Diagnosis (1) CHF (congestive heart failure) Qualifiers: Congestive heart failure type: unspecified congestive heart failure type Congestive heart failure chronicity: acute Qualified Code(s): I50.9 - Heart failure, unspecified Is this a current diagnosis for this admission?: Yes (2) Aortic stenosis Qualifiers: Cardiac valve disease etiology: etiology unspecified Qualified Code(s): I35.0 - Nonrheumatic aortic (valve) stenosis Is this a current diagnosis for this admission?: Yes (3) Acute respiratory failure with hypoxia and hypercapnia Is this a current diagnosis for this admission?: Yes (4) Opiate overdose Qualifiers: Encounter type: initial encounter Injury intent: undetermined intent Qualified Code(s): T40.604A - Poisoning by unspecified narcotics, undetermined, initial encounter Is this a current diagnosis for this admission?: Yes (5) Altered mental status, unspecified Qualifiers: Altered mental status type: disorientation Qualified Code(s): R41.0 - Disorientation, unspecified Is this a current diagnosis for this admission?: Yes (6) COPD (chronic obstructive pulmonary disease) Qualifiers: Emphysema type: centrilobular Is this a current diagnosis for this admission?: Yes (7) Coronary artery disease Qualifiers: Coronary Disease-Associated Artery/Lesion type: [place] artery [place] vs. transplanted heart: [place] heart Associated angina: angina presence unspecified Qualified Code(s): I25.10 - Atherosclerotic heart disease of [place] coronary artery without angina pectoris Is this a current diagnosis for this admission?: Yes (8) Tobacco dependency Is this a current diagnosis for this admission?: Yes - Notes Notes: Currently stable from cardiac standpoint. Will continue to follow Congestive heart failure: Based on recent echo review, patient seems to have CHF from diastolic dysfunction. This is felt to be just mild on clinical exam. Recommend low-dose beta-axel therapy. Continue with small dose of diuretics. Aortic stenosis: [place] to be moderate based on prior echocardiogram. Coronary artery disease: Currently asymptomatic. EKG not showing any ischemic changes. Acute respiratory failure: Secondary to combination of hypoventilation from drug overdose and also COPD. COPD: Continue current management plans. Tobacco dependency: Patient would benefit from quitting smoking. Opioid overdose: This is being treated by the hospitalist. - Time Time with patient: 15-25 minutes - CODE STATUS was discussed, patient remains full code. Surrogate decision-maker patient's . Multiple medical problems were addressed. More than 50% of the time spent coordinating care, discussing management plans with involved caregivers. Management plans discussed with involved personnels. Medical decision making was of moderate to high complexity, patient's has multiple comorbidities. Medications reviewed and adjusted accordingly: Yes
[2017-01-28] MEDS: ROPINIROLE HCL 1 MG TABLET PO SCH (21:52)
[2017-01-28] MEDS: ATORVASTATIN CALCIUM 40 MG TABLET PO SCH (21:52)
[2017-01-28] MEDS: LEVOFLOXACIN 750 MG/D5W RTU 750 MG/150 ML RTUPB IV SCH (22:55)
--- NOTE | 2017-01-28 23:09 | Palliative Consultation Report ---
Consultation From:: ZE LE Consult Reason: Exacerbation of COPD - HPI HPI: Palliative care consult visit 01/28/17 1:35 PM Appreciate palliative consult request with this 51 year old woman who is admitted with respiratory failure presumed to be due to opiod overdose. Patient has history of Bipolar disorder per her hospital records. She also has history of DVT and PE. She came into hospital in respiratory failure and improved with Narcan and Bipap therapy in ICU. At time of my visit, she was asleep in her bed without her oxygen and did not respond to my verbal stimulation. However, she awoke when nurse came in to administer some medications. She was very verbal about not wanting to be disturbed and not wanting to talk. Patient had not wanted to talk with me but staff provider came in at the same time to do psych evaluation. Patient was very sharp with her and did not want to answer her questions. She states she didnt know if she swallowed her fentanyl patch, she says she did not want to kill herself. She was very short and angry with being disturbed from her nap by both of us. She showed no evidence of respiratory distress at the time. Onset: Just prior to arrival Onset/Duration: Sudden Associated Symptoms: Shortness of breath Exacerbated by: Movement Past Medical History(Consults) - General Information Source: [facility] Records Home Medications: Amlodipine Besylate [Norvasc 5 mg Tablet] 5 mg PO Q12 01/27/17 Atorvastatin Calcium [Lipitor 40 mg Tablet] 40 mg PO QHS 01/27/17 Cyclobenzaprine HCl [Flexeril 5 mg Tablet] 5 mg PO Q8HP PRN 01/27/17 Diazepam [Valium] 10 mg PO Q8HP PRN 01/27/17 Escitalopram Oxalate [Lexapro 10 mg Tablet] 10 mg PO DAILY 01/27/17 Fentanyl [Duragesic 50 Mcg/Hr Transdermal Patch] 1 patch TOP Q3D 01/27/17 Fludrocortisone Acetate [Florinef 0.1 mg Tablet] 0.1 mg PO DAILY 01/27/17 Insulin Lispro [Humalog Insulin (Lispro) 100 unit/mL] 0 units PUMP DAILY Levothyroxine Sodium [Synthroid 0.05 mg Tablet] 0.05 mg PO DAILY 01/27/17 Lisinopril [Prinivil 2.5 mg Tablet] 2.5 mg PO QHS 01/27/17 Metoclopramide HCl [Reglan 10 mg Tablet] 10 mg PO BID 01/27/17 Midodrine HCl [Proamatine 5 mg Tablet] 5 mg PO Q8 01/27/17 Omeprazole 20 mg PO DAILY 01/27/17 Ondansetron HCl [Zofran 8 mg Tablet] 8 mg PO Q8HP PRN 01/27/17 Pregabalin [Lyrica 75 mg Capsule] 75 mg PO Q12 01/27/17 Ranolazine [Ranexa] 1,000 mg PO Q12 01/27/17 Ropinirole HCl [Requip] 1 mg PO QHS 01/27/17 Teriparatide [Forteo] 2.4 ml PO DAILY 01/27/17 Trazodone HCl [Desyrel] 100 mg PO QHS 01/27/17 Valacyclovir HCl [Valtrex 500 mg Tablet] 500 mg PO DAILY 01/27/17 Venlafaxine HCl ER [Effexor Xr 37.5 mg Cap.sr] 37.5 mg PO DAILY 01/27/17 Allergies/Adverse Reactions: erythromycin base [Erythromycin Base] Allergy (Severe, Verified 01/13/17 09:36) Anaphylaxis fexofenadine HCl [From Shae] Allergy (Severe, Verified 01/13/17 09:36) Confusion levetiracetam [From Keppra] Allergy (Severe, Verified 01/13/17 09:36) passes out, loses time Penicillins Allergy (Severe, Verified 01/13/17 09:36) Anaphylaxis vancomycin [Vancomycin] Allergy (Severe, Verified 01/13/17 09:36) Blood pressure bottomed out - Social History Lives with: Family Family History: Malignancy Parental Family History Reviewed: No Children Family History Reviewed: No Sibling(s) Family History Reviewed.: No Smoking Status: Current Every Day Smoker Cigarettes Packs Per Day: 2 Number of Years Smokin Frequency of Alcohol Use: None Hx Recreational Drug Use: No Drugs: None - Past Medical History Cardiac Medical History: Reports: Hx Coronary Artery Disease - 2 blockages/ stents, Hx DVT - States her anticoagulant was stopped by her physician., Hx Hypercholesterolemia, Hx Hypertension, Hx Pulmonary Embolism, Hx Heart Murmur Pulmonary Medical History: Reports: Hx Bronchitis - Not since she quit smoking, Hx COPD, Hx Pneumonia - 2 weeks ago EENT Medical History: Denies: Eyes Neurological Medical History: Reports: Hx Cerebrovascular Accident - 5 yrs ago, Hx Seizures - History of same; states she is not supposed to be on antiepileptics. 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 History of DKA. Patient is on insulin pump., Hx Hypothyroidism. Denies: Hx Hyperthyroidism Renal/ Medical History: Denies: Hx End Stage Renal Disease, Hx Peritoneal Dialysis Malignancy Medical History: Reports: None GI Medical History: Reports: Hx Cirrhosis, Hx Gastroesophageal Reflux Disease, Hx Ulcer. Denies: Hx Crohn's Disease, Hx Diverticulitis, Hx Hepatitis, Hx Ulcerative Colitis Musculoskeltal Medical History: Reports Hx Arthritis, Denies Hx Gout Skin Medical History: Denies Hx Eczema, Denies Hx Psoriasis Psychiatric Medical History: Reports: Hx Depression Traumatic Medical History: Denies: Hx Gunshot Wound, Hx Pneumothorax, Hx Traumatic Brain Injury Infectious Medical History: Denies: Hx Hepatitis Hematology: Reports: Anemia - As a child Denies: Hemophilia, Sickle Cell Disease, Bleeding Tendencies - Surgical History Past Surgical History: Reports: Hx Appendectomy, Hx Hysterectomy, Hx Orthopedic Surgery - Neck fusion, wrist surgery, knee surgery, Hx Tubal Ligation, Other - Left chest Port-A-Cath Review of systems ROS unobtainable: other - Patient refused to talk Ojective:Exam Vital Signs: Temp Pulse Resp BP Pulse Ox 98.6 F 81 19 136/94 H 95 01/28/17 21:30 01/28/17 21:30 01/28/17 22:00 01/28/17 21:30 01/28/17 22:00 Intake & Output 01/27/17 01/28/17 01/29/17 06:59 06:59 06:59 Intake Total 786 360 0458 Output Total 5650 3040 4130 [facility] -6102 -6965 -5222 Weight 59.6 kg 55.6 kg - General In distress: None Note:: Patient asleep in bed with no noted respiratory distress, not on Bipap. When she was awakened, she became very angry and still showed no shortness of breath. - Respiratory Respiratory Status: No respiratory distress - Cardiovascular Rhythm: Regular - Noted heart rate and rhythm per moniitor - Neurological Orientation: Alert, Oriented to person, Oriented to place Speech: Normal - Psychological Associated symptoms: Aggressive, Angry, Irritable Objective-Diagnostic Laboratory: 01/28/17 04:20 01/28/17 04:20 01/28/17 01/28/17 04:20 04:20 WBC 8.4 RBC 3.19 L Hgb 10.6 L Hct 31.1 L MCV 97 MCH 33.1 MCHC 34.0 RDW 14.3 H Plt Count 138 L Sodium 141.0 Potassium 3.1 L D Chloride 98 Carbon Dioxide 35 H Anion Gap 8 BUN 18 Creatinine 0.87 Est GFR ( Amer) > 60 Est GFR (Non-Af Amer) > 60 Glucose 211 H Calcium 8.4 Magnesium 1.8 Total Bilirubin 0.8 AST 15 ALT 27 Alkaline Phosphatase 81 Total Protein 5.2 L Albumin 3.3 L 01/26/17 17:54 Troponin I 0.046 Plan and Recommendation Plan and Recommendation: Will be happy to follow up with patient in a few days. She denies trying to commit suicide, but vague on what happened to her. Was angry today and not in any mental condition to discuss advance directives or care choices.
[2017-01-29] MEDS: IPRATROPIUM/ALBUTEROL 0.5-2.5 MG/3 ML AMPUL NEB SCH ×4 (01:48→19:52)
[2017-01-29 04:49] LABS: ABSOLUTE BASOPHILS # (AUTO) 0.1 10^3/uL (0.0-0.2); ABSOLUTE LYMPHOCYTES (AUTO) 0.9 10^3/uL (0.5-4.7); ABSOLUTE MONOCYTES (AUTO) 0.6 10^3/uL (0.1-1.4); BASOPHILS % (AUTO) 0.7 % (0-2); EOSINOPHILS % (AUTO) 0.1 % (0-6); HEMOGLOBIN 12.4 g/dL (12.0-15.5); HGB HCT DIFFERENCE 0.2; LYMPHOCYTES % (AUTO) 10.4 % (13-45); MEAN CORPUSCULAR HEMOGLOBIN 32.4 pg (27.0-33.4); MEAN CORPUSCULAR HGB CONC 33.5 g/dL (32.0-36.0); MEAN CORPUSCULAR VOLUME 97 fl (80-97); MONOCYTES % (AUTO) 7.3 % (3-13); RED BLOOD COUNT 3.83 10^6/uL (3.72-5.28); RED CELL DISTRIBUTION WIDTH 14.7 % (11.5-14.0); SEGMENTED NEUTROPHILS % (AUTO) 81.5 % (42-78); WHITE BLOOD COUNT 8.5 10^3/uL (4.0-10.5)
[2017-01-29 05:05] LABS: ANION GAP 15 (5-19); BLOOD UREA NITROGEN 21 mg/dL (7-20); CALCIUM 9.3 mg/dL (8.4-10.2); CARBON DIOXIDE 31 mmol/L (22-30); CHLORIDE 94 mmol/L (98-107); CREATININE RESULT 0.84 mg/dL (0.52-1.25); GLUCOSE 246 mg/dL (75-110); MAGNESIUM 1.7 mg/dL (1.6-2.3); POTASSIUM 3.3 mmol/L (3.6-5.0); SODIUM 139.5 mmol/L (137-145)
[2017-01-29] MEDS: LEVOTHYROXINE SODIUM 0.05 MG TABLET PO SCH ×2 (06:13→09:33)
[2017-01-29] MEDS: LANSOPRAZOLE 30 MG TAB.RAP.DR PO SCH ×2 (06:13→17:50)
[2017-01-29] MEDS: AZTREONAM 1 GM in DEXTROSE 5%-WATER 50 ML IV SCH ×2 (06:14→14:15)
[2017-01-29] MEDS: INSULIN REG, HUMAN 100 UNIT/ML 3 ML VIAL (PYX) SUBCUT PRN ×2 (06:44→11:37)
--- NOTE | 2017-01-29 07:43 | RADIOLOGY REPORT (SQ) ---
EXAM DESCRIPTION: CHEST SINGLE VIEW COMPLETED DATE/TIME: 01/29/2017 6:12 am REASON FOR STUDY: resp failure / pna COMPARISON: None. EXAM PARAMETERS: NUMBER OF VIEWS: One view. TECHNIQUE: Single frontal radiographic view of the chest acquired. RADIATION DOSE: NA LIMITATIONS: None. FINDINGS: LUNGS AND PLEURA: No opacities, masses or pneumothorax. No pleural effusion. MEDIASTINUM AND HILAR STRUCTURES: No masses. Contour normal. HEART AND VASCULAR STRUCTURES: Heart normal in size. Normal vasculature. BONES: No acute findings. HARDWARE: Left subclavian central line tip at the cavoatrial junction. OTHER: No other significant finding. IMPRESSION: No acute cardiopulmonary findings. Central line. Interval improvement. TECHNICAL DOCUMENTATION: JOB ID: [id number] [employer]- All Rights Reserved
[2017-01-29] MEDS ORDERED: POTASSIUM CHLORIDE 10 MEQ TABLET.SA PO ONE (08:00)
[2017-01-29] MEDS: FLUDROCORTISONE ACETATE 0.1 MG TABLET PO SCH (09:33)
[2017-01-29] MEDS: PREGABALIN 75 MG CAPSULE PO SCH ×2 (09:33→22:59)
[2017-01-29] MEDS: VENLAFAXINE HCL 37.5 MG CAP.SR.24H PO SCH (09:34)
[2017-01-29] MEDS: METOCLOPRAMIDE HCL 10 MG TABLET PO SCH ×2 (09:34→17:50)
[2017-01-29] MEDS: FUROSEMIDE 20 MG TABLET PO SCH (09:34)
[2017-01-29] MEDS: ESCITALOPRAM OXALATE 10 MG TABLET PO SCH (09:34)
[2017-01-29] MEDS ORDERED: METOPROLOL TARTRATE PF/INJ 5 MG/5 ML SDV IV PRN (09:46)
[2017-01-29] MEDS: METOPROLOL SUCCINATE 25 MG TAB.SR.24H PO SCH (10:32)
--- NOTE | 2017-01-29 11:24 | PDOC PROGRESS REPORT ---
Subjective Progress Note for:: 01/29/17 Subjective:: Continues to complain of nausea Physical Exam Vital Signs: Temp Pulse Resp BP Pulse Ox 99.3 F 106 H 21 H 156/90 H 97 01/29/17 06:00 01/29/17 07:00 01/29/17 06:03 01/29/17 06:03 01/29/17 06:03 Intake & Output 01/28/17 01/29/17 01/30/17 06:59 06:59 06:59 Intake Total 578 2660 Output Total 3040 5725 Balance -6127 -6105 Weight 55.6 kg 52 kg General appearance: PRESENT: no acute distress, cooperative, disheveled, thin, well-developed Head exam: PRESENT: atraumatic, normocephalic Eye exam: PRESENT: conjunctiva pale, EOMI Mouth exam: PRESENT: dry mucosa, neck supple, tongue midline Teeth exam: PRESENT: poor dentation Neck exam: ABSENT: carotid bruit, JVD, lymphadenopathy, thyromegaly Respiratory exam: PRESENT: decreased breath sounds, prolonged expiratory phas, rhonchi, symmetrical, unlabored, wheezes. ABSENT: accessory muscle use, chest wall tenderness, clear to auscultation peterson, crackles, rales, retraction, stridor , tachypnea Cardiovascular exam: PRESENT: RRR, +S1, +S2 Pulses: PRESENT: normal radial pulses GI/Abdominal exam: PRESENT: normal bowel sounds, soft. ABSENT: distended, guarding, mass, organolmegaly, rebound, tenderness Extremities exam: ABSENT: calf tenderness, clubbing, joint swelling, pedal edema Musculoskeletal exam: ABSENT: deformity, dislocation, tenderness Neurological exam: PRESENT: alert, awake Psychiatric exam: PRESENT: flat affect Skin exam: PRESENT: dry, pallor, warm Results Laboratory Results: 01/29/17 04:25 01/29/17 04:25 01/29/17 01/29/17 04:25 04:25 WBC 8.5 RBC 3.83 Hgb 12.4 Hct 37.0 MCV 97 MCH 32.4 MCHC 33.5 RDW 14.7 H Plt Count 178 Seg Neutrophils % 81.5 H Lymphocytes % 10.4 L Monocytes % 7.3 Eosinophils % 0.1 Basophils % 0.7 Absolute Neutrophils 7.0 Absolute Lymphocytes 0.9 Absolute Monocytes 0.6 Absolute Eosinophils 0.0 Absolute Basophils 0.1 Sodium 139.5 Potassium 3.3 L Chloride 94 L Carbon Dioxide 31 H Anion Gap 15 BUN 21 H Creatinine 0.84 Est GFR ( Amer) > 60 Est GFR (Non-Af Amer) > 60 Glucose 246 H Calcium 9.3 Magnesium 1.7 01/26/17 17:54 Troponin I 0.046 Impressions: Chest X-Ray 01/29/17 06:00 IMPRESSION: No acute cardiopulmonary findings. Central line. Interval improvement. Assessment & Plan - Diagnosis (1) Acute respiratory failure with hypoxia and hypercapnia Is this a current diagnosis for this admission?: Yes Plan: Labs- All tests 24 hr 01/26/17 16:50 ABG pH 7.42 ABG pCO2 45.9 H ABG pO2 59.7 L ABG O2 Saturation 91.2 L FiO2 50% No current ABGs available patient in no obvious distress SaO2 91-94%. Pulse oximeter (2) Aortic stenosis Qualifiers: Cardiac valve disease etiology: etiology unspecified Qualified Code(s): I35.0 - Nonrheumatic aortic (valve) stenosis Is this a current diagnosis for this admission?: Yes Plan: Echocardiogram for evaluation (3) Opiate overdose Qualifiers: Encounter type: initial encounter Injury intent: undetermined intent Qualified Code(s): T40.604A - Poisoning by unspecified narcotics, undetermined, initial encounter Is this a current diagnosis for this admission?: Yes Plan: Cover for withdrawal (4) COPD (chronic obstructive pulmonary disease) Qualifiers: Emphysema type: centrilobular Is this a current diagnosis for this admission?: Yes Plan: Tmax 99.1 - Plan Summary Plan Summary: sign off for now
--- NOTE | 2017-01-29 19:35 | PDOC PROGRESS REPORT ---
Subjective Progress Note for:: 01/29/17 Subjective:: Patient noted to be tachycardic on the heart monitor but otherwise comfortable. Patient had episodes of periodic tachycardia which is clearly sinus. Patient did receive IV Lopressor with good effect. Have ordered patient to receive metoprolol succinate 25 mg p.o. daily followed by as needed IV Lopressor. IV Lopressor order was written to be given if heart rate exceeded 125 bpm. She is denying any other discomfort. Physical Exam Vital Signs: Temp Pulse Resp BP Pulse Ox 99.3 F 94 16 137/81 H 100 01/29/17 11:46 01/29/17 14:00 01/29/17 15:10 01/29/17 15:10 01/29/17 15:10 Intake & Output 01/28/17 01/29/17 01/30/17 06:59 06:59 06:59 Intake Total 578 2660 318 Output Total 3040 5795 375 Balance -2462 -3135 -57 Weight 55.6 kg 52 kg Exam: GENERAL: well-nourished and in no acute distress. Alert and oriented x3. HEAD: Atraumatic, normocephalic. EYES: Pupils equal round and reactive to light, extraocular movements intact, sclera anicteric, conjunctiva are normal. ENT: TMs normal, nares patent, oropharynx clear without exudates. Moist mucous membranes. No oral ulcerations or bleeding gums noted NECK: supple without lymphadenopathy. Trachea is central. No cervical or axillary lymphadenopathy noted. Carotids are 2+, JVD WNL LUNGS: Respiration seems nonlabored, no significant accessory muscle action noted. Breath sounds clear to auscultation bilaterally and equal noted. No wheezes rales or rhonchi noted. No significant dullness noted on percussion. CHEST: Palpation of the chest wall shows no significant chest wall tenderness. No other significant abnormalities noted. 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 ABDOMEN: Soft, no significant tenderness appreciated, normoactive bowel sounds. No guarding, no rebound. No rigidity noted . No masses appreciated. EXTREMITIES: Pedal pulses are 1-2+, no calf tenderness noted. No clubbing or cyanosis. Negative pedal edema noted NEUROLOGICAL: Focused neurological exam showed no significant neurologic deficit. Normal speech, no focal weakness appreciated. PSYCH: Judgment and insight probably somewhat impaired. Mood seems depressed. SKIN: No significant ecchymosis, rash, ulcerations or signs of pruritus noted. MUSCULOSKELETAL EXAM: No significant joint swelling noted. Results Laboratory Results: 01/29/17 04:25 01/29/17 04:25 01/29/17 01/29/17 04:25 04:25 WBC 8.5 RBC 3.83 Hgb 12.4 Hct 37.0 MCV 97 MCH 32.4 MCHC 33.5 RDW 14.7 H Plt Count 178 Seg Neutrophils % 81.5 H Lymphocytes % 10.4 L Monocytes % 7.3 Eosinophils % 0.1 Basophils % 0.7 Absolute Neutrophils 7.0 Absolute Lymphocytes 0.9 Absolute Monocytes 0.6 Absolute Eosinophils 0.0 Absolute Basophils 0.1 Sodium 139.5 Potassium 3.3 L Chloride 94 L Carbon Dioxide 31 H Anion Gap 15 BUN 21 H Creatinine 0.84 Est GFR ( Amer) > 60 Est GFR (Non-Af Amer) > 60 Glucose 246 H Calcium 9.3 Magnesium 1.7 01/26/17 17:54 Troponin I 0.046 Impressions: Chest X-Ray 01/29/17 06:00 IMPRESSION: No acute cardiopulmonary findings. Central line. Interval improvement. Assessment & Plan - Diagnosis (1) CHF (congestive heart failure) Qualifiers: Congestive heart failure type: unspecified congestive heart failure type Congestive heart failure chronicity: acute Qualified Code(s): I50.9 - Heart failure, unspecified Is this a current diagnosis for this admission?: Yes (2) Aortic stenosis Qualifiers: Cardiac valve disease etiology: etiology unspecified Qualified Code(s): I35.0 - Nonrheumatic aortic (valve) stenosis Is this a current diagnosis for this admission?: Yes (3) Acute respiratory failure with hypoxia and hypercapnia Is this a current diagnosis for this admission?: Yes (4) Opiate overdose Qualifiers: Encounter type: initial encounter Injury intent: undetermined intent Qualified Code(s): T40.604A - Poisoning by unspecified narcotics, undetermined, initial encounter Is this a current diagnosis for this admission?: Yes (5) Altered mental status, unspecified Qualifiers: Altered mental status type: disorientation Qualified Code(s): R41.0 - Disorientation, unspecified Is this a current diagnosis for this admission?: Yes (6) COPD (chronic obstructive pulmonary disease) Qualifiers: Emphysema type: centrilobular Is this a current diagnosis for this admission?: Yes (7) Coronary artery disease Qualifiers: Coronary Disease-Associated Artery/Lesion type: [place] artery [place] vs. transplanted heart: [place] heart Associated angina: angina presence unspecified Qualified Code(s): I25.10 - Atherosclerotic heart disease of [place] coronary artery without angina pectoris Is this a current diagnosis for this admission?: Yes (8) Tobacco dependency Is this a current diagnosis for this admission?: Yes - Notes Notes: Patient seems generally stable from cardiac standpoint. Recommend continuing current management plans. Congestive heart failure: Based on recent echo review, patient seems to have CHF from diastolic dysfunction. This is felt to be compensated on clinical exam. Recommend low-dose beta-axel therapy. Aortic stenosis: [place] to be moderate based on prior echocardiogram. Coronary artery disease: Currently asymptomatic. EKG not showing any ischemic changes. Acute respiratory failure: Secondary to combination of hypoventilation from drug overdose and also COPD. COPD: Continue current management plans. Tobacco dependency: Patient would benefit from quitting smoking. Opioid overdose: This is being treated by the hospitalist. - Time Time with patient: 15-25 minutes - More than 50% of the time spent coordinating care, discussing management plans with involved caregivers. Management plans discussed with involved personnels. Medical decision making was of moderate to high complexity, patient's has multiple comorbidities. Medications reviewed and adjusted accordingly: Yes
[2017-01-29] MEDS ORDERED: INSULIN REG, HUMAN 100 UNIT/ML 3 ML VIAL IV ONE (22:45)
[2017-01-29] MEDS ORDERED: INSULIN REG, HUMAN 100 UNIT/ML 3 ML VIAL (PYX) ONE (22:49)
[2017-01-29] MEDS: LEVOFLOXACIN 750 MG TABLET PO SCH (22:58)
[2017-01-29] MEDS: ATORVASTATIN CALCIUM 40 MG TABLET PO SCH (22:58)
[2017-01-29 23:07] LABS: ALANINE AMINOTRANSFERASE 27 U/L (9-52); ALBUMIN 3.9 g/dL (3.5-5.0); ALKALINE PHOSPHATASE 109 U/L (38-126); ASPARTATE AMINO TRANSFERASE 16 U/L (14-36); BILIRUBIN,DIRECT 0.7 mg/dL (0.0-0.4); BILIRUBIN,TOTAL 1.4 mg/dL (0.2-1.3); BLOOD UREA NITROGEN 24 mg/dL (7-20); CALCIUM 8.8 mg/dL (8.4-10.2); CREATININE RESULT 1.09 mg/dL (0.52-1.25); TOTAL PROTEIN 5.6 g/dL (6.3-8.2)
[2017-01-29] MEDS: ROPINIROLE HCL 1 MG TABLET PO SCH (23:07)
[2017-01-29 23:19] LABS: CHLORIDE 89 mmol/L (98-107); POTASSIUM 3.6 mmol/L (3.6-5.0); SODIUM 131.3 mmol/L (137-145)
[2017-01-29 23:24] LABS: ANION GAP 25 (5-19); CARBON DIOXIDE 17 mmol/L (22-30)
[2017-01-29 23:27] LABS: GLUCOSE 623 mg/dL (75-110)
[2017-01-30] MEDS ORDERED: DEXTROSE 40% GEL 15 GM TUBE PO PRN ×2 (01:10)
[2017-01-30] MEDS ORDERED: DEXTROSE 50%-WATER 25 GM/50 ML DISP.SYRIN IV PRN ×2 (01:10)
[2017-01-30] MEDS ORDERED: GLUCAGON,HUMAN RECOMB 1 MG INJ IM PRN (01:10)
[2017-01-30] MEDS ORDERED: NORMAL SALINE 100 ML with INSULIN REGULAR, HUMAN 100 UNIT IV PRN ×2 (01:10)
[2017-01-30] MEDS: POTASSI CL 20 MEQ/1/2NS 1L 20 MEQ/1,000 ML RTUINJ IV PRN ×2 (01:37→08:31)
[2017-01-30] MEDS: IPRATROPIUM/ALBUTEROL 0.5-2.5 MG/3 ML AMPUL NEB SCH ×4 (02:15→19:38)
[2017-01-30] MEDS ORDERED: AZTREONAM 1 GM in DEXTROSE 5%-WATER 50 ML IV SCH ×2 (04:00→10:00)
[2017-01-30] MEDS: LEVOTHYROXINE SODIUM 0.05 MG TABLET PO SCH (05:04)
[2017-01-30] MEDS: LANSOPRAZOLE 30 MG TAB.RAP.DR PO SCH ×2 (05:04→16:24)
[2017-01-30 05:51] LABS: BLOOD UREA NITROGEN 21 mg/dL (7-20); CALCIUM 9.3 mg/dL (8.4-10.2); CHLORIDE 97 mmol/L (98-107); CREATININE RESULT 0.89 mg/dL (0.52-1.25); GLUCOSE 142 mg/dL (75-110); POTASSIUM 3.1 mmol/L (3.6-5.0); SODIUM 140.9 mmol/L (137-145)
[2017-01-30 06:01] LABS: ANION GAP 15 (5-19)
[2017-01-30 06:03] LABS: CARBON DIOXIDE 29 mmol/L (22-30)
[2017-01-30] MEDS: POTASSI CL 20 MEQ/50 ML RIDER 20 MEQ/50 ML RTUPB IV SCH ×2 (06:15→08:31)
--- NOTE | 2017-01-30 07:56 | PSYCHOLOGICAL NOTE ---
Psych Note - Psych Note Psych Note: Patient is a 51 year old female who has been admitted to [facility] Hospitalist's Services due to likely polypharm overdose with subsequent medical probs. Conducted check in with patient: Patient agrees to speak with clinician; however, it is noted the patient does not answer questions honestly. Patient stated she does not know why she is at [facility]. She continued to report she has no mental health history, does not take medications and has not ever has a mental health outpatient provider. Clinician notes the patient is a [facility] patient, has a diagnosis of bipolar and substance abuse and has a long list of medications she takes. Patient is asked if she has any wuestions for the clinician and she asked; "when am I going to get better?" Patient is lethargic, but oriented to person, place, and year. Mood is irritable with flat affect. Patient denies suicidal/homicidal ideations, intent , plan, means. Patient denies A/VH; delusions not noted. Thought processes were guarded and at times confused. Conversational speech was low for rate, tone , and prosody. Note at times patient's conversational speech was in audible. Intellectual abilities were estimated within average range. Attention and focus were poor. Insight, judgment, impulse control are poor. 296.80 (F31.8) Unspecified Bipolar and Related Disorder, per history polysubstance abuse per history Diabetes COPD Patient is recommended to continue under IVC for further evaluation and disposition. Patient has numerous prior episodes, most recently in November. Patient has previously been recommended for follow up with substance abuse assessment. I consulted with Dr. Spain in regards to the care and management of this patient.
[2017-01-30] MEDS: INSULIN REG, HUMAN 100 UNIT/ML 3 ML VIAL (PYX) SUBCUT PRN ×4 (08:31→22:35)
[2017-01-30] MEDS ORDERED: POTASSI CL 20 MEQ/D5-1/2NS 1L 1000 ML IV PRN (08:47)
[2017-01-30] MEDS: METOPROLOL SUCCINATE 25 MG TAB.SR.24H PO SCH (10:09)
[2017-01-30] MEDS: PREGABALIN 75 MG CAPSULE PO SCH ×2 (10:09→22:12)
[2017-01-30] MEDS: FLUDROCORTISONE ACETATE 0.1 MG TABLET PO SCH (10:10)
[2017-01-30] MEDS: METOCLOPRAMIDE HCL 10 MG TABLET PO SCH ×2 (10:11→18:25)
[2017-01-30] MEDS: ESCITALOPRAM OXALATE 10 MG TABLET PO SCH (10:11)
[2017-01-30] MEDS: FUROSEMIDE 20 MG TABLET PO SCH (10:11)
[2017-01-30] MEDS: VENLAFAXINE HCL 37.5 MG CAP.SR.24H PO SCH (10:12)
--- NOTE | 2017-01-30 11:08 | PDOC PROGRESS REPORT ---
Subjective Progress Note for:: 01/30/17 Subjective:: Patient today complains of generalized body ache and also abdominal pain. She is however denying any chest arm or neck discomfort. She is noted to be resting comfortably. Physical Exam Vital Signs: Temp Pulse Resp BP Pulse Ox 98.9 F 89 18 143/81 H 99 01/30/17 07:41 01/30/17 07:56 01/30/17 07:56 01/30/17 07:41 01/30/17 07:56 Intake & Output 01/29/17 01/30/17 01/31/17 06:59 06:59 06:59 Intake Total 2660 2618 Output Total 5795 1350 Balance -3135 1268 Weight 52 kg Exam: GENERAL: well-nourished and in no acute distress. Alert and oriented x3 HEAD: Atraumatic, normocephalic. EYES: Pupils equal round and reactive to light, extraocular movements intact, sclera anicteric, conjunctiva are normal. ENT: TMs normal, nares patent, oropharynx clear without exudates. Moist mucous membranes. No oral ulcerations or bleeding gums noted NECK: supple without lymphadenopathy. Trachea is central. No cervical or axillary lymphadenopathy noted. Carotids are 2+, JVD WNL LUNGS: Respiration seems nonlabored, no significant accessory muscle action noted. Breath sounds clear to auscultation bilaterally and equal noted. No wheezes rales or rhonchi noted. No significant dullness noted on percussion. CHEST: Palpation of the chest wall shows no significant chest wall tenderness. No other significant abnormalities noted. 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 ABDOMEN: Soft, no significant tenderness appreciated, normoactive bowel sounds. No guarding, no rebound. No rigidity noted . No masses appreciated. EXTREMITIES: Pedal pulses are 1-2+, no calf tenderness noted. No clubbing or cyanosis. Negative pedal edema noted NEUROLOGICAL: Focused neurological exam showed no significant neurologic deficit. Normal speech, no focal weakness appreciated. PSYCH: Judgment and insight possibly impaired. Mood may be depressed. Patient being followed by psychiatrist. SKIN: No significant ecchymosis, rash, ulcerations or signs of pruritus noted. MUSCULOSKELETAL EXAM: No significant joint swelling noted. Results Laboratory Results: 01/29/17 04:25 01/30/17 05:05 01/29/17 01/30/17 01/30/17 22:37 05:05 05:05 Sodium 131.3 L 140.9 Potassium 3.6 3.1 L Chloride 89 L 97 L Carbon Dioxide 17 L D 29 D Anion Gap 25 H 15 BUN 24 H 21 H Creatinine 1.09 0.89 Est GFR ( Amer) > 60 > 60 Est GFR (Non-Af Amer) 53 L > 60 Glucose 623 H* 142 H Calcium 8.8 9.3 Magnesium 1.6 Total Bilirubin 1.4 H AST 16 ALT 27 Alkaline Phosphatase 109 Total Protein 5.6 L Albumin 3.9 01/26/17 17:54 Troponin I 0.046 EKG Comments: Telemetry strips reviewed. It showed sinus rhythm. No sustained bradycardia arrhythmia or any significant tachyarrhythmias noted. Mild intermittent sinus tachycardia noted Impressions: Chest X-Ray 01/29/17 06:00 IMPRESSION: No acute cardiopulmonary findings. Central line. Interval improvement. Assessment & Plan - Diagnosis (1) CHF (congestive heart failure) Qualifiers: Congestive heart failure type: unspecified congestive heart failure type Congestive heart failure chronicity: acute Qualified Code(s): I50.9 - Heart failure, unspecified Is this a current diagnosis for this admission?: Yes (2) Aortic stenosis Qualifiers: Cardiac valve disease etiology: etiology unspecified Qualified Code(s): I35.0 - Nonrheumatic aortic (valve) stenosis Is this a current diagnosis for this admission?: Yes (3) Acute respiratory failure with hypoxia and hypercapnia Is this a current diagnosis for this admission?: Yes (4) Opiate overdose Qualifiers: Encounter type: initial encounter Injury intent: undetermined intent Qualified Code(s): T40.604A - Poisoning by unspecified narcotics, undetermined, initial encounter Is this a current diagnosis for this admission?: Yes (5) Altered mental status, unspecified Qualifiers: Altered mental status type: disorientation Qualified Code(s): R41.0 - Disorientation, unspecified Is this a current diagnosis for this admission?: Yes (6) COPD (chronic obstructive pulmonary disease) Qualifiers: Emphysema type: centrilobular Is this a current diagnosis for this admission?: Yes (7) Coronary artery disease Qualifiers: Coronary Disease-Associated Artery/Lesion type: [place] artery [place] vs. transplanted heart: [place] heart Associated angina: angina presence unspecified Qualified Code(s): I25.10 - Atherosclerotic heart disease of [place] coronary artery without angina pectoris Is this a current diagnosis for this admission?: Yes (8) Tobacco dependency Is this a current diagnosis for this admission?: Yes - Notes Notes: .Patient generally stable from cardiac standpoint. CHF seems compensated by clinical exam. Aortic stenosis is felt to be moderate. No intervention indicated at this point. Altered mental status has improved. COPD seems stable and is being managed by manager acute. As regards coronary artery disease, patient has been stable without any chest pain. Her troponin I levels were relatively unremarkable. As regards tobacco and other drug dependency, patient is being followed by psychologist and psychiatrist. Patient has been advised to quit abusing this. At this point only problem is intermittent sinus tachycardia. Recommend gradually optimizing beta-axel dose as needed. Will continue to follow patient on as needed basis. Please inform me should any problem arise. - Time Time with patient: 15-25 minutes - CODE STATUS was discussed, patient remains full code. Surrogate decision-maker unchanged. Multiple medical problems were addressed. More than 50% of the time spent coordinating care, discussing management plans with involved caregivers. Management plans discussed with involved personnels. Medical decision making was of moderate to high complexity , patient's has multiple comorbidities. Medications reviewed and adjusted accordingly: Yes
--- NOTE | 2017-01-30 13:44 | PSYCHOLOGICAL NOTE ---
Psych Note - Psych Note Psych Note: Patient is a 51 year old female who is admitted to [facility] Hospitalist[facility] due to likely polypharm overdose with subsequent medical problems. She has a documented polysubstance issue and has been seen for such at [facility]. An initial psychiatric evaluation was conducted yesterday. today was meant for brief follow up and provide resources with recommendation for treatment. When confronted about concerns since she ate her Fentanyl patch patient acted dumbfounded and said "what I did not eat my patch." She denied previous MH/SA treatment of any kind to include both outpatient and inpatient. She noted she sees her PCM regularly. She denied SI/HI. She stated she resides with her son and is just tired of being in the hospital. She stated she has been in the hospital 7 days and is being treated for pneumonia and diabetes. Patient was alert and oriented to person and place. Mood was euthymic with congruent affect. She denied SI/HI and these were not presenting concerns. She did not appear to be responding to internal stimuli AEB fair eye contact, staying on topic and answering questions appropriately when addressed. Thought processes were linear. Conversational speech was WNL for rate, tone and prosody. Intellectual abilities are estimated to be average. Insight, judgment and impulse control are fair AEB interactions with this clinician and other medical staff, as well as at least hearing this clinician out about SA even if it is due to medications prescribed to us as individuals. Diagnosis: 296.80 (F31.8) Unspecified Bipolar and Related Disorder, per history polysubstance abuse per history Diabetes COPD Impression/Plan: Patient is psychiatrically cleared. Provided outpatient resource list to patient with emphasis on [facility] for SA outpatient treatment. She denied having a problem. Consulted with Dr. Spain regarding the management and care of patient. Attending hospitalist in agreement with recommendations.
[2017-01-30] MEDS ORDERED: LOPERAMIDE HCL 2 MG CAPSULE PO ONE (15:45)
[2017-01-30] MEDS: DIPHENOXYLATE HCL/ATROP SULF 2.5-0.025 MG TABLET PO PRN ×2 (18:25→23:55)
[2017-01-30] MEDS: ATORVASTATIN CALCIUM 40 MG TABLET PO SCH (22:11)
[2017-01-30] MEDS: LEVOFLOXACIN 750 MG TABLET PO SCH (22:12)
[2017-01-30] MEDS: ROPINIROLE HCL 1 MG TABLET PO SCH (22:12)
[2017-01-31] MEDS: IPRATROPIUM/ALBUTEROL 0.5-2.5 MG/3 ML AMPUL NEB SCH ×4 (01:33→19:36)
--- NOTE | 2017-01-31 04:11 | PDOC PROGRESS REPORT ---
Subjective Progress Note for:: 01/28/17 Subjective:: Patient is a 51 year old female admitted for aspiration pneumonia, acute metabolic encephalopathy, opiate overdose etc. Called by nurse early in the morning stating that patient is tachycardic. She is also refusing to take her insulin. Patient states she is nauseated. They nurse states she just refused her anti emetic. Physical Exam Vital Signs: Temp Pulse Resp BP Pulse Ox 99.3 F 80 18 129/83 H 95 01/28/17 16:00 01/28/17 19:00 01/28/17 18:00 01/28/17 17:03 01/28/17 18:00 Intake & Output 01/27/17 01/28/17 01/29/17 06:59 06:59 06:59 Intake Total 613 992 8753 Output Total 5650 3040 3945 Balance -5023 -2462 -2137 Weight 59.6 kg 55.6 kg General appearance: PRESENT: disheveled, mild distress, thin Head exam: PRESENT: normocephalic Eye exam: PRESENT: EOMI. ABSENT: scleral icterus Ear exam: PRESENT: normal external ear exam Mouth exam: PRESENT: moist Teeth exam: PRESENT: poor dentation Neck exam: ABSENT: carotid bruit, JVD, lymphadenopathy, thyromegaly Respiratory exam: PRESENT: clear to auscultation [place], unlabored. ABSENT: rales , rhonchi, wheezes Cardiovascular exam: PRESENT: RRR, systolic murmur, tachycardia. ABSENT: diastolic murmur, rubs Pulses: PRESENT: normal [place] pedis pul Vascular exam: PRESENT: normal capillary refill GI/Abdominal exam: PRESENT: normal bowel sounds, soft. ABSENT: distended, guarding, mass, organolmegaly, rebound, tenderness Rectal exam: PRESENT: deferred Extremities exam: PRESENT: full ROM. ABSENT: calf tenderness, clubbing, pedal edema Neurological exam: PRESENT: alert, awake, oriented to person, oriented to place , oriented to time, oriented to situation, CN II-XII grossly intact. ABSENT: motor sensory deficit Psychiatric exam: PRESENT: flat affect, unusual affect. ABSENT: homicidal ideation, suicidal ideation Skin exam: PRESENT: dry, intact, warm. ABSENT: cyanosis, rash Results Laboratory Results: 01/28/17 04:20 01/28/17 04:20 01/28/17 01/28/17 04:20 04:20 WBC 8.4 RBC 3.19 L Hgb 10.6 L Hct 31.1 L MCV 97 MCH 33.1 MCHC 34.0 RDW 14.3 H Plt Count 138 L Sodium 141.0 Potassium 3.1 L D Chloride 98 Carbon Dioxide 35 H Anion Gap 8 BUN 18 Creatinine 0.87 Est GFR ( Amer) > 60 Est GFR (Non-Af Amer) > 60 Glucose 211 H Calcium 8.4 Magnesium 1.8 Total Bilirubin 0.8 AST 15 ALT 27 Alkaline Phosphatase 81 Total Protein 5.2 L Albumin 3.3 L 01/26/17 17:54 Troponin I 0.046 Impressions: Chest X-Ray 01/27/17 06:00 IMPRESSION: 1. Improved aeration bilaterally with persistent patchy bilateral perihilar airspace opacities concerning for pneumonia. Assessment & Plan - Diagnosis (1) Acute respiratory failure with hypoxia and hypercapnia Is this a current diagnosis for this admission?: Yes Plan: Possibly the result of being over sedated while taking opiates. Patient placed on bipap but is now on nasal canula. (2) CHF (congestive heart failure) Qualifiers: Congestive heart failure type: diastolic Congestive heart failure chronicity: chronic Qualified Code(s): I50.32 - Chronic diastolic (congestive ) heart failure Is this a current diagnosis for this admission?: Yes Plan: Patient evaluated by Dr. [place]. Thought that patient has mild diastolic heart failure. Low dose metoprolol recommended. Patient also started on lasix. 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 (4) Opiate overdose Qualifiers: Encounter type: initial encounter Injury intent: undetermined intent Qualified Code(s): T40.604A - Poisoning by unspecified narcotics, undetermined, initial encounter Is this a current diagnosis for this admission?: Yes Plan: Patient decided to chew her opiate patch. Patient is now awake and alert. IVC in place. Psychology following. (5) Thrombocytopenia Is this a current diagnosis for this admission?: Yes Plan: Possibly due to acute illness. Appears to be trending up. Continue SCD for DVT prophylaxis. (6) Acute metabolic encephalopathy Is this a current diagnosis for this admission?: Yes Plan: Possibly due to pneumonia, opiate and or hypercapnea-Now improved. (7) DVT prophylaxis Is this a current diagnosis for this admission?: Yes Plan: SCD as patient is thrombocytopenic. (8) Hypertension Qualifiers: Hypertension type: essential hypertension Qualified Code(s): I10 - Essential (primary) hypertension Is this a current diagnosis for this admission?: Yes Plan: Patient normally takes norvasc at home. Patient currently on toprol XL 25 daily. (9) Tobacco dependency Is this a current diagnosis for this admission?: Yes Plan: Patient counseled on cessation. (10) Hypothyroid Qualifiers: Hypothyroidism type: unspecified Qualified Code(s): E03.9 - Hypothyroidism , unspecified Is this a current diagnosis for this admission?: Yes (11) Pneumonia Qualifiers: Pneumonia type: aspiration pneumonia Laterality: left Lung location: unspecified part of lung Is this a current diagnosis for this admission?: Yes Plan: Patient on aztreonam and levaquin. - Time Time Spent with patient: 15-24 minutes Medications reviewed and adjusted accordingly: Yes Anticipated discharge: Home with Homehealth Within: Other - Inpatient Certification Medical Necessity: Need Close Monitoring Due to Risk of Patient Decompensation - Patient currently under IVC
--- NOTE | 2017-01-31 04:21 | PDOC PROGRESS REPORT ---
Subjective Progress Note for:: 01/29/17 Subjective:: Patient is a 51 year old female admitted for aspiration pneumonia, acute metabolic encephalopathy, opiate overdose etc. Patient heart rate is better. Patient states she still feels nauseated. When asked if there is anything else I can do for her she states "shoot me". Patient still refusing treatment from time to time. Physical Exam Vital Signs: Temp Pulse Resp BP Pulse Ox 99.2 F 104 H 16 138/88 H 96 01/29/17 15:59 01/29/17 15:59 01/29/17 15:59 01/29/17 15:59 01/29/17 15:59 Intake & Output 01/28/17 01/29/17 01/30/17 06:59 06:59 06:59 Intake Total 578 2660 318 Output Total 3040 5795 375 Balance -2462 -3135 -57 Weight 55.6 kg 52 kg General appearance: PRESENT: no acute distress, disheveled, thin Eye exam: PRESENT: EOMI. ABSENT: scleral icterus Mouth exam: PRESENT: moist Teeth exam: PRESENT: poor dentation Neck exam: ABSENT: carotid bruit, JVD, lymphadenopathy, thyromegaly Respiratory exam: PRESENT: clear to auscultation peterson. ABSENT: rales, rhonchi, wheezes Cardiovascular exam: PRESENT: RRR, systolic murmur. ABSENT: diastolic murmur, rubs GI/Abdominal exam: PRESENT: normal bowel sounds, soft. ABSENT: distended, guarding, mass, organolmegaly, rebound, tenderness Rectal exam: PRESENT: deferred Extremities exam: PRESENT: full ROM. ABSENT: calf tenderness, clubbing, pedal edema Neurological exam: PRESENT: alert, awake, oriented to person, oriented to place , oriented to time, oriented to situation, CN II-XII grossly intact. ABSENT: motor sensory deficit Psychiatric exam: PRESENT: flat affect, normal mood, unusual affect. ABSENT: homicidal ideation, suicidal ideation Skin exam: PRESENT: dry, intact, warm. ABSENT: cyanosis, rash Results Laboratory Results: 01/29/17 04:25 01/29/17 04:25 01/29/17 01/29/17 04:25 04:25 WBC 8.5 RBC 3.83 Hgb 12.4 Hct 37.0 MCV 97 MCH 32.4 MCHC 33.5 RDW 14.7 H Plt Count 178 Seg Neutrophils % 81.5 H Lymphocytes % 10.4 L Monocytes % 7.3 Eosinophils % 0.1 Basophils % 0.7 Absolute Neutrophils 7.0 Absolute Lymphocytes 0.9 Absolute Monocytes 0.6 Absolute Eosinophils 0.0 Absolute Basophils 0.1 Sodium 139.5 Potassium 3.3 L Chloride 94 L Carbon Dioxide 31 H Anion Gap 15 BUN 21 H Creatinine 0.84 Est GFR ( Amer) > 60 Est GFR (Non-Af Amer) > 60 Glucose 246 H Calcium 9.3 Magnesium 1.7 01/26/17 17:54 Troponin I 0.046 Impressions: Chest X-Ray 01/29/17 06:00 IMPRESSION: No acute cardiopulmonary findings. Central line. Interval improvement. Assessment & Plan - Diagnosis (1) Acute respiratory failure with hypoxia and hypercapnia Is this a current diagnosis for this admission?: Yes Plan: Possibly the result of being over sedated while taking opiates. Patient placed on bipap but is now on nasal canula and doing well. (2) CHF (congestive heart failure) Qualifiers: Congestive heart failure type: diastolic Congestive heart failure chronicity: chronic Qualified Code(s): I50.32 - Chronic diastolic (congestive ) heart failure Is this a current diagnosis for this admission?: Yes Plan: Patient evaluated by Dr. Redding. Thought that patient has mild diastolic heart failure. Continue low dose metoprolol and lasix. 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 Patient currently on basal bolus insulin.Patient still hyperglycemic as she continue to refuse her insulin from time to time. Patient on reglan for possible gastroparesis. (4) Opiate overdose Qualifiers: Encounter type: initial encounter Injury intent: undetermined intent Qualified Code(s): T40.604A - Poisoning by unspecified narcotics, undetermined, initial encounter Is this a current diagnosis for this admission?: Yes Plan: Patient decided to chew her fentanyl patch. Patient is now awake and alert. IVC in place. Psychology following. (5) Thrombocytopenia Is this a current diagnosis for this admission?: Yes Plan: Possibly due to acute illness. Now normal in the 170,000. Continue SCD for DVT prophylaxis. (6) Acute metabolic encephalopathy Is this a current diagnosis for this admission?: Yes Plan: Possibly due to pneumonia, opiate and or hypercapnea-Now improved. (7) DVT prophylaxis Is this a current diagnosis for this admission?: Yes Plan: SCD as patient is thrombocytopenic. (8) Hypertension Qualifiers: Hypertension type: essential hypertension Qualified Code(s): I10 - Essential (primary) hypertension Is this a current diagnosis for this admission?: Yes Plan: Patient normally takes norvasc at home. Patient currently on toprol XL 25 daily. (9) Hypothyroid Qualifiers: Hypothyroidism type: unspecified Qualified Code(s): E03.9 - Hypothyroidism , unspecified Is this a current diagnosis for this admission?: Yes Plan: Continue replacement. (10) Tobacco dependency Is this a current diagnosis for this admission?: Yes Plan: Patient counseled on cessation. (11) Pneumonia Qualifiers: Pneumonia type: aspiration pneumonia Laterality: bilateral Lung location : unspecified part of lung Is this a current diagnosis for this admission?: Yes Plan: Patient on aztreonam and levaquin. - Time Time Spent with patient: Less than 15 minutes Anticipated discharge: Home - Inpatient Certification Medical Necessity: Significant Comorbidiites Make Outpatient Treatment Too Risky - IVC still in place
--- NOTE | 2017-01-31 04:37 | PDOC PROGRESS REPORT ---
Subjective Progress Note for:: 01/30/17 Subjective:: Patient is a 51 year old female admitted for aspiration pneumonia, acute metabolic encephalopathy, opiate overdose etc. Do to patient refusal to take insulin as prescribed patient went into DKA overnight. Gap is now glosed and glucose and down. Patient is now having diarrhea. C diff is negative. Patient denied trying to harm herself patient chewing her fentanyl patch. IVC was lifted. Physical Exam Vital Signs: Temp Pulse Resp BP Pulse Ox 98.8 F 98 17 133/82 H 97 01/30/17 20:04 01/30/17 20:04 01/30/17 20:04 01/30/17 20:04 01/30/17 20:04 Intake & Output 01/29/17 01/30/17 01/31/17 06:59 06:59 06:59 Intake Total 2660 2618 589 Output Total 5795 1350 825 Balance -3135 1268 -236 Weight 52 kg General appearance: PRESENT: disheveled, mild distress, thin Head exam: PRESENT: normocephalic Eye exam: ABSENT: scleral icterus Mouth exam: PRESENT: moist Teeth exam: PRESENT: poor dentation Neck exam: ABSENT: carotid bruit, JVD, lymphadenopathy, thyromegaly Respiratory exam: PRESENT: clear to auscultation peterson. ABSENT: rales, rhonchi, wheezes Cardiovascular exam: PRESENT: RRR, systolic murmur. ABSENT: diastolic murmur, rubs GI/Abdominal exam: PRESENT: normal bowel sounds, soft. ABSENT: distended, guarding, mass, organolmegaly, rebound, tenderness Rectal exam: PRESENT: deferred Extremities exam: PRESENT: full ROM. ABSENT: calf tenderness, clubbing, pedal edema Neurological exam: PRESENT: alert, awake, oriented to person, oriented to place , oriented to time, oriented to situation, CN II-XII grossly intact. ABSENT: motor sensory deficit Psychiatric exam: PRESENT: flat affect, unusual affect. ABSENT: homicidal ideation, suicidal ideation Skin exam: PRESENT: dry, intact, warm. ABSENT: cyanosis, rash Results Laboratory Results: 01/29/17 04:25 01/30/17 05:05 01/29/17 01/30/17 01/30/17 22:37 05:05 05:05 Sodium 131.3 L 140.9 Potassium 3.6 3.1 L Chloride 89 L 97 L Carbon Dioxide 17 L D 29 D Anion Gap 25 H 15 BUN 24 H 21 H Creatinine 1.09 0.89 Est GFR ( Amer) > 60 > 60 Est GFR (Non-Af Amer) 53 L > 60 Glucose 623 H* 142 H Calcium 8.8 9.3 Magnesium 1.6 Total Bilirubin 1.4 H AST 16 ALT 27 Alkaline Phosphatase 109 Total Protein 5.6 L Albumin 3.9 01/26/17 17:54 Troponin I 0.046 Impressions: Chest X-Ray 01/29/17 06:00 IMPRESSION: No acute cardiopulmonary findings. Central line. Interval improvement. Assessment & Plan - Diagnosis (1) Diabetic ketoacidosis Qualifiers: Diabetes mellitus type: type 1 Diabetes mellitus complication detail: without coma Qualified Code(s): E10.10 - Type 1 diabetes mellitus with ketoacidosis without coma Is this a current diagnosis for this admission?: Yes Plan: Patient was placed on a insulin gtt overnight. Gap is now close and blood glucose is down. Patient transitioned to subcutaneous insulin. Will talk to patient about refusing to take her insulin. (2) Diarrhea Is this a current diagnosis for this admission?: Yes Plan: C diff negative. Possible due to antibiotics. Aztreonam discontinued. Levaquin continued. Patient started on probiotic and lomotil. (3) Hypokalemia Is this a current diagnosis for this admission?: Yes Plan: Secondary to insulin given for DKA and lasix for diastolic heart failure. Will replete and monitor. (4) Acute respiratory failure with hypoxia and hypercapnia Is this a current diagnosis for this admission?: Yes Plan: Possibly the result of being over sedated while taking opiates. Did required bipap but is now on nasal canula doing well. (5) CHF (congestive heart failure) Qualifiers: Congestive heart failure type: diastolic Congestive heart failure chronicity: chronic Qualified Code(s): I50.32 - Chronic diastolic (congestive ) heart failure Is this a current diagnosis for this admission?: Yes Plan: Compenstated. Continue low dose metoprolol and lasix. (6) Acute metabolic encephalopathy Is this a current diagnosis for this admission?: Yes Plan: Possibly due to pneumonia, opiate and or hypercapnea-Now improved. (7) COPD (chronic obstructive pulmonary disease) Qualifiers: Emphysema type: centrilobular Is this a current diagnosis for this admission?: Yes Plan: Appears stable. Continue nebs. Patient encouraged to quite smoking. (8) DVT prophylaxis Is this a current diagnosis for this admission?: Yes Plan: SCD (9) Hypothyroid Qualifiers: Hypothyroidism type: unspecified Qualified Code(s): E03.9 - Hypothyroidism , unspecified Is this a current diagnosis for this admission?: Yes Plan: Continue replacement. (10) Tobacco dependency Is this a current diagnosis for this admission?: Yes Plan: Patient counseled on cessation. (11) Pneumonia Qualifiers: Pneumonia type: aspiration pneumonia Laterality: bilateral Lung location : unspecified part of lung Is this a current diagnosis for this admission?: Yes Plan: Possible secondary to aspiration. Patient only on levaquin. (12) Opiate overdose Qualifiers: Encounter type: initial encounter Injury intent: undetermined intent Qualified Code(s): T40.604A - Poisoning by unspecified narcotics, undetermined, initial encounter Is this a current diagnosis for this admission?: Yes Plan: Patient decided to chew her fentanyl patch. Patient is now awake and alert. Patient states she did not intend to harm herself. Psych has lifted the IVC. - Time Time Spent with patient: Less than 15 minutes Anticipated discharge: Home with Homehealth Within: Other - IVC has been lifted. Patient can be discharged home when medically stable.
[2017-01-31] MEDS: LANSOPRAZOLE 30 MG TAB.RAP.DR PO SCH ×2 (05:07→17:13)
[2017-01-31] MEDS: LEVOTHYROXINE SODIUM 0.05 MG TABLET PO SCH (05:07)
[2017-01-31] MEDS: MORPHINE SULFATE 10 MG/ML INJ IV PRN ×3 (05:15→20:07)
[2017-01-31] MEDS: INSULIN REG, HUMAN 100 UNIT/ML 3 ML VIAL (PYX) SUBCUT PRN ×5 (05:26→22:12)
[2017-01-31] MEDS ORDERED: POTASSI CL 20 MEQ/50 ML RIDER 20 MEQ/50 ML RTUPB IV ONE (05:45)
[2017-01-31 05:56] LABS: ABSOLUTE LYMPHOCYTES (AUTO) 1.1 10^3/uL (0.5-4.7); ABSOLUTE MONOCYTES (AUTO) 0.5 10^3/uL (0.1-1.4); BASOPHILS % (AUTO) 0.5 % (0-2); EOSINOPHILS % (AUTO) 0.1 % (0-6); HEMATOCRIT 36.3 % (36.0-47.0); HEMOGLOBIN 12.1 g/dL (12.0-15.5); LYMPHOCYTES % (AUTO) 17.2 % (13-45); MEAN CORPUSCULAR HEMOGLOBIN 32.1 pg (27.0-33.4); MEAN CORPUSCULAR HGB CONC 33.4 g/dL (32.0-36.0); MEAN CORPUSCULAR VOLUME 96 fl (80-97); MONOCYTES % (AUTO) 7.4 % (3-13); RED BLOOD COUNT 3.78 10^6/uL (3.72-5.28); RED CELL DISTRIBUTION WIDTH 14.1 % (11.5-14.0); SEGMENTED NEUTROPHILS % (AUTO) 74.8 % (42-78); WHITE BLOOD COUNT 6.7 10^3/uL (4.0-10.5)
[2017-01-31 06:02] LABS: ANION GAP 17 (5-19); BLOOD UREA NITROGEN 23 mg/dL (7-20); CARBON DIOXIDE 25 mmol/L (22-30); CHLORIDE 97 mmol/L (98-107); CREATININE RESULT 1.08 mg/dL (0.52-1.25); GLUCOSE 304 mg/dL (75-110); MAGNESIUM 1.5 mg/dL (1.6-2.3); POTASSIUM 3.1 mmol/L (3.6-5.0); SODIUM 139.2 mmol/L (137-145)
[2017-01-31] MEDS: DIPHENOXYLATE HCL/ATROP SULF 2.5-0.025 MG TABLET PO PRN ×2 (06:38→14:16)
[2017-01-31] MEDS: POTASSIUM CHLORIDE 10 MEQ TABLET.SA PO SCH (10:11)
[2017-01-31] MEDS: LACTOBACILLUS ACIDOPHILUS 250 MG TAB PO SCH ×2 (10:11→17:14)
[2017-01-31] MEDS: PREGABALIN 75 MG CAPSULE PO SCH ×2 (10:12→22:12)
[2017-01-31] MEDS: FLUDROCORTISONE ACETATE 0.1 MG TABLET PO SCH (10:12)
[2017-01-31] MEDS: METOPROLOL SUCCINATE 25 MG TAB.SR.24H PO SCH (10:13)
[2017-01-31] MEDS: AMLODIPINE BESYLATE 5 MG TABLET PO SCH ×2 (10:13→22:11)
[2017-01-31] MEDS: ESCITALOPRAM OXALATE 10 MG TABLET PO SCH (10:13)
[2017-01-31] MEDS: METOCLOPRAMIDE HCL 10 MG TABLET PO SCH ×2 (10:14→17:14)
[2017-01-31] MEDS: FUROSEMIDE 20 MG TABLET PO SCH (10:14)
[2017-01-31] MEDS: VENLAFAXINE HCL 37.5 MG CAP.SR.24H PO SCH (10:28)
[2017-01-31] MEDS: MAGNESIUM SULFATE/D5W 1 GM/100 ML RTUPB IV SCH ×3 (10:28→13:42)
--- NOTE | 2017-01-31 10:36 | PDOC DISCHARGE SUMMARY ---
General - Admit/Disc Date/PCP Admission Date/Primary Care Provider: 01/26/17 16:41 CONCEPCION GONCALVES MD Discharge Date: 01/31/17 - Discharge Diagnosis (1) Acute respiratory failure with hypoxia and hypercapnia Is this a current diagnosis for this admission?: Yes (2) Aortic stenosis Is this a current diagnosis for this admission?: Yes (3) CHF (congestive heart failure) Is this a current diagnosis for this admission?: Yes (4) Diarrhea Is this a current diagnosis for this admission?: Yes (5) Hypokalemia Is this a current diagnosis for this admission?: Yes (6) Opiate overdose Is this a current diagnosis for this admission?: Yes (7) Acute metabolic encephalopathy Is this a current diagnosis for this admission?: Yes (8) COPD (chronic obstructive pulmonary disease) Is this a current diagnosis for this admission?: Yes (9) Diabetes mellitus Is this a current diagnosis for this admission?: Yes (10) Diabetes mellitus type 1 Is this a current diagnosis for this admission?: Yes (11) Hypothyroid Is this a current diagnosis for this admission?: Yes (12) Tobacco dependency Is this a current diagnosis for this admission?: Yes (13) Diabetic ketoacidosis Is this a current diagnosis for this admission?: Yes (14) Hypomagnesemia Is this a current diagnosis for this admission?: Yes (15) Pneumonia Is this a current diagnosis for this admission?: Yes - Additional Information Resuscitation Status: Full Code Discharge Diet: Cardiac, Diabetic Discharge Activity: Activity As Tolerated, Balance Activity w/Rest, Weigh Daily Home Medications: Amlodipine Besylate [Norvasc 5 mg Tablet] 5 mg PO Q12 01/27/17 Atorvastatin Calcium [Lipitor 40 mg Tablet] 40 mg PO QHS 01/27/17 Cyclobenzaprine HCl [Flexeril 5 mg Tablet] 5 mg PO Q8HP PRN 01/27/17 Diazepam [Valium] 10 mg PO Q8HP PRN 01/27/17 Escitalopram Oxalate [Lexapro 10 mg Tablet] 10 mg PO DAILY 01/27/17 Fentanyl [Duragesic 50 Mcg/Hr Transdermal Patch] 1 patch TOP Q3D 01/27/17 Fludrocortisone Acetate [Florinef 0.1 mg Tablet] 0.1 mg PO DAILY 01/27/17 Insulin Lispro [Humalog Insulin (Lispro) 100 unit/mL] 0 units PUMP DAILY Levothyroxine Sodium [Synthroid 0.05 mg Tablet] 0.05 mg PO DAILY 01/27/17 Lisinopril [Prinivil 2.5 mg Tablet] 2.5 mg PO QHS 01/27/17 Metoclopramide HCl [Reglan 10 mg Tablet] 10 mg PO BID 01/27/17 Midodrine HCl [Proamatine 5 mg Tablet] 5 mg PO Q8 01/27/17 Omeprazole 20 mg PO DAILY 01/27/17 Pregabalin [Lyrica 75 mg Capsule] 75 mg PO Q12 01/27/17 Ranolazine [Ranexa] 1,000 mg PO Q12 01/27/17 Ropinirole HCl [Requip] 1 mg PO QHS 01/27/17 Teriparatide [Forteo] 2.4 ml PO DAILY 01/27/17 Trazodone HCl [Desyrel] 100 mg PO QHS 01/27/17 Valacyclovir HCl [Valtrex 500 mg Tablet] 500 mg PO DAILY 01/27/17 Venlafaxine HCl ER [Effexor Xr 37.5 mg Cap.sr] 37.5 mg PO DAILY 01/27/17 Atorvastatin Calcium [Lipitor 40 mg Tablet] 40 mg PO QHS tablet 01/31/17 Diphenoxylate HCl/Atrop Sulf [Lomotil 2.5 mg Tablet] 1 tab PO QIDP PRN tablet 01/31/17 Escitalopram Oxalate [Lexapro 10 mg Tablet] 10 mg PO DAILY tablet 01/31/17 Fludrocortisone Acetate [Florinef 0.1 mg Tablet] 0.3 mg PO DAILY tablet Furosemide [Lasix 20 mg Tablet] 20 mg PO DAILY 30 Days #30 tablet 01/31/17 Levothyroxine Sodium [Synthroid 0.05 mg Tablet] 0.05 mg PO Q6AM tablet Magnesium Oxide 400 mg PO BID 30 Days #60 tablet 01/31/17 Metoprolol Succinate [Toprol Xl 25 mg Tab.sr] 25 mg PO DAILY 30 Days #30 tab.sr.24h 01/31/17 Potassium Chloride [Klor-Con 10 Meq Tablet.sa] 20 meq PO DAILY 30 Days #30 tablet.sa 01/31/17 History of Present Illness History of Present Illness: TEX MORRIS is a 51 year old female who presented to the hospital with lethargy likely associated with abuse of opioids. The patient had hypercarbic and hypoxic respiratory failure. This was treated with BiPAP. The patient also had an aspiration pneumonia. Hospital Course Hospital Course: TEX MORRIS is a 51 year old female who presented to the hospital with lethargy likely associated with abuse of opioids. The patient had hypercarbic and hypoxic respiratory failure. This was treated with BiPAP. The patient also had an aspiration pneumonia. She was given Levaquin and aztreonam during this hospitalization. Her chest x-ray is now clear and she does not require additional antibiotics at discharge. The patient has had an episode of diabetic ketoacidosis due to refusal to take her insulin. Her insulin has been restarted. The patient also has underlying congestive heart failure. Her cardiac regimen was augmented during this hospitalization and Lasix as well as metoprolol were added during this hospitalization. During this hospitalization the patient was evaluated by the following consultants: Pulmonary, cardiology, psychiatry. The patient has been cleared by psychiatry. She does not have any suicidal or homicidal ideations. She is requesting to go home. Psychiatry has requested that she follow-up with [facility]. In addition to her routine medications, Lasix and metoprolol the patient will also be started on supplemental magnesium and potassium for hypokalemia and hypomagnesemia. Due to potential drug interactions ondansetron was discontinued this hospitalization. Physical Exam Vital Signs: Temp Pulse Resp BP Pulse Ox 99.8 F 100 16 148/92 H 95 01/31/17 07:28 01/31/17 07:43 01/31/17 07:43 01/31/17 07:28 01/31/17 07:43 Intake & Output 01/30/17 01/31/17 02/01/17 06:59 06:59 06:59 Intake Total 2618 1501 Output Total 1350 1725 Balance 1268 -224 Weight 52 kg Additional comments: The patient is noted to be a thin, white female. She is not in any distress. She is requesting that her Brooks be removed and that she be discharged from the hospital. Nursing staff tells me that she is ambulating without any difficulty. She tells me that her son is at home and is available to help. She appropriately corrected her outpatient physician and agrees to follow-up with her physician in a timely fashion. Cranial nerves II through XII are intact. The patient's lungs are clear to auscultation bilaterally. Her cardiac exam is regular. I do not appreciate any murmurs, gallops or rubs. The abdomen is soft and flat. Bowel sounds are present. She has no guarding or rebound noted and there are no hernias or masses present. The lower extremities are very thin. No pitting edema is present. Skin is warm dry and intact without lesions or rashes. Results Laboratory Results: 01/31/17 05:30 01/31/17 05:30 01/31/17 01/31/17 05:30 05:30 WBC 6.7 RBC 3.78 Hgb 12.1 Hct 36.3 MCV 96 MCH 32.1 MCHC 33.4 RDW 14.1 H Plt Count 179 Seg Neutrophils % 74.8 Lymphocytes % 17.2 Monocytes % 7.4 Eosinophils % 0.1 Basophils % 0.5 Absolute Neutrophils 5.0 Absolute Lymphocytes 1.1 Absolute Monocytes 0.5 Absolute Eosinophils 0.0 Absolute Basophils 0.0 Sodium 139.2 Potassium 3.1 L Chloride 97 L Carbon Dioxide 25 Anion Gap 17 BUN 23 H Creatinine 1.08 Est GFR ( Amer) > 60 Est GFR (Non-Af Amer) 53 L Glucose 304 H Calcium 9.0 Magnesium 1.5 L 01/26/17 17:54 Troponin I 0.046 Impressions: Chest X-Ray 01/29/17 06:00 IMPRESSION: No acute cardiopulmonary findings. Central line. Interval improvement. Plan Discharge Plan: 1. Follow-up with PCM, Dr. Goncalves. It is recommended that the patient have repeat labs at that visit to check potassium, magnesium and renal function. 2. Follow-up with Dr. Redding, cardiology. 3. Follow-up with psychiatry and it is recommended that patient seek assistance through [facility] for substance abuse counseling. Time Spent: Greater than 30 Minutes
--- NOTE | 2017-01-31 13:41 | Progress Note ---
Provider Note Provider Note: Follow up Palliative Consult Note Visit made with patient today and she was very pleasant and agreeable to talk. She states she is going home today. Mrs. Davison tells me she lives with her only child and he doesn't do much to help her. She is disgusted with him and wants to return to [facility] where she used to live. She says she has no intention of harming herself because she has a plan of how she can get back to [place] with her friends and family there. She tells me she is going to buy a house and pay on it for 2 years, then sell it and use the proceeds to move. Today patient is very cheerful and she tells me she has no idea how she got so much medication in her system that it stopped her breathing. She doesnt remeber ingesting anything and says she uses fentanyl patches to control her chronic back and neck pain from old fractures. She denies having to use oxygen at home and says she doesnt remember feeling ill or confused before coming here. At present., patient states her pain and symptoms are well controlled and that she will be able to manage at home with her son. Her breathing is nonlabored and oxygen concentration is 99% on room air with only mild rhonchi noted. She is talking clearly and able to move about in her bed without assistance. She reports good appetite and no other complaints, in spite of diarrhea which was noted on hospitalist note. Patient is alert and oriented. States she is appreciative of my visit for support, but that she has no issues at the present time. Appreciate consult request. I hope she does not have anymore "accidental" ingestions of opiods and we talked about the seriousness of this episode. She did not want to change code status. Her son is by law the legal next of kin and she did not mention anyone else that she would rather have as HCPOA.
--- NOTE | 2017-01-31 13:48 | Progress Note ---
Provider Note Provider Note: Due to uncontrolled blood sugars I am going to cancel the discharge for today and reevaluate the patient for discharge tomorrow morning.
--- NOTE | 2017-01-31 14:12 | PDOC PROGRESS REPORT ---
Subjective Progress Note for:: 01/31/17 Subjective:: Patient is doing much better. She denied any bodily discomfort. She is expected to be discharged later on today. She is however denying any chest arm or neck discomfort. She is noted to be resting comfortably. Physical Exam Vital Signs: Temp Pulse Resp BP Pulse Ox 98.9 F 100 14 135/82 H 100 01/31/17 11:43 01/31/17 13:20 01/31/17 13:20 01/31/17 11:43 01/31/17 13:20 Intake & Output 01/30/17 01/31/17 02/01/17 06:59 06:59 06:59 Intake Total 2618 1501 222 Output Total 1350 1725 275 Balance 1268 -224 -53 Weight 52 kg Exam: GENERAL: well-nourished and in no acute distress. Alert and oriented x3 HEAD: Atraumatic, normocephalic. EYES: Pupils equal round and reactive to light, extraocular movements intact, sclera anicteric, conjunctiva are normal. ENT: TMs normal, nares patent, oropharynx clear without exudates. Moist mucous membranes. No oral ulcerations or bleeding gums noted NECK: supple without lymphadenopathy. Trachea is central. No cervical or axillary lymphadenopathy noted. Carotids are 2+, JVD WNL LUNGS: Respiration seems nonlabored, no significant accessory muscle action noted. Breath sounds clear to auscultation bilaterally and equal noted. No wheezes rales or rhonchi noted. No significant dullness noted on percussion. CHEST: Palpation of the chest wall shows no significant chest wall tenderness. No other significant abnormalities noted. HEART: [place] [employer], No PSH, 1/6 HILARIO aortic area, 1/6 mike systolic murmur mitral area, no rubs, no gallops. ABDOMEN: Soft, no significant tenderness appreciated, normoactive bowel sounds. No guarding, no rebound. No rigidity noted . No masses appreciated. EXTREMITIES: Pedal pulses are 1-2+, no calf tenderness noted. No clubbing or cyanosis.trace to 1+ pedal edema noted NEUROLOGICAL: Focused neurological exam showed no significant neurologic deficit. Normal speech, no focal weakness appreciated. PSYCH: Normal mood, normal affect. Judgment and insight within normal limits. SKIN: No significant ecchymosis, rash, ulcerations or signs of pruritus noted. MUSCULOSKELETAL EXAM: No significant joint swelling noted. Results Laboratory Results: 01/31/17 05:30 01/31/17 05:30 01/31/17 01/31/17 05:30 05:30 WBC 6.7 RBC 3.78 Hgb 12.1 Hct 36.3 MCV 96 MCH 32.1 MCHC 33.4 RDW 14.1 H Plt Count 179 Seg Neutrophils % 74.8 Lymphocytes % 17.2 Monocytes % 7.4 Eosinophils % 0.1 Basophils % 0.5 Absolute Neutrophils 5.0 Absolute Lymphocytes 1.1 Absolute Monocytes 0.5 Absolute Eosinophils 0.0 Absolute Basophils 0.0 Sodium 139.2 Potassium 3.1 L Chloride 97 L Carbon Dioxide 25 Anion Gap 17 BUN 23 H Creatinine 1.08 Est GFR ( Amer) > 60 Est GFR (Non-Af Amer) 53 L Glucose 304 H Calcium 9.0 Magnesium 1.5 L 01/26/17 17:54 Troponin I 0.046 EKG Comments: Sinus rhythm, no sustained tachycardia or bradycardia arrhythmias noted. Impressions: Chest X-Ray 01/29/17 06:00 IMPRESSION: No acute cardiopulmonary findings. Central line. Interval improvement. Assessment & Plan - Diagnosis (1) CHF (congestive heart failure) Qualifiers: Congestive heart failure type: diastolic Congestive heart failure chronicity: chronic Qualified Code(s): I50.32 - Chronic diastolic (congestive ) heart failure Is this a current diagnosis for this admission?: Yes (2) Aortic stenosis Qualifiers: Cardiac valve disease etiology: etiology unspecified Qualified Code(s): I35.0 - Nonrheumatic aortic (valve) stenosis Is this a current diagnosis for this admission?: Yes (3) Acute respiratory failure with hypoxia and hypercapnia Is this a current diagnosis for this admission?: Yes (4) Opiate overdose Qualifiers: Encounter type: initial encounter Injury intent: undetermined intent Qualified Code(s): T40.604A - Poisoning by unspecified narcotics, undetermined, initial encounter Is this a current diagnosis for this admission?: Yes (5) Altered mental status, unspecified Qualifiers: Altered mental status type: disorientation Qualified Code(s): R41.0 - Disorientation, unspecified Is this a current diagnosis for this admission?: Yes (6) COPD (chronic obstructive pulmonary disease) Qualifiers: Emphysema type: centrilobular Is this a current diagnosis for this admission?: Yes (7) Coronary artery disease Qualifiers: Coronary Disease-Associated Artery/Lesion type: [place] artery [place] vs. transplanted heart: [place] heart Associated angina: angina presence unspecified Qualified Code(s): I25.10 - Atherosclerotic heart disease of [place] coronary artery without angina pectoris Is this a current diagnosis for this admission?: Yes (8) Tobacco dependency Is this a current diagnosis for this admission?: Yes - Notes Notes: Patient remained stable from cardiac standpoint. All cardiac related diagnosis were reviewed. Tachycardia has resolved on small dose of metoprolol. CHF seems compensated. Most likely related to diastolic dysfunction. Patient's medications reviewed. No medication changes were performed. Patient advised against substance and tobacco abuse. Will sign off. Please reconsult if needed. - Time Time with patient: 15-25 minutes - CODE STATUS was discussed, patient remains full code. Surrogate decision-maker unchanged. Multiple medical problems were addressed. More than 50% of the time spent coordinating care, discussing management plans with involved caregivers. Management plans discussed with involved personnels. Medical decision making was of moderate to high complexity , patient's has multiple comorbidities. Medications reviewed and adjusted accordingly: Yes
[2017-01-31] MEDS: ATORVASTATIN CALCIUM 40 MG TABLET PO SCH (22:11)
[2017-01-31] MEDS: LEVOFLOXACIN 750 MG TABLET PO SCH (22:12)
[2017-01-31] MEDS: ROPINIROLE HCL 1 MG TABLET PO SCH (22:12)
[2017-02-01] MEDS: IPRATROPIUM/ALBUTEROL 0.5-2.5 MG/3 ML AMPUL NEB SCH ×4 (01:47→20:13)
[2017-02-01] MEDS: MORPHINE SULFATE 10 MG/ML INJ IV PRN (02:54)
[2017-02-01] MEDS: LEVOTHYROXINE SODIUM 0.05 MG TABLET PO SCH (05:07)
[2017-02-01] MEDS: LANSOPRAZOLE 30 MG TAB.RAP.DR PO SCH ×2 (05:07→16:41)
[2017-02-01] MEDS: DIPHENOXYLATE HCL/ATROP SULF 2.5-0.025 MG TABLET PO PRN (05:13)
[2017-02-01 05:16] LABS: ABSOLUTE LYMPHOCYTES (AUTO) 1.4 10^3/uL (0.5-4.7); ABSOLUTE MONOCYTES (AUTO) 0.4 10^3/uL (0.1-1.4); BASOPHILS % (AUTO) 0.4 % (0-2); EOSINOPHILS % (AUTO) 0.1 % (0-6); HEMATOCRIT 37.1 % (36.0-47.0); HEMOGLOBIN 12.3 g/dL (12.0-15.5); HGB HCT DIFFERENCE -0.2; LYMPHOCYTES % (AUTO) 20.1 % (13-45); MEAN CORPUSCULAR HEMOGLOBIN 32.5 pg (27.0-33.4); MEAN CORPUSCULAR HGB CONC 33.1 g/dL (32.0-36.0); MEAN CORPUSCULAR VOLUME 98 fl (80-97); MONOCYTES % (AUTO) 6.5 % (3-13); RED BLOOD COUNT 3.77 10^6/uL (3.72-5.28); RED CELL DISTRIBUTION WIDTH 14.3 % (11.5-14.0); SEGMENTED NEUTROPHILS % (AUTO) 72.9 % (42-78); WHITE BLOOD COUNT 6.8 10^3/uL (4.0-10.5)
[2017-02-01 05:47] LABS: ANION GAP 19 (5-19); BLOOD UREA NITROGEN 28 mg/dL (7-20); CALCIUM 8.8 mg/dL (8.4-10.2); CARBON DIOXIDE 22 mmol/L (22-30); CHLORIDE 96 mmol/L (98-107); CREATININE RESULT 1.09 mg/dL (0.52-1.25); GLUCOSE 386 mg/dL (75-110); POTASSIUM 3.7 mmol/L (3.6-5.0); SODIUM 136.9 mmol/L (137-145)
[2017-02-01] MEDS: INSULIN REG, HUMAN 100 UNIT/ML 3 ML VIAL (PYX) SUBCUT PRN ×3 (06:44→22:05)
[2017-02-01] MEDS ORDERED: INSULIN REG, HUMAN 100 UNIT/ML 3 ML VIAL (PYX) IV ONE (07:00)
[2017-02-01] MEDS ORDERED: DEXTROSE 40% GEL 15 GM TUBE PO PRN ×4 (07:15→10:14)
[2017-02-01] MEDS ORDERED: GLUCAGON,HUMAN RECOMB 1 MG INJ IM PRN ×2 (07:15→10:14)
[2017-02-01] MEDS ORDERED: INSULIN LISPRO 100 UNIT/ML 3 ML VIAL SUBCUT PRN (07:15)
[2017-02-01] MEDS ORDERED: DEXTROSE 50%-WATER 25 GM/50 ML DISP.SYRIN IV PRN ×4 (07:15→10:14)
[2017-02-01] MEDS: METOPROLOL SUCCINATE 25 MG TAB.SR.24H PO SCH (09:21)
[2017-02-01] MEDS: FLUDROCORTISONE ACETATE 0.1 MG TABLET PO SCH (09:21)
[2017-02-01] MEDS: PREGABALIN 75 MG CAPSULE PO SCH ×2 (09:22→22:05)
[2017-02-01] MEDS: FUROSEMIDE 20 MG TABLET PO SCH (09:22)
[2017-02-01] MEDS: METOCLOPRAMIDE HCL 10 MG TABLET PO SCH ×2 (09:22→17:23)
[2017-02-01] MEDS: POTASSIUM CHLORIDE 10 MEQ TABLET.SA PO SCH (09:22)
[2017-02-01] MEDS: AMLODIPINE BESYLATE 5 MG TABLET PO SCH ×2 (09:22→22:05)
[2017-02-01] MEDS: VENLAFAXINE HCL 37.5 MG CAP.SR.24H PO SCH (09:22)
[2017-02-01] MEDS: ESCITALOPRAM OXALATE 10 MG TABLET PO SCH (09:22)
[2017-02-01] MEDS: LACTOBACILLUS ACIDOPHILUS 250 MG TAB PO SCH ×2 (09:23→17:23)
[2017-02-01] MEDS ORDERED: INSULIN REG, HUMAN 100 UNIT/ML 3 ML VIAL (PYX) SUBCUT PRN (10:14)
--- NOTE | 2017-02-01 10:23 | PDOC PROGRESS REPORT ---
Subjective Progress Note for:: 02/01/17 Subjective:: TEX MORRIS is a 51 year old female who presented to the hospital with lethargy likely associated with abuse of opioids. The patient had hypercarbic and hypoxic respiratory failure. This was treated with BiPAP. The patient also had an aspiration pneumonia. She was given Levaquin and aztreonam during this hospitalization. Her chest x-ray is now clear and she does not require additional antibiotics at discharge. The patient has had an episode of diabetic ketoacidosis due to refusal to take her insulin. Her insulin has been restarted. The patient also has underlying congestive heart failure. Her cardiac regimen was augmented during this hospitalization and Lasix as well as metoprolol were added during this hospitalization. During this hospitalization the patient was evaluated by the following consultants: Pulmonary, cardiology, psychiatry. The patient has been cleared by psychiatry. She does not have any suicidal or homicidal ideations. She is requesting to go home. Psychiatry has requested that she follow-up with [facility]. In addition to her routine medications, Lasix and metoprolol the patient will also be started on supplemental magnesium and potassium for hypokalemia and hypomagnesemia. Due to potential drug interactions ondansetron was discontinued this hospitalization. Yesterday, I was anticipating discharge. However, the patient was persistently hyperglycemic. Therefore, I canceled her discharge. It is unclear if she is using her insulin pump correctly. I tried to speak to her son today who assists her at home but no one answered at their home phone. I do not think that this patient is best served with an insulin pump. I do not think that she is very reliable. Therefore, I am going to start low-dose Lantus and continue sliding scale. I anticipate that she will be here over the weekend while we try to correct her hyperglycemia. Physical Exam Vital Signs: Temp Pulse Resp BP Pulse Ox 99.0 F 101 H 22 H 141/90 H 98 02/01/17 07:24 02/01/17 08:23 02/01/17 08:23 02/01/17 07:24 02/01/17 08:23 Intake & Output 01/31/17 02/01/17 02/02/17 06:59 06:59 06:59 Intake Total 1501 1736 Output Total 1725 775 Balance -224 961 Weight 52 kg 54.5 kg Additional comments: The patient is very thin. She appears much older than her stated age. She does not appear to be in overall good health. She is awake. She is asking for pain medications. She does not recall that she ate her fentanyl patch earlier during this hospitalization but she does recall talking to psychiatry. At this point time her lungs are clear to auscultation bilaterally. Her cardiac exam demonstrates a 2/6 systolic ejection murmur heard loudest at the left upper sternal border. The abdomen is soft and flat. Bowel sounds are noted in the lower quadrants. She does not have guarding or rebound noted and there are no hernias or masses present. The lower extremities do not demonstrate any edema. She does not have any new or acute skin lesions or rashes. Results Laboratory Results: 02/01/17 04:20 02/01/17 04:20 02/01/17 02/01/17 04:20 04:20 WBC 6.8 RBC 3.77 Hgb 12.3 Hct 37.1 MCV 98 H MCH 32.5 MCHC 33.1 RDW 14.3 H Plt Count 184 Seg Neutrophils % 72.9 Lymphocytes % 20.1 Monocytes % 6.5 Eosinophils % 0.1 Basophils % 0.4 Absolute Neutrophils 5.0 Absolute Lymphocytes 1.4 Absolute Monocytes 0.4 Absolute Eosinophils 0.0 Absolute Basophils 0.0 Sodium 136.9 L Potassium 3.7 Chloride 96 L Carbon Dioxide 22 Anion Gap 19 BUN 28 H Creatinine 1.09 Est GFR ( Amer) > 60 Est GFR (Non-Af Amer) 53 L Glucose 386 H Calcium 8.8 01/26/17 17:54 Troponin I 0.046 Impressions: Chest X-Ray 01/29/17 06:00 IMPRESSION: No acute cardiopulmonary findings. Central line. Interval improvement. Assessment & Plan - Diagnosis (1) Acute respiratory failure with hypoxia and hypercapnia Is this a current diagnosis for this admission?: Yes (2) Aortic stenosis Qualifiers: Cardiac valve disease etiology: etiology unspecified Qualified Code(s): I35.0 - Nonrheumatic aortic (valve) stenosis Is this a current diagnosis for this admission?: Yes (3) CHF (congestive heart failure) Qualifiers: Congestive heart failure type: diastolic Congestive heart failure chronicity: chronic Qualified Code(s): I50.32 - Chronic diastolic (congestive ) heart failure Is this a current diagnosis for this admission?: Yes (4) Diarrhea Is this a current diagnosis for this admission?: Yes (5) Hypokalemia Is this a current diagnosis for this admission?: Yes (6) Opiate overdose Qualifiers: Encounter type: initial encounter Injury intent: undetermined intent Qualified Code(s): T40.604A - Poisoning by unspecified narcotics, undetermined, initial encounter Is this a current diagnosis for this admission?: Yes (7) Acute metabolic encephalopathy Is this a current diagnosis for this admission?: Yes (8) COPD (chronic obstructive pulmonary disease) Qualifiers: Emphysema type: centrilobular Is this a current diagnosis for this admission?: Yes (9) Diabetes mellitus Qualifiers: Diabetes mellitus type: type 1 Is this a current diagnosis for this admission?: Yes (10) Diabetes mellitus type 1 Qualifiers: Diabetes mellitus complication status: with unspecified complications Qualified Code(s): E10.8 - Type 1 diabetes mellitus with unspecified complications Is this a current diagnosis for this admission?: Yes (11) Hypothyroid Qualifiers: Hypothyroidism type: unspecified Qualified Code(s): E03.9 - Hypothyroidism , unspecified Is this a current diagnosis for this admission?: Yes (12) Tobacco dependency Is this a current diagnosis for this admission?: Yes (13) Diabetic ketoacidosis Qualifiers: Diabetes mellitus type: type 1 Diabetes mellitus complication detail: without coma Qualified Code(s): E10.10 - Type 1 diabetes mellitus with ketoacidosis without coma Is this a current diagnosis for this admission?: Yes (14) Hypomagnesemia Is this a current diagnosis for this admission?: Yes (15) Pneumonia Qualifiers: Pneumonia type: aspiration pneumonia Laterality: bilateral Lung location : unspecified part of lung Is this a current diagnosis for this admission?: Yes - Time Time Spent with patient: 15-24 minutes - Inpatient Certification Medical Necessity: Need Close Monitoring Due to Risk of Patient Decompensation, Risk of Complication if Not Cared For in Hospital - Plan Summary Plan Summary: Today, the patient does not meet criteria for discharge. I am holding the patient in the hospital secondary to hyperglycemia. I will start Lantus and continue with sliding scale. I would like to speak to the patient's water pump servicer but this will need to wait until Friday during office hours. I have not changed the patient's cardiac regimen. The patient has a clear chest x -ray. She will receive another dose of Levaquin today but otherwise I will discontinue the Levaquin for now. I will restart her fentanyl patch.
[2017-02-01] MEDS ORDERED: INSULIN GLARGINE,HUM.REC.ANLOG 1,000 UNIT/10 ML UNIT SUBCUT ONE (11:00)
[2017-02-01] MEDS ORDERED: FENTANYL 25 MCG/HR PATCH.TD72 TD ONE (11:00)
[2017-02-01] MEDS: MAGNESIUM OXIDE 400 MG TABLET PO SCH (17:23)
[2017-02-01] MEDS: ATORVASTATIN CALCIUM 40 MG TABLET PO SCH (22:05)
[2017-02-01] MEDS: ROPINIROLE HCL 1 MG TABLET PO SCH (22:05)
[2017-02-02] MEDS: IPRATROPIUM/ALBUTEROL 0.5-2.5 MG/3 ML AMPUL NEB SCH ×2 (02:18→07:50)
[2017-02-02] MEDS: LANSOPRAZOLE 30 MG TAB.RAP.DR PO SCH (05:05)
[2017-02-02] MEDS: LEVOTHYROXINE SODIUM 0.05 MG TABLET PO SCH (05:05)
[2017-02-02 06:22] LABS: ABSOLUTE LYMPHOCYTES (AUTO) 1.8 10^3/uL (0.5-4.7); ABSOLUTE MONOCYTES (AUTO) 0.5 10^3/uL (0.1-1.4); ABSOLUTE NEUT (AUTO) 3.7 10^3/uL (1.7-8.2); BASOPHILS % (AUTO) 0.7 % (0-2); EOSINOPHILS % (AUTO) 0.3 % (0-6); HEMOGLOBIN 12.2 g/dL (12.0-15.5); HGB HCT DIFFERENCE 0.6; LYMPHOCYTES % (AUTO) 29.3 % (13-45); MEAN CORPUSCULAR HEMOGLOBIN 32.2 pg (27.0-33.4); MEAN CORPUSCULAR HGB CONC 33.8 g/dL (32.0-36.0); MEAN CORPUSCULAR VOLUME 95 fl (80-97); MONOCYTES % (AUTO) 7.6 % (3-13); RED BLOOD COUNT 3.79 10^6/uL (3.72-5.28); SEGMENTED NEUTROPHILS % (AUTO) 62.1 % (42-78)
[2017-02-02 07:27] LABS: ALANINE AMINOTRANSFERASE 27 U/L (9-52); ALBUMIN 3.6 g/dL (3.5-5.0); ALKALINE PHOSPHATASE 82 U/L (38-126); ANION GAP 13 (5-19); ASPARTATE AMINO TRANSFERASE 13 U/L (14-36); BILIRUBIN,DIRECT 0.3 mg/dL (0.0-0.4); BILIRUBIN,TOTAL 0.7 mg/dL (0.2-1.3); BLOOD UREA NITROGEN 32 mg/dL (7-20); CALCIUM 9.2 mg/dL (8.4-10.2); CARBON DIOXIDE 29 mmol/L (22-30); CHLORIDE 103 mmol/L (98-107); CREATININE RESULT 1.08 mg/dL (0.52-1.25); GLUCOSE 131 mg/dL (75-110); MAGNESIUM 1.9 mg/dL (1.6-2.3); PHOSPHORUS 5.1 mg/dL (2.5-4.5); POTASSIUM 3.3 mmol/L (3.6-5.0); SODIUM 144.6 mmol/L (137-145); TOTAL PROTEIN 5.7 g/dL (6.3-8.2)
[2017-02-02] MEDS: INSULIN REG, HUMAN 100 UNIT/ML 3 ML VIAL (PYX) SUBCUT PRN ×2 (07:33→11:47)
[2017-02-02] MEDS: METOPROLOL SUCCINATE 25 MG TAB.SR.24H PO SCH (09:32)
[2017-02-02] MEDS: PREGABALIN 75 MG CAPSULE PO SCH (09:32)
[2017-02-02] MEDS: ESCITALOPRAM OXALATE 10 MG TABLET PO SCH (09:32)
[2017-02-02] MEDS: AMLODIPINE BESYLATE 5 MG TABLET PO SCH (09:33)
[2017-02-02] MEDS: METOCLOPRAMIDE HCL 10 MG TABLET PO SCH (09:33)
[2017-02-02] MEDS: VENLAFAXINE HCL 37.5 MG CAP.SR.24H PO SCH (09:33)
[2017-02-02] MEDS: FLUDROCORTISONE ACETATE 0.1 MG TABLET PO SCH (09:33)
[2017-02-02] MEDS: LACTOBACILLUS ACIDOPHILUS 250 MG TAB PO SCH (09:34)
[2017-02-02] MEDS: FUROSEMIDE 20 MG TABLET PO SCH (09:34)
[2017-02-02] MEDS: POTASSIUM CHLORIDE 10 MEQ TABLET.SA PO SCH (09:34)
[2017-02-02] MEDS: MAGNESIUM OXIDE 400 MG TABLET PO SCH (09:35)
[2017-02-02] MEDS ORDERED: INSULIN GLARGINE,HUM.REC.ANLOG 300 UNIT/3 ML INSULN.PEN SUBCUT SCH (10:00)
--- NOTE | 2017-02-02 10:07 | PDOC DISCHARGE SUMMARY ---
General - Admit/Disc Date/PCP Admission Date/Primary Care Provider: 01/26/17 16:41 CONCEPCION GONCALVES MD Discharge Date: 02/02/17 - Discharge Diagnosis (1) Acute respiratory failure with hypoxia and hypercapnia Is this a current diagnosis for this admission?: Yes (2) Aortic stenosis Is this a current diagnosis for this admission?: Yes (3) CHF (congestive heart failure) Is this a current diagnosis for this admission?: Yes (4) Diarrhea Is this a current diagnosis for this admission?: Yes (5) Hypokalemia Is this a current diagnosis for this admission?: Yes (6) Opiate overdose Is this a current diagnosis for this admission?: Yes (7) Acute metabolic encephalopathy Is this a current diagnosis for this admission?: Yes (8) COPD (chronic obstructive pulmonary disease) Is this a current diagnosis for this admission?: Yes (9) Diabetes mellitus Is this a current diagnosis for this admission?: Yes (10) Diabetes mellitus type 1 Is this a current diagnosis for this admission?: Yes (11) Hypothyroid Is this a current diagnosis for this admission?: Yes (12) Tobacco dependency Is this a current diagnosis for this admission?: Yes (13) Diabetic ketoacidosis Is this a current diagnosis for this admission?: Yes (14) Hypomagnesemia Is this a current diagnosis for this admission?: Yes (15) Pneumonia Is this a current diagnosis for this admission?: Yes - Additional Information Resuscitation Status: Full Code Discharge Diet: Cardiac, Diabetic Discharge Activity: Activity As Tolerated, Balance Activity w/Rest, Weigh Daily Home Medications: Amlodipine Besylate [Norvasc 5 mg Tablet] 5 mg PO Q12 01/27/17 Atorvastatin Calcium [Lipitor 40 mg Tablet] 40 mg PO QHS 01/27/17 Cyclobenzaprine HCl [Flexeril 5 mg Tablet] 5 mg PO Q8HP PRN 01/27/17 Diazepam [Valium] 10 mg PO Q8HP PRN 01/27/17 Escitalopram Oxalate [Lexapro 10 mg Tablet] 10 mg PO DAILY 01/27/17 Fentanyl [Duragesic 50 Mcg/Hr Transdermal Patch] 1 patch TOP Q3D 01/27/17 Fludrocortisone Acetate [Florinef 0.1 mg Tablet] 0.1 mg PO DAILY 01/27/17 Insulin Lispro [Humalog Insulin (Lispro) 100 unit/mL] 0 units PUMP DAILY Levothyroxine Sodium [Synthroid 0.05 mg Tablet] 0.05 mg PO DAILY 01/27/17 Lisinopril [Prinivil 2.5 mg Tablet] 2.5 mg PO QHS 01/27/17 Metoclopramide HCl [Reglan 10 mg Tablet] 10 mg PO BID 01/27/17 Midodrine HCl [Proamatine 5 mg Tablet] 5 mg PO Q8 01/27/17 Omeprazole 20 mg PO DAILY 01/27/17 Pregabalin [Lyrica 75 mg Capsule] 75 mg PO Q12 01/27/17 Ranolazine [Ranexa] 1,000 mg PO Q12 01/27/17 Ropinirole HCl [Requip] 1 mg PO QHS 01/27/17 Teriparatide [Forteo] 2.4 ml PO DAILY 01/27/17 Trazodone HCl [Desyrel] 100 mg PO QHS 01/27/17 Valacyclovir HCl [Valtrex 500 mg Tablet] 500 mg PO DAILY 01/27/17 Venlafaxine HCl ER [Effexor Xr 37.5 mg Cap.sr] 37.5 mg PO DAILY 01/27/17 Atorvastatin Calcium [Lipitor 40 mg Tablet] 40 mg PO QHS tablet 01/31/17 Diphenoxylate HCl/Atrop Sulf [Lomotil 2.5 mg Tablet] 1 tab PO QIDP PRN tablet 01/31/17 Escitalopram Oxalate [Lexapro 10 mg Tablet] 10 mg PO DAILY tablet 01/31/17 Fludrocortisone Acetate [Florinef 0.1 mg Tablet] 0.3 mg PO DAILY tablet Furosemide [Lasix 20 mg Tablet] 20 mg PO DAILY 30 Days #30 tablet 01/31/17 Levothyroxine Sodium [Synthroid 0.05 mg Tablet] 0.05 mg PO Q6AM tablet Magnesium Oxide 400 mg PO BID 30 Days #60 tablet 01/31/17 Metoprolol Succinate [Toprol Xl 25 mg Tab.sr] 25 mg PO DAILY 30 Days #30 tab.sr.24h 01/31/17 Potassium Chloride [Klor-Con 10 Meq Tablet.sa] 20 meq PO DAILY 30 Days #30 tablet.sa 01/31/17 Insulin Regular, Human [Humulin R (Reg) Insulin 100 unit/mL] 0 - 14 unit SUBCUT ACHSP PRN unit 02/02/17 Magnesium Oxide [Mag-Ox 400 mg Tablet] 400 mg PO BID 30 Days #60 tablet History of Present Illness History of Present Illness: TEX MORRIS is a 51 year old female who presented to the hospital with lethargy likely associated with abuse of opioids. The patient had hypercarbic and hypoxic respiratory failure. This was treated with BiPAP. The patient also had an aspiration pneumonia. Hospital Course Hospital Course: TEX MORRIS is a 51 year old female who presented to the hospital with lethargy likely associated with abuse of opioids. The patient had hypercarbic and hypoxic respiratory failure. This was treated with BiPAP. The patient also had an aspiration pneumonia. She was given Levaquin and aztreonam during this hospitalization. Her chest x-ray is now clear and she does not require additional antibiotics at discharge. The patient has had an episode of diabetic ketoacidosis due to refusal to take her insulin. Her insulin has been restarted. The patient also has underlying congestive heart failure. Her cardiac regimen was augmented during this hospitalization and Lasix as well as metoprolol were added during this hospitalization. During this hospitalization the patient was evaluated by the following consultants: Pulmonary, cardiology, psychiatry. The patient has been cleared by psychiatry. She does not have any suicidal or homicidal ideations. She is requesting to go home. Psychiatry has requested that she follow-up with [facility]. In addition to her routine medications, Lasix and metoprolol the patient will also be started on supplemental magnesium and potassium for hypokalemia and hypomagnesemia. Due to potential drug interactions ondansetron was discontinued this hospitalization. The patient was initially set up to be discharged on Friday. However, she was persistently hyperglycemic. Therefore, she was kept in the hospital for improved glycemic control. This was accomplished by increasing her sliding scale coverage and adding low dose lantus. When she is discharged she will resume insulin dosing via her insulin pump. Physical Exam Vital Signs: Temp Pulse Resp BP Pulse Ox 98.6 F 97 18 140/76 H 98 02/02/17 03:59 02/02/17 07:51 02/02/17 07:51 02/02/17 03:59 02/02/17 07:51 Intake & Output 02/01/17 02/02/17 02/03/17 06:59 06:59 06:59 Intake Total 1736 1537 Output Total 775 Balance 961 1537 Weight 54.5 kg 54.9 kg Additional comments: The patient is in good spirits today. She is awake, alert and oriented. Again , she is requesting to go home. The patient's facial appearance is unchanged. She is noted to have poor dentition. Her lungs are clear to auscultation bilaterally. Her cardiac exam is regular, without murmurs, gallops or rubs. The abdomen is soft and flat. Bowel sounds are present in all 4 quadrants. There is no guarding or rebound present. The lower extremities are thin. No pitting edema is present. No acute skin lesions or rashes are present. Results Laboratory Results: 02/02/17 05:00 02/02/17 05:00 02/02/17 02/02/17 05:00 05:00 WBC 6.0 RBC 3.79 Hgb 12.2 Hct 36.0 MCV 95 MCH 32.2 MCHC 33.8 RDW 14.0 Plt Count 188 Seg Neutrophils % 62.1 Lymphocytes % 29.3 Monocytes % 7.6 Eosinophils % 0.3 Basophils % 0.7 Absolute Neutrophils 3.7 Absolute Lymphocytes 1.8 Absolute Monocytes 0.5 Absolute Eosinophils 0.0 Absolute Basophils 0.0 Sodium 144.6 Potassium 3.3 L Chloride 103 Carbon Dioxide 29 Anion Gap 13 BUN 32 H Creatinine 1.08 Est GFR ( Amer) > 60 Est GFR (Non-Af Amer) 53 L Glucose 131 H Calcium 9.2 Phosphorus 5.1 H Magnesium 1.9 Total Bilirubin 0.7 AST 13 L ALT 27 Alkaline Phosphatase 82 Total Protein 5.7 L Albumin 3.6 01/26/17 17:54 Troponin I 0.046 Impressions: Chest X-Ray 01/29/17 06:00 IMPRESSION: No acute cardiopulmonary findings. Central line. Interval improvement. Plan Discharge Plan: 1. The patient should follow-up with her primary customer care coordinator this week. Consideration for follow-up labs is recommended to reevaluate potassium and magnesium which have been low during this hospitalization and to reevaluate renal function since Lasix was started. 2. Follow-up with rubber off this week 3. Follow-up with cardiology, Dr. Redding in 1-2 weeks 4. Discharge diet is carbohydrate controlled with no added salt Time Spent: Less than 30 Minutes
[2017-02-02] MEDS ORDERED: POTASSIUM CHLORIDE 10 MEQ TABLET.SA PO ONE (10:30)
[2017-02-02 11:42] VITALS: BP 119/73
[2017-02-02] MEDS: DIPHENOXYLATE HCL/ATROP SULF 2.5-0.025 MG TABLET PO PRN (11:46)
== END 2017-02-02 12:23 | disposition home or self-care (01) | DRG 917 ==
LOC: ER 13:15 → EH 16:41 → ICU 18:05 → 3N 01-29 15:54
PROVIDERS: ADMIT Emergency Medicine; ATTEND Emergency Medicine
PROC: 0BH17EZ Insertion of Endotracheal Airway into Trachea, Via Natural or Artificial Opening (ICD-10-PCS; principal; 2017-01-26)
PROC: 5A1935Z Respiratory Ventilation, Less than 24 Consecutive Hours (ICD-10-PCS; 2017-01-26)
DX: T40.601A Poisoning by unspecified narcotics, accidental (unintentional), initial encounter (principal); G92 Toxic encephalopathy; J96.01 Acute respiratory failure with hypoxia; J69.0 Pneumonitis due to inhalation of food and vomit; N18.6 End stage renal disease; E10.10 Type 1 diabetes mellitus with ketoacidosis without coma; J96.02 Acute respiratory failure with hypercapnia; I13.2 Hypertensive heart and chronic kidney disease with heart failure and with stage 5 chronic kidney disease, or end stage renal disease; J44.0 Chronic obstructive pulmonary disease with (acute) lower respiratory infection; I50.32 Chronic diastolic (congestive) heart failure; E87.6 Hypokalemia; Z91.14 Patient's other noncompliance with medication regimen; Y92.9 Unspecified place or not applicable; E83.42 Hypomagnesemia; R19.7 Diarrhea, unspecified; I35.0 Nonrheumatic aortic (valve) stenosis; E03.9 Hypothyroidism, unspecified; F11.10 Opioid abuse, uncomplicated; Z99.2 Dependence on renal dialysis; E10.22 Type 1 diabetes mellitus with diabetic chronic kidney disease; D69.6 Thrombocytopenia, unspecified; I25.10 Atherosclerotic heart disease of native coronary artery without angina pectoris; Z95.5 Presence of coronary angioplasty implant and graft; K21.9 Gastro-esophageal reflux disease without esophagitis; M19.90 Unspecified osteoarthritis, unspecified site; F10.10 Alcohol abuse, uncomplicated; F31.9 Bipolar disorder, unspecified; F43.10 Post-traumatic stress disorder, unspecified; Z79.4 Long term (current) use of insulin; Z79.899 Other long term (current) drug therapy; F17.210 Nicotine dependence, cigarettes, uncomplicated; Z86.73 Personal history of transient ischemic attack (TIA), and cerebral infarction without residual deficits; Z86.718 Personal history of other venous thrombosis and embolism; Z86.711 Personal history of pulmonary embolism; Z88.1 Allergy status to other antibiotic agents; Z88.0 Allergy status to penicillin; Z88.8 Allergy status to other drugs, medicaments and biological substances; Z90.710 Acquired absence of both cervix and uterus
CPT/HCPCS: 36415; 36600; 71010; 80048; 80053; 81001; 82550; 82553; 82803; 82962; 83036; 83605; 83735; 83880; 84100; 84484; 85025; 85027; 85610; 87040; 87086; 87493; 93005; 93010; 94640; 94660; 96361; 96374; 96375; 96376; 99291; J1580; J1642; J1815; J1940; J1956; J2270; J2310; J2930; J3475; J3480; J3490; J7040; J7620; S0164

== ENCOUNTER 2017-02-20 11:33 | Observation (INO) | payer MEDICAID ==
[2017-02-20] MEDS ORDERED: NALOXONE HCL INJ 2 MG/2 ML DISP.SYRIN IV ONE (12:02)
[2017-02-20] MEDS ORDERED: RINGERS SOLUTION,LACTATED 1,000 ML IV ONE (12:42)
--- NOTE | 2017-02-20 13:02 | EKG REPORT ---
SEVERITY:- ABNORMAL ECG - SINUS RHYTHM MULTIPLE ATRIAL PREMATURE COMPLEXES PROBABLE LEFT ATRIAL ABNORMALITY NONSPECIFIC T ABNORMALITIES, LATERAL LEADS : Confirmed by: Gabriella Redding 20-Feb-2017 13:02:21
[2017-02-20 13:05] LABS: ABSOLUTE LYMPHOCYTES (AUTO) 1.4 10^3/uL (0.5-4.7); ABSOLUTE MONOCYTES (AUTO) 0.4 10^3/uL (0.1-1.4); ABSOLUTE NEUT (AUTO) 2.6 10^3/uL (1.7-8.2); BASOPHILS % (AUTO) 0.4 % (0-2); EOSINOPHILS % (AUTO) 0.1 % (0-6); HEMATOCRIT 36.4 % (36.0-47.0); HEMOGLOBIN 12.2 g/dL (12.0-15.5); LYMPHOCYTES % (AUTO) 31.4 % (13-45); MEAN CORPUSCULAR HEMOGLOBIN 31.7 pg (27.0-33.4); MEAN CORPUSCULAR HGB CONC 33.5 g/dL (32.0-36.0); MEAN CORPUSCULAR VOLUME 95 fl (80-97); PLATELET COUNT 105 10^3/uL (150-450); RED BLOOD COUNT 3.85 10^6/uL (3.72-5.28); RED CELL DISTRIBUTION WIDTH 14.1 % (11.5-14.0); SEGMENTED NEUTROPHILS % (AUTO) 59.1 % (42-78); TOTAL CELLS COUNTED % (AUTO) 100 %; WHITE BLOOD COUNT 4.4 10^3/uL (4.0-10.5)
[2017-02-20 13:15] LABS: VENOUS BLOOD BASE EXCESS -3.4 mmol/L; VENOUS BLOOD HCO3 20.5 mmol/L (20-32); VENOUS BLOOD PCO2 32.8 mmHg (35-63); VENOUS BLOOD PH 7.41 (7.30-7.42)
[2017-02-20 13:19] LABS: ALANINE AMINOTRANSFERASE 17 U/L (9-52); ALBUMIN 3.7 g/dL (3.5-5.0); ALKALINE PHOSPHATASE 70 U/L (38-126); ANION GAP 9 (5-19); ASPARTATE AMINO TRANSFERASE 16 U/L (14-36); BILIRUBIN,DIRECT 0.2 mg/dL (0.0-0.4); BILIRUBIN,TOTAL 0.3 mg/dL (0.2-1.3); BLOOD UREA NITROGEN 13 mg/dL (7-20); CALCIUM 8.8 mg/dL (8.4-10.2); CARBON DIOXIDE 34 mmol/L (22-30); CHLORIDE 101 mmol/L (98-107); GLUCOSE 138 mg/dL (75-110); LIPASE 31.9 U/L (23-300); POTASSIUM 3.6 mmol/L (3.6-5.0); SODIUM 144.1 mmol/L (137-145)
[2017-02-20 13:43] LABS: APPEARANCE,URINE CLEAR; BILIRUBIN,URINE NEGATIVE (NEGATIVE); COLOR,URINE STRAW; GLUCOSE, URINE NEGATIVE (NEGATIVE); KETONES,URINE NEGATIVE (NEGATIVE); LEUKOCYTE ESTERASE,URINE NEGATIVE (NEGATIVE); NITRITE,URINE NEGATIVE (NEGATIVE); PROTEIN,URINE NEGATIVE (NEGATIVE); URINE SPECIFIC GRAVITY 1.004; UROBILINOGEN,URINE NEGATIVE mg/dL (<2.0)
--- NOTE | 2017-02-20 13:47 | RADIOLOGY REPORT (SQ) ---
EXAM DESCRIPTION: CHEST SINGLE VIEW COMPLETED DATE/TIME: 02/20/2017 1:22 pm REASON FOR STUDY: Poorly responsive, questionable overdose COMPARISON: 01/29/2017 EXAM PARAMETERS: NUMBER OF VIEWS: One view. TECHNIQUE: Single frontal radiographic view of the chest acquired. RADIATION DOSE: NA LIMITATIONS: None. FINDINGS: LUNGS AND PLEURA: No opacities, masses or pneumothorax. No pleural effusion. MEDIASTINUM AND HILAR STRUCTURES: No masses. Contour normal. HEART AND VASCULAR STRUCTURES: Heart normal in size. Normal vasculature. BONES: No acute findings. HARDWARE: Injection port on the left. OTHER: No other significant finding. IMPRESSION: NO ACUTE RADIOGRAPHIC FINDING IN THE CHEST. TECHNICAL DOCUMENTATION: JOB ID: [id number] [employer]- All Rights Reserved
[2017-02-20 13:56] LABS: URINE AMPHETAMINES SCREEN NEGATIVE; URINE BARBITURATES SCREEN NEGATIVE; URINE BENZODIAZEPINES SCREEN UNCONFIRMED POSITIVE; URINE COCAINE SCREEN NEGATIVE; URINE MARIJUANA (THC) SCREEN NEGATIVE; URINE METHADONE SCREEN NEGATIVE; URINE PHENCYCLIDINE SCREEN NEGATIVE
--- NOTE | 2017-02-20 15:28 | RADIOLOGY REPORT (SQ) ---
EXAM DESCRIPTION: CT HEAD WITHOUT COMPLETED DATE/TIME: 02/20/2017 3:08 pm REASON FOR STUDY: Altered mental status COMPARISON: 12/28/2016 TECHNIQUE: Axial images acquired through the brain without intravenous contrast. Images reviewed wi th bone, brain and subdural windows. Images stored on PACS. All CT scanners at this facility use dose modulation, iterative reconstruction, and/or weight based d osing when appropriate to reduce radiation dose to as low as reasonably achievable (ALARA). [facility]: Dose Right [facility]: CareDose [facility]: Dose Right [facility]: Teradose 4D [facility]: Smart [employer] RADIATION DOSE: CT Rad equipment meets quality standard of care and radiation dose reduction techniq ues were employed. CTDIvol: 64.6 mGy. DLP: 1034 mGy-cm. mGy. LIMITATIONS: None. FINDINGS: VENTRICLES: Normal size and contour. CEREBRUM: No masses. No hemorrhage. No midline shift. No evidence for acute infarction. Normal gra y/white matter differentiation. No areas of low density in the white matter. CEREBELLUM: No masses. No hemorrhage. No alteration of density. No evidence for acute infarction. EXTRAAXIAL SPACES: No fluid collections. No masses. ORBITS AND GLOBE: No intra- or extraconal masses. Normal contour of globe without masses. CALVARIUM: No fracture. PARANASAL SINUSES: No fluid or mucosal thickening. SOFT TISSUES: No mass or hematoma. OTHER: No other significant finding. IMPRESSION: NORMAL BRAIN CT WITHOUT CONTRAST. EVIDENCE OF ACUTE STROKE: NO. COMMENT: Quality ID # [id number]: Final reports with documentation of one or more dose reduction techniques (e.g., Automated exposure control, adjustment of the mA and/or kV according to patient size, use of iterative reconstruction technique) TECHNICAL DOCUMENTATION: JOB ID: [id number] [employer]- All Rights Reserved
--- NOTE | 2017-02-20 15:36 | ER Document Report ---
ED General - General Chief Complaint: Possible Overdose Stated Complaint: POSSIBLE OVERDOSE Time Seen by Provider: 02/20/17 12:40 Notes: Patient is brought in by EMS with altered level of consciousness and poor responsiveness. Patient has chronic pain for which she uses fentanyl patches. EMS told our nursing staff that the patient had on 2 fentanyl patches which were removed. In a subsequent telephone call with the patient's son, he says that she had on a single 100 microgram patch that was put on this morning. It was removed at the scene. EMS found the patient with an oxygen saturation of 82 %. They gave the patient 2 mg of Narcan intranasally and the patient awakened somewhat and her O2 sat went up to 100%. Patient has a history of similar presentations in the past. According to her son, she was here about a week over the for pneumonia and overdose of her pain medications. Her overdoses or not an intent to harm herself, but apparently are accidental. Patient has severe insulin-dependent diabetes on an insulin pump who goes into DKA very frequently. She is on the pain medications for chronic back pain, osteoporosis and neuropathy, Patient presents very somnolent and difficult to arouse. Painful tactile stimulation does cause the patient to wince and open her eye and try to talk, but her speech is slurred. We gave her another 2 mg of Narcan IV in the emergency department and seemed to increase her responsiveness for a short time , but she fell back asleep again. PMH: NIDDM, insulin pump, low blood pressure, hysterectomy. Cigarette smoker. TRAVEL OUTSIDE OF THE [place] IN LAST 30 DAYS: No - Related Data Allergies/Adverse Reactions: erythromycin base [Erythromycin Base] Allergy (Severe, Verified 01/13/17 09:36) Anaphylaxis fexofenadine HCl [From Shae] Allergy (Severe, Verified 01/13/17 09:36) Confusion levetiracetam [From Keppra] Allergy (Severe, Verified 01/13/17 09:36) passes out, loses time Penicillins Allergy (Severe, Verified 01/13/17 09:36) Anaphylaxis vancomycin [Vancomycin] Allergy (Severe, Verified 01/13/17 09:36) Blood pressure bottomed out Past Medical History - Social History Smoking Status: Current Every Day Smoker Chew tobacco use (# tins/day): No Frequency of alcohol use: None Family History: Reviewed & Not Pertinent, Malignancy Patient has suicidal ideation: No Patient has homicidal ideation: No - Past Medical History Cardiac Medical History: Reports: Hx Coronary Artery Disease - 2 blockages/ stents, Hx DVT - States her anticoagulant was stopped by her physician., Hx Hypercholesterolemia, Hx Hypertension, Hx Pulmonary Embolism, Hx Heart Murmur Pulmonary Medical History: Reports: Hx Bronchitis - Not since she quit smoking, Hx COPD, Hx Pneumonia - 2 weeks ago Neurological Medical History: Reports: Hx Cerebrovascular Accident - 5 yrs ago, Hx Seizures - History of same; states she is not supposed to be on antiepileptics. 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 History of DKA. Patient is on insulin pump., Hx Hypothyroidism. Denies: Hx Hyperthyroidism GI Medical History: Reports: Hx Cirrhosis, Hx Gastroesophageal Reflux Disease, Hx Ulcer. Denies: Hx Crohn's Disease, Hx Diverticulitis, Hx Hepatitis, Hx Ulcerative Colitis Musculoskeltal Medical History: Reports Hx Arthritis Psychiatric Medical History: Reports: Hx Depression Past Surgical History: Reports: Hx Appendectomy, Hx Hysterectomy, Hx Orthopedic Surgery - Neck fusion, wrist surgery, knee surgery, Hx Tubal Ligation, Other - Left chest Port-A-Cath - Immunizations Hx Diphtheria, Pertussis, Tetanus Vaccination: Yes Hx Pneumococcal Vaccination: 11/09/11 Review of Systems - Review of Systems -: Yes ROS unobtainable due to patient's medical condition - Patient is too somnolent and poorly responsive to answer review of systems Physical Exam - Vital signs Vitals: Temp Pulse Resp BP Pulse Ox 98.4 F 60 11 L 141/84 H 96 02/20/17 11:43 02/20/17 11:43 02/20/17 11:43 02/20/17 11:43 02/20/17 11:43 Interpretation: Normal - Notes Notes: PHYSICAL EXAMINATION: GENERAL: Well-appearing, in no acute distress. Very sleepy and difficult to arouse and can only be awakened with fairly strong tactile, painful stimulation. HEAD: Atraumatic, normocephalic. EYES: Pupils equal round and reactive to light, extraocular movements intact. ENT: oropharynx clear without exudates. Moist mucous membranes. NECK: Normal range of motion, supple. LUNGS: Breath sounds clear and equal bilaterally. HEART: Regular rate and rhythm without murmurs. ABDOMEN: Soft, nontender. No guarding or rebound. BACK: No tenderness throughout entire back. EXTREMITIES: Normal range of motion without pain. NEUROLOGICAL: Patient is unable to walk. Her speech is difficult to assess because she is so sleepy all she can produces some slurring of words. Does not follow commands, although she does move all 4 extremities. PSYCH: Unable to assess.. SKIN: Warm, dry, no rashes. Course - Re-evaluation Re-evalutation: 02/20/17 15:57 Spoke with hospitalist about putting patient in for observation and she is agreeable to admission to telemetry. 02/20/17 17:01 Patient's repeat troponin is essentially the same as previous one at 0.15. - Vital Signs Vital signs: Temp Pulse Resp BP Pulse Ox 98.4 F 60 19 141/84 H 99 02/20/17 11:43 02/20/17 11:43 02/20/17 16:31 02/20/17 16:31 02/20/17 16:31 - Laboratory Result Diagrams: 02/20/17 12:47 02/20/17 12:47 Laboratory results interpreted by me: 02/20/17 02/20/17 02/20/17 12:47 12:47 12:58 RDW 14.1 H Plt Count 105 L VBG pCO2 32.8 L Carbon Dioxide 34 H Est GFR (Non-Af Amer) 50 L Glucose 138 H POC Glucose Total Protein 6.0 L 02/20/17 16:24 RDW Plt Count VBG pCO2 Carbon Dioxide Est GFR (Non-Af Amer) Glucose POC Glucose 157 H Total Protein - Diagnostic Test Radiology results interpreted by me: 02/20/17 15:57 Chest x-ray shows no abnormality. - EKG Interpretation by Me EKG shows normal: Sinus rhythm Rate: Normal Rhythm: NSR Voltage: Consistant with LVH Additional EKG results interpreted by me: 02/20/17 16:21 Original EKG shows no acute changes. First troponin noted to be 0.15, which is barely in the positive area. Will repeat troponin as well as another EKG. Repeat EKG now shows no changes. Sinus rhythm. LVH. Nonspecific ST changes. Discharge - Discharge Clinical Impression: Altered mental status, Overdose, Tobacco dependency, Diabetes mellitus type 1, Chronic pain, COPD (chronic obstructive pulmonary disease) Condition: Serious Disposition: ADMITTED OBSERVATION Admitting Provider: Hospitalist Unit Admitted: Telemetry
[2017-02-20] MEDS ORDERED: IPRATROPIUM/ALBUTEROL 0.5-2.5 MG/3 ML AMPUL NEB PRN (17:45)
[2017-02-20] MEDS ORDERED: ONDANSETRON HCL INJ/PF 4 MG/2 ML SDV IV PRN (17:45)
[2017-02-20] MEDS ORDERED: ACETAMINOPHEN 325 MG TABLET PO PRN (17:45)
--- NOTE | 2017-02-20 17:45 | PDOC H&P ---
History of Present Illness History of Present Illness: There is a 61-year-old white female with a past medical history of chronic pain on chronic opioid use who has presented multiple times in the past for overdose and is read presenting now for overdose/overuse of her chronic pain medications. Patient was found unresponsive and EMS was called. Apparently the patient uses fentanyl patches at 100 mcg doses. Her son confirmed that she had on one single 100 mcg patch today. However, when EMS found her she had on 2 fentanyl patches which were removed at the scene. Patient was found to have an oxygen saturation at 82%. She was given 2 mg of Narcan intranasally and she awoke somewhat after this. Her O2 sats went up to 100%. The patient was recently admitted here over the for overdose on her pain medication and subsequent aspiration pneumonia. The patient has a history of diabetes mellitus and is on insulin pump. Her symptoms were not felt to be due to a low blood sugar. In fact her blood glucose was found to be 138. Troponin down in the ED was 0.15 and repeat was unchanged. In my conversation with the ED physician, he states that the patient was only responsive to sternal rub. When I went down to see the patient she slept through the entire exam. However , when I gave her a gentle sternal rub she did awake. She was able to maintain a full conversation with me. She tells me that her medications are used for chronic neck pain. She states that Dr. Saenz is her prescribing physician. She is positive for benzodiazepine in her urine. She states that she is sure that this is probably 1 of the medications that her doctor gave her. In review of her discharge summary from last month, the patient is was prescribed Valium on discharge did have Valium listed as a medication. The patient asks on 3 separate occasions why her fentanyl patch was taken off. I have explained to her that it is because she was found unresponsive and it was felt that it was because she had overused her medications. I explained that she was found with 2 vaginal patches on. She states it is possible that she could have put on two . Past Medical History Cardiac Medical History: Reports: Coronary Artery Disease - 2 blockages/stents, DVT - States her anticoagulant was stopped by her physician., Hyperlipidema, Hypertension, Pulmonary Embolism, Heart Murmur Pulmonary Medical History: Reports: Bronchitis - Not since she quit smoking, Chronic Obstructive Pulmonary Disease (COPD), Pneumonia - 2 weeks ago Neurological Medical History: Reports: Seizures - History of same; states she is not supposed to be on antiepileptics. Endocrine Medical History: Reports: Diabetes Mellitus Type 1 - Insulin dependent. History of DKA. Patient is on insulin pump., Hypothyroidism GI Medical History: Reports: Cirrhosis, Gastroesophageal Reflux Disease Musculoskeltal Medical History: Reports: Arthritis Psychiatric Medical History: Reports: Depression Hematology: Reports: Anemia - As a child Past Surgical History Past Surgical History: Reports: Appendectomy, Hysterectomy, Orthopedic Surgery - Neck fusion, wrist surgery, knee surgery, Tubal Ligation, Other - Left chest Port-A-Cath Social History Smoking Status: Current Every Day Smoker Frequency of Alcohol Use: None Hx Recreational Drug Use: No Drugs: None Hx Prescription Drug Abuse: Yes - Advance Directive Resuscitation Status: Full Code Family History Family History: Malignancy Parental Family History Reviewed: Yes Children Family History Reviewed: Yes Sibling(s) Family History Reviewed.: Yes Medication/Allergy Home Medications: Atorvastatin Calcium [Lipitor 40 mg Tablet] 40 mg PO QHS 02/20/17 Cyclobenzaprine HCl [Flexeril 5 mg Tablet] 5 mg PO Q8HP PRN 02/20/17 Diazepam [Valium] 10 mg PO Q8HP PRN 02/20/17 Escitalopram Oxalate [Lexapro 10 mg Tablet] 10 mg PO DAILY 02/20/17 Fentanyl [Duragesic 50 Mcg/Hr Transdermal Patch] 1 patch TD Q3D 02/20/17 Fludrocortisone Acetate [Florinef 0.1 mg Tablet] 0.1 mg PO DAILY 02/20/17 Furosemide [Lasix 20 mg Tablet] 20 mg PO DAILY 02/20/17 Insulin Lispro [Humalog Insulin (Lispro) 100 unit/mL] 0 units PUMP ASDIR PRN Insulin Regular, Human [Novolin R] 0 - 14 units SQ ACHSP PRN 02/20/17 Levothyroxine Sodium [Synthroid 0.05 mg Tablet] 50 mcg PO Q6AM 02/20/17 Lisinopril [Zestril] 2.5 mg PO QHS 02/20/17 Metoclopramide HCl [Reglan 10 mg Tablet] 10 mg PO Q12 02/20/17 Metoprolol Succinate [Toprol Xl 25 mg Tab.sr] 25 mg PO DAILY 02/20/17 Midodrine HCl [Proamatine 5 mg Tablet] 5 mg PO Q8 02/20/17 Omeprazole 20 mg PO DAILY 02/20/17 Potassium Chloride [Klor-Con M10] 20 meq PO DAILY 02/20/17 Pregabalin [Lyrica 75 mg Capsule] 75 mg PO Q12 02/20/17 Ranolazine [Ranexa] 1,000 mg PO Q12 02/20/17 Ropinirole HCl [Requip] 1 mg PO QHS 02/20/17 Teriparatide [Forteo] 20 mcg SQ DAILY 02/20/17 Trazodone HCl [Desyrel] 100 mg PO QHS 02/20/17 Valacyclovir HCl [Valtrex 500 mg Tablet] 500 mg PO DAILY 02/20/17 Venlafaxine HCl ER [Effexor Xr 37.5 mg Cap.sr] 37.5 mg PO DAILY 02/20/17 Allergies/Adverse Reactions: erythromycin base [Erythromycin Base] Allergy (Severe, Verified 01/13/17 09:36) Anaphylaxis fexofenadine HCl [From Shae] Allergy (Severe, Verified 01/13/17 09:36) Confusion levetiracetam [From Keppra] Allergy (Severe, Verified 01/13/17 09:36) passes out, loses time Penicillins Allergy (Severe, Verified 01/13/17 09:36) Anaphylaxis vancomycin [Vancomycin] Allergy (Severe, Verified 01/13/17 09:36) Blood pressure bottomed out Review of Systems Review of Systems: Review of systems is positive as that already mentioned in the HPI. In addition to this the patient denies any fevers, chills, nausea, vomiting, diarrhea, constipation. She denies any blood in the stool, blood in the urine coughing up blood or throwing up blood. She says that she is lost approximately 10 pounds over the last month and has not had a very good appetite. She denies heat or cold intolerance. Physical Exam Vital Signs: Temp Pulse Resp BP Pulse Ox 98.4 F 60 19 141/84 H 99 02/20/17 11:43 02/20/17 11:43 02/20/17 16:31 02/20/17 16:31 02/20/17 16:31 Intake & Output 02/19/17 02/20/17 02/21/17 06:59 06:59 06:59 Weight 57.3 kg General appearance: PRESENT: no acute distress, disheveled, well-developed Head exam: PRESENT: atraumatic, normocephalic Eye exam: ABSENT: scleral icterus Mouth exam: PRESENT: dry mucosa Respiratory exam: PRESENT: clear to auscultation peterson - anteriorly, bilaterally with equal rise and fall of the chest Cardiovascular exam: PRESENT: RRR - No murmur, rubs or gallops. GI/Abdominal exam: PRESENT: distended, normal bowel sounds, soft. ABSENT: tenderness Neurological exam: PRESENT: alert, awake - Awakens to gentle shaking of the shoulder. Falls asleep easily during interview and had to be re-awakened., oriented to person, CN II-XII grossly intact Psychiatric exam: PRESENT: agitated Results Laboratory Results: 02/20/17 12:47 02/20/17 12:47 02/20/17 02/20/17 02/20/17 12:47 12:47 12:47 WBC 4.4 RBC 3.85 Hgb 12.2 Hct 36.4 MCV 95 MCH 31.7 MCHC 33.5 RDW 14.1 H Plt Count 105 L Seg Neutrophils % 59.1 Lymphocytes % 31.4 Monocytes % 9.0 Eosinophils % 0.1 Basophils % 0.4 Absolute Neutrophils 2.6 Absolute Lymphocytes 1.4 Absolute Monocytes 0.4 Absolute Eosinophils 0.0 Absolute Basophils 0.0 VBG pH VBG pCO2 VBG HCO3 VBG Base Excess Sodium 144.1 Potassium 3.6 Chloride 101 Carbon Dioxide 34 H Anion Gap 9 BUN 13 Creatinine 1.14 Est GFR ( Amer) > 60 Est GFR (Non-Af Amer) 50 L Glucose 138 H Calcium 8.8 Total Bilirubin 0.3 AST 16 ALT 17 Alkaline Phosphatase 70 Total Protein 6.0 L Albumin 3.7 Lipase 31.9 Serum HCG, Qual NEGATIVE Urine Color Urine Appearance Urine pH Ur Specific [place] Urine Protein Urine Glucose (UA) Urine Ketones Urine Blood Urine Nitrite Ur Leukocyte Esterase Urine WBC (Auto) Urine RBC (Auto) 02/20/17 02/20/17 12:58 13:20 WBC RBC Hgb Hct MCV MCH MCHC RDW Plt Count Seg Neutrophils % Lymphocytes % Monocytes % Eosinophils % Basophils % Absolute Neutrophils Absolute Lymphocytes Absolute Monocytes Absolute Eosinophils Absolute Basophils VBG pH 7.41 VBG pCO2 32.8 L VBG HCO3 20.5 VBG Base Excess -3.4 Sodium Potassium Chloride Carbon Dioxide Anion Gap BUN Creatinine Est GFR ( Amer) Est GFR (Non-Af Amer) Glucose Calcium Total Bilirubin AST ALT Alkaline Phosphatase Total Protein Albumin Lipase Serum HCG, Qual Urine Color STRAW Urine Appearance CLEAR Urine pH 7.0 Ur Specific [place] 1.004 Urine Protein NEGATIVE Urine Glucose (UA) NEGATIVE Urine Ketones NEGATIVE Urine Blood NEGATIVE Urine Nitrite NEGATIVE Ur Leukocyte Esterase NEGATIVE Urine WBC (Auto) 0 Urine RBC (Auto) 0 02/20/17 02/20/17 12:47 16:11 Troponin I 0.154 0.157 Impressions: Chest X-Ray 02/20/17 12:44 IMPRESSION: NO ACUTE RADIOGRAPHIC FINDING IN THE CHEST. Head CT 02/20/17 14:21 IMPRESSION: NORMAL BRAIN CT WITHOUT CONTRAST. EVIDENCE OF ACUTE STROKE: NO. Assessment & Plan - Diagnosis (1) Overdose Qualifiers: Encounter type: initial encounter Injury intent: accidental or unintentional Qualified Code(s): T50.901A - Poisoning by unspecified drugs, medicaments and biological substances, accidental (unintentional), initial encounter Is this a current diagnosis for this admission?: Yes Plan: I believe this is unintentional. The patient has done this before. Now she is awake she does not really want to be here but will stay at least overnight. She tells me that she does not know how benzodiazepines gotten her urine and that her PCP must have prescribed it. However, she states that she do not know what the medication would be. Decrease patient's home medications while she is here. She will need to follow-up with her outpatient prescriber, Dr. Saenz, (2) COPD (chronic obstructive pulmonary disease) Is this a current diagnosis for this admission?: Yes Plan: COPD without acute exacerbation. continue home medications (3) Diabetes mellitus type 1 Plan: Discontinue insulin pump while patient is somnolent. She has just awakened. We will likely be able to restart this in the morning. For now we will press forward with sliding scale insulin. (4) Tobacco dependency Plan: Smoking cessation is advised (5) Chronic pain Is this a current diagnosis for this admission?: Yes Plan: Patient states she has chronic neck pain - Time Time Spent: 30 to 50 Minutes Within: within 24 hours
[2017-02-20] MEDS ORDERED: GLUCAGON,HUMAN RECOMB 1 MG INJ IM PRN (17:59)
[2017-02-20] MEDS ORDERED: INSULIN REG, HUMAN 100 UNIT/ML 3 ML VIAL (PYX) SUBCUT PRN (17:59)
[2017-02-20] MEDS ORDERED: DEXTROSE 40% GEL 15 GM TUBE PO PRN ×2 (17:59)
[2017-02-20] MEDS ORDERED: DEXTROSE 50%-WATER 25 GM/50 ML DISP.SYRIN IV PRN ×2 (17:59)
[2017-02-20] MEDS: NORMAL SALINE 1000 ML 1,000 ML IV PRN (19:19)
--- NOTE | 2017-02-20 21:53 | EKG REPORT ---
SEVERITY:- ABNORMAL ECG - SINUS RHYTHM MULTIPLE ATRIAL PREMATURE COMPLEXES PROBABLE LEFT ATRIAL ABNORMALITY NONSPECIFIC T ABNORMALITIES, LATERAL LEADS : Confirmed by: Gabriella Redding 20-Feb-2017 21:52:50
[2017-02-21] MEDS: NORMAL SALINE 1000 ML 1,000 ML IV PRN (05:15)
[2017-02-21 06:01] LABS: ABSOLUTE BASOPHILS # (AUTO) 0.1 10^3/uL (0.0-0.2); ABSOLUTE LYMPHOCYTES (AUTO) 1.7 10^3/uL (0.5-4.7); ABSOLUTE MONOCYTES (AUTO) 0.4 10^3/uL (0.1-1.4); ABSOLUTE NEUT (AUTO) 2.6 10^3/uL (1.7-8.2); BASOPHILS % (AUTO) 1.1 % (0-2); EOSINOPHILS % (AUTO) 0.2 % (0-6); HEMATOCRIT 33.5 % (36.0-47.0); HEMOGLOBIN 11.2 g/dL (12.0-15.5); LYMPHOCYTES % (AUTO) 35.5 % (13-45); MEAN CORPUSCULAR HEMOGLOBIN 31.8 pg (27.0-33.4); MEAN CORPUSCULAR HGB CONC 33.4 g/dL (32.0-36.0); MEAN CORPUSCULAR VOLUME 95 fl (80-97); MONOCYTES % (AUTO) 8.3 % (3-13); PLATELET COUNT 105 10^3/uL (150-450); RED BLOOD COUNT 3.53 10^6/uL (3.72-5.28); RED CELL DISTRIBUTION WIDTH 14.3 % (11.5-14.0); SEGMENTED NEUTROPHILS % (AUTO) 54.9 % (42-78); TOTAL CELLS COUNTED % (AUTO) 100 %; WHITE BLOOD COUNT 4.7 10^3/uL (4.0-10.5)
[2017-02-21 06:16] LABS: ANION GAP 5 (5-19); BLOOD UREA NITROGEN 14 mg/dL (7-20); CALCIUM 8.4 mg/dL (8.4-10.2); CARBON DIOXIDE 34 mmol/L (22-30); CHLORIDE 102 mmol/L (98-107); GLUCOSE 109 mg/dL (75-110); MAGNESIUM 1.6 mg/dL (1.6-2.3); POTASSIUM 3.7 mmol/L (3.6-5.0); SODIUM 140.5 mmol/L (137-145)
[2017-02-21] MEDS ORDERED: METOPROLOL SUCCINATE 25 MG TAB.SR.24H PO ONE (13:30)
[2017-02-21] MEDS ORDERED: (PENDING PHARMACY ID) (Lisinopril [Zestril] 2.5 MG) PO SCH (15:05)
[2017-02-21] MEDS: HYDRALAZINE HCL INJ/PF 20 MG/1 ML SDV IV PRN ×2 (15:31→17:20)
[2017-02-21 16:48] VITALS: BP 187/95
[2017-02-21] MEDS ORDERED: LISINOPRIL 10 MG TABLET ONE (17:18)
[2017-02-21] MEDS ORDERED: LISINOPRIL 5 MG TABLET PO SCH (22:00)
[2017-02-22] MEDS ORDERED: METOPROLOL SUCCINATE 25 MG TAB.SR.24H PO SCH (10:00)
--- NOTE | 2017-03-11 00:17 | PDOC DISCHARGE SUMMARY ---
General - Admit/Disc Date/PCP Admission Date/Primary Care Provider: 02/20/17 17:45 Discharge Date: 02/21/17 - Discharge Diagnosis (1) Overdose Is this a current diagnosis for this admission?: Yes Summary: Overdose due to opioid medications (overuse of fentanyl) (2) COPD (chronic obstructive pulmonary disease) Is this a current diagnosis for this admission?: Yes (3) Diabetes mellitus type 1 Is this a current diagnosis for this admission?: Yes Summary: resume insulin pump (4) Tobacco dependency Is this a current diagnosis for this admission?: Yes Summary: cessation is recommended (5) Chronic pain Is this a current diagnosis for this admission?: Yes Summary: Follow-up with PCP/fentanyl prescriber. Recommend reduction of medication. - Additional Information Resuscitation Status: Full Code Discharge Diet: Regular Discharge Activity: Activity As Tolerated Home Medications: Atorvastatin Calcium [Lipitor 40 mg Tablet] 40 mg PO QHS 02/20/17 Cyclobenzaprine HCl [Flexeril 5 mg Tablet] 5 mg PO Q8HP PRN 02/20/17 Diazepam [Valium] 10 mg PO Q8HP PRN 02/20/17 Escitalopram Oxalate [Lexapro 10 mg Tablet] 10 mg PO DAILY 02/20/17 Fentanyl [Duragesic 50 Mcg/Hr Transdermal Patch] 1 patch TD Q3D 02/20/17 Fludrocortisone Acetate [Florinef 0.1 mg Tablet] 0.1 mg PO DAILY 02/20/17 Furosemide [Lasix 20 mg Tablet] 20 mg PO DAILY 02/20/17 Insulin Lispro [Humalog Insulin (Lispro) 100 unit/mL] 0 units PUMP ASDIR PRN Insulin Regular, Human [Novolin R] 0 - 14 units SQ ACHSP PRN 02/20/17 Levothyroxine Sodium [Synthroid 0.05 mg Tablet] 50 mcg PO Q6AM 02/20/17 Lisinopril [Zestril] 2.5 mg PO QHS 02/20/17 Metoclopramide HCl [Reglan 10 mg Tablet] 10 mg PO Q12 02/20/17 Metoprolol Succinate [Toprol Xl 25 mg Tab.sr] 25 mg PO DAILY 02/20/17 Midodrine HCl [Proamatine 5 mg Tablet] 5 mg PO Q8 02/20/17 Omeprazole 20 mg PO DAILY 02/20/17 Potassium Chloride [Klor-Con M10] 20 meq PO DAILY 02/20/17 Pregabalin [Lyrica 75 mg Capsule] 75 mg PO Q12 02/20/17 Ranolazine [Ranexa] 1,000 mg PO Q12 02/20/17 Ropinirole HCl [Requip] 1 mg PO QHS 02/20/17 Teriparatide [Forteo] 20 mcg SQ DAILY 02/20/17 Trazodone HCl [Desyrel] 100 mg PO QHS 02/20/17 Valacyclovir HCl [Valtrex 500 mg Tablet] 500 mg PO DAILY 02/20/17 Venlafaxine HCl ER [Effexor Xr 37.5 mg Cap.sr] 37.5 mg PO DAILY 02/20/17 History of Present Illness History of Present Illness: There is a 61-year-old white female with a past medical history of chronic pain on chronic opioid use who has presented multiple times in the past for overdose and is re- presenting now for overdose/overuse of her chronic pain medications. Patient was found unresponsive and EMS was called. Apparently the patient uses fentanyl patches at 100 mcg doses. Her son confirmed that she had on one single 100 mcg patch today. However, when EMS found her she had on 2 fentanyl patches which were removed at the scene. Patient was found to have an oxygen saturation at 82%. She was given 2 mg of Narcan intranasally and she awoke somewhat after this. Her O2 sats went up to 100%. The patient was recently admitted here over the for overdose on her pain medication and subsequent aspiration pneumonia. The patient has a history of diabetes mellitus and is on insulin pump. Her symptoms were not felt to be due to a low blood sugar. In fact her blood glucose was found to be 138. Troponin down in the ED was 0.15 and repeat was unchanged. In my conversation with the ED physician, he states that the patient was only responsive to sternal rub. When I went down to see the patient she slept through the entire exam. However, when I gave her a gentle sternal rub she did awake. She was able to maintain a full conversation with me. She tells me that her medications are used for chronic neck pain. She states that Dr. Saenz is her prescribing physician. She is positive for benzodiazepine in her urine. She states that she is sure that this is probably 1 of the medications that her doctor gave her. In review of her discharge summary from last month, the patient is was prescribed Valium on discharge did have Valium listed as a medication. The patient asks on 3 separate occasions why her fentanyl patch was taken off. I have explained to her that it is because she was found unresponsive and it was felt that it was because she had overused her medications. I explained that she was found with 2 vaginal patches on. She states it is possible that she could have put on two . Hospital Course Hospital Course: The patient was admitted to the hospital and given time to wake. When I saw hertoday, she was awake. Her first question to me was "who took off her fentanyl patches?" She also asked why they were taken off. I explained that she was found unresponsive and that they were removed because her unresponsiveness was felt to be due to overdose of fentanyl. "She asked again, "why were they taken off?" I gave her the same explanation and she rolled her eyes and turned her head away from me. I asked directly if she had unintentionally or intentionally took too much of her fentanyl or other medications and if she could be taking too much. She responded, "No." She didn 't seem to feel as if she takes too much medicine. I told her that her family reported that she does, but she disagreed. I later found out from the nursing staff that two fentanyl patches were removed from the patient's vagina by the nursing staff. Therefore, I am not certain how many patches she actually had on. It was noted that the patient's blood pressure was also elevated. This is likely because she missed doses of medication while unresponsive. Her home medications were resumed. She was also give IV doses of hydralazine for SBP 190s. She expressed that she wanted to go home today. Prior to discharge, the patient's SBP was down to 160s Physical Exam Vital Signs: Temp Pulse Resp BP Pulse Ox 98.4 F 78 16 187/95 H 97 02/21/17 15:35 02/21/17 16:47 02/21/17 15:35 02/21/17 16:47 02/21/17 15:35 General appearance: PRESENT: no acute distress, cooperative, thin, well- developed Respiratory exam: PRESENT: decreased breath sounds - at bases. Otherwise, clear. Cardiovascular exam: PRESENT: RRR - No murmurs, rubs or gallops Pulses: PRESENT: +2 pedal pulses bilateral GI/Abdominal exam: PRESENT: normal bowel sounds, soft. ABSENT: distended, tenderness Extremities exam: ABSENT: clubbing, pedal edema Neurological exam: PRESENT: altered, awake, oriented to person, oriented to place, oriented to time, oriented to situation, CN II-XII grossly intact, other - speech with slow velia Psychiatric exam: PRESENT: flat affect. ABSENT: suicidal ideation Results Laboratory Results: 02/21/17 05:22 02/21/17 05:22 Impressions: Chest X-Ray 02/20/17 12:44 IMPRESSION: NO ACUTE RADIOGRAPHIC FINDING IN THE CHEST. Head CT 02/20/17 14:21 IMPRESSION: NORMAL BRAIN CT WITHOUT CONTRAST. EVIDENCE OF ACUTE STROKE: NO. Qualifiers PATEINT BEING DISCHARGED WITH ANY OF THE FOLLOWING DIAGNOSIS?: No Plan Time Spent: Greater than 30 Minutes - conversations with nusing staff re bp and extended time throughout day for treatment of bp
== END 2017-02-21 18:41 | disposition home or self-care (01) ==
LOC: ER 11:33 → EH 17:45 → 3S 19:00
PROVIDERS: ADMIT Hospitalist; ATTEND Hospitalist
PROC: 3E0F7GC Introduction of Other Therapeutic Substance into Respiratory Tract, Via Natural or Artificial Opening (ICD-10-PCS; principal; 2017-02-20)
DX: T50.901A Poisoning by unspecified drugs, medicaments and biological substances, accidental (unintentional), initial encounter (principal); J44.9 Chronic obstructive pulmonary disease, unspecified; E10.40 Type 1 diabetes mellitus with diabetic neuropathy, unspecified; F17.210 Nicotine dependence, cigarettes, uncomplicated; G89.29 Other chronic pain; M54.2 Cervicalgia; I10 Essential (primary) hypertension; I25.10 Atherosclerotic heart disease of native coronary artery without angina pectoris; Z79.4 Long term (current) use of insulin; Z96.41 Presence of insulin pump (external) (internal); R63.0 Anorexia; R63.4 Abnormal weight loss; M81.0 Age-related osteoporosis without current pathological fracture; M54.9 Dorsalgia, unspecified; K21.9 Gastro-esophageal reflux disease without esophagitis; Z79.899 Other long term (current) drug therapy; Z79.891 Long term (current) use of opiate analgesic; Z95.5 Presence of coronary angioplasty implant and graft; Z90.49 Acquired absence of other specified parts of digestive tract; Z98.1 Arthrodesis status; Z68.21 Body mass index [BMI] 21.0-21.9, adult; Z86.73 Personal history of transient ischemic attack (TIA), and cerebral infarction without residual deficits
CPT/HCPCS: 93005; 99285; 51702; 96375; 96365; 36415 ×2; 87040; 87086; 82962 ×2; 83690; 83735; 84703; 85025 ×2; 80048; 80053; 81001; 84484; 80307; 82803; 71010; 70450; 93010; 94640; G0378 ×3; J0360; J1815; J2310; J7030 ×2; J7120; J3490 ×2

== ENCOUNTER 2017-05-15 17:44 | Emergency (ER) | payer MEDICAID ==
[2017-05-15] MEDS ORDERED: ONDANSETRON HCL INJ/PF 4 MG/2 ML SDV IV ONE ×2 (18:26→22:45)
[2017-05-15] MEDS ORDERED: NORMAL SALINE 1000 ML 500 ML IV ONE (18:29)
--- NOTE | 2017-05-15 18:29 | ER Document Report ---
ED Medical Screen (RME) - General Chief Complaint: Nausea/Vomiting Stated Complaint: VOMITING Time Seen by Provider: 05/15/17 18:22 Notes: RME DISCLOSURE I have seen this patient as part of a Rapid Medical Evaluation and, if applicable, placed any initially appropriate orders. The patient will be seen and fully evaluated, including a full history and physical exam, by a provider ( in Main ED or Fast Track) when a room becomes available. 52-year-old female past medical history DM here with complaints of nausea vomiting ongoing for the past few days. She has also had some burning with urination as well as complaining of "a yeast infection down there". FSBS in PIT is 177 EXAM Mildly tachycardic low 100s TRAVEL OUTSIDE OF THE [place] IN LAST 30 DAYS: No - Related Data Allergies/Adverse Reactions: erythromycin base [Erythromycin Base] Allergy (Severe, Verified 05/15/17 17:46) Anaphylaxis fexofenadine HCl [From Shae] Allergy (Severe, Verified 05/15/17 17:46) Confusion levetiracetam [From Keppra] Allergy (Severe, Verified 05/15/17 17:46) passes out, loses time Penicillins Allergy (Severe, Verified 05/15/17 17:46) Anaphylaxis vancomycin [Vancomycin] Allergy (Severe, Verified 05/15/17 17:46) Blood pressure bottomed out Past Medical History - Past Medical History Cardiac Medical History: Reports: Hx Coronary Artery Disease - 2 blockages/ stents, Hx DVT - States her anticoagulant was stopped by her physician., Hx Hypercholesterolemia, Hx Hypertension, Hx Pulmonary Embolism, Hx Heart Murmur Pulmonary Medical History: Reports: Hx Bronchitis - Not since she quit smoking, Hx COPD, Hx Pneumonia - 2 weeks ago Neurological Medical History: Reports: Hx Cerebrovascular Accident - 5 yrs ago, Hx Seizures - History of same; states she is not supposed to be on antiepileptics. 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 History of DKA. Patient is on insulin pump., Hx Hypothyroidism. Denies: Hx Hyperthyroidism Renal/ Medical History: Denies: Hx End Stage Renal Disease, Hx Peritoneal Dialysis GI Medical History: Reports: Hx Cirrhosis, Hx Gastroesophageal Reflux Disease, Hx Ulcer. Denies: Hx Crohn's Disease, Hx Diverticulitis, Hx Hepatitis, Hx Ulcerative Colitis Musculoskeltal Medical History: Reports Hx Arthritis, Denies Hx Gout Skin Medical History: Denies Hx Eczema, Denies Hx Psoriasis Psychiatric Medical History: Reports: Hx Depression Traumatic Medical History: Denies: Hx Gunshot Wound, Hx Pneumothorax, Hx Traumatic Brain Injury Infectious Medical History: Denies: Hx Hepatitis Past Surgical History: Reports: Hx Appendectomy, Hx Hysterectomy, Hx Orthopedic Surgery - Neck fusion, wrist surgery, knee surgery, Hx Tubal Ligation, Other - Left chest Port-A-Cath - Immunizations Hx Diphtheria, Pertussis, Tetanus Vaccination: Yes History of Influenza Vaccine for 12/2016 - 05/2017 Season: Yes Influenza Administration Date for 12/2016 - 05/2017 Season: 12/08/16 Physical Exam - Vital signs Vitals: Temp Pulse BP Pulse Ox 97.6 F 104 H 146/99 H 96 05/15/17 17:50 05/15/17 17:50 05/15/17 17:50 05/15/17 17:50 Course - Vital Signs Vital signs: Temp Pulse Resp BP Pulse Ox 97.6 F 104 H 146/99 H 96 05/15/17 17:50 05/15/17 17:50 05/15/17 17:50 05/15/17 17:50 Doctor's Discharge - Discharge Referrals: CONCEPCION GONCALVES MD [Primary Care Provider] - Follow up as needed
--- NOTE | 2017-05-15 19:17 | ER Document Report ---
ED General - General Chief Complaint: Nausea/Vomiting Stated Complaint: VOMITING Time Seen by Provider: 05/15/17 18:22 Notes: Patient is a 52-year-old female comes emergency from for chief states she started vomiting yesterday, she has vomited today about 20 times, she states she just cannot keep anything down. She does report pain in her mid upper abdomen, denies chest pain or back pain. No weight she denies fever chills, sick exposure, difficulty breathing, hematemesis, had a normal bowel movement yesterday. She states she wears an insulin pump for type 1 diabetes, states it is working her blood sugars have been okay. She also has a history of CAD and PE, not on a blood thinner. She has had an appendectomy. She denies alcohol or smoking. TRAVEL OUTSIDE OF THE [place] IN LAST 30 DAYS: No - Related Data Allergies/Adverse Reactions: erythromycin base [Erythromycin Base] Allergy (Severe, Verified 05/15/17 17:46) Anaphylaxis fexofenadine HCl [From Shae] Allergy (Severe, Verified 05/15/17 17:46) Confusion levetiracetam [From Keppra] Allergy (Severe, Verified 05/15/17 17:46) passes out, loses time Penicillins Allergy (Severe, Verified 05/15/17 17:46) Anaphylaxis vancomycin [Vancomycin] Allergy (Severe, Verified 05/15/17 17:46) Blood pressure bottomed out Past Medical History - General Information source: Patient - Social History Smoking Status: Former Smoker Frequency of alcohol use: None Drug Abuse: None Family History: Malignancy Patient has suicidal ideation: No Patient has homicidal ideation: No - Past Medical History Cardiac Medical History: Reports: Hx Coronary Artery Disease - 2 blockages/ stents, Hx DVT - States her anticoagulant was stopped by her physician., Hx Hypercholesterolemia, Hx Hypertension, Hx Pulmonary Embolism, Hx Heart Murmur Pulmonary Medical History: Reports: Hx Bronchitis - Not since she quit smoking, Hx COPD, Hx Pneumonia - 2 weeks ago Neurological Medical History: Reports: Hx Cerebrovascular Accident - 5 yrs ago, Hx Seizures - History of same; states she is not supposed to be on antiepileptics. 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 History of DKA. Patient is on insulin pump., Hx Hypothyroidism. Denies: Hx Hyperthyroidism Renal/ Medical History: Denies: Hx End Stage Renal Disease, Hx Peritoneal Dialysis GI Medical History: Reports: Hx Cirrhosis, Hx Gastroesophageal Reflux Disease, Hx Ulcer. Denies: Hx Crohn's Disease, Hx Diverticulitis, Hx Hepatitis, Hx Ulcerative Colitis Musculoskeltal Medical History: Reports Hx Arthritis, Denies Hx Gout Skin Medical History: Denies Hx Eczema, Denies Hx Psoriasis Psychiatric Medical History: Reports: Hx Depression Traumatic Medical History: Denies: Hx Gunshot Wound, Hx Pneumothorax, Hx Traumatic Brain Injury Infectious Medical History: Denies: Hx Hepatitis Past Surgical History: Reports: Hx Appendectomy, Hx Hysterectomy, Hx Orthopedic Surgery - Neck fusion, wrist surgery, knee surgery, Hx Tubal Ligation, Other - Left chest Port-A-Cath - Immunizations Hx Diphtheria, Pertussis, Tetanus Vaccination: Yes Hx Pneumococcal Vaccination: 11/09/11 Review of Systems - Review of Systems Constitutional: No symptoms reported EENT: No symptoms reported Cardiovascular: No symptoms reported Respiratory: No symptoms reported Gastrointestinal: See HPI Genitourinary: No symptoms reported Female Genitourinary: No symptoms reported Musculoskeletal: No symptoms reported Skin: No symptoms reported Hematologic/Lymphatic: No symptoms reported Neurological/Psychological: No symptoms reported Physical Exam - Vital signs Vitals: Temp Pulse BP Pulse Ox 97.6 F 104 H 146/99 H 96 05/15/17 17:50 05/15/17 17:50 05/15/17 17:50 05/15/17 17:50 - General General appearance: Appears well In distress: None - Patient alert, well-appearing, conversational - HEENT Head: Normocephalic, Atraumatic Eyes: Normal Conjunctiva: Normal Eyelashes: Normal Pupils: PERRL Ears: Normal Mouth/Lips: Normal Mucous membranes: Dry Pharynx: Normal Neck: Normal - Respiratory Respiratory status: No respiratory distress Chest status: Nontender Breath sounds: Normal. No: Decreased air movement, Wheezing - Cardiovascular Rhythm: Regular, Tachycardia - Borderline tachycardia Heart sounds: Normal auscultation, S1 appreciated, S2 appreciated Murmur: Yes Systolic murmur grade 1-6: 2 - heard throughout Normal capillary refill: Yes - Abdominal Inspection: Normal Tenderness: Tender - Tender in all quadrants, nonspecific, difficult to get an accurate abdominal exam, patient complains of pain regardless of where I palpate. No severe tenderness, rigidity, or rebound tenderness noted.. No: Guarding - Back Back: Normal, Nontender. No: Tender - Extremities General upper extremity: Normal inspection, Nontender, Normal ROM, Normal strength General lower extremity: Normal inspection, Nontender, Normal ROM, Normal strength. 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 No: Aggressive, Agitated, Angry, Anxious - Skin Skin Temperature: Warm Skin Moisture: Dry Skin Color: Normal Course - Re-evaluation Re-evalutation: EKG shows sinus rhythm at a rate of 73, no T-wave inversions or ST segment changes in consecutive leads. Short OR interval, but unremarkable V1 and V2 leads, no delta wave, no syncope. CBC shows no leukocytosis, slightly elevated hemoglobin, dehydration shift on chemistry with unremarkable electrolytes, normal renal functioning, unremarkable liver functioning and lipase. On reexamination patient's abdomen patient complains of pain regardless of the area palpated. Nonspecific. Patient became agitated with staff and was swearing at them and her son was getting in their face and yelling. I had to go into the room and diffuse the situation, explained that patient's IV that she was concerned about appears to be fine on examination, this was flushed by the nurse and found to be working properly, patient calmed down after this. She remained cooperative after this. 05/16/17 CAT scan unremarkable. Patient was given crackers and tolerated without any difficulty. No vomiting on my reexamination. Abdomen still is very nonspecific on reexamination with no guarding or rebound tenderness. Very low suspicion of acute abdomen. Provided patient with treatment for gastritis, nausea medication, follow-up instructions, and return precautions. Discussed with son and patient in detail, they state satisfaction and agreement. - Vital Signs Vital signs: Temp Pulse Resp BP Pulse Ox 97.5 F 92 18 149/95 H 100 05/15/17 21:56 05/16/17 00:49 05/16/17 00:49 05/16/17 00:49 05/16/17 00:49 - Laboratory Result Diagrams: 05/15/17 19:05 05/15/17 19:05 Laboratory results interpreted by me: 05/15/17 05/15/17 05/15/17 18:20 19:05 19:05 Hgb 15.7 H RDW 16.6 H BUN 22 H Est GFR (Non-Af Amer) 50 L Glucose 174 H POC Glucose 177 H Calcium 10.3 H Direct Bilirubin 0.6 H Urine Protein Urine Glucose (UA) Urine Ketones Urine Urobilinogen 05/15/17 20:30 Hgb RDW BUN Est GFR (Non-Af Amer) Glucose POC Glucose Calcium Direct Bilirubin Urine Protein 100 H Urine Glucose (UA) 50 H Urine Ketones TRACE H Urine Urobilinogen 4.0 H Discharge - Discharge Clinical Impression: Vomiting Qualifiers: Vomiting type: unspecified Vomiting Intractability: non-intractable Nausea presence: with nausea Qualified Code(s): R11.2 - Nausea with vomiting, unspecified Abdominal pain Qualifiers: Abdominal location: generalized Qualified Code(s): R10.84 - Generalized abdominal pain Condition: Stable Disposition: HOME, SELF-CARE Additional Instructions: Your CAT scan of the abdomen does not show any concerning abnormalities. Your symptoms are probably from upper abdominal inflammation, gastritis, recommend you take the prescribed medications daily, start with clear fluids and bland foods and slowly progress her diet as tolerated. Follow-up closely with primary care for additional evaluation and management. Return immediately if you worsen including vomiting blood, severe abdominal pain, fever, black stools, or any other concerning symptoms. Prescriptions: Famotidine [Pepcid 20 mg Tablet] 20 mg PO BID #20 tablet Promethazine HCl [Phenergan 25 mg Tablet] 1 - 2 tab PO Q6H PRN #20 tablet PRN Reason: Sucralfate [Carafate 1 gm Tablet] 1 gm PO QID #40 tablet Referrals: CONCEPCION GONCALVES MD [Primary Care Provider] - Follow up in 3-5 days
[2017-05-15 19:22] LABS: ABSOLUTE BASOPHILS # (AUTO) 0.1 10^3/uL (0.0-0.2); ABSOLUTE LYMPHOCYTES (AUTO) 3.1 10^3/uL (0.5-4.7); ABSOLUTE MONOCYTES (AUTO) 0.7 10^3/uL (0.1-1.4); ABSOLUTE NEUT (AUTO) 5.5 10^3/uL (1.7-8.2); BASOPHILS % (AUTO) 0.8 % (0-2); EOSINOPHILS % (AUTO) 0.1 % (0-6); HEMATOCRIT 45.7 % (36.0-47.0); HEMOGLOBIN 15.7 g/dL (12.0-15.5); LYMPHOCYTES % (AUTO) 33.2 % (13-45); MEAN CORPUSCULAR HEMOGLOBIN 32.3 pg (27.0-33.4); MEAN CORPUSCULAR HGB CONC 34.5 g/dL (32.0-36.0); MEAN CORPUSCULAR VOLUME 94 fl (80-97); MONOCYTES % (AUTO) 7.4 % (3-13); PLATELET COUNT 160 10^3/uL (150-450); RED BLOOD COUNT 4.88 10^6/uL (3.72-5.28); RED CELL DISTRIBUTION WIDTH 16.6 % (11.5-14.0); SEGMENTED NEUTROPHILS % (AUTO) 58.5 % (42-78); TOTAL CELLS COUNTED % (AUTO) 100 %; WHITE BLOOD COUNT 9.5 10^3/uL (4.0-10.5)
[2017-05-15 19:55] LABS: ALANINE AMINOTRANSFERASE 24 U/L (9-52); ALBUMIN 4.5 g/dL (3.5-5.0); ALKALINE PHOSPHATASE 79 U/L (38-126); ANION GAP 11 (5-19); ASPARTATE AMINO TRANSFERASE 25 U/L (14-36); BILIRUBIN,DIRECT 0.6 mg/dL (0.0-0.4); BILIRUBIN,TOTAL 0.9 mg/dL (0.2-1.3); BLOOD UREA NITROGEN 22 mg/dL (7-20); CALCIUM 10.3 mg/dL (8.4-10.2); CARBON DIOXIDE 29 mmol/L (22-30); CHLORIDE 102 mmol/L (98-107); GLUCOSE 174 mg/dL (75-110); LIPASE 80.4 U/L (23-300); SODIUM 141.8 mmol/L (137-145); TOTAL PROTEIN 7.1 g/dL (6.3-8.2)
[2017-05-15] MEDS ORDERED: PROMETHAZINE HCL INJ 25 MG/1 ML VIAL IM ONE (20:35)
[2017-05-15 20:55] LABS: APPEARANCE,URINE TURBID; BILIRUBIN,URINE NEGATIVE (NEGATIVE); COLOR,URINE YELLOW; GLUCOSE, URINE 50 mg/dL (NEGATIVE); KETONES,URINE TRACE mg/dL (NEGATIVE); LEUKOCYTE ESTERASE,URINE NEGATIVE (NEGATIVE); NITRITE,URINE NEGATIVE (NEGATIVE); PROTEIN,URINE 100 mg/dL (NEGATIVE); URINE SPECIFIC GRAVITY 1.025
[2017-05-15] MEDS ORDERED: NORMAL SALINE 1000 ML 1,000 ML IV ONE (21:02)
--- NOTE | 2017-05-15 21:53 | EKG REPORT ---
SEVERITY:- BORDERLINE ECG - SINUS RHYTHM ATRIAL PREMATURE COMPLEX SHORT MI INTERVAL, ACCELERATED AV CONDUCTION : Confirmed by: Gabriella Redding 15-May-2017 21:52:59
--- NOTE | 2017-05-15 23:33 | RADIOLOGY REPORT (SQ) ---
EXAM DESCRIPTION: CT ABD/PELVIS WITH IV ORAL COMPLETED DATE/TIME: 05/15/2017 11:15 pm REASON FOR STUDY: persistent vomiting, mid abd pain COMPARISON: 01/23/2017 lumbar spine series TECHNIQUE: CT scan of the abdomen and pelvis performed using helical scanning technique with dynamic intravenous contrast injection. No oral contrast. Images reviewed with lung, soft tissue, and bone windows. Reconstructed coronal and sagittal MPR images reviewed. Delayed images for evaluation of the urinary system also acquired. All images stored on PACS. All CT scanners at this facility use dose modulation, iterative reconstruction, and/or weight based d osing when appropriate to reduce radiation dose to as low as reasonably achievable (ALARA). [facility]: Dose Right [facility]: CareDose [facility]: Dose Right [facility]: Teradose 4D [facility]: [employer] CONTRAST TYPE AND DOSE: contrast/concentration: Isovue 370.00 mg/ml; Total Contrast Delivered: 57.0 ml; Total Saline Delivered: 65.0 ml RENAL FUNCTION: GFR > 60. RADIATION DOSE: CT Rad equipment meets quality standard of care and radiation dose reduction techniq ues were employed. CTDIvol: 4.9 - 6.0 mGy. DLP: 527 mGy-cm.. LIMITATIONS: None. FINDINGS: LOWER CHEST: No significant findings. No nodules or infiltrates. LIVER: Normal size. No masses. No dilated ducts. SPLEEN: Normal size. No focal lesions. PANCREAS: No masses. No significant calcifications. No adjacent inflammation or peripancreatic fluid collections. Pancreatic duct not dilated. GALLBLADDER: No identified stones by CT criteria. No inflammatory changes to suggest cholecystitis. ADRENAL GLANDS: No significant masses or asymmetry. RIGHT KIDNEY AND URETER: No solid masses. No significant calcifications. No hydronephrosis or hyd roureter. LEFT KIDNEY AND URETER: No solid masses. No significant calcifications. No hydronephrosis or hydr oureter. AORTA AND VESSELS: No aneurysm. No dissection. Renal arteries, SMA, celiac without stenosis. RETROPERITONEUM: No retroperitoneal adenopathy, hemorrhage or masses. BOWEL AND PERITONEAL CAVITY: No masses or inflammatory changes. No free fluid or peritoneal masses. APPENDIX: Not visualized. PELVIS: Prior hysterectomy. No free fluid. Normal bladder. ABDOMINAL WALL: No masses. No hernias. BONES: No acute findings. Similar L2 compression deformity. OTHER: No other significant finding. IMPRESSION: NO ACUTE FINDING IN THE ABDOMEN OR PELVIS ON CT SCAN WITH IV CONTRAST. Similar L2 compr ession deformity. TECHNICAL DOCUMENTATION: JOB ID: [id number] Quality ID # [id number]: Final reports with documentation of one or more dose reduction techniques (e.g., Au tomated exposure control, adjustment of the mA and/or kV according to patient size, use of iterative reconstruction technique) 2010 [employer]- All Rights Reserved Reading location - IP/workstation name: [place]
[2017-05-15] MEDS ORDERED: ONDANSETRON ODT 4 MG TAB (6 TAB/ER DISP) PO PRN (23:49)
[2017-05-15] MEDS ORDERED: SUCRALFATE 1 GM TABLET PO ONE (23:53)
[2017-05-15] MEDS ORDERED: FAMOTIDINE 20 MG TABLET PO ONE (23:53)
[2017-05-16 00:51] VITALS: BP 149/95
== END 2017-05-16 00:49 | disposition home or self-care (01) ==
LOC: ER 17:44
DX: R11.2 Nausea with vomiting, unspecified (principal); R10.84 Generalized abdominal pain; E10.9 Type 1 diabetes mellitus without complications; Z96.41 Presence of insulin pump (external) (internal); I25.10 Atherosclerotic heart disease of native coronary artery without angina pectoris; I10 Essential (primary) hypertension; J44.9 Chronic obstructive pulmonary disease, unspecified; R01.1 Cardiac murmur, unspecified; Z90.49 Acquired absence of other specified parts of digestive tract; Z88.1 Allergy status to other antibiotic agents; Z88.8 Allergy status to other drugs, medicaments and biological substances; Z88.0 Allergy status to penicillin; Z87.891 Personal history of nicotine dependence; Z95.5 Presence of coronary angioplasty implant and graft; Z87.19 Personal history of other diseases of the digestive system
CPT/HCPCS: 93005; 96376; 99284; 96372; 96361; 96374; 36415; 82962; 83690; 85025; 80053; 81001; 84484; 74177; 93010; J3490 ×2; J2550; J2405; J7030

== ENCOUNTER 2017-05-24 18:07 | Emergency (ER) | payer MEDICAID ==
[2017-05-24 18:17] VITALS: BP 145/92
[2017-05-24] MEDS ORDERED: OXYCODONE-ACETAMINOPHEN 5-325 MG TABLET PO ONE (18:29)
--- NOTE | 2017-05-24 18:30 | ER Document Report ---
ED Fall - General Chief Complaint: Fall Injury Stated Complaint: FALL INJURY/ BACK PAIN Time Seen by Provider: 05/24/17 18:19 Notes: Patient is a 52-year-old female who fell from approximately 4-6 feet. She states that she was standing on the platform outside her trailer with her dog when she lost control and she fell over the banister landing on her back and hitting her head. She denies any loss of consciousness, dizziness, nausea or vomiting she admits to headache. She states that she also hurts along her neck and her lower back. Review of the chart shows previous cervical fusion. Otherwise history of diabetes. She denies any numbness and tingling in her extremities. She states that she was able to walk into the emergency department. She did not take anything prior to arrival. Denies any urinary stress incontinence, saddle anesthesia. TRAVEL OUTSIDE OF THE [place] IN LAST 30 DAYS: No - Related data Allergies/Adverse Reactions: erythromycin base [Erythromycin Base] Allergy (Severe, Verified 05/24/17 18:25) Anaphylaxis fexofenadine HCl [From Shae] Allergy (Severe, Verified 05/24/17 18:25) Confusion levetiracetam [From Keppra] Allergy (Severe, Verified 18 18:25) passes out, loses time Penicillins Allergy (Severe, Verified 05/24/17 18:25) Anaphylaxis vancomycin [Vancomycin] Allergy (Severe, Verified 18 18:25) Blood pressure bottomed out Past Medical History - Social History Smoking Status: Current Every Day Smoker Chew tobacco use (# tins/day): No Frequency of alcohol use: None Drug Abuse: None Family History: Malignancy Patient has suicidal ideation: No Patient has homicidal ideation: No - Past Medical History Cardiac Medical History: Reports: Hx Coronary Artery Disease - 2 blockages/ stents, Hx DVT - States her anticoagulant was stopped by her physician., Hx Hypercholesterolemia, Hx Hypertension, Hx Pulmonary Embolism, Hx Heart Murmur Pulmonary Medical History: Reports: Hx Bronchitis - Not since she quit smoking, Hx COPD, Hx Pneumonia - 2 weeks ago Neurological Medical History: Reports: Hx Cerebrovascular Accident - 5 yrs ago, Hx Seizures - History of same; states she is not supposed to be on antiepileptics. 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 History of DKA. Patient is on insulin pump., Hx Hypothyroidism. Denies: Hx Hyperthyroidism Renal/ Medical History: Denies: Hx End Stage Renal Disease, Hx Peritoneal Dialysis GI Medical History: Reports: Hx Cirrhosis, Hx Gastroesophageal Reflux Disease, Hx Ulcer. Denies: Hx Crohn's Disease, Hx Diverticulitis, Hx Hepatitis, Hx Ulcerative Colitis Musculoskeltal Medical History: Reports Hx Arthritis, Denies Hx Gout Skin Medical History: Denies Hx Eczema, Denies Hx Psoriasis Psychiatric Medical History: Reports: Hx Depression Traumatic Medical History: Denies: Hx Gunshot Wound, Hx Pneumothorax, Hx Traumatic Brain Injury Infectious Medical History: Denies: Hx Hepatitis Past Surgical History: Reports: Hx Appendectomy, Hx Hysterectomy, Hx Orthopedic Surgery - Neck fusion, wrist surgery, knee surgery, Hx Tubal Ligation, Other - Left chest Port-A-Cath - Immunizations Hx Diphtheria, Pertussis, Tetanus Vaccination: Yes Hx Pneumococcal Vaccination: 11/09/11 Physical Exam - Vital signs Vitals: Temp Pulse Resp BP Pulse Ox 97.8 F 110 H 20 145/92 H 98 05/24/17 18:11 05/24/17 18:11 05/24/17 18:11 05/24/17 18:11 05/24/17 18:11 - Notes Notes: PHYSICAL EXAMINATION: GENERAL: Well-appearing, well-nourished and in no acute distress. C collar in place. On backboard. GCS 15 HEAD: Atraumatic, normocephalic. EYES: Pupils equal round and reactive to light, extraocular movements intact, sclera anicteric, conjunctiva are normal. NECK: C collar in place, supple without lymphadenopathy. Trachea midline LUNGS: Breath sounds clear to auscultation bilaterally and equal. No wheezes rales or rhonchi. HEART: Regular rate and rhythm without murmurs. Pulses intact all throughout. ABDOMEN: Soft, nontender, nondistended abdomen. No guarding, no rebound. No masses appreciated. Musculoskeletal: Normal range of motion, no pitting or edema. No cyanosis. Hip non tender, stable. 5 out of 5 strength both distally and proximally bilateral lower extremities. 2+ patellar reflexes bilaterally. No clonus. Sensation grossly intact in the bilateral lower extremities. Patient is able to ambulate without difficulty. subjacteive tendneress along her back without focal spinous process tendneress, deformitites. NEUROLOGICAL: Cranial nerves grossly intact. Normal speech, normal gait. Normal sensory, motor, and reflex exams. PSYCH: Normal mood, normal affect. SKIN: Warm, No active bleeding Course - Re-evaluation Re-evalutation: 05/24/17 19:19 Patient is a 52-year-old female who is hemodynamically stable, no acute distress. Patient able to ambulate without assistance. C-spine without any pain range of motion. Multiple neuro exams stable without any focal neurological findings. CT of the head and spine without any acute findings concerning for new injury. The patient presents with low back pain without signs of spinal cord compression, cauda equina syndrome, infection, aneurysm, or other serious etiology. The patient is neurologically intact. Given the extremely low risk of these diagnoses further testing and evaluation for these possibilities does not appear to be indicated at this time. The patient has been instructed to return if the symptoms worsen or change in any way. - Vital Signs Vital signs: Temp Pulse Resp BP Pulse Ox 97.8 F 110 H 20 145/92 H 98 05/24/17 18:11 05/24/17 18:11 05/24/17 18:11 05/24/17 18:11 05/24/17 18:11 - Diagnostic Test Radiology reviewed: Image reviewed, Reports reviewed Discharge - Discharge Clinical Impression: Fall Qualifiers: Encounter type: initial encounter Qualified Code(s): W19.XXXA - Unspecified fall, initial encounter Instructions: Head Injury Precautions ([facility]), Contusion ([facility]), Use of Over-The- Counter Ibuprofen ([facility]) Additional Instructions: MUSCLE RELAXERS: Muscle relaxing medications are usually prescribed for acute muscle spasm or injury to the neck and back. They are often combined with antiinflammatory pain medication for increased relief. You may stop the muscle relaxer when the pain and stiffness have improved. Start the medication again if spasms recur. Muscle relaxers may cause drowsiness, especially with the first dose. Do not operate machinery or drive while under the effects of the medication. Most muscle relaxers last up to 24 hours. Do not combine the medication with alcohol. ICE PACKS: Apply ice packs frequently against the painful area. Many different schedules are recommended, such as "20 minutes on, 20 minutes off" or "one hour ice, two hours rest." If you need to work, you may need to go longer between ice treatments. You should plan to have the area ice packed AT LEAST one fourth of the time. The ice should be applied over the wrap, tape, or splint, or over a layer of cloth -- not directly against the skin. Some ice bags have a built-in cloth and can be put directly on the skin. WARM PACKS: After approximately two days, apply gentle heat (such as a heating pad or hot water bottle) for about 20 to 30 minutes about every two hours -- at least four times daily. Warmth and elevation will help you make a more rapid recovery , and will ease the pain considerably. Do not use HOT heat, and never apply heat for longer than 30 minutes. The continuous heat can invisibly damage skin and muscles -- even when no burn is seen on the surface. Damaged muscles can make you MORE sore. Prescriptions: Cyclobenzaprine HCl [Flexeril 10 mg Tablet] 10 mg PO TIDP PRN #15 tab PRN Reason: Forms: Elevated Blood Pressure Referrals: CONCEPCION GONCALVES MD [Primary Care Provider] - Follow up in 3-5 days
--- NOTE | 2017-05-24 19:03 | RADIOLOGY REPORT (SQ) ---
EXAM DESCRIPTION: CT HEAD WITHOUT COMPLETED DATE/TIME: 05/24/2017 6:38 pm REASON FOR STUDY: fall from approx 6 ft COMPARISON: [address] brain exams, most recently CT brain 02/20/2017 TECHNIQUE: Axial images acquired through the brain without intravenous contrast. Images reviewed wi th bone, brain and subdural windows. Images stored on PACS. All CT scanners at this facility use dose modulation, iterative reconstruction, and/or weight based d osing when appropriate to reduce radiation dose to as low as reasonably achievable (ALARA). [facility]: Dose Right [facility]: CareDose [facility]: Dose Right [facility]: Teradose 4D [facility]: [employer] RADIATION DOSE: CT Rad equipment meets quality standard of care and radiation dose reduction techniq ues were employed. CTDIvol: 64.6 mGy. DLP: 1163 mGy-cm. mGy. LIMITATIONS: None. FINDINGS: VENTRICLES: Normal size and contour. CEREBRUM: No masses. No hemorrhage. No midline shift. No evidence for acute infarction. Normal gra y/white matter differentiation. No areas of low density in the white matter. CEREBELLUM: No masses. No hemorrhage. No alteration of density. No evidence for acute infarction. EXTRAAXIAL SPACES: No fluid collections. No masses. ORBITS AND GLOBE: No intra- or extraconal masses. Normal contour of globe without masses. CALVARIUM: No fracture. PARANASAL SINUSES: No fluid or mucosal thickening. SOFT TISSUES: No mass or hematoma. OTHER: No other significant finding. IMPRESSION: NORMAL BRAIN CT WITHOUT CONTRAST. EVIDENCE OF ACUTE STROKE: NO. COMMENT: Quality ID # [id number]: Final reports with documentation of one or more dose reduction techniques (e.g., Automated exposure control, adjustment of the mA and/or kV according to patient size, use of iterative reconstruction technique) TECHNICAL DOCUMENTATION: JOB ID: [id number] [email or web address]- All Rights Reserved Reading location - IP/workstation name: [email or web address]
--- NOTE | 2017-05-24 19:06 | RADIOLOGY REPORT (SQ) ---
EXAM DESCRIPTION: CT CERVICAL SPINE WITHOUT COMPLETED DATE/TIME: 05/24/2017 6:44 pm REASON FOR STUDY: fall from approx 6 ft COMPARISON: CT cervical spine 08/01/2009 TECHNIQUE: Axial images acquired through the cervical spine without intravenous contrast. Images re viewed with lung, soft tissue and bone windows. Reconstructed coronal and sagittal MPR images review ed. Images stored on PACS. All CT scanners at this facility use dose modulation, iterative reconstruction, and/or weight based d osing when appropriate to reduce radiation dose to as low as reasonably achievable (ALARA). [facility]: Dose Right [facility]: CareDose [facility]: Dose Right [facility]: Teradose 4D [facility]: [employer] RADIATION DOSE: CT Rad equipment meets quality standard of care and radiation dose reduction techniq ues were employed. CTDIvol: 16.1 mGy. DLP: 331 mGy-cm. mGy. LIMITATIONS: None. FINDINGS: ALIGNMENT: Anatomic. MINERALIZATION: Normal. VERTEBRAL BODIES: No fractures or dislocation. 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 DISCS: No significant disc disease. FACETS, LATERAL MASSES, POSTERIOR ELEMENTS: No fractures. No dislocation. No acute findings. HARDWARE: None in the spine. VISUALIZED RIBS: No fractures. LUNG APICES AND SOFT TISSUES: No significant or acute findings. OTHER: No other significant finding. IMPRESSION: No acute fracture or malalignment TECHNICAL DOCUMENTATION: JOB ID: [id number] Quality ID # [id number]: Final reports with documentation of one or more dose reduction techniques (e.g., Au tomated exposure control, adjustment of the mA and/or kV according to patient size, use of iterative reconstruction technique) 2010 [employer]- All Rights Reserved Reading location - IP/workstation name: [email or web address]
--- NOTE | 2017-05-24 19:09 | RADIOLOGY REPORT (SQ) ---
EXAM DESCRIPTION: CT THORACIC SPINE WITHOUT COMPLETED DATE/TIME: 05/24/2017 6:47 pm REASON FOR STUDY: fall from approx 6 ft COMPARISON: CT abdomen pelvis 05/15/2017 CT lumbar spine 05/24/2017 TECHNIQUE: Axial images acquired through the thoracic spine without intravenous contrast. Images re viewed with lung, soft tissue and bone windows. Reconstructed coronal and sagittal MPR images review ed. Images stored on PACS. All CT scanners at this facility use dose modulation, iterative reconstruction, and/or weight based d osing when appropriate to reduce radiation dose to as low as reasonably achievable (ALARA). [facility]: Dose Right [facility]: CareDose [facility]: Dose Right [facility]: Teradose 4D [facility]: Smart [employer] RADIATION DOSE: CT Rad equipment meets quality standard of care and radiation dose reduction techniq ues were employed. CTDIvol: 99.2 mGy. DLP: 3278 mGy-cm. mGy. LIMITATIONS: None. FINDINGS: VISUALIZED LUNGS: No acute opacities. No pneumothorax. SOFT TISSUES: No soft tissue swelling. No masses. VERTEBRAL BODIES: No fractures. No dislocation. No acute findings. DISCS: No significant disc space narrowing. ALIGNMENT: Normal. TRANSVERSE PROCESSES, POSTERIOR ELEMENTS: No fractures. No dislocation. No acute findings. HARDWARE: None in the spine. Left-sided permanent central line tip superior vena cava. VISUALIZED RIBS: No fractures. OTHER: No other significant finding. IMPRESSION: No acute fracture or malalignment. TECHNICAL DOCUMENTATION: JOB ID: [id number] Quality ID # [id number]: Final reports with documentation of one or more dose reduction techniques (e.g., Au tomated exposure control, adjustment of the mA and/or kV according to patient size, use of iterative reconstruction technique) 2010 [employer]- All Rights Reserved Reading location - IP/workstation name: [email or web address]
--- NOTE | 2017-05-24 19:11 | RADIOLOGY REPORT (SQ) ---
EXAM DESCRIPTION: CT LUMBAR SPINE WITHOUT COMPLETED DATE/TIME: 05/24/2017 6:50 pm REASON FOR STUDY: fall from approx 6 ft COMPARISON: CT abdomen pelvis 05/15/2017 TECHNIQUE: Axial images acquired through the lumbar spine without intravenous contrast. Images revi ewed with lung, soft tissue and bone windows. Reconstructed coronal and sagittal MPR images reviewed . All images stored on PACS. All CT scanners at this facility use dose modulation, iterative reconstruction, and/or weight based d osing when appropriate to reduce radiation dose to as low as reasonably achievable (ALARA). [facility]: Dose Right [facility]: CareDose [facility]: Dose Right [facility]: Teradose 4D [facility]: [employer] RADIATION DOSE: 46 mGy. LIMITATIONS: None. FINDINGS: SEGMENTATION: Normal. No transitional anatomy. ALIGNMENT: Normal. VERTEBRAL BODIES: There is a chronic upper endplate minimal 25% compression deformity at L1. This is unchanged from 05/15/2017. There is a chronic appearing upper endplate compression deformity at L2 with sclerosis along the uppe r endplate, unchanged from 05/15/2017. DISCS: No significant protrusions. Study limited by lack of intrathecal contrast. PEDICLES, TRANSVERSE PROCESSES: No fractures. No dislocation. No acute findings. FACETS, POSTERIOR ELEMENTS: No fractures. No dislocation. No spinal stenosis. HARDWARE: None in the spine. VISUALIZED RIBS: No fractures. SOFT TISSUES: No significant or acute finding in adjacent soft tissues. OTHER: No other significant finding. IMPRESSION: No acute findings TECHNICAL DOCUMENTATION: JOB ID: [id number] Quality ID # [id number]: Final reports with documentation of one or more dose reduction techniques (e.g., Au tomated exposure control, adjustment of the mA and/or kV according to patient size, use of iterative reconstruction technique) 2010 [employer]- All Rights Reserved Reading location - IP/workstation name: [email or web address]
== END 2017-05-24 20:05 | disposition home or self-care (01) ==
LOC: ER 18:07
DX: M54.9 Dorsalgia, unspecified (principal); R51 Headache; M54.2 Cervicalgia; W17.89XA Other fall from one level to another, initial encounter; Y92.028 Other place in mobile home as the place of occurrence of the external cause; Z98.1 Arthrodesis status; E11.9 Type 2 diabetes mellitus without complications; F17.200 Nicotine dependence, unspecified, uncomplicated; E78.00 Pure hypercholesterolemia, unspecified; I10 Essential (primary) hypertension; J44.9 Chronic obstructive pulmonary disease, unspecified; Z86.73 Personal history of transient ischemic attack (TIA), and cerebral infarction without residual deficits; Z88.0 Allergy status to penicillin; Z88.3 Allergy status to other anti-infective agents; Z86.718 Personal history of other venous thrombosis and embolism
CPT/HCPCS: 99283; 70450; 72125; 72128; 72131; L0120

== ENCOUNTER → 2017-07-11 | Outpatient (CLI) | payer MEDICAID ==
[2017-07-11 10:48] LABS: ABSOLUTE BASOPHILS # (AUTO) 0.1 10^3/uL (0.0-0.2); ABSOLUTE LYMPHOCYTES (AUTO) 2.1 10^3/uL (0.5-4.7); ABSOLUTE MONOCYTES (AUTO) 0.5 10^3/uL (0.1-1.4); ABSOLUTE NEUT (AUTO) 3.4 10^3/uL (1.7-8.2); BASOPHILS % (AUTO) 0.9 % (0-2); EOSINOPHILS % (AUTO) 0.7 % (0-6); HEMATOCRIT 48.1 % (36.0-47.0); HEMOGLOBIN 16.2 g/dL (12.0-15.5); LYMPHOCYTES % (AUTO) 34.3 % (13-45); MEAN CORPUSCULAR HEMOGLOBIN 33.3 pg (27.0-33.4); MEAN CORPUSCULAR HGB CONC 33.8 g/dL (32.0-36.0); MEAN CORPUSCULAR VOLUME 99 fl (80-97); MONOCYTES % (AUTO) 8.4 % (3-13); RED BLOOD COUNT 4.88 10^6/uL (3.72-5.28); RED CELL DISTRIBUTION WIDTH 13.2 % (11.5-14.0); SEGMENTED NEUTROPHILS % (AUTO) 55.7 % (42-78); TOTAL CELLS COUNTED % (AUTO) 100 %; WHITE BLOOD COUNT 6.1 10^3/uL (4.0-10.5)
[2017-07-11 11:06] LABS: ALANINE AMINOTRANSFERASE 16 U/L (9-52); ALBUMIN 4.5 g/dL (3.5-5.0); ALKALINE PHOSPHATASE 73 U/L (38-126); ANION GAP 14 (5-19); ASPARTATE AMINO TRANSFERASE 20 U/L (14-36); BILIRUBIN,DIRECT 0.4 mg/dL (0.0-0.4); BILIRUBIN,TOTAL 0.8 mg/dL (0.2-1.3); BLOOD UREA NITROGEN 23 mg/dL (7-20); CALCIUM 9.9 mg/dL (8.4-10.2); CARBON DIOXIDE 28 mmol/L (22-30); CHLORIDE 103 mmol/L (98-107); GLUCOSE 156 mg/dL (75-110); POTASSIUM 4.8 mmol/L (3.6-5.0); SODIUM 144.5 mmol/L (137-145); TOTAL PROTEIN 7.1 g/dL (6.3-8.2)
[2017-07-11 11:12] LABS: PLATELET COUNT 120 10^3/uL (150-450)
--- NOTE | 2017-07-11 12:23 | RADIOLOGY REPORT (SQ) ---
EXAM DESCRIPTION: CHEST 2 VIEWS COMPLETED DATE/TIME: 07/11/2017 10:20 am REASON FOR STUDY: COUGH (R05) COMPARISON: 01/13/2017 EXAM PARAMETERS: NUMBER OF VIEWS: two views TECHNIQUE: Digital Frontal and Lateral radiographic views of the chest acquired. RADIATION DOSE: NA LIMITATIONS: none FINDINGS: LUNGS AND PLEURA: No opacities, masses or pneumothorax. No pleural effusion. MEDIASTINUM AND HILAR STRUCTURES: No masses or contour abnormalities. HEART AND VASCULAR STRUCTURES: Heart normal size. No evidence for failure. BONES: No acute findings. HARDWARE: An injection port is present on the left. OTHER: No other significant finding. IMPRESSION: NO ACUTE RADIOGRAPHIC FINDING IN THE CHEST. TECHNICAL DOCUMENTATION: JOB ID: [id number] [email or web address]- All Rights Reserved Reading location - IP/workstation name: [email or web address]
== END ==
LOC: RAD 10:04
PROVIDERS: ATTEND Obstetrics & Gynecology
DX: R05 Cough (principal); J40 Bronchitis, not specified as acute or chronic; E10.9 Type 1 diabetes mellitus without complications; Z51.81 Encounter for therapeutic drug level monitoring; Z79.899 Other long term (current) drug therapy
CPT/HCPCS: 36415; 71046; 80053; 85025

== ENCOUNTER 2017-09-04 02:46 | Emergency (ER) | payer MEDICAID ==
--- NOTE | 2017-09-04 04:34 | ER Document Report ---
Doctor's Note Notes: 09/04/17 04:32 09/04/17 05:16
[2017-09-04 04:47] LABS: ABSOLUTE LYMPHOCYTES (AUTO) 1.6 10^3/uL (0.5-4.7); ABSOLUTE MONOCYTES (AUTO) 0.5 10^3/uL (0.1-1.4); BASOPHILS % (AUTO) 0.6 % (0-2); EOSINOPHILS % (AUTO) 0.1 % (0-6); HEMATOCRIT 36.6 % (36.0-47.0); HEMOGLOBIN 12.4 g/dL (12.0-15.5); LYMPHOCYTES % (AUTO) 31.4 % (13-45); MEAN CORPUSCULAR HEMOGLOBIN 33.7 pg (27.0-33.4); MEAN CORPUSCULAR VOLUME 99 fl (80-97); MONOCYTES % (AUTO) 9.4 % (3-13); RED CELL DISTRIBUTION WIDTH 13.6 % (11.5-14.0); SEGMENTED NEUTROPHILS % (AUTO) 58.5 % (42-78); TOTAL CELLS COUNTED % (AUTO) 100 %; WHITE BLOOD COUNT 5.1 10^3/uL (4.0-10.5)
[2017-09-04 04:50] LABS: ALANINE AMINOTRANSFERASE 18 U/L (9-52); ALBUMIN 3.6 g/dL (3.5-5.0); ALKALINE PHOSPHATASE 58 U/L (38-126); ANION GAP 7 (5-19); ASPARTATE AMINO TRANSFERASE 18 U/L (14-36); BILIRUBIN,DIRECT 0.4 mg/dL (0.0-0.4); BILIRUBIN,TOTAL 0.4 mg/dL (0.2-1.3); BLOOD UREA NITROGEN 34 mg/dL (7-20); CALCIUM 8.8 mg/dL (8.4-10.2); CARBON DIOXIDE 32 mmol/L (22-30); CHLORIDE 98 mmol/L (98-107); GLUCOSE 273 mg/dL (75-110); POTASSIUM 5.3 mmol/L (3.6-5.0); SODIUM 136.8 mmol/L (137-145); TOTAL PROTEIN 5.7 g/dL (6.3-8.2)
[2017-09-04 04:55] LABS: PLATELET COUNT 91 10^3/uL (150-450)
--- NOTE | 2017-09-04 05:00 | RADIOLOGY REPORT (SQ) ---
EXAM DESCRIPTION: XR CHEST 1 VIEW COMPLETED DATE/TME: 09/04/2017 04:32 CLINICAL HISTORY: dyspnea COMPARISON: 12/11/2017 FINDINGS: Single frontal view of the chest. Left subclavian Mediport with tip in SVC. Leads overlie the chest. Heart is not enlarged. No consolidation, pneumothorax, or pleural effusion. No displaced rib fractures identified. Upper abdominal soft tissues are unremarkable. IMPRESSION: 1. No acute pulmonary process identified.
[2017-09-04 05:02] LABS: NT PRO BNP 280 pg/mL (5-900); TROPONIN I < 0.012 ng/mL
--- NOTE | 2017-09-04 05:19 | ER Document Report ---
ED General - General Chief Complaint: Chest Pain Stated Complaint: CHEST PAIN Time Seen by Provider: 09/04/17 04:32 Notes: Patient is a 52-year-old female with a known history of severe aortic stenosis. She says her last 24 hours she has noticed that any type of exertion is her to become very short of breath to the point where she has to bend over and stop walking. She becomes lightheaded but does not pass out. She does get some chest pain associated with this. No fevers. No vomiting. She is due for surgery in 3 weeks at [facility]. Her radio despatcher is Dr. Hercules. TRAVEL OUTSIDE OF THE [place] IN LAST 30 DAYS: No - Related Data Allergies/Adverse Reactions: erythromycin base [Erythromycin Base] Allergy (Severe, Verified 05/24/17 18:25) Anaphylaxis fexofenadine HCl [From Shae] Allergy (Severe, Verified 05/24/17 18:25) Confusion levetiracetam [From Keppra] Allergy (Severe, Verified 05/24/17 18:25) passes out, loses time Penicillins Allergy (Severe, Verified 05/24/17 18:25) Anaphylaxis vancomycin [Vancomycin] Allergy (Severe, Verified 05/24/17 18:25) Blood pressure bottomed out Past Medical History - Social History Smoking Status: Former Smoker Chew tobacco use (# tins/day): No Frequency of alcohol use: None Drug Abuse: None Family History: Malignancy Patient has suicidal ideation: No Patient has homicidal ideation: No - Past Medical History Cardiac Medical History: Reports: Hx Coronary Artery Disease - 2 blockages/ stents, Hx DVT - States her anticoagulant was stopped by her physician., Hx Hypercholesterolemia, Hx Hypertension, Hx Pulmonary Embolism, Hx Heart Murmur Pulmonary Medical History: Reports: Hx Bronchitis - Not since she quit smoking, Hx COPD, Hx Pneumonia Neurological Medical History: Reports: Hx Cerebrovascular Accident - 5 yrs ago, Hx Seizures - History of same; states she is not supposed to be on antiepileptics. 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 History of DKA. Patient is on insulin pump., Hx Hypothyroidism. Denies: Hx Hyperthyroidism Renal/ Medical History: Denies: Hx End Stage Renal Disease, Hx Peritoneal Dialysis GI Medical History: Reports: Hx Cirrhosis, Hx Gastroesophageal Reflux Disease, Hx Ulcer. Denies: Hx Crohn's Disease, Hx Diverticulitis, Hx Hepatitis, Hx Ulcerative Colitis Musculoskeltal Medical History: Reports Hx Arthritis, Denies Hx Gout Skin Medical History: Denies Hx Eczema, Denies Hx Psoriasis Psychiatric Medical History: Reports: Hx Depression Traumatic Medical History: Denies: Hx Gunshot Wound, Hx Pneumothorax, Hx Traumatic Brain Injury Infectious Medical History: Denies: Hx Hepatitis Past Surgical History: Reports: Hx Appendectomy, Hx Hysterectomy, Hx Orthopedic Surgery - Neck fusion, wrist surgery, knee surgery, Hx Tubal Ligation, Other - Left chest Port-A-Cath - Immunizations Hx Diphtheria, Pertussis, Tetanus Vaccination: Yes Hx Pneumococcal Vaccination: 11/09/11 Review of Systems - Review of Systems Notes: My Normal Review Basic REVIEW OF SYSTEMS: CONSTITUTIONAL : Denies fever, chills, or sweats. Denies recent illness. EENT: Denies eye, ear, throat, or mouth pain or symptoms. Denies nasal or sinus congestion. CARDIOVASCULAR: Chest pain, dyspnea with exertion RESPIRATORY: Denies cough, cold, or chest congestion. Denies shortness of breath, difficulty breathing, or wheezing. GASTROINTESTINAL: Denies abdominal pain. Denies nausea, vomiting, or diarrhea. MUSCULOSKELETAL: Denies neck or back pain or joint pain or swelling. SKIN: Denies rash or skin lesions. NEUROLOGICAL: Denies altered mental status or loss of consciousness. Denies headache. Denies weakness or paralysis or loss of use of either side. Denies problems with gait or speech. Denies sensory or motor loss. ALL OTHER SYSTEMS REVIEWED AND NEGATIVE. Physical Exam - Vital signs Vitals: Temp Pulse Resp BP Pulse Ox 98.0 F 67 18 125/82 91 L 09/04/17 03:02 09/04/17 03:02 09/04/17 03:02 09/04/17 03:02 09/04/17 03:02 - Notes Notes: General Appearance: Well nourished, alert, cooperative, no acute distress, no obvious discomfort. Vitals: reviewed, See vital signs table. Head: no swelling or tenderness to the head Eyes: PERRL, EOMI, Conjuctiva clear Mouth: No decreasd moisture Lungs: No wheezing, No rales, No rhonci, No accessory muscle use, good air exchange bilaterally. Heart: Normal rate, Regular rythm, loud systolic murmur. Abdomen: Normal BS, soft, No rigidity, No abdominal tenderness, No guarding, no rebound, Extremities: strength 5/5 in all extremities, good pulses in all extremities, no swelling or tenderness in the extremities, no edema. Skin: warm, dry, appropriate color, no rash Neuro: speech clear, oriented x 3, normal affect, responds appropriately to questions. Course - Re-evaluation Re-evalutation: 09/04/17 05:20 EKG is reviewed and interpreted by me. EKG shows normal sinus rhythm with rate of [address] segment elevation. Very mild ST segment depression in the lateral precordial leads. VA interval, QRS duration, QTc intervals are within normal range. Old EKG for comparison is from May 15, 2017. EKG shows similar mild ST segment depression. 09/04/17 06:[address] Dahl, patient's cardiothoracic surgeon, agrees to accept the patient for transfer. Dictation of this chart was performed using voice recognition software; therefore, there may be some unintended grammatical errors. - Vital Signs Vital signs: Temp Pulse Resp BP Pulse Ox 98.0 F 67 11 L 116/72 93 09/04/17 03:02 09/04/17 03:02 09/04/17 06:01 09/04/17 06:01 09/04/17 06:01 - Laboratory Result Diagrams: 09/04/17 03:50 09/04/17 03:50 Laboratory results interpreted by me: 09/04/17 09/04/17 09/04/17 03:50 03:50 06:06 RBC 3.70 L MCV 99 H MCH 33.7 H Plt Count 91 L Sodium 136.8 L Potassium 5.3 H Carbon Dioxide 32 H BUN 34 H Creatinine 1.63 H Est GFR ( Amer) 40 L Est GFR (Non-Af Amer) 33 L Glucose 273 H POC Glucose 331 H Total Protein 5.7 L Discharge - Discharge Clinical Impression: Aortic stenosis Qualifiers: Cardiac valve disease etiology: etiology unspecified Qualified Code(s): I35.0 - Nonrheumatic aortic (valve) stenosis Dyspnea Qualifiers: Dyspnea type: dyspnea on exertion Qualified Code(s): R06.09 - Other forms of dyspnea Condition: Stable Disposition: [facility] Referrals: CONCEPCION GONCALVES MD [Primary Care Provider] - Follow up as needed
--- NOTE | 2017-09-04 07:39 | EKG REPORT ---
SEVERITY:- ABNORMAL ECG - SINUS RHYTHM LEFT ATRIAL ABNORMALITY PROBABLE LEFT VENTRICULAR HYPERTROPHY : Confirmed by: Melisa Lam MD 04-Sep-2017 07:38:09
[2017-09-04 09:53] VITALS: BP 101/70
== END 2017-09-04 10:00 | disposition short-term general hospital (02) ==
LOC: ER 02:46
DX: I35.0 Nonrheumatic aortic (valve) stenosis (principal); R06.02 Shortness of breath; R42 Dizziness and giddiness; E10.9 Type 1 diabetes mellitus without complications; Z96.41 Presence of insulin pump (external) (internal); I10 Essential (primary) hypertension; I25.10 Atherosclerotic heart disease of native coronary artery without angina pectoris; Z95.5 Presence of coronary angioplasty implant and graft; Z88.8 Allergy status to other drugs, medicaments and biological substances; Z88.0 Allergy status to penicillin; Z87.892 Personal history of anaphylaxis; Z88.1 Allergy status to other antibiotic agents; Z86.711 Personal history of pulmonary embolism; Z86.718 Personal history of other venous thrombosis and embolism; Z87.891 Personal history of nicotine dependence
CPT/HCPCS: 36415; 71045; 80053; 82962; 83880; 84484; 85025; 93005; 93010; 99285

== ENCOUNTER 2017-12-09 18:26 | Emergency (ER) | payer MEDICAID ==
[2017-12-09 18:37] VITALS: BP 168/99
--- NOTE | 2017-12-09 19:13 | ER Document Report ---
ED Medical Screen (RME) - General Chief Complaint: Headache >24 hrs old Stated Complaint: HEADACHE Time Seen by Provider: 12/09/17 19:11 Mode of Arrival: Ambulatory Information source: Patient, [facility] Records Notes: 52-year-old female presents with complaint of headache. Patient reports nausea , vomiting and diarrhea that preceded the headache. She is a type I diabetic with an insulin pump and reports that 1 hour ago had a blood sugar greater than 520. Patient reports that headache, nausea and vomiting started today. I have greeted and performed a rapid initial assessment of this patient. A comprehensive ED assessment and evaluation of the patient, analysis of test results and completion of medical decision making process we will be contacted by additional ED providers. PHYSICAL EXAMINATION: Vital signs reviewed GENERAL: Well-appearing, well-nourished and in no acute distress. LUNGS: No respiratory distress Musculoskeletal: Normal range of motion NEUROLOGICAL: Normal speech, normal gait. PSYCH: Normal mood, normal affect. SKIN: Warm, Dry, normal turgor, no rashes or lesions noted. TRAVEL OUTSIDE OF THE [place] IN LAST 30 DAYS: No - HPI Onset: This morning Onset/Duration: Persistent Quality of pain: Throbbing Associated Symptoms: Diarrhea, Headache, Nausea, Vomiting Exacerbated by: Denies Relieved by: Denies Similar symptoms previously: No Recently seen / treated by doctor: No - Related Data Smoking: Cigarettes Frequency of alcohol use: None Drug Abuse: None Allergies/Adverse Reactions: erythromycin base [Erythromycin Base] Allergy (Severe, Verified 12/09/17 19:10) Anaphylaxis fexofenadine HCl [From Shae] Allergy (Severe, Verified 12/09/17 19:10) Confusion levetiracetam [From Keppra] Allergy (Severe, Verified 12/09/17 19:10) passes out, loses time Penicillins Allergy (Severe, Verified 12/09/17 19:10) Anaphylaxis vancomycin [Vancomycin] Allergy (Severe, Verified 12/09/17 19:10) Blood pressure bottomed out Past Medical History - Social History Chew tobacco use (# tins/day): No Frequency of alcohol use: None Drug Abuse: None - Past Medical History Cardiac Medical History: Reports: Hx Coronary Artery Disease - 2 blockages/ stents, Hx DVT - States her anticoagulant was stopped by her physician., Hx Hypercholesterolemia, Hx Hypertension, Hx Pulmonary Embolism, Hx Heart Murmur Pulmonary Medical History: Reports: Hx Bronchitis - Not since she quit smoking, Hx COPD, Hx Pneumonia Neurological Medical History: Reports: Hx Cerebrovascular Accident - 5 yrs ago, Hx Seizures - History of same; states she is not supposed to be on antiepileptics. 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 History of DKA. Patient is on insulin pump., Hx Hypothyroidism. Denies: Hx Hyperthyroidism Renal/ Medical History: Denies: Hx End Stage Renal Disease, Hx Peritoneal Dialysis GI Medical History: Reports: Hx Cirrhosis, Hx Gastroesophageal Reflux Disease, Hx Ulcer. Denies: Hx Crohn's Disease, Hx Diverticulitis, Hx Hepatitis, Hx Ulcerative Colitis Musculoskeltal Medical History: Reports Hx Arthritis, Denies Hx Gout Skin Medical History: Denies Hx Eczema, Denies Hx Psoriasis Psychiatric Medical History: Reports: Hx Depression Traumatic Medical History: Denies: Hx Gunshot Wound, Hx Pneumothorax, Hx Traumatic Brain Injury Infectious Medical History: Denies: Hx Hepatitis Past Surgical History: Reports: Hx Appendectomy, Hx Hysterectomy, Hx Orthopedic Surgery - Neck fusion, wrist surgery, knee surgery, Hx Tubal Ligation, Other - Left chest Port-A-Cath - Immunizations Hx Diphtheria, Pertussis, Tetanus Vaccination: Yes History of Influenza Vaccine for 12/2016 - 05/2017 Season: Yes Influenza Administration Date for 12/2016 - 05/2017 Season: 12/08/16 Physical Exam - Vital signs Vitals: Temp Pulse Resp BP Pulse Ox 98.4 F 87 16 168/99 H 99 12/09/17 18:34 12/09/17 18:34 12/09/17 18:34 12/09/17 18:34 12/09/17 18:34 Course - Vital Signs Vital signs: Temp Pulse Resp BP Pulse Ox 98.4 F 87 16 168/99 H 99 12/09/17 18:34 12/09/17 18:34 12/09/17 18:34 12/09/17 18:34 12/09/17 18:34 Doctor's Discharge - Discharge Referrals: CONCEPCION GONCALVES MD [Primary Care Provider] - Follow up as needed
[2017-12-09] MEDS ORDERED: METOCLOPRAMIDE HCL INJ/PF 10 MG/2 ML SDV IV ONE (19:42)
[2017-12-09] MEDS ORDERED: NORMAL SALINE 1000 ML 1,000 ML IV ONE (19:43)
--- NOTE | 2017-12-09 19:44 | ER Document Report ---
ED General - General Chief Complaint: Headache >24 hrs old Stated Complaint: HEADACHE Time Seen by Provider: 12/09/17 19:11 Mode of Arrival: Ambulatory Notes: Patient is a 52-year-old female that comes to the emergency department for complaints of diarrhea for 1 week, she states in addition to this today she got a "migraine headache" at around 3 PM, she states that after she got the headache she started getting nauseated and she vomited several times. She reports generalized abdominal pain for the past few days. She denies recent travel, recent antibiotics, recent obvious sick contacts. She denies hematemesis or blood in the stool. She denies fever or chills, chest pain, focal numbness or weakness. Headache was not maximal at onset, she describes it as over the top of her head. She states she has had headaches/migraines like this in the past. Remaining past medical history includes type 1 diabetes on an insulin pump, hypertension, hyperlipidemia, CAD, appendectomy. She states her blood glucose read over 500 earlier today, she changes the location of the pump almost daily. TRAVEL OUTSIDE OF THE [place] IN LAST 30 DAYS: No - Related Data Allergies/Adverse Reactions: erythromycin base [Erythromycin Base] Allergy (Severe, Verified 12/09/17 19:10) Anaphylaxis fexofenadine HCl [From Shae] Allergy (Severe, Verified 12/09/17 19:10) Confusion levetiracetam [From Keppra] Allergy (Severe, Verified 12/09/17 19:10) passes out, loses time Penicillins Allergy (Severe, Verified 12/09/17 19:10) Anaphylaxis vancomycin [Vancomycin] Allergy (Severe, Verified 12/09/17 19:10) Blood pressure bottomed out Past Medical History - General Information source: Patient, [facility] Records - Social History Smoking Status: Current Every Day Smoker Chew tobacco use (# tins/day): No Frequency of alcohol use: None Drug Abuse: None Lives with: Family Family History: Malignancy Patient has suicidal ideation: No Patient has homicidal ideation: No - Past Medical History Cardiac Medical History: Reports: Hx Coronary Artery Disease - 2 blockages/ stents, Hx DVT - States her anticoagulant was stopped by her physician., Hx Hypercholesterolemia, Hx Hypertension, Hx Pulmonary Embolism, Hx Heart Murmur Pulmonary Medical History: Reports: Hx Bronchitis - Not since she quit smoking, Hx COPD, Hx Pneumonia Neurological Medical History: Reports: Hx Cerebrovascular Accident - 5 yrs ago, Hx Seizures - History of same; states she is not supposed to be on antiepileptics. Endocrine Medical History: Reports: Hx Diabetes Mellitus Type 1 - Insulin pump, Hx Hypothyroidism. Denies: Hx Hyperthyroidism Renal/ Medical History: Denies: Hx End Stage Renal Disease, Hx Peritoneal Dialysis GI Medical History: Reports: Hx Cirrhosis, Hx Gastroesophageal Reflux Disease, Hx Ulcer. Denies: Hx Crohn's Disease, Hx Diverticulitis, Hx Hepatitis, Hx Ulcerative Colitis Musculoskeletal Medical History: Reports Hx Arthritis, Denies Hx Gout Skin Medical History: Denies Hx Eczema, Denies Hx Psoriasis Psychiatric Medical History: Reports: Hx Depression Traumatic Medical History: Denies: Hx Gunshot Wound, Hx Pneumothorax, Hx Traumatic Brain Injury Infectious Medical History: Denies: Hx Hepatitis Past Surgical History: Reports: Hx Appendectomy, Hx Hysterectomy, Hx Orthopedic Surgery - Neck fusion, wrist surgery, knee surgery, Hx Tubal Ligation, Other - Left chest Port-A-Cath - Immunizations Hx Diphtheria, Pertussis, Tetanus Vaccination: Yes Hx Pneumococcal Vaccination: 11/09/11 Review of Systems - Review of Systems Constitutional: No symptoms reported EENT: No symptoms reported Cardiovascular: No symptoms reported Respiratory: No symptoms reported Gastrointestinal: See HPI Genitourinary: No symptoms reported Female Genitourinary: No symptoms reported Musculoskeletal: No symptoms reported Skin: No symptoms reported Hematologic/Lymphatic: No symptoms reported Neurological/Psychological: See HPI Physical Exam - Vital signs Vitals: Temp Pulse Resp BP Pulse Ox 98.4 F 87 16 168/99 H 99 12/09/17 18:34 12/09/17 18:34 12/09/17 18:34 12/09/17 18:34 12/09/17 18:34 - Notes Notes: GENERAL: Alert, interacts well. No acute distress. Sitting up and talkative. HEAD: Normocephalic, atraumatic. EYES: Pupils equal, round, and reactive to light. Extraocular movements intact. ENT: Oral mucosa moist, tongue midline. NECK: Full range of motion. Supple. Trachea midline. LUNGS: Clear to auscultation bilaterally, no wheezes, rales, or rhonchi. No respiratory distress. HEART: Regular rate and rhythm. No murmur ABDOMEN: Soft, non-tender. Non-distended. Bowel sounds present in all 4 quadrants. EXTREMITIES: Moves all 4 extremities spontaneously. No edema, normal radial and dorsalis pedis pulses bilaterally. No cyanosis. BACK: no cervical, thoracic, lumbar midline tenderness. No saddle anesthesia, normal distal neurovascular exam. NEUROLOGICAL: Alert and oriented x3. Normal speech. [cranial nerves II through XII grossly intact]. PSYCH: Normal affect, normal mood. SKIN: Warm, dry, normal turgor. No rashes or lesions noted. Course - Re-evaluation Re-evalutation: Patient is actually very well-appearing, sitting up, talkative, she does report a headache and some generalized abdominal cramping but otherwise no complaints at this time. No nuchal rigidity. Unremarkable neurological exam. Mild hypertension. CBC unremarkable, chemistry shows mild hyperglycemia with blood glucose in the 200s, no acidosis. Venous blood gas reviewed and unremarkable. Nurse reported to me that patient went to the bathroom but did not provide either stool or urine sample as had been requested. I did have a delay in reevaluating the patient because of other emergent patient situations going on at the same time, I did apologize to patient for the delay in care, she states that she no longer wants any additional management and she wants to go home. She denies having a headache. Patient found to be hypertensive at discharge, I reevaluated her, she now states she has a headache, however she refuses to have CAT scan or additional management be performed. She states she needs to leave now. Patient is extremely well-appearing, based on her evaluation I have low suspicion of intracranial hemorrhage, stroke, meningitis, subarachnoid hemorrhage, ischemic colitis, acute abdomen. Patient will be discharged home with symptom management , provided with stool collecting device and a prescription, discussed primary care follow-up and return precautions. Patient does state satisfaction and agreement with this plan. - Vital Signs Vital signs: Temp Pulse Resp BP Pulse Ox 98.4 F 87 16 168/99 H 99 12/09/17 18:34 12/09/17 18:34 12/09/17 18:34 12/09/17 18:34 12/09/17 18:34 - Laboratory Result Diagrams: 12/09/17 20:30 12/09/17 20:30 Laboratory results interpreted by me: 12/09/17 12/09/17 12/09/17 19:18 20:30 20:30 RDW 15.2 H Plt Count 97 L Glucose 273 H POC Glucose 278 H Total Protein 6.2 L Discharge - Discharge Clinical Impression: Vomiting and diarrhea Headache Qualifiers: Headache type: unspecified Headache chronicity pattern: acute headache Intractability: not intractable Qualified Code(s): R51 - Headache Condition: Stable Disposition: HOME, SELF-CARE Additional Instructions: Your evaluation at this time is reassuring. Because we were unable to get a stool sample I recommend that you obtain a sample and bring it back to the laboratory for testing, see the prescription provided. Take Phenergan for nausea, Bentyl for pain/cramping, the pain medication if needed to help slow down stools. Follow-up with your primary care within the next 2-3 days. Return if you worsen including uncontrolled vomiting, fever of 100.4 or greater , severe abdominal pain, vomiting blood, bloody stools, etc. Prescriptions: Dicyclomine HCl [Bentyl 20 mg Tablet] 20 mg PO QID PRN #20 tablet PRN Reason: Promethazine HCl [Phenergan 25 mg Tablet] 25 mg PO Q6H PRN #20 tablet PRN Reason: Forms: Follow-Up Laboratory Testing Referrals: CONCEPCION GONCALVES MD [Primary Care Provider] - Follow up as needed
[2017-12-09 20:51] LABS: VENOUS BLOOD BASE EXCESS 1.4 mmol/L; VENOUS BLOOD PCO2 46.1 mmHg (35-63); VENOUS BLOOD PH 7.39 (7.30-7.42)
[2017-12-09 20:54] LABS: ABSOLUTE BASOPHILS # (AUTO) 0.1 10^3/uL (0.0-0.2); ABSOLUTE LYMPHOCYTES (AUTO) 1.9 10^3/uL (0.5-4.7); ABSOLUTE MONOCYTES (AUTO) 0.5 10^3/uL (0.1-1.4); ABSOLUTE NEUT (AUTO) 4.2 10^3/uL (1.7-8.2); EOSINOPHILS % (AUTO) 0.2 % (0-6); HEMATOCRIT 39.5 % (36.0-47.0); HEMOGLOBIN 13.3 g/dL (12.0-15.5); LYMPHOCYTES % (AUTO) 28.6 % (13-45); MEAN CORPUSCULAR HEMOGLOBIN 30.8 pg (27.0-33.4); MEAN CORPUSCULAR HGB CONC 33.8 g/dL (32.0-36.0); MEAN CORPUSCULAR VOLUME 91 fl (80-97); MONOCYTES % (AUTO) 7.4 % (3-13); RED BLOOD COUNT 4.33 10^6/uL (3.72-5.28); RED CELL DISTRIBUTION WIDTH 15.2 % (11.5-14.0); SEGMENTED NEUTROPHILS % (AUTO) 62.8 % (42-78); TOTAL CELLS COUNTED % (AUTO) 100 %; WHITE BLOOD COUNT 6.7 10^3/uL (4.0-10.5)
[2017-12-09 21:11] LABS: PLATELET COUNT 97 10^3/uL (150-450)
[2017-12-09 21:13] LABS: ALANINE AMINOTRANSFERASE 26 U/L (9-52); ALBUMIN 3.8 g/dL (3.5-5.0); ALKALINE PHOSPHATASE 92 U/L (38-126); ANION GAP 7 (5-19); ASPARTATE AMINO TRANSFERASE 14 U/L (14-36); BILIRUBIN,DIRECT 0.3 mg/dL (0.0-0.4); BILIRUBIN,TOTAL 0.7 mg/dL (0.2-1.3); BLOOD UREA NITROGEN 19 mg/dL (7-20); CARBON DIOXIDE 27 mmol/L (22-30); CHLORIDE 107 mmol/L (98-107); GLUCOSE 273 mg/dL (75-110); POTASSIUM 3.9 mmol/L (3.6-5.0); TOTAL PROTEIN 6.2 g/dL (6.3-8.2)
[2017-12-09] MEDS ORDERED: HYDROCODONE/ACETAMINOPHEN 5-325 MG (6 TAB/ER DISP) PO PRN (22:27)
== END 2017-12-09 23:00 | disposition home or self-care (01) ==
LOC: ER 18:26
DX: R51 Headache (principal); R19.7 Diarrhea, unspecified; R11.10 Vomiting, unspecified; F17.200 Nicotine dependence, unspecified, uncomplicated; I25.10 Atherosclerotic heart disease of native coronary artery without angina pectoris; E78.00 Pure hypercholesterolemia, unspecified; I10 Essential (primary) hypertension; Z88.3 Allergy status to other anti-infective agents; Z88.0 Allergy status to penicillin; Z86.718 Personal history of other venous thrombosis and embolism; Z86.73 Personal history of transient ischemic attack (TIA), and cerebral infarction without residual deficits; Z90.710 Acquired absence of both cervix and uterus
CPT/HCPCS: 99284; 96361; 96374; 36415; 82962; 85025; 80053; 82803; J2765

== ENCOUNTER 2017-12-12 15:17 | Emergency (ER) | payer MEDICAID ==
--- NOTE | 2017-12-12 16:25 | ER Document Report ---
ED Medical Screen (RME) - General Chief Complaint: Diarrhea Stated Complaint: DIARRHEA Time Seen by Provider: 12/12/17 16:19 Notes: 52-year-old insulin-dependent female patient complained of diarrhea for 2 weeks. Was seen here 3 days ago and was unable to provide a stool specimen at the time. She did bring a stool specimen back in with her today. She states her blood pressures been high, blood sugars to run 485 and has an insulin pump 1. When she was here 3 days ago her blood sugars were nearly 300. She also complains of problems with the left knee which is had prior surgeries. I have greeted and performed a rapid initial assessment of this patient. A comprehensive ED assessment and evaluation of the patient, analysis of test results and completion of the medical decision making process will be conducted by additional ED providers. TRAVEL OUTSIDE OF THE [place] IN LAST 30 DAYS: No - Related Data Allergies/Adverse Reactions: erythromycin base [Erythromycin Base] Allergy (Severe, Verified 12/12/17 15:20) Anaphylaxis fexofenadine HCl [From Shae] Allergy (Severe, Verified 12/12/17 15:20) Confusion levetiracetam [From Keppra] Allergy (Severe, Verified 12/12/17 15:20) passes out, loses time Penicillins Allergy (Severe, Verified 12/12/17 15:20) Anaphylaxis vancomycin [Vancomycin] Allergy (Severe, Verified 12/12/17 15:20) Blood pressure bottomed out Past Medical History - Social History Chew tobacco use (# tins/day): No Frequency of alcohol use: None Drug Abuse: None - Past Medical History Cardiac Medical History: Reports: Hx Coronary Artery Disease - 2 blockages/ stents, Hx DVT - States her anticoagulant was stopped by her physician., Hx Hypercholesterolemia, Hx Hypertension, Hx Pulmonary Embolism, Hx Heart Murmur Pulmonary Medical History: Reports: Hx Bronchitis - Not since she quit smoking, Hx COPD, Hx Pneumonia Neurological Medical History: Reports: Hx Cerebrovascular Accident - 5 yrs ago, Hx Seizures - History of same; states she is not supposed to be on antiepileptics. Endocrine Medical History: Reports: Hx Diabetes Mellitus Type 1 - Insulin pump, Hx Hypothyroidism. Denies: Hx Hyperthyroidism Renal/ Medical History: Denies: Hx End Stage Renal Disease, Hx Peritoneal Dialysis GI Medical History: Reports: Hx Cirrhosis, Hx Gastroesophageal Reflux Disease, Hx Ulcer. Denies: Hx Crohn's Disease, Hx Diverticulitis, Hx Hepatitis, Hx Ulcerative Colitis Musculoskeltal Medical History: Reports Hx Arthritis, Denies Hx Gout Skin Medical History: Denies Hx Eczema, Denies Hx Psoriasis Psychiatric Medical History: Reports: Hx Depression Traumatic Medical History: Denies: Hx Gunshot Wound, Hx Pneumothorax, Hx Traumatic Brain Injury Infectious Medical History: Denies: Hx Hepatitis Past Surgical History: Reports: Hx Appendectomy, Hx Hysterectomy, Hx Orthopedic Surgery - Neck fusion, wrist surgery, knee surgery, Hx Tubal Ligation, Other - Left chest Port-A-Cath - Immunizations Hx Diphtheria, Pertussis, Tetanus Vaccination: Yes History of Influenza Vaccine for 12/2016 - 05/2017 Season: Yes Influenza Administration Date for 12/2016 - 05/2017 Season: 12/08/16 Physical Exam - Vital signs Vitals: Temp Pulse Resp BP Pulse Ox 98.2 F 100 18 161/102 H 99 12/12/17 15:33 12/12/17 15:33 12/12/17 15:33 12/12/17 15:33 12/12/17 15:33 Course - Vital Signs Vital signs: Temp Pulse Resp BP Pulse Ox 98.2 F 100 18 161/102 H 99 12/12/17 15:33 12/12/17 15:33 12/12/17 15:33 12/12/17 15:33 12/12/17 15:33 Doctor's Discharge - Discharge Referrals: CONCEPCION GONCALVES MD [Primary Care Provider] - Follow up as needed
[2017-12-12 17:41] LABS: ABSOLUTE BASOPHILS # (AUTO) 0.1 10^3/uL (0.0-0.2); ABSOLUTE LYMPHOCYTES (AUTO) 1.6 10^3/uL (0.5-4.7); ABSOLUTE MONOCYTES (AUTO) 0.4 10^3/uL (0.1-1.4); ABSOLUTE NEUT (AUTO) 3.6 10^3/uL (1.7-8.2); EOSINOPHILS % (AUTO) 0.2 % (0-6); HEMOGLOBIN 13.2 g/dL (12.0-15.5); LYMPHOCYTES % (AUTO) 28.2 % (13-45); MEAN CORPUSCULAR HEMOGLOBIN 30.9 pg (27.0-33.4); MEAN CORPUSCULAR HGB CONC 33.7 g/dL (32.0-36.0); MEAN CORPUSCULAR VOLUME 92 fl (80-97); MONOCYTES % (AUTO) 6.7 % (3-13); RED BLOOD COUNT 4.26 10^6/uL (3.72-5.28); RED CELL DISTRIBUTION WIDTH 15.3 % (11.5-14.0); SEGMENTED NEUTROPHILS % (AUTO) 63.9 % (42-78); TOTAL CELLS COUNTED % (AUTO) 100 %; WHITE BLOOD COUNT 5.7 10^3/uL (4.0-10.5)
[2017-12-12 17:56] LABS: PLATELET COUNT 97 10^3/uL (150-450)
[2017-12-12 18:19] LABS: APPEARANCE,URINE SLIGHTLY-CLOUDY; BILIRUBIN,URINE NEGATIVE (NEGATIVE); COLOR,URINE YELLOW; GLUCOSE, URINE >=500 mg/dL (NEGATIVE); KETONES,URINE NEGATIVE (NEGATIVE); LEUKOCYTE ESTERASE,URINE NEGATIVE (NEGATIVE); NITRITE,URINE NEGATIVE (NEGATIVE); PROTEIN,URINE NEGATIVE (NEGATIVE); URINE SPECIFIC GRAVITY 1.023; UROBILINOGEN,URINE NEGATIVE mg/dL (<2.0)
[2017-12-12 20:02] LABS: ALANINE AMINOTRANSFERASE 26 U/L (9-52); ALBUMIN 3.6 g/dL (3.5-5.0); ALKALINE PHOSPHATASE 92 U/L (38-126); ANION GAP 9 (5-19); ASPARTATE AMINO TRANSFERASE 16 U/L (14-36); BILIRUBIN,DIRECT 0.3 mg/dL (0.0-0.4); BILIRUBIN,TOTAL 0.4 mg/dL (0.2-1.3); BLOOD UREA NITROGEN 26 mg/dL (7-20); CALCIUM 9.4 mg/dL (8.4-10.2); CARBON DIOXIDE 26 mmol/L (22-30); CHLORIDE 107 mmol/L (98-107); GLUCOSE 282 mg/dL (75-110); POTASSIUM 3.8 mmol/L (3.6-5.0); SODIUM 141.7 mmol/L (137-145); TOTAL PROTEIN 5.9 g/dL (6.3-8.2)
--- NOTE | 2017-12-12 21:24 | ER Document Report ---
ED General - General Chief Complaint: Diarrhea Stated Complaint: DIARRHEA Time Seen by Provider: 12/12/17 16:19 Mode of Arrival: Ambulatory Information source: Patient Notes: This is a 52-year-old female with a history of insulin requiring diabetes who presents to the emergency room with a persistently elevated blood pressure over the last week. Patient also states her sugars have been a little erratic. Patient denies any fever, chills, chest pain, shortness of breath, cough, abdominal pain. She reports having diarrhea which is watery and without blood. She denies any recent medicines or antibiotics. TRAVEL OUTSIDE OF THE [place] IN LAST 30 DAYS: No - HPI Onset: Last week Onset/Duration: Gradual Quality of pain: No pain Severity: None Pain Level: Denies Associated symptoms: Diarrhea. denies: Chest pain, Fever, Shortness of breath Exacerbated by: Denies Relieved by: Denies Similar symptoms previously: Yes Recently seen / treated by doctor: Yes - Related Data Allergies/Adverse Reactions: erythromycin base [Erythromycin Base] Allergy (Severe, Verified 12/12/17 15:20) Anaphylaxis fexofenadine HCl [From Shae] Allergy (Severe, Verified 12/12/17 15:20) Confusion levetiracetam [From Keppra] Allergy (Severe, Verified 12/12/17 15:20) passes out, loses time Penicillins Allergy (Severe, Verified 12/12/17 15:20) Anaphylaxis vancomycin [Vancomycin] Allergy (Severe, Verified 12/12/17 15:20) Blood pressure bottomed out Past Medical History - General Information source: Patient - Social History Smoking Status: Current Every Day Smoker Cigarette use (# per day): Yes - 1 pack/day Chew tobacco use (# tins/day): No Frequency of alcohol use: None Drug Abuse: None Lives with: Family Family History: Malignancy Patient has suicidal ideation: No Patient has homicidal ideation: No - Past Medical History Cardiac Medical History: Reports: Hx Coronary Artery Disease - 2 blockages/ stents, Hx DVT - States her anticoagulant was stopped by her physician., Hx Hypercholesterolemia, Hx Hypertension, Hx Pulmonary Embolism, Hx Heart Murmur Pulmonary Medical History: Reports: Hx Bronchitis - Not since she quit smoking, Hx COPD, Hx Pneumonia Neurological Medical History: Reports: Hx Cerebrovascular Accident - 5 yrs ago, Hx Seizures - History of same; states she is not supposed to be on antiepileptics. Endocrine Medical History: Reports: Hx Diabetes Mellitus Type 1 - Insulin pump, Hx Hypothyroidism. Denies: Hx Hyperthyroidism Renal/ Medical History: Denies: Hx End Stage Renal Disease, Hx Peritoneal Dialysis GI Medical History: Reports: Hx Cirrhosis, Hx Gastroesophageal Reflux Disease, Hx Ulcer. Denies: Hx Crohn's Disease, Hx Diverticulitis, Hx Hepatitis, Hx Ulcerative Colitis Musculoskeletal Medical History: Reports Hx Arthritis, Denies Hx Gout Skin Medical History: Denies Hx Eczema, Denies Hx Psoriasis Psychiatric Medical History: Reports: Hx Depression Traumatic Medical History: Denies: Hx Gunshot Wound, Hx Pneumothorax, Hx Traumatic Brain Injury Infectious Medical History: Denies: Hx Hepatitis Past Surgical History: Reports: Hx Appendectomy, Hx Hysterectomy, Hx Orthopedic Surgery - Neck fusion, wrist surgery, knee surgery, Hx Tubal Ligation, Other - Left chest Port-A-Cath - Immunizations Hx Diphtheria, Pertussis, Tetanus Vaccination: Yes Hx Pneumococcal Vaccination: 11/09/11 Review of Systems - Review of Systems Constitutional: denies: Chills, Fever EENT: No symptoms reported Cardiovascular: denies: Chest pain, Palpitations, Heart racing, Orthopnea, Syncope Respiratory: denies: Cough, Hemoptysis, Short of breath Gastrointestinal: See HPI. denies: Abdominal pain, Vomiting Genitourinary: No symptoms reported Female Genitourinary: No symptoms reported Musculoskeletal: No symptoms reported Skin: No symptoms reported Hematologic/Lymphatic: No symptoms reported Neurological/Psychological: No symptoms reported Physical Exam - Vital signs Vitals: Temp Pulse Resp BP Pulse Ox 98.2 F 100 18 161/102 H 99 12/12/17 15:33 12/12/17 15:33 12/12/17 15:33 12/12/17 15:33 12/12/17 15:33 Notes: Physical exam: GENERAL: 52-year-old female who is alert and oriented x3, no acute distress HEAD: Atraumatic, normocephalic. EYES: Pupils equal round and reactive to light, extraocular movements intact, sclera anicteric, conjunctiva are normal. ENT: TMs normal, nares patent, oropharynx clear without exudates. Moist mucous membranes. NECK: Normal range of motion, supple without obvious mass or JVD. LUNGS: Breath sounds clear to auscultation bilaterally and equal. No wheezes rales or rhonchi. HEART: Regular rate and rhythm without murmurs, rubs or gallops. ABDOMEN: Soft, normoactive bowel sounds. No tenderness to palpation. No guarding, no rebound. No masses appreciated. EXTREMITIES: Normal range of motion, no pitting or edema. No clubbing or cyanosis. NEUROLOGICAL: Cranial nerves II through XII grossly intact. Normal speech, moving all extremities. PSYCH: Normal mood, normal affect. SKIN: Warm, Dry, normal turgor, no rashes or lesions noted. Course - Re-evaluation Re-evalutation: 12/12/17 23:26 Since blood pressure is persistently elevated. I had a long conversation with her and she is been on Norvasc in the past and will going to restart it. 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 Patient does not have any evidence of infection at this time. Her lungs are clear, her abdomen is nontender, her skin is clear , her urine is clear. The stool samples showed no evidence of C. difficile or white cells. She will follow-up with her primary care doctor - Vital Signs Vital signs: Temp Pulse Resp BP Pulse Ox 97.7 F 85 18 177/99 H 98 12/12/17 22:06 12/12/17 22:06 12/12/17 22:06 12/12/17 22:06 12/12/17 22:06 - Laboratory Result Diagrams: 12/12/17 17:28 12/12/17 17:28 Laboratory results interpreted by me: 12/12/17 12/12/17 12/12/17 17:28 17:28 17:28 RDW 15.3 H Plt Count 97 L BUN 26 H Est GFR (Non-Af Amer) 56 L Glucose 282 H Hemoglobin A1c % 6.8 H Total Protein 5.9 L Urine Glucose (UA) 12/12/17 17:51 RDW Plt Count BUN Est GFR (Non-Af Amer) Glucose Hemoglobin A1c % Total Protein Urine Glucose (UA) >=500 H Discharge - Discharge Clinical Impression: Hypertension, Diarrhea Condition: Stable Disposition: HOME, SELF-CARE Additional Instructions: As we discussed, your stool samples did not show any C. difficile or any obvious infection. Your labs were acceptable today. Your blood pressure is still too high. I want you to start this new medicine today. I do want you to follow-up with Dr. Zuñiga when he is back in town. I want you to bring a copy of today's lab work with you when you see him. In the meantime, return to the emergency room for any concerns that your blood pressure is getting worse, your sugars are getting worse over the diarrhea is getting worse. Prescriptions: Amlodipine Besylate [Norvasc 10 mg Tablet] 10 mg PO DAILY #30 tablet Referrals: CONCEPCION GONCALVES MD [Primary Care Provider] - Follow up as needed
[2017-12-12 22:08] VITALS: BP 177/99
== END 2017-12-12 22:08 | disposition home or self-care (01) ==
LOC: ER 15:17
DX: I10 Essential (primary) hypertension (principal); R19.7 Diarrhea, unspecified; I25.10 Atherosclerotic heart disease of native coronary artery without angina pectoris; E10.9 Type 1 diabetes mellitus without complications; Z96.41 Presence of insulin pump (external) (internal); J44.9 Chronic obstructive pulmonary disease, unspecified; F17.210 Nicotine dependence, cigarettes, uncomplicated; Z88.8 Allergy status to other drugs, medicaments and biological substances; Z87.892 Personal history of anaphylaxis; Z88.1 Allergy status to other antibiotic agents; Z88.0 Allergy status to penicillin; Z95.5 Presence of coronary angioplasty implant and graft
CPT/HCPCS: 36415; 36591; 80053; 81001; 82962; 83036; 85025; 87045; 87205; 87493; 89055; 99284

== ENCOUNTER 2018-04-17 13:27 | Emergency (ER) | payer MEDICAID ==
[2018-04-17 14:09] VITALS: BP 148/88
== END 2018-04-17 18:17 | disposition left against medical advice (07) ==
LOC: ER 13:27
DX: Z53.21 Procedure and treatment not carried out due to patient leaving prior to being seen by health care provider (principal)

== ENCOUNTER → 2018-06-02 | Outpatient (CLI) | payer MEDICAID ==
[2018-06-02 14:16] LABS: ABSOLUTE BASOPHILS # (AUTO) 0.1 10^3/uL (0.0-0.2); ABSOLUTE LYMPHOCYTES (AUTO) 1.7 10^3/uL (0.5-4.7); ABSOLUTE MONOCYTES (AUTO) 0.6 10^3/uL (0.1-1.4); ABSOLUTE NEUT (AUTO) 7.8 10^3/uL (1.7-8.2); BASOPHILS % (AUTO) 0.5 % (0-2); EOSINOPHILS % (AUTO) 0.1 % (0-6); HEMOGLOBIN 15.7 g/dL (12.0-15.5); LYMPHOCYTES % (AUTO) 16.8 % (13-45); MEAN CORPUSCULAR HEMOGLOBIN 35.6 pg (27.0-33.4); MEAN CORPUSCULAR HGB CONC 35.8 g/dL (32.0-36.0); MEAN CORPUSCULAR VOLUME 99 fl (80-97); PLATELET COUNT 125 10^3/uL (150-450); RED BLOOD COUNT 4.43 10^6/uL (3.72-5.28); SEGMENTED NEUTROPHILS % (AUTO) 76.6 % (42-78); TOTAL CELLS COUNTED % (AUTO) 100 %; WHITE BLOOD COUNT 10.2 10^3/uL (4.0-10.5)
[2018-06-02 14:34] LABS: ALANINE AMINOTRANSFERASE 27 U/L (9-52); ALBUMIN 4.2 g/dL (3.5-5.0); ALKALINE PHOSPHATASE 87 U/L (38-126); ANION GAP 12 (5-19); ASPARTATE AMINO TRANSFERASE 26 U/L (14-36); BILIRUBIN,DIRECT 0.3 mg/dL (0.0-0.4); BILIRUBIN,TOTAL 0.8 mg/dL (0.2-1.3); BLOOD UREA NITROGEN 18 mg/dL (7-20); CALCIUM 9.9 mg/dL (8.4-10.2); CARBON DIOXIDE 19 mmol/L (22-30); CHLORIDE 104 mmol/L (98-107); GLUCOSE 289 mg/dL (75-110); POTASSIUM 3.4 mmol/L (3.6-5.0); SODIUM 135.4 mmol/L (137-145); TOTAL PROTEIN 6.4 g/dL (6.3-8.2)
== END ==
LOC: OD 13:32
PROVIDERS: ATTEND Obstetrics & Gynecology
DX: R19.7 Diarrhea, unspecified (principal); R63.4 Abnormal weight loss; E10.9 Type 1 diabetes mellitus without complications; Z79.899 Other long term (current) drug therapy
CPT/HCPCS: 36415; 80053; 83036; 85025

== ENCOUNTER 2018-06-16 13:26 | Emergency (ER) | payer MEDICAID ==
--- NOTE | 2018-06-16 14:08 | ER Document Report ---
Addendum entered and electronically signed by ETHAN JIMENEZ NP 06/16/18 14:19: Course - Re-evaluation Re-evalutation: 06/16/18 14:19 Accu-Chek 256 patient has own insulin pump and is reprogramming the pump. - Vital Signs Vital signs: Temp Pulse Resp BP Pulse Ox 98.9 F 102 H 16 115/77 96 06/16/18 13:37 06/16/18 13:37 06/16/18 13:37 06/16/18 13:37 06/16/18 13:37 Original Note: ED Medical Screen (RME) - General Chief Complaint: Diarrhea Stated Complaint: DIARRHEA Time Seen by Provider: 06/16/18 13:56 Primary Care Provider: CONCEPCION GONCALVES MD [Primary Care Provider] - Follow up as needed Mode of Arrival: Medic Notes: Patient presents emergency department with complaints of chronic diarrhea for the month and half. Patient reports she is lost 35 pounds. Patient is a diabetic. She complains of abdominal pain tender to palpation. Reports she has been evaluated by Dr. Goncalves but has not received her results. No other complaints such as fever or vomiting. Patient reports she is able to eat and drink without problems I have greeted and performed a rapid initial assessment of this patient. A comprehensive ED assessment and evaluation of the patient, analysis of test results and completion of the medical decision making process will be conducted by additional ED providers. TRAVEL OUTSIDE OF THE [place] IN LAST 30 DAYS: No - Related Data Allergies/Adverse Reactions: erythromycin base [Erythromycin Base] Allergy (Severe, Verified 06/16/18 13:28) Anaphylaxis fexofenadine HCl [From Shae] Allergy (Severe, Verified 06/16/18 13:28) Confusion levetiracetam [From Keppra] Allergy (Severe, Verified 06/16/18 13:28) passes out, loses time Penicillins Allergy (Severe, Verified 06/16/18 13:28) Anaphylaxis vancomycin [Vancomycin] Allergy (Severe, Verified 06/16/18 13:28) Blood pressure bottomed out Past Medical History - Social History Chew tobacco use (# tins/day): No Frequency of alcohol use: None Drug Abuse: None - Past Medical History Cardiac Medical History: Reports: Hx Coronary Artery Disease - 2 blockages/stents, Hx DVT - States her anticoagulant was stopped by her physician., Hx Hypercholesterolemia, Hx Hypertension, Hx Pulmonary Embolism, Hx Heart Murmur Pulmonary Medical History: Reports: Hx Bronchitis - Not since she quit smoking, Hx COPD, Hx Pneumonia Neurological Medical History: Reports: Hx Cerebrovascular Accident - 5 yrs ago, Hx Seizures - History of same; states she is not supposed to be on antiepileptics. Endocrine Medical History: Reports: Hx Diabetes Mellitus Type 1 - Insulin pump, Hx Hypothyroidism. Denies: Hx Hyperthyroidism Renal/ Medical History: Denies: Hx End Stage Renal Disease, Hx Peritoneal Dialysis GI Medical History: Reports: Hx Cirrhosis, Hx Gastroesophageal Reflux Disease, Hx Ulcer. Denies: Hx Crohn's Disease, Hx Diverticulitis, Hx Hepatitis, Hx Ulcerative Colitis Musculoskeltal Medical History: Reports Hx Arthritis, Denies Hx Gout Skin Medical History: Denies Hx Eczema, Denies Hx Psoriasis Psychiatric Medical History: Reports: Hx Depression Traumatic Medical History: Denies: Hx Gunshot Wound, Hx Pneumothorax, Hx Traumatic Brain Injury Infectious Medical History: Denies: Hx Hepatitis Past Surgical History: Reports: Hx Appendectomy, Hx Hysterectomy, Hx Orthopedic Surgery - Neck fusion, wrist surgery, knee surgery, Hx Tubal Ligation, Other - Left chest Port-A-Cath - Immunizations Hx Diphtheria, Pertussis, Tetanus Vaccination: Yes History of Influenza Vaccine for 12/2016 - 05/2017 Season: Yes Influenza Administration Date for 12/2016 - 05/2017 Season: 12/08/16 Physical Exam - Vital signs Vitals: Temp Pulse Resp BP Pulse Ox 98.9 F 102 H 16 115/77 96 06/16/18 13:37 06/16/18 13:37 06/16/18 13:37 06/16/18 13:37 06/16/18 13:37 Course - Vital Signs Vital signs: Temp Pulse Resp BP Pulse Ox 98.9 F 102 H 16 115/77 96 06/16/18 13:37 06/16/18 13:37 06/16/18 13:37 06/16/18 13:37 06/16/18 13:37 Doctor's Discharge - Discharge Referrals: CONCEPCION GONCALVES MD [Primary Care Provider] - Follow up as needed
[2018-06-16 14:40] LABS: ABSOLUTE BASOPHILS # (AUTO) 0.1 10^3/uL (0.0-0.2); ABSOLUTE LYMPHOCYTES (AUTO) 1.8 10^3/uL (0.5-4.7); ABSOLUTE MONOCYTES (AUTO) 0.8 10^3/uL (0.1-1.4); ABSOLUTE NEUT (AUTO) 8.4 10^3/uL (1.7-8.2); BASOPHILS % (AUTO) 0.9 % (0-2); EOSINOPHILS % (AUTO) 0.1 % (0-6); HEMATOCRIT 49.9 % (36.0-47.0); HEMOGLOBIN 17.4 g/dL (12.0-15.5); LYMPHOCYTES % (AUTO) 15.9 % (13-45); MEAN CORPUSCULAR HEMOGLOBIN 34.9 pg (27.0-33.4); MEAN CORPUSCULAR HGB CONC 34.8 g/dL (32.0-36.0); MEAN CORPUSCULAR VOLUME 100 fl (80-97); PLATELET COUNT 212 10^3/uL (150-450); RED BLOOD COUNT 4.97 10^6/uL (3.72-5.28); RED CELL DISTRIBUTION WIDTH 12.8 % (11.5-14.0); SEGMENTED NEUTROPHILS % (AUTO) 76.1 % (42-78); TOTAL CELLS COUNTED % (AUTO) 100 %
[2018-06-16 14:50] LABS: APPEARANCE,URINE CLOUDY; BILIRUBIN,URINE NEGATIVE (NEGATIVE); CALCIUM OXALATE CRYSTALS,URINE FEW /HPF; COLOR,URINE AMBER; GLUCOSE, URINE >=500 mg/dL (NEGATIVE); KETONES,URINE TRACE mg/dL (NEGATIVE); LEUKOCYTE ESTERASE,URINE MODERATE (NEGATIVE); NITRITE,URINE NEGATIVE (NEGATIVE); PROTEIN,URINE 100 mg/dL (NEGATIVE); URINE SPECIFIC GRAVITY 1.024
[2018-06-16 15:08] LABS: ALANINE AMINOTRANSFERASE 15 U/L (9-52); ALBUMIN 4.8 g/dL (3.5-5.0); ALKALINE PHOSPHATASE 97 U/L (38-126); ANION GAP 12 (5-19); ASPARTATE AMINO TRANSFERASE 18 U/L (14-36); BILIRUBIN,DIRECT 0.3 mg/dL (0.0-0.4); BILIRUBIN,TOTAL 0.8 mg/dL (0.2-1.3); BLOOD UREA NITROGEN 28 mg/dL (7-20); CALCIUM 10.7 mg/dL (8.4-10.2); CARBON DIOXIDE 24 mmol/L (22-30); CHLORIDE 104 mmol/L (98-107); GLUCOSE 264 mg/dL (75-110); POTASSIUM 3.6 mmol/L (3.6-5.0); TOTAL PROTEIN 7.5 g/dL (6.3-8.2)
--- NOTE | 2018-06-16 16:40 | ER Document Report ---
ED General - General Chief Complaint: Diarrhea Stated Complaint: DIARRHEA Time Seen by Provider: 06/16/18 13:56 Primary Care Provider: CONCEPCION GONCALVES MD [Primary Care Provider] - Follow up as needed LUISA CASTAÑEDA MD [ACTIVE STAFF] - Follow up as needed Mode of Arrival: Medic Notes: 53-year-old female with type 1 diabetes on an insulin pump, hypertension, hyperlipidemia, CAD, presents to the emergency department for diarrhea times 1.5 months. She states that she has 4-5 episodes every morning. She also states she has a 35 pound weight loss since that time. She denies any blood in her st ool. She has periodic vomiting and occasional nausea. Denies any blood in vomit. She states she does have occasional night sweats. Denies shortness of breath or chest pain. Complains of abdominal pain. Denies headache, dysphagia, recent illness, dizziness or lightheadedness, flank pain, urinary symptoms. TRAVEL OUTSIDE OF THE [place] IN LAST 30 DAYS: No - Related Data Allergies/Adverse Reactions: erythromycin base [Erythromycin Base] Allergy (Severe, Verified 06/16/18 13:28) Anaphylaxis fexofenadine HCl [From Shae] Allergy (Severe, Verified 06/16/18 13:28) Confusion levetiracetam [From Keppra] Allergy (Severe, Verified 06/16/18 13:28) passes out, loses time Penicillins Allergy (Severe, Verified 06/16/18 13:28) Anaphylaxis vancomycin [Vancomycin] Allergy (Severe, Verified 06/16/18 13:28) Blood pressure bottomed out Past Medical History - Social History Smoking Status: Current Every Day Smoker Chew tobacco use (# tins/day): No Frequency of alcohol use: None Drug Abuse: None Family History: Malignancy Patient has suicidal ideation: No Patient has homicidal ideation: No - Past Medical History Cardiac Medical History: Reports: Hx Coronary Artery Disease - 2 blockages/stents, Hx DVT - States her anticoagulant was stopped by her physician., Hx Hypercholesterolemia, Hx Hypertension, Hx Pulmonary Embolism, Hx Heart Murmur Pulmonary Medical History: Reports: Hx Bronchitis - Not since she quit smoking, Hx COPD, Hx Pneumonia Neurological Medical History: Reports: Hx Cerebrovascular Accident - 5 yrs ago, Hx Seizures - History of same; states she is not supposed to be on antiepileptics. Endocrine Medical History: Reports: Hx Diabetes Mellitus Type 1 - Insulin pump, Hx Hypothyroidism. Denies: Hx Hyperthyroidism Renal/ Medical History: Denies: Hx End Stage Renal Disease, Hx Peritoneal Dialysis GI Medical History: Reports: Hx Cirrhosis, Hx Gastroesophageal Reflux Disease, Hx Ulcer. Denies: Hx Crohn's Disease, Hx Diverticulitis, Hx Hepatitis, Hx Ulcerative Colitis Musculoskeletal Medical History: Reports Hx Arthritis, Denies Hx Gout Skin Medical History: Denies Hx Eczema, Denies Hx Psoriasis Psychiatric Medical History: Reports: Hx Depression Traumatic Medical History: Denies: Hx Gunshot Wound, Hx Pneumothorax, Hx Traumatic Brain Injury Infectious Medical History: Denies: Hx Hepatitis Past Surgical History: Reports: Hx Appendectomy, Hx Hysterectomy, Hx Orthopedic Surgery - Neck fusion, wrist surgery, knee surgery, Hx Tubal Ligation, Other - Left chest Port-A-Cath - Immunizations Hx Diphtheria, Pertussis, Tetanus Vaccination: Yes Hx Pneumococcal Vaccination: 11/09/11 Review of Systems - Review of Systems Constitutional: See HPI EENT: No symptoms reported Cardiovascular: See HPI Respiratory: See HPI Gastrointestinal: See HPI Genitourinary: See HPI Female Genitourinary: No symptoms reported Musculoskeletal: No symptoms reported Skin: No symptoms reported Hematologic/Lymphatic: No symptoms reported Neurological/Psychological: No symptoms reported Physical Exam - Vital signs Vitals: Temp Pulse Resp BP Pulse Ox 98.9 F 102 H 16 115/77 96 06/16/18 13:37 06/16/18 13:37 06/16/18 13:37 06/16/18 13:37 06/16/18 13:37 - Notes Notes: PHYSICAL EXAMINATION: Reviewed vital signs and charting by RN GENERAL: Alert, interacts well. No acute distress. HEAD: Normocephalic, atraumatic. EYES: Pupils equal and round. Extraocular movements intact. ENT: Oral mucosa dry, poor dentition NECK: Full range of motion. Supple. Trachea midline. LUNGS: End expiratory wheezes upper lobes, no rales or rhonchi. No respiratory distress. HEART: Regular rate and rhythm. No murmur ABDOMEN: soft, generalized tenderness. Non-distended. Bowel sounds present. no McBurney's point tenderness, no Noel sign. EXTREMITIES: Moves all 4 extremities spontaneously. No edema, No cyanosis. Normal distal neurovascular exam BACK: No CVAT NEUROLOGIC: Oriented and appropriate. PSYCH: Normal affect, normal mood. SKIN: Warm, dry, normal turgor. No rashes or lesions noted. Course - Re-evaluation Re-evalutation: 06/16/18 17:13 Overall well-appearing. Unclear why she is diarrhea and weight loss but I told her she needs to complete a workup with her primary care physician. She does have a significant creatinine bump from 2 weeks ago. Giving her 2L of IV fluids. Patient states she is unable to provide a stool sample at this time. 06/16/18 17:35 Discussed with . Will add lipase. 06/16/18 20:18 Lipase came back at 333. No concern for pancreatitis. Patient adequately hydrated and tolerating p.o. intake. Safe and stable to discharge home. - Vital Signs Vital signs: Temp Pulse Resp BP Pulse Ox 97.8 F 80 16 114/69 99 06/16/18 16:36 06/16/18 16:36 06/16/18 13:37 06/16/18 16:36 06/16/18 16:36 - Laboratory Result Diagrams: 06/16/18 14:21 06/16/18 14:21 Laboratory results interpreted by me: 06/16/18 06/16/18 06/16/18 14:17 14:21 14:21 WBC 11.0 H Hgb 17.4 H Hct 49.9 H MCV 100 H MCH 34.9 H Absolute Neutrophils 8.4 H BUN 28 H Creatinine 1.52 H Est GFR ( Amer) 43 L Est GFR (Non-Af Amer) 36 L Glucose 264 H POC Glucose 257 H Calcium 10.7 H Lipase Urine Protein Urine Glucose (UA) Urine Ketones Urine Urobilinogen Ur Leukocyte Esterase 06/16/18 06/16/18 14:21 14:21 WBC Hgb Hct MCV MCH Absolute Neutrophils BUN Creatinine Est GFR ( Amer) Est GFR (Non-Af Amer) Glucose POC Glucose Calcium Lipase 332.2 H Urine Protein 100 H Urine Glucose (UA) >=500 H Urine Ketones TRACE H Urine Urobilinogen 4.0 H Ur Leukocyte Esterase MODERATE H Discharge - Discharge Clinical Impression: Hyperglycemia, Dehydration Diarrhea Qualifiers: Diarrhea type: unspecified type Qualified Code(s): R19.7 - Diarrhea, unspecified Condition: Good Disposition: HOME, SELF-CARE Instructions: Diarrhea, Nonspecific ([facility]) Additional Instructions: You are seen in the emergency department this afternoon for diarrhea for over a month. You are unable to provide a stool sample so we cannot really assess the stool. You are also dehydrated so we gave you IV fluids. Also gave you a prescription for an antidiarrheal medication called Lomotil. Please take it as directed. If you start developing bloody diarrhea, intractable nausea and vomiting, severe weakness, you pass out, high fevers with the diarrhea, please return to the emergency department for reevaluation. Referrals: CONCEPCION GONCALVES MD [Primary Care Provider] - Follow up as needed LUISA CASTAÑEDA MD [ACTIVE STAFF] - Follow up as needed
[2018-06-16] MEDS ORDERED: CEPHALEXIN 500 MG CAPSULE PO ONE (17:06)
[2018-06-16] MEDS ORDERED: NORMAL SALINE 1000 ML 1,000 ML IV ONE ×2 (17:08→18:59)
[2018-06-16 21:26] VITALS: BP 122/76
== END 2018-06-16 21:30 | disposition home or self-care (01) ==
LOC: ER 13:26
DX: E10.65 Type 1 diabetes mellitus with hyperglycemia (principal); R19.7 Diarrhea, unspecified; E86.0 Dehydration; F17.200 Nicotine dependence, unspecified, uncomplicated; E78.00 Pure hypercholesterolemia, unspecified; I10 Essential (primary) hypertension; Z79.4 Long term (current) use of insulin; Z88.3 Allergy status to other anti-infective agents; Z88.0 Allergy status to penicillin; Z86.718 Personal history of other venous thrombosis and embolism; Z86.73 Personal history of transient ischemic attack (TIA), and cerebral infarction without residual deficits; Z96.41 Presence of insulin pump (external) (internal); Z98.1 Arthrodesis status
CPT/HCPCS: 36591; 99284; 96360; 96361; 36415; 82962; 83690; 85025; 80053; 81001; J7030

== ENCOUNTER → 2018-07-02 | Outpatient (CLI) | payer MEDICAID ==
[2018-07-02 12:47] LABS: ABSOLUTE BASOPHILS # (AUTO) 0.1 10^3/uL (0.0-0.2); ABSOLUTE LYMPHOCYTES (AUTO) 1.1 10^3/uL (0.5-4.7); ABSOLUTE MONOCYTES (AUTO) 0.3 10^3/uL (0.1-1.4); ABSOLUTE NEUT (AUTO) 5.9 10^3/uL (1.7-8.2); BASOPHILS % (AUTO) 0.8 % (0-2); HEMATOCRIT 43.8 % (36.0-47.0); HEMOGLOBIN 14.9 g/dL (12.0-15.5); LYMPHOCYTES % (AUTO) 15.3 % (13-45); MEAN CORPUSCULAR HEMOGLOBIN 34.3 pg (27.0-33.4); MEAN CORPUSCULAR HGB CONC 34.1 g/dL (32.0-36.0); MEAN CORPUSCULAR VOLUME 101 fl (80-97); MONOCYTES % (AUTO) 4.7 % (3-13); PLATELET COUNT 128 10^3/uL (150-450); RED BLOOD COUNT 4.35 10^6/uL (3.72-5.28); SEGMENTED NEUTROPHILS % (AUTO) 79.2 % (42-78); TOTAL CELLS COUNTED % (AUTO) 100 %; WHITE BLOOD COUNT 7.4 10^3/uL (4.0-10.5)
[2018-07-02 13:19] LABS: ALANINE AMINOTRANSFERASE 22 U/L (9-52); ALBUMIN 4.3 g/dL (3.5-5.0); ALKALINE PHOSPHATASE 85 U/L (38-126); ANION GAP 10 (5-19); ASPARTATE AMINO TRANSFERASE 26 U/L (14-36); BILIRUBIN,DIRECT 0.4 mg/dL (0.0-0.4); BILIRUBIN,TOTAL 1.1 mg/dL (0.2-1.3); BLOOD UREA NITROGEN 24 mg/dL (7-20); CALCIUM 9.9 mg/dL (8.4-10.2); CARBON DIOXIDE 22 mmol/L (22-30); CHLORIDE 105 mmol/L (98-107); GLUCOSE 335 mg/dL (75-110); LIPASE 36.7 U/L (23-300); POTASSIUM 4.8 mmol/L (3.6-5.0); SODIUM 136.7 mmol/L (137-145); TOTAL PROTEIN 6.7 g/dL (6.3-8.2)
== END ==
LOC: OD 11:40
PROVIDERS: ATTEND Obstetrics & Gynecology
DX: E10.9 Type 1 diabetes mellitus without complications (principal); R10.9 Unspecified abdominal pain
CPT/HCPCS: 36415; 80053; 83690; 85025

== ENCOUNTER → 2018-07-21 | Outpatient (CLI) | payer MEDICAID ==
--- NOTE | 2018-07-21 13:01 | RADIOLOGY REPORT (SQ) ---
EXAM DESCRIPTION: C SP 6 OR MORE VIEWS COMPLETED DATE/TIME: 07/21/2018 12:03 pm REASON FOR STUDY: CERVICALGIA M54.5 LOW BACK PAIN M54.6 PAIN IN THORACIC SPINE M54.2 CERVICALGIA COMPARISON: None. NUMBER OF VIEWS: Seven views. TECHNIQUE: AP, lateral, obliques, flexion, extension, and odontoid radiographic images acquired of t he cervical spine. LIMITATIONS: None. FINDINGS: MINERALIZATION: Normal. ALIGNMENT: Anatomic. FLEXION/EXTENSION: No instability. VERTEBRAE: Mild anterior wedging of C5. This does not appear to be acute. DISCS: Disc narrowing at C5-6 and C6-7 FORAMINA: Narrowing of the neural foramina at C5-6 secondary to uncovertebral osteophytes. LATERAL AND POSTERIOR ELEMENTS: Facets, lateral masses, and spinous processes without significant fin dings. HARDWARE: None in the spine. SOFT TISSUES: No masses or calcifications. Lung apices clear. OTHER: No other significant finding. IMPRESSION: Mild degenerative disc changes and mild spondylosis. No instability on flexion/ extension. TECHNICAL DOCUMENTATION: JOB ID: [id number] [email or web address]- All Rights Reserved Reading location - IP/workstation name: [email or web address]
--- NOTE | 2018-07-21 13:03 | RADIOLOGY REPORT (SQ) ---
EXAM DESCRIPTION: T SPINE AP/LAT COMPLETED DATE/TIME: 07/21/2018 12:03 pm REASON FOR STUDY: PAIN IN THORACIC SPINE M54.5 LOW BACK PAIN M54.6 PAIN IN THORACIC SPINE M54.2 C ERVICALGIA COMPARISON: None. NUMBER OF VIEWS: Two views. TECHNIQUE: AP and lateral radiographic images acquired of the thoracic spine. LIMITATIONS: None. FINDINGS: MINERALIZATION: Normal. ALIGNMENT: Normal. No scoliosis. VERTEBRAE: No fracture or bone lesion. Maintained height, normal segmentation. DISCS: No significant loss of height or significant narrowing. No large osteophytes. HARDWARE: None in the spine. MEDIASTINUM AND SOFT TISSUES: Normal heart size and aortic contour. No soft tissue abnormality. VISUALIZED LUNG BRANHAM: Clear. OTHER: No other significant finding. IMPRESSION: NO SIGNIFICANT RADIOGRAPHIC FINDING IN THE THORACIC SPINE. TECHNICAL DOCUMENTATION: JOB ID: [id number] [employer]- All Rights Reserved Reading location - IP/workstation name: [email or web address]
--- NOTE | 2018-07-21 13:03 | RADIOLOGY REPORT (SQ) ---
EXAM DESCRIPTION: LUMBAR SPINE W/FLEX/EXT COMPLETED DATE/TIME: 07/21/2018 12:03 pm REASON FOR STUDY: LOW BACK PAIN M54.5 LOW BACK PAIN M54.6 PAIN IN THORACIC SPINE M54.2 CERVICALGI A COMPARISON: None. NUMBER OF VIEWS: 7 TECHNIQUE: AP, oblique, and sacral views were obtained. Lateral views were obtained in neutral, fle xion, and extension. LIMITATIONS: None. FINDINGS: MINERALIZATION: Normal. SEGMENTATION: Normal. No transitional anatomy. ALIGNMENT: Normal. FLEXION/EXTENSION: No instability. VERTEBRAE: Mild compression changes are present at L1 and L2. These are not appear to be acute. DISCS: Preserved height. No significant osteophytes or end plate irregularity. POSTERIOR ELEMENTS: Pedicles and facets are intact. No pars defect or posterior arch defects. HARDWARE: None in the spine. OTHER: No other significant finding. IMPRESSION: Mild compression changes. No instability on flexion/ extension. TECHNICAL DOCUMENTATION: JOB ID: [id number] [employer]- All Rights Reserved Reading location - IP/workstation name: [email or web address]
== END ==
LOC: OD 11:34
PROVIDERS: ATTEND Physician Assistant Medical
DX: M54.5 Low back pain (principal); M54.2 Cervicalgia; M54.6 Pain in thoracic spine
CPT/HCPCS: 72052; 72070; 72114

== ENCOUNTER 2018-07-24 08:06 | Day surgery (SDC) | payer MEDICAID ==
[~2018-07-24 08:06] MED LIST: PROPOFOL INJ 200 MG/20 ML VIAL IV ONE
[2018-07-24 09:58] VITALS: BP 112/80
--- NOTE | 2018-07-24 11:35 | Operative Report ---
Operative Report DATE OF SURGERY: 07/24/18 Operative Report: The risks, benefits and alternatives of the procedure including the risk of bleeding, perforation requiring surgery have been explained to the patient in detail and informed consent has been obtained. Patient is taken back to the endoscopy suite and placed in the left, lateral decubital position. Timeout was called. Propofol medication is administered. A rectal examination is done which did not reveal any masses, tears or fissures. An Olympus videoscope was introduced into the patient's rectum. The scope was then carefully advanced all the way to the cecum. The cecum is identified by the usual anatomical landmarks of the ileocecal valve as well as the appendiceal office. Photodocumentation is obtained. The scope was then sequentially pulled back via the various segments of the colon including the ascending colon, hepatic flexure, transverse colon, splenic flexure, descending colon and finally into the rectosigmoid portions of the colon. Retroflexion maneuvers performed. The risks benefits and alternatives of the procedure explained to the patient in detail and informed consent is obtained.A GIF Olympus video scope was inserted into the patient's mouth and hypopharynx, the esophagus is identified intubated and insufflated, the scope was then advanced through the esophagus stomach and duodenum, retroflexion maneuver is done, the esophagus stomach and first and second portions of the duodenum examined. PREOPERATIVE DIAGNOSIS: Epigastric pain. Change of bowel habits POSTOPERATIVE DIAGNOSIS: Mild inflammation noted on the right side of the colon status post biopsy. Internal hemorrhoids. Gastritis status post biopsy without Helicobacter pylori. Duodenitis OPERATION: Colonoscopy with biopsy. EGD with biopsy SURGEON: LUISA CASTAÑEDA ANESTHESIA: LMAC TISSUE REMOVED OR ALTERED: As noted above. COMPLICATIONS: None. ESTIMATED BLOOD LOSS: None. INTRAOPERATIVE FINDINGS: As noted above. PROCEDURE: Patient tolerated the procedure well. No immediate postprocedure comp occasions are noted. Patient discharged in good condition. Discharge date 07/24/2018. Discharge diet: Regular. Discharge activity: Regular. 2 to 3-week follow-up to discuss findings. Patient is instructed to call the office or proceed to the emergency room should there be any further problems or questions. Wait on the pathology.
== END 2018-07-24 10:01 | disposition home or self-care (01) ==
LOC: END 08:06
PROVIDERS: ATTEND Internal Medicine Gastroenterology
DX: K52.9 Noninfective gastroenteritis and colitis, unspecified (principal); K64.8 Other hemorrhoids; K29.50 Unspecified chronic gastritis without bleeding; K29.80 Duodenitis without bleeding; F17.210 Nicotine dependence, cigarettes, uncomplicated; Z79.899 Other long term (current) drug therapy; Z79.4 Long term (current) use of insulin; E07.9 Disorder of thyroid, unspecified; E11.9 Type 2 diabetes mellitus without complications; R01.1 Cardiac murmur, unspecified
CPT/HCPCS: 43239; 45380; 82962; 88342 ×2; 88305 ×2; J2704

== ENCOUNTER → 2018-08-10 | Outpatient (CLI) | payer MEDICAID | LOC: OD 08:44 | PROVIDERS: ATTEND Internal Medicine Gastroenterology | DX: R19.7 Diarrhea, unspecified (principal) | CPT/HCPCS: 36415; 85652; 86140 ==

== ENCOUNTER → 2018-09-11 | Outpatient (CLI) | payer MEDICAID ==
--- NOTE | 2018-09-11 11:09 | RADIOLOGY REPORT (SQ) ---
EXAM DESCRIPTION: U/S ABDOMEN LIMITED W/O DOP COMPLETED DATE/TIME: 09/11/2018 10:48 am REASON FOR STUDY: RUQ PAIN (R10.11), N/V (R11.2) R10.11 RIGHT UPPER QUADRANT PAIN R11.2 NAUSEA WIT H VOMITING, UNSPECIFIED COMPARISON: 08/26/2016 TECHNIQUE: Dynamic and static grayscale images acquired of the abdomen and recorded on PACS. Additio nal selected color Doppler and spectral images recorded. LIMITATIONS: None. FINDINGS: PANCREAS: No masses. Visualized pancreatic duct normal caliber. LIVER: No masses. Echotexture normal. LIVER VASCULATURE: Normal directional flow of the main portal vein and hepatic veins. GALLBLADDER: No stones. Normal wall thickness. No pericholecystic fluid. ULTRASOUND-DETECTED SAMPSON'S SIGN: Negative. INTRAHEPATIC DUCTS AND COMMON DUCT: CBD and intrahepatic ducts normal caliber. No filling defects. INFERIOR VENA CAVA: Normal flow. AORTA: No aneurysm. RIGHT KIDNEY: Small, 7.4 cm. Normal echogenicity. No solid or suspicious masses. No hydronephrosis. No calcifications. PERITONEAL AND RIGHT PLEURAL SPACE: No ascites or effusions. OTHER: No other significant findings. IMPRESSION: NORMAL RIGHT UPPER QUADRANT ULTRASOUND. TECHNICAL DOCUMENTATION: JOB ID: [id number] [employer]- All Rights Reserved Reading location - IP/workstation name: [email or web address]
--- NOTE | 2018-09-11 13:54 | RADIOLOGY REPORT (SQ) ---
EXAM DESCRIPTION: NM HIDA SCAN WITH CCK COMPLETED DATE/TIME: 09/11/2018 1:13 pm REASON FOR STUDY: RUQ PAIN (R10.11), N/V (R11.2) R10.11 RIGHT UPPER QUADRANT PAIN R11.2 NAUSEA WIT H VOMITING, UNSPECIFIED COMPARISON: None. RADIONUCLIDE AND DOSE: DOSAGE RADIONUCLIDE: 5.22 millicuries Tc99m Mebrofenin. DOSAGE CCK: 1.1 micrograms. DOSAGE MORPHINE: Not required. The route of agent administration: Intravenous TECHNIQUE: Serial imaging right upper quadrant up to 60 minutes following injection of radionuclide. CCK injected after gallbladder visualized. LIMITATIONS: None. FINDINGS: LIVER: Normal visualization without areas of photopenia. INTRAHEPATIC BILE DUCTS: Normal size and no delay in visualization. COMMON BILE DUCT: Normal without dilatation. GALLBLADDER: Normal visualization. Calculated ejection fraction of 88%. Normal range is greater th an 35%. PHYSICAL RESPONSE: Patients presenting complaint was reproduced. OTHER: No other significant finding. IMPRESSION: No evidence of CYSTIC OR COMMON DUCT OBSTRUCTION. NORMAL GALLBLADDER EJECTION FRACTION. Patients presenting complaint was reproduced. TECHNICAL DOCUMENTATION: JOB ID: [id number] [place]-72 2010 [email or web address]- All Rights Reserved Reading location - IP/workstation name: [email or web address]
== END ==
LOC: RAD 10:21
PROVIDERS: ATTEND Internal Medicine Gastroenterology
DX: R10.11 Right upper quadrant pain (principal); R11.2 Nausea with vomiting, unspecified
CPT/HCPCS: 76705; 78227; J2805; A9537; Q9969

== ENCOUNTER → 2019-01-04 | Outpatient (CLI) | payer MEDICAID ==
--- NOTE | 2019-01-04 12:21 | RADIOLOGY REPORT (SQ) ---
EXAM DESCRIPTION: NM GASTRIC EMPTYING STUDY COMPLETED DATE/TIME: 01/04/2019 10:53 am REASON FOR STUDY: (K31.89)OTHER DISEASES OF STOMACH AND DUODENUM K31.89 OTHER DISEASES OF STOMACH A ND DUODENUM COMPARISON: None. RADIONUCLIDE AND DOSE: 2 millicuries Tc-99m Sulfur Colloid. A wide variety of solid foods have been used. The route of agent administration: Oral. TECHNIQUE: 1 minute serial static imaging performed at time of meal, 1 hour, 2 hours, 3 hours, and 4 hours as needed. Once stomach reaches 90% emptying, the test is complete. Image intensity values pl otted with respect to time with linear regression algorithm. LIMITATIONS: None. FINDINGS: Patient was observed for 4 hours. Immediate post meal serves as baseline. Gastric emptying at 30 minutes was 23.9%. Gastric emptying at 60 minutes was 42.1% Gastric emptying at 90 minutes was 55.9%. Gastric emptying at 120 minutes was 66.5%. Gastric emptying at 240 minutes was 88.8%. Normal values: 60 minutes: 30-90% retained. If less than 30%, abnormally rapid emptying. If greater than 90%, delaye d gastric emptying. 120 minutes: <60% retained. If greater than 60%, delayed gastric emptying. 240 minutes: <10% retained. If greater than 10%, delayed gastric emptying. IMPRESSION: Delayed gastric emptying. TECHNICAL DOCUMENTATION: JOB ID: [id number] [employer]- All Rights Reserved rev-07/25 Reading location - IP/workstation name: [email or web address]
== END ==
LOC: RAD 07:51
PROVIDERS: ATTEND Internal Medicine Gastroenterology
DX: K31.89 Other diseases of stomach and duodenum (principal); R11.2 Nausea with vomiting, unspecified
CPT/HCPCS: 78264; A9541

== ENCOUNTER 2019-01-25 16:25 | Emergency (ER) | payer MEDICAID ==
--- NOTE | 2019-01-25 17:22 | RADIOLOGY REPORT (SQ) ---
EXAM DESCRIPTION: SHOULDER RIGHT 2 OR MORE VIEWS COMPLETED DATE/TIME: 01/25/2019 5:09 pm REASON FOR STUDY: fall COMPARISON: None. NUMBER OF VIEWS: Three views. TECHNIQUE: Internal rotation, external rotation, and Y view images acquired of the right shoulder. LIMITATIONS: None. FINDINGS: MINERALIZATION: Normal. BONES: Distal clavicle metaphyseal fracture with minimal inferior displacement. There is also a smal l avulsion fracture from the superior aspect of the base of the coracoid process of the scapula. JOINTS: No dislocation. VISUALIZED LUNGS AND RIBS: No pneumothorax. No rib fracture. SOFT TISSUES: No radiopaque foreign body. OTHER: No other significant finding. IMPRESSION: Distal clavicle metaphyseal fracture with minimal inferior displacement. There is also a small avulsion fracture from the superior aspect of the base of the coracoid process of the scapula . TECHNICAL DOCUMENTATION: JOB ID: [id number] 2010 [employer]- All Rights Reserved Reading location - IP/workstation name: [employer]
--- NOTE | 2019-01-25 17:35 | RADIOLOGY REPORT (SQ) ---
EXAM DESCRIPTION: CT HEAD WITHOUT COMPLETED DATE/TIME: 01/25/2019 5:20 pm REASON FOR STUDY: fell, hit head, CHAPMAN, neck pain, plavix COMPARISON: 05/24/2017 TECHNIQUE: Axial images acquired through the brain without intravenous contrast. Images reviewed wi th bone, brain and subdural windows. Additional sagittal and coronal reconstructions were generated. Images stored on PACS. All CT scanners at this facility use dose modulation, iterative reconstruction, and/or weight based d osing when appropriate to reduce radiation dose to as low as reasonably achievable (ALARA). [facility]: Dose Right [facility]: CareDose [facility]: Dose Right [facility]: Teradose 4D [facility]: Smart [employer] RADIATION DOSE: CT Rad equipment meets quality standard of care and radiation dose reduction techniq ues were employed. CTDIvol: 53.2 mGy. DLP: 1017 mGy-cm. mGy. LIMITATIONS: None. FINDINGS: VENTRICLES: Normal size and contour. CEREBRUM: No masses. No hemorrhage. No midline shift. No evidence for acute infarction. Normal gra y/white matter differentiation. No areas of low density in the white matter. CEREBELLUM: No masses. No hemorrhage. No alteration of density. No evidence for acute infarction. EXTRAAXIAL SPACES: No fluid collections. No masses. ORBITS AND GLOBE: No intra- or extraconal masses. Normal contour of globe without masses. CALVARIUM: No fracture. PARANASAL SINUSES: No fluid or mucosal thickening. SOFT TISSUES: No mass or hematoma. OTHER: No other significant finding. IMPRESSION: NORMAL BRAIN CT WITHOUT CONTRAST. EVIDENCE OF ACUTE STROKE: NO. COMMENT: Quality ID # [id number]: Final reports with documentation of one or more dose reduction techniques (e.g., Automated exposure control, adjustment of the mA and/or kV according to patient size, use of iterative reconstruction technique) TECHNICAL DOCUMENTATION: JOB ID: [id number] [employer]- All Rights Reserved Reading location - IP/workstation name: [email or web address]
--- NOTE | 2019-01-25 17:39 | RADIOLOGY REPORT (SQ) ---
EXAM DESCRIPTION: CT CERVICAL SPINE WITHOUT COMPLETED DATE/TIME: 01/25/2019 5:20 pm REASON FOR STUDY: fell, hit head, CHAPMAN, neck pain, plavix COMPARISON: None. TECHNIQUE: Axial images acquired through the cervical spine without intravenous contrast. Images re viewed with lung, soft tissue and bone windows. Reconstructed coronal and sagittal MPR images review ed. Images stored on PACS. All CT scanners at this facility use dose modulation, iterative reconstruction, and/or weight based d osing when appropriate to reduce radiation dose to as low as reasonably achievable (ALARA). [facility]: Dose Right [facility]: CareDose [facility]: Dose Right [facility]: Teradose 4D [facility]: [employer] RADIATION DOSE: CT Rad equipment meets quality standard of care and radiation dose reduction techniq ues were employed. CTDIvol: 11.8 mGy. DLP: 217 mGy-cm. mGy. LIMITATIONS: None. FINDINGS: ALIGNMENT: Anatomic. MINERALIZATION: Normal. 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 DISCS: No significant disc disease. FACETS, LATERAL MASSES, POSTERIOR ELEMENTS: No fractures. No dislocation. No acute findings. HARDWARE: None in the spine. VISUALIZED RIBS: No fractures. LUNG APICES AND SOFT TISSUES: No significant or acute findings. OTHER: No other significant finding. 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 TECHNICAL DOCUMENTATION: JOB ID: [id number] Quality ID # [id number]: Final reports with documentation of one or more dose reduction techniques (e.g., Au tomated exposure control, adjustment of the mA and/or kV according to patient size, use of iterative reconstruction technique) 2010 [employer]- All Rights Reserved Reading location - IP/workstation name: [email or web address]
--- NOTE | 2019-01-25 19:48 | ER Document Report ---
ED General - General Chief Complaint: Shoulder Injury Stated Complaint: SHOULDER INJURY Time Seen by Provider: 01/25/19 16:42 Primary Care Provider: CONRAD CAMPOS MD [Primary Care Provider] - Follow up as needed Notes: 53-year-old female who was walking her dog when her dog pulled her to the ground and she landed on her right hand side, complains of hitting her head and having some right shoulder pain. EMS put her in a sling in a cervical collar, gave her 50 mcg of fentanyl IM. Patient denies nausea, vomiting, loss of consciousness. Does admit to taking Plavix. Denies numbness, tingling, weakness. Does not want to move her right shoulder due to pain. TRAVEL OUTSIDE OF THE [place] IN LAST 30 DAYS: No - Related Data Allergies/Adverse Reactions: erythromycin base [Erythromycin Base] Allergy (Severe, Verified 07/24/18 08:24) Anaphylaxis fexofenadine HCl [From Shae] Allergy (Severe, Verified 07/24/18 08:24) Confusion levetiracetam [From Keppra] Allergy (Severe, Verified 07/24/18 08:24) passes out, loses time Penicillins Allergy (Severe, Verified 07/24/18 08:24) Anaphylaxis vancomycin [Vancomycin] Allergy (Severe, Verified 07/24/18 08:24) Blood pressure bottomed out Home Medications: humalog, triceba, plavix Past Medical History - General Information source: Patient - Social History Smoking Status: Current Every Day Smoker Chew tobacco use (# tins/day): No Frequency of alcohol use: None Drug Abuse: None Family History: Malignancy Patient has suicidal ideation: No Patient has homicidal ideation: No - Past Medical History Cardiac Medical History: Reports: Hx Coronary Artery Disease - 2 blockages/st ents, Hx DVT - States her anticoagulant was stopped by her physician., Hx Hypercholesterolemia, Hx Hypertension, Hx Pulmonary Embolism, Hx Heart Murmur Denies: Hx Heart Attack Pulmonary Medical History: Reports: Hx Bronchitis, Hx COPD, Hx Pneumonia Neurological Medical History: Reports: Hx Cerebrovascular Accident - 5 yrs ago, Hx Seizures - History of same; states she is not supposed to be on antiepileptics. Endocrine Medical History: Reports: Hx Diabetes Mellitus Type 1 - Insulin pump, Hx Hypothyroidism. Denies: Hx Hyperthyroidism Renal/ Medical History: Denies: Hx End Stage Renal Disease, Hx Peritoneal Dialysis GI Medical History: Reports: Hx Cirrhosis, Hx Gastroesophageal Reflux Disease, Hx Ulcer. Denies: Hx Crohn's Disease, Hx Diverticulitis, Hx Hepatitis, Hx Ulcerative Colitis Musculoskeletal Medical History: Reports Hx Arthritis, Denies Hx Gout Skin Medical History: Denies Hx Eczema, Denies Hx Psoriasis Psychiatric Medical History: Reports: Hx Depression Traumatic Medical History: Denies: Hx Gunshot Wound, Hx Pneumothorax, Hx Traumatic Brain Injury Infectious Medical History: Denies: Hx Hepatitis Past Surgical History: Reports: Hx Appendectomy, Hx Cardiac Surgery - avr, Hx Hysterectomy, Hx Orthopedic Surgery - Neck fusion, wrist surgery, knee surgery, Hx Tubal Ligation, Other - Left chest Port-A-Cath - Immunizations Hx Diphtheria, Pertussis, Tetanus Vaccination: Yes Hx Pneumococcal Vaccination: 11/09/11 Review of Systems - Review of Systems Constitutional: No symptoms reported EENT: No symptoms reported Musculoskeletal: See HPI -: Yes All other systems reviewed and negative Physical Exam - Vital signs Vitals: Temp Pulse Resp BP Pulse Ox 98.7 F 66 16 106/66 95 01/25/19 17:01 01/25/19 17:01 01/25/19 17:01 01/25/19 17:01 01/25/19 17:01 Interpretation: Normal - Notes Notes: GENERAL: Alert, interacts well. No acute distress. HEAD: Normocephalic, atraumatic EYES: Pupils equal, round and reactive to light, extraocular movements intact. ENT: Oral mucosa moist, tongue midline. NECK: Full range of motion, supple, trachea midline. No midline bony tenderness palpation however she does complain of some pain in her neck and that there is a prominent C5 or C6 spinous process. LUNGS: Clear to auscultation bilaterally, no wheezes, rales or rhonchi, no respiratory distress. HEART: Regular rate and rhythm, no murmurs, gallops, rubs. ABDOMEN: Soft, nontender, nondistended, bowel sounds present in all 4 quadrants. EXTREMITIES: Right upper extremity immobilized in a sling, right shoulder exquisitely tender palpation particularly over the distal clavicle, no gross deformity noted, there is minimal swelling, refuses to move shoulder due to pain, able to move elbow and wrist without difficulty, complains of minimal pain to the wrist on palpation, declines imaging study for the right wrist, sensation intact across the entire right upper extremity, radial and dorsalis pedis pulses 2/4 bilaterally. No cyanosis. NEUROLOGICAL: Alert and oriented x3, normal speech, no facial droop, biceps and patellar DTRs 2+ bilaterally. PSYCH: Normal mood, normal affect. SKIN: Warm, Dry, normal turgor, no rashes or lesions noted. Course - Re-evaluation Re-evalutation: 01/25/19 19:47 Shoulder X-Ray 01/25/19 16:48 IMPRESSION: Distal clavicle metaphyseal fracture with minimal inferior displacement. There is also a small avulsion fracture from the superior aspect of the base of the coracoid process of the scapula. 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 Head CT 01/25/19 16:58 IMPRESSION: NORMAL BRAIN CT WITHOUT CONTRAST. EVIDENCE OF ACUTE STROKE: NO. CT brain ordered due to her anticoagulants, this is negative for bleed, CT of the cervical spine ordered and the congenital fusion of C6-C7 is consistent with physical examination. Patient was placed in older immobilizer for the distal clavicular fracture. Discharged home. - Vital Signs Vital signs: Temp Pulse Resp BP Pulse Ox 98.7 F 66 16 106/66 95 01/25/19 17:01 01/25/19 17:01 01/25/19 17:01 01/25/19 17:01 01/25/19 17:01 Procedures - Immobilization Right Shoulder Pre-Proc Neuro Vasc Exam: Normal Immobilizer type: Shoulder immobilizer Performed by: RN, PCT Post-Proc Neuro Vasc Exam: Normal, Unchanged from pre-exam Alignment checked and good: Yes Discharge - Discharge Clinical Impression: Tobacco dependency Closed right clavicular fracture Qualifiers: Encounter type: initial encounter Clavicle location: lateral end Fracture alignment: displaced Qualified Code(s): S42.031A - Displaced fracture of lateral end of right clavicle, initial encounter for closed fracture Closed head injury Qualifiers: Encounter type: initial encounter Qualified Code(s): S09.90XA - Unspecified injury of head, initial encounter Condition: Stable Disposition: HOME, SELF-CARE Additional Instructions: Fractured Clavicle You have a broken collarbone (clavicle). This usually heals in three to six weeks, depending on the age of the patient and the severity of the fracture. Even badly crooked collarbone fractures are usually not "set" or operated on, just protected until healing is complete. Usual initial treatment is rest and ice packs. A clavicle strap is placed for most collarbone fractures, but some do better with only a sling. The physician will match the treatment to your fracture. If a clavicle strap was fitted, keep it in place. It may be removed for bathing or for washing the strap after the first week. You may adjust the tightness of the strap with the Velcro strips. It should not be so tight that the hands swell or go numb. No heavy lifting, work requiring the arms to be above the head, or school P.E. until healing is complete! Call the doctor or return at once if pain or swelling become severe, or if numbness develops in either arm. Head Injury Precautions At this point, there is no evidence that your head injury is serious. Observation is necessary, however. Take only clear liquids for the first few hours, unless told otherwise by the doctor. If no pain medication was prescribed, you may take acetaminophen according to the directions on the bottle. Do not take any medication that may alter your level of alertness (unless you've discussed it with the doctor first). Limit activity for the first 24 hours. Bed rest is best. During the first 24 hours, check to see approximately every two to three hours that the patient is easily arousable, responds normally, and can perform common tasks such as walking without difficulty. Contact your doctor or go to the hospital if any of the following things occur: Persistent vomiting, difficulty in arousing the patient, worsening or continued headache, or failure to improve as expected. Head injuries can cause symptoms that persist for a few days or even a few weeks. Referrals: CONRAD CAMPOS MD [Primary Care Provider] - Follow up as needed KWAN BOOKER MD [ACTIVE STAFF] - Follow up as needed
[2019-01-25] MEDS ORDERED: HYDROCODONE/ACETAMINOPHEN 5-325 MG (6 TAB/ER DISP) PO PRN (19:49)
[2019-01-25 20:00] VITALS: BP 110/68
== END 2019-01-25 20:00 | disposition home or self-care (01) ==
LOC: ER 16:25
DX: S42.031A Displaced fracture of lateral end of right clavicle, initial encounter for closed fracture (principal); S09.90XA Unspecified injury of head, initial encounter; X50.0XXA Overexertion from strenuous movement or load, initial encounter; Y93.K1 Activity, walking an animal; F17.200 Nicotine dependence, unspecified, uncomplicated; Z95.4 Presence of other heart-valve replacement; Z86.73 Personal history of transient ischemic attack (TIA), and cerebral infarction without residual deficits; E10.9 Type 1 diabetes mellitus without complications; Z79.4 Long term (current) use of insulin; Z96.41 Presence of insulin pump (external) (internal); Z90.710 Acquired absence of both cervix and uterus; Z88.3 Allergy status to other anti-infective agents; Z88.0 Allergy status to penicillin; Z86.718 Personal history of other venous thrombosis and embolism; Z79.01 Long term (current) use of anticoagulants
CPT/HCPCS: 73030; 70450; 72125; L3650; 99284

== ENCOUNTER → 2019-06-17 | Outpatient (CLI) | payer MEDICAID ==
[2019-06-17 13:05] LABS: ABSOLUTE BASOPHILS # (AUTO) 0.1 10^3/uL (0.0-0.2); ABSOLUTE EOSINOPHILS # (AUTO) 0.1 10^3/uL (0.0-0.6); ABSOLUTE LYMPHOCYTES (AUTO) 1.9 10^3/uL (0.5-4.7); ABSOLUTE MONOCYTES (AUTO) 0.6 10^3/uL (0.1-1.4); ABSOLUTE NEUT (AUTO) 7.2 10^3/uL (1.7-8.2); BASOPHILS % (AUTO) 0.9 % (0-2); EOSINOPHILS % (AUTO) 1.3 % (0-6); HEMATOCRIT 47.3 % (36.0-47.0); HEMOGLOBIN 16.6 g/dL (12.0-15.5); LYMPHOCYTES % (AUTO) 19.2 % (13-45); MEAN CORPUSCULAR HEMOGLOBIN 32.9 pg (27.0-33.4); MEAN CORPUSCULAR HGB CONC 35.1 g/dL (32.0-36.0); MEAN CORPUSCULAR VOLUME 94 fl (80-97); MONOCYTES % (AUTO) 5.7 % (3-13); PLATELET COUNT 198 10^3/uL (150-450); RED BLOOD COUNT 5.06 10^6/uL (3.72-5.28); RED CELL DISTRIBUTION WIDTH 13.3 % (11.5-14.0); SEGMENTED NEUTROPHILS % (AUTO) 72.9 % (42-78); TOTAL CELLS COUNTED % (AUTO) 100 %; WHITE BLOOD COUNT 9.8 10^3/uL (4.0-10.5)
[2019-06-17 13:21] LABS: ALBUMIN 4.9 g/dL (3.5-5.0); ALKALINE PHOSPHATASE 126 U/L (38-126); ANION GAP 12 (5-19); ASPARTATE AMINO TRANSFERASE 31 U/L (14-36); BILIRUBIN,TOTAL 0.5 mg/dL (0.2-1.3); BLOOD UREA NITROGEN 36 mg/dL (7-20); CALCIUM 10.6 mg/dL (8.4-10.2); CARBON DIOXIDE 23 mmol/L (22-30); CHLORIDE 101 mmol/L (98-107); CHOLESTEROL 259.53 mg/dL (0-200); GLUCOSE 246 mg/dL (75-110); POTASSIUM 4.7 mmol/L (3.6-5.0); TOTAL PROTEIN 7.8 g/dL (6.3-8.2); TRIGLYCERIDES 174 mg/dL (<150)
[2019-06-17 13:31] LABS: DIRECT LDL 102 mg/dL (<100)
[2019-06-17 13:33] LABS: VLDL CHOLESTEROL 34.8 mg/dL (10-31)
[2019-06-18 07:37] LABS: MICROALBUMIN URINE 12.5 ug/mL (Not Estab.)
== END ==
LOC: OD 12:07
PROVIDERS: ATTEND Family Medicine Geriatric Medicine
DX: I10 Essential (primary) hypertension (principal); E10.69 Type 1 diabetes mellitus with other specified complication; F17.200 Nicotine dependence, unspecified, uncomplicated; Z79.899 Other long term (current) drug therapy
CPT/HCPCS: 36415; 80053; 80061; 82043; 82570; 83036; 84443; 85025

== ENCOUNTER 2019-08-16 13:40 | Emergency (ER) | payer MEDICAID ==
--- NOTE | 2019-08-16 13:58 | ER Document Report ---
ED General - General Chief Complaint: S/S of Possible Stroke Stated Complaint: BLOOD PRESSURE ISSUE Time Seen by Provider: 08/16/19 13:47 Primary Care Provider: CONRAD DE LA ROSA MD [COMMUNITY BASED STAFF] - Follow up in 3-5 days Notes: 54-year-old lady with a history of possible stroke diabetes COPD presents with altered mental status. Was slurring speech and confused this morning per the son, unknown last well time per EMS but she reports having gone to bed last night feeling okay. She said she is had a stroke and it affects "both sides" in a way that "everything is weak." She is a very poor historian and possibly altered so I cannot determine what her old stroke manifested as. She does not know which hospital it happened that. EMS reported some hypotension, and began giving fluids. Lactic was 2. Blood sugar was 150. Patient is unable to give much more history. She does smoke and is clutching her cigarette pack in the emergency department. TRAVEL OUTSIDE OF THE [place] IN LAST 30 DAYS: No - Related Data Allergies/Adverse Reactions: erythromycin base [Erythromycin Base] Allergy (Severe, Verified 07/24/18 08:24) Anaphylaxis fexofenadine HCl [From Shae] Allergy (Severe, Verified 07/24/18 08:24) Confusion levetiracetam [From Keppra] Allergy (Severe, Verified 07/24/18 08:24) passes out, loses time Penicillins Allergy (Severe, Verified 07/24/18 08:24) Anaphylaxis vancomycin [Vancomycin] Allergy (Severe, Verified 07/24/18 08:24) Blood pressure bottomed out Home Medications: Meds at bedside Past Medical History - General Cannot obtain history due to: Altered mental status - Social History Smoking Status: Current Every Day Smoker Smoking Education Provided: Yes - The patient ED visit today was directly related to their abuse of tobacco. Family History: Malignancy Patient has homicidal ideation: No - Past Medical History Cardiac Medical History: Reports: Hx Coronary Artery Disease - 2 blockages/stents, Hx DVT - States her anticoagulant was stopped by her physician., Hx Hypercholesterolemia, Hx Hypertension, Hx Pulmonary Embolism, Hx Heart Murmur Denies: Hx Heart Attack Pulmonary Medical History: Reports: Hx Bronchitis, Hx COPD, Hx Pneumonia Neurological Medical History: Reports: Hx Cerebrovascular Accident - 5 yrs ago, Hx Seizures - History of same; states she is not supposed to be on antiepileptics. Endocrine Medical History: Reports: Hx Diabetes Mellitus Type 1 - Insulin pump, Hx Hypothyroidism. Denies: Hx Hyperthyroidism Renal/ Medical History: Denies: Hx End Stage Renal Disease, Hx Peritoneal Dialysis GI Medical History: Reports: Hx Cirrhosis, Hx Gastroesophageal Reflux Disease, Hx Ulcer. Denies: Hx Crohn's Disease, Hx Diverticulitis, Hx Hepatitis, Hx Ulcerative Colitis Musculoskeletal Medical History: Reports Hx Arthritis, Denies Hx Gout Skin Medical History: Denies Hx Eczema, Denies Hx Psoriasis Psychiatric Medical History: Reports: Hx Depression Traumatic Medical History: Denies: Hx Gunshot Wound, Hx Pneumothorax, Hx Traumatic Brain Injury Infectious Medical History: Denies: Hx Hepatitis Past Surgical History: Reports: Hx Appendectomy, Hx Cardiac Surgery - avr, Hx Hysterectomy, Hx Orthopedic Surgery - Neck fusion, wrist surgery, knee surgery, Hx Tubal Ligation, Other - Left chest Port-A-Cath - Immunizations Hx Diphtheria, Pertussis, Tetanus Vaccination: Yes Hx Pneumococcal Vaccination: 11/09/11 Review of Systems - Review of Systems Notes: REVIEW OF SYSTEMS Altered mental status PHYSICAL EXAMINATION General: Is older than stated age no acute distress Head: Atraumatic, normocephalic ENT: Mouth normal, oropharynx dry, edentulous no exudates or tonsillar enlargement Eyes: Conjunctiva normal, pupils equal, lids normal Neck: No JVD, supple, no guarding CVS: Normal rate, regular rhythm, no murmurs Resp: No resp distress, equal and normal breath sounds bilaterally GI: Nondistended, soft, no tenderness to palpation, no rebound or guarding Ext: No deformities, no edema, normal range of motion in upper and lower ext Back: No CVA or midline TTP Skin: No rash, warm Lymphatic: No lymphadeopathy noted Neuro: Awake and alert. Slurred speech but answers questions appropriately. Operates her insulin pump appropriately. Face is symmetric tongue is midline, cranial nerves II through XII otherwise normal other than mild dysarthria. Mild right arm droopunclear if this is acute or chronic Legs are symmetric. Physical Exam - Vital signs Vitals: Resp BP Pulse Ox 20 84/41 L 95 08/16/19 13:48 08/16/19 13:48 08/16/19 13:48 Course - Re-evaluation Re-evalutation: 08/16/19 13:57 Patient with stroke risk factors presents with altered mental status nonspecific slurred speechunclear if new or old, right-sided weakness which is unclear if new or old with unknown last well time Possibilities are numerous including new stroke bleed recrudescent old stroke sepsis hypotension or combination of the above No evidence for the need for acute stroke activation given that there is an unreliable last known well time unknown if she is on blood thinners and unknown if her symptoms are acute or chronic. We will continue to hydrate look for sources of hypotension quitting sepsis scan head and get labs and reassess. 08/16/19 16:10 CT negative lactate slightly elevated, perhaps mild OLGA. Decreased urine output in the EDgiven fluids Patient slurred speech is actually improving while in ED. I called her son and he says for months she has had issues with low blood pressure which makes her speech worse. Seems to be regressing her old stroke. He does state that she has mild unilateral weakness but is not sure what sideguessing right based on exam here Patient is adamant that she would like to go home is alert and oriented. We did turn off her insulin pump her sugar remained appropriately elevated She improved with her blood pressure with fluids. On reviewing her meds she is on both metoprolol and Midrin. I discussed with her and her son regarding sto pping metoprolol. They will have Dr. De La Rosa look at her meds and check her vitals but she is not wanting to stay for further can conversation or evaluation Stable for dischargeleft without instructions pulled out her own IV and went outside to smoke - Vital Signs Vital signs: Temp Pulse Resp BP Pulse Ox 98.6 F 63 17 100/43 L 97 08/16/19 13:53 08/16/19 13:53 08/16/19 15:31 08/16/19 15:31 08/16/19 15:31 - Laboratory Result Diagrams: 08/16/19 14:23 08/16/19 14:23 Laboratory results interpreted by me: 08/16/19 08/16/19 08/16/19 14:23 14:23 14:23 Plt Count 101 L Chloride 109 H Carbon Dioxide 20 L BUN 24 H Creatinine 1.29 H Est GFR ( Amer) 52 L Est GFR (MDRD) Non-Af 43 L Glucose 204 H Lactic Acid 2.8 H - Diagnostic Test Radiology reviewed: Image reviewed, Reports reviewed - EKG Interpretation by Me EKG shows normal: Sinus rhythm Rate: Normal Rhythm: NSR Critical Care Note - Critical Care Note Total time excluding time spent on procedures (mins): 35 Comments: The above patient is critically ill. Not including procedures, but including direct re-evaluations, speaking with patient and/or consultants, interpreting results, and documenting, I spent the total amount of minute listed listed above on critical care time Discharge - Discharge Clinical Impression: Hypotension Qualifiers: Hypotension type: unspecified hypotension type Qualified Code(s): I95.9 - Hypotension, unspecified Condition: Good Disposition: HOME, SELF-CARE Unit Admitted: ICU Instructions: Hypotension ([facility]) Referrals: CONRAD DE LA ROSA MD [COMMUNITY BASED STAFF] - Follow up in 3-5 days
--- NOTE | 2019-08-16 14:18 | RADIOLOGY REPORT (SQ) ---
EXAM DESCRIPTION: CT HEAD WITHOUT IMAGES COMPLETED DATE/TIME: 08/16/2019 2:07 pm REASON FOR STUDY: ams COMPARISON: CT of the head without contrast from 01/25/2019. TECHNIQUE: Axial images acquired through the brain without intravenous contrast. Images reviewed wi th bone, brain and subdural windows. Additional sagittal and coronal reconstructions were generated. Images stored on PACS. All CT scanners at this facility use dose modulation, iterative reconstruction, and/or weight based d osing when appropriate to reduce radiation dose to as low as reasonably achievable (ALARA). [facility]: Dose Right [facility]: CareDose [facility]: Dose Right [facility]: Teradose 4D [facility]: [employer] RADIATION DOSE: CT Rad equipment meets quality standard of care and radiation dose reduction techniq ues were employed. CTDIvol: 53.2 mGy. DLP: 1044 mGy-cm. LIMITATIONS: None. FINDINGS: There is no acute intracranial hemorrhage, vascular territorial infarct, extra-axial fluid collection, mass effect or midline shift. The falk-white matter differentiation is preserved. Ther e is no effacement of the cerebral sulci or basal subarachnoid cisterns. The caliber of the ventricl es is concordant with the degree of sulcation. The orbits and globes are intact. The paranasal sinuses are clear. There is no fracture of the calv arium. IMPRESSION: No acute intracranial abnormality. EVIDENCE OF ACUTE STROKE: NO. COMMENT: Quality ID # [id number]: Final reports with documentation of one or more dose reduction techniques (e.g., Automated exposure control, adjustment of the mA and/or kV according to patient size, use of iterative reconstruction technique) TECHNICAL DOCUMENTATION: JOB ID: [id number] 2010 [employer]- All Rights Reserved Reading location - IP/workstation name: [email or web address]
[2019-08-16 14:36] LABS: ABSOLUTE BASOPHILS # (AUTO) 0.1 10^3/uL (0.0-0.2); ABSOLUTE EOSINOPHILS # (AUTO) 0.2 10^3/uL (0.0-0.6); ABSOLUTE LYMPHOCYTES (AUTO) 1.6 10^3/uL (0.5-4.7); ABSOLUTE MONOCYTES (AUTO) 0.5 10^3/uL (0.1-1.4); ABSOLUTE NEUT (AUTO) 4.4 10^3/uL (1.7-8.2); BASOPHILS % (AUTO) 1.2 % (0-2); EOSINOPHILS % (AUTO) 2.6 % (0-6); HEMATOCRIT 38.7 % (36.0-47.0); HEMOGLOBIN 13.3 g/dL (12.0-15.5); MEAN CORPUSCULAR HEMOGLOBIN 32.4 pg (27.0-33.4); MEAN CORPUSCULAR HGB CONC 34.4 g/dL (32.0-36.0); MEAN CORPUSCULAR VOLUME 94 fl (80-97); MONOCYTES % (AUTO) 7.5 % (3-13); PLATELET COUNT 101 10^3/uL (150-450); RED CELL DISTRIBUTION WIDTH 13.9 % (11.5-14.0); SEGMENTED NEUTROPHILS % (AUTO) 64.7 % (42-78); TOTAL CELLS COUNTED % (AUTO) 100 %; WHITE BLOOD COUNT 6.8 10^3/uL (4.0-10.5)
[2019-08-16 14:53] LABS: ANION GAP 9 (5-19); BLOOD UREA NITROGEN 24 mg/dL (7-20); CALCIUM 9.1 mg/dL (8.4-10.2); CARBON DIOXIDE 20 mmol/L (22-30); CHLORIDE 109 mmol/L (98-107); GLUCOSE 204 mg/dL (75-110); POTASSIUM 4.2 mmol/L (3.6-5.0)
--- NOTE | 2019-08-16 14:55 | RADIOLOGY REPORT (SQ) ---
EXAM DESCRIPTION: CHEST SINGLE VIEW IMAGES COMPLETED DATE/TIME: 08/16/2019 2:42 pm REASON FOR STUDY: ams COMPARISON: PA and lateral views of the chest from 07/11/2017. EXAM PARAMETERS: NUMBER OF VIEWS: One view. TECHNIQUE: An AP view of the chest was obtained. RADIATION DOSE: NA LIMITATIONS: None. FINDINGS: LUNGS AND PLEURA: Asymmetric opacity in the inferior aspect of the right hemithorax. Ther e is no sizable pleural effusion or pneumothorax. MEDIASTINUM AND HILAR STRUCTURES: No mediastinal or hilar contour abnormality. HEART AND VASCULAR STRUCTURES: The cardiac silhouette and pulmonary vasculature are within normal tapia its. BONES: No acute findings. HARDWARE: The tip of the left subclavian vein approach single-lumen port projects within the SVC. 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 OTHER: No other finding. IMPRESSION: Asymmetric opacity in the inferior aspect of the right hemithorax. Clinical correlation to exclude a pneumonia is recommended. TECHNICAL DOCUMENTATION: JOB ID: [id number] 2010 [employer]- All Rights Reserved Reading location - IP/workstation name: [email or web address]
--- NOTE | 2019-08-16 14:58 | EKG REPORT ---
SEVERITY:- DEFECTIVE ECG - RIGHT AND LEFT ARM LEADS REVERSED, PLEASE REPEAT ECG : Confirmed by: Melisa Lam MD 16-Aug-2019 14:57:48
[2019-08-16] MEDS ORDERED: NORMAL SALINE 1000 ML 1,000 ML IV ONE (15:00)
[2019-08-16 16:01] VITALS: BP 100/43
== END 2019-08-16 15:45 | disposition home or self-care (01) ==
LOC: ER 13:40
DX: I95.9 Hypotension, unspecified (principal); R41.0 Disorientation, unspecified; R47.1 Dysarthria and anarthria; R53.1 Weakness; F17.210 Nicotine dependence, cigarettes, uncomplicated; J44.9 Chronic obstructive pulmonary disease, unspecified; I25.10 Atherosclerotic heart disease of native coronary artery without angina pectoris; I10 Essential (primary) hypertension; E10.9 Type 1 diabetes mellitus without complications; Z96.41 Presence of insulin pump (external) (internal); Z79.899 Other long term (current) drug therapy; Z86.73 Personal history of transient ischemic attack (TIA), and cerebral infarction without residual deficits; Z88.1 Allergy status to other antibiotic agents; Z88.8 Allergy status to other drugs, medicaments and biological substances; Z87.892 Personal history of anaphylaxis; Z88.0 Allergy status to penicillin
CPT/HCPCS: 36415; 70450; 71045; 80048; 83605; 85025; 87040; 93005; 93010; 99291

== ENCOUNTER → 2019-08-25 | Outpatient (CLI) | payer MEDICAID ==
[2019-08-25 15:42] LABS: ABSOLUTE BASOPHILS # (AUTO) 0.1 10^3/uL (0.0-0.2); ABSOLUTE EOSINOPHILS # (AUTO) 0.2 10^3/uL (0.0-0.6); ABSOLUTE LYMPHOCYTES (AUTO) 2.1 10^3/uL (0.5-4.7); ABSOLUTE MONOCYTES (AUTO) 0.5 10^3/uL (0.1-1.4); ABSOLUTE NEUT (AUTO) 3.5 10^3/uL (1.7-8.2); BASOPHILS % (AUTO) 0.9 % (0-2); EOSINOPHILS % (AUTO) 3.4 % (0-6); HEMATOCRIT 37.5 % (36.0-47.0); HEMOGLOBIN 12.6 g/dL (12.0-15.5); LYMPHOCYTES % (AUTO) 32.9 % (13-45); MEAN CORPUSCULAR HEMOGLOBIN 31.8 pg (27.0-33.4); MEAN CORPUSCULAR HGB CONC 33.5 g/dL (32.0-36.0); MEAN CORPUSCULAR VOLUME 95 fl (80-97); MONOCYTES % (AUTO) 7.3 % (3-13); PLATELET COUNT 115 10^3/uL (150-450); RED BLOOD COUNT 3.96 10^6/uL (3.72-5.28); RED CELL DISTRIBUTION WIDTH 13.9 % (11.5-14.0); SEGMENTED NEUTROPHILS % (AUTO) 55.5 % (42-78); TOTAL CELLS COUNTED % (AUTO) 100 %; WHITE BLOOD COUNT 6.2 10^3/uL (4.0-10.5)
[2019-08-25 19:30] LABS: ANION GAP 5 (5-19); BLOOD UREA NITROGEN 30 mg/dL (7-20); CALCIUM 9.1 mg/dL (8.4-10.2); CARBON DIOXIDE 27 mmol/L (22-30); CHLORIDE 106 mmol/L (98-107); CHOLESTEROL 164.23 mg/dL (0-200); GLUCOSE 99 mg/dL (75-110); POTASSIUM 4.4 mmol/L (3.6-5.0); TRIGLYCERIDES 212 mg/dL (<150)
[2019-08-25 19:31] LABS: VLDL CHOLESTEROL 42.4 mg/dL (10-31)
[2019-08-25 19:40] LABS: DIRECT LDL 62 mg/dL (<100)
== END ==
LOC: OD 15:19
PROVIDERS: ATTEND Family Medicine Geriatric Medicine
DX: E83.52 Hypercalcemia (principal); E78.5 Hyperlipidemia, unspecified; E03.9 Hypothyroidism, unspecified; I10 Essential (primary) hypertension; J44.9 Chronic obstructive pulmonary disease, unspecified; Z79.899 Other long term (current) drug therapy
CPT/HCPCS: 36415; 80048; 80061; 83970; 84443; 84460; 85025

== ENCOUNTER 2019-09-29 12:31 | Emergency (ER) | payer MEDICAID ==
[2019-09-29 12:46] VITALS: BP 94/63
[2019-09-29] MEDS ORDERED: SULFAMETHOXAZOLE/TRIMETHOPRIM 800-160 MG TABLET PO ONE (12:53)
[2019-09-29] MEDS ORDERED: CEPHALEXIN 500 MG CAPSULE PO ONE (12:53)
--- NOTE | 2019-09-29 12:59 | ER Document Report ---
HPI - HPI Patient complains to provider of: Blister to vagina Time Seen by Provider: 09/29/19 12:42 Onset: Other - 2 weeks Onset/Duration: Persistent Quality of pain: Achy Pain Level: 1 Context: Patient complains of tender lesion to the vaginal area and is concerned that she may have herpes. Patient denies any recent new sexual partner. Patient last sexually active 3 years ago. Patient denies any fever. Associated Symptoms: denies: Fever, Nausea, Vomiting Exacerbated by: Denies Relieved by: Denies Similar symptoms previously: No Recently seen / treated by doctor: No - ROS ROS below otherwise negative: Yes Systems Reviewed and Negative: Yes All other systems reviewed and negative - CONSTITUTIONAL Constitutional: DENIES: Fever, Chills - REPRODUCTIVE Reproductive: DENIES: : - DERM Notes: Skin lesion to perineum Past Medical History - General Information source: Patient - Social History Smoking Status: Current Every Day Smoker Frequency of alcohol use: None Drug Abuse: None Family History: Malignancy - Past Medical History Cardiac Medical History: Reports: Hx Coronary Artery Disease - 2 blockages/stents, Hx DVT - States her anticoagulant was stopped by her physician., Hx Hypercholesterolemia, Hx Hypertension, Hx Pulmonary Embolism, Hx Heart Murmur Denies: Hx Heart Attack Pulmonary Medical History: Reports: Hx Bronchitis, Hx COPD, Hx Pneumonia Neurological Medical History: Reports: Hx Cerebrovascular Accident - 5 yrs ago, Hx Seizures - History of same; states she is not supposed to be on antiepileptics. Endocrine Medical History: Reports: Hx Diabetes Mellitus Type 1 - Insulin pump, Hx Hypothyroidism. Denies: Hx Hyperthyroidism Renal/ Medical History: Denies: Hx End Stage Renal Disease, Hx Peritoneal Carmelita lysis GI Medical History: Reports: Hx Cirrhosis, Hx Gastroesophageal Reflux Disease, Hx Ulcer. Denies: Hx Crohn's Disease, Hx Diverticulitis, Hx Hepatitis, Hx Ulcerative Colitis Musculoskeletal Medical History: Reports Hx Arthritis, Denies Hx Gout Skin Medical History: Denies Hx Eczema, Denies Hx Psoriasis Psychiatric Medical History: Reports: Hx Depression Traumatic Medical History: Denies: Hx Gunshot Wound, Hx Pneumothorax, Hx Traumatic Brain Injury Infectious Medical History: Denies: Hx Hepatitis Past Surgical History: Reports: Hx Appendectomy, Hx Cardiac Surgery - avr, Hx Hysterectomy, Hx Orthopedic Surgery - Neck fusion, wrist surgery, knee surgery, Hx Tubal Ligation, Other - Left chest Port-A-Cath - Immunizations Hx Diphtheria, Pertussis, Tetanus Vaccination: Yes Hx Pneumococcal Vaccination: 11/09/11 Vertical Provider Document - CONSTITUTIONAL Agree With Documented VS: Yes Exam Limitations: No Limitations General Appearance: WD/WN, No Apparent Distress - INFECTION CONTROL TRAVEL OUTSIDE OF THE [place] IN LAST 30 DAYS: No - HEENT HEENT: Atraumatic, Normocephalic - NECK Neck: Normal Inspection, Supple - RESPIRATORY Respiratory: Breath Sounds Normal, No Respiratory Distress - CARDIOVASCULAR Cardiovascular: Regular Rate, Regular Rhythm, No Murmur - GI/ABDOMEN Gastrointestinal: Abdomen Soft - REPRODUCTIVE Notes: Patient with lesion to the vulva at the 6 o'clock position near the vaginal introitus, no surrounding erythema, no purulent drainage, no drainable abscess, lesion measures about 0.3 cm in diameter PCT Kaye as standby - MUSCULOSKELETAL/EXTREMETIES Musculoskeletal/Extremeties: MICHAEL GARCIA - NEURO Level of Consciousness: Awake, Alert, Appropriate Motor/Sensory: No Motor Deficit - DERM Integumentary: Warm, Dry Notes: See above Course - Vital Signs Vital signs: Temp Pulse Resp BP Pulse Ox 99.0 F 59 L 16 94/63 L 100 09/29/19 12:42 09/29/19 12:42 09/29/19 12:42 09/29/19 12:42 09/29/19 12:42 Discharge - Discharge Clinical Impression: vulvar skin lesion Condition: Stable Disposition: HOME, SELF-CARE Instructions: Cephalexin ([facility]), Trimethoprim-Sulfa ([facility]), Warm Packs ([facility]) Additional Instructions: Return immediately for any new or worsening symptoms Followup with your primary care provider, call tomorrow to make a followup appointment 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
== END 2019-09-29 13:19 | disposition home or self-care (01) ==
LOC: ER 12:31
DX: N89.8 Other specified noninflammatory disorders of vagina (principal); F17.200 Nicotine dependence, unspecified, uncomplicated; E78.00 Pure hypercholesterolemia, unspecified; I10 Essential (primary) hypertension; Z86.73 Personal history of transient ischemic attack (TIA), and cerebral infarction without residual deficits
CPT/HCPCS: 99283; J3490

== ENCOUNTER → 2019-11-23 | Outpatient (CLI) | payer MEDICAID ==
--- NOTE | 2019-11-23 16:07 | RADIOLOGY REPORT (SQ) ---
EXAM DESCRIPTION: T SPINE AP/LAT IMAGES COMPLETED DATE/TIME: 11/23/2019 2:44 pm REASON FOR STUDY: LOW BACK PAIN M79.671 PAIN IN RIGHT FOOT M54.9 DORSALGIA, UNSPECIFIED M79.642 P AIN IN LEFT HAND. COMPARISON: None. NUMBER OF VIEWS: Two views. TECHNIQUE: AP and lateral radiographic images acquired of the thoracic spine. LIMITATIONS: None. FINDINGS: MINERALIZATION: Osteopenia. ALIGNMENT: Normal. No scoliosis. VERTEBRAE: No acute fracture or loss of vertebral body height. Diffuse osteopenia limits evaluation. DISCS: There is degenerative disc disease at multiple levels with loss of intervertebral disc height. HARDWARE: None in the spine. Aortic stent. Left central venous catheter with tip at the cavoatrial junction. MEDIASTINUM AND SOFT TISSUES: Normal heart size and aortic contour. No soft tissue abnormality. VISUALIZED LUNG BRANHAM: Clear. OTHER: No other significant finding. IMPRESSION: Moderate osteopenia. No radiographic evidence of acute fracture or dislocation of the t horacic spine. Degenerative disc disease. TECHNICAL DOCUMENTATION: JOB ID: [id number] 2010 [employer]- All Rights Reserved Reading location - IP/workstation name: [email or web address]
--- NOTE | 2019-11-23 16:07 | RADIOLOGY REPORT (SQ) ---
EXAM DESCRIPTION: FOOT RIGHT COMPLETE IMAGES COMPLETED DATE/TIME: 11/23/2019 2:44 pm REASON FOR STUDY: PAIN IN RIGHT FOOT M79.671 PAIN IN RIGHT FOOT M54.9 DORSALGIA, UNSPECIFIED M79.6 42 PAIN IN LEFT HAND. COMPARISON: None. NUMBER OF VIEWS: Three views. TECHNIQUE: AP, lateral and oblique radiographic images acquired of the right foot. LIMITATIONS: None. FINDINGS: MINERALIZATION: Osteopenia. BONES: No acute fracture or dislocation. No worrisome bone lesions. JOINTS: No effusions. SOFT TISSUES: No soft tissue abnormality. No radiopaque foreign body. OTHER: No other significant finding. IMPRESSION: Moderate osteopenia. No radiopaque foreign body. No acute fracture or dislocation. TECHNICAL DOCUMENTATION: JOB ID: [id number] 2010 [employer]- All Rights Reserved Reading location - IP/workstation name: [email or web address]
--- NOTE | 2019-11-23 16:12 | RADIOLOGY REPORT (SQ) ---
EXAM DESCRIPTION: LUMBAR SPINE COMPLETE; SACRUM AND COCCYX IMAGES COMPLETED DATE/TIME: 11/23/2019 2:44 pm REASON FOR STUDY: LBP M79.671 PAIN IN RIGHT FOOT M54.9 DORSALGIA, UNSPECIFIED M79.642 PAIN IN LEF T HAND. COMPARISON: CT abdomen and pelvis, 10/19/2019. NUMBER OF VIEWS: Five views including obliques. TECHNIQUE: AP, lateral, oblique, and sacral radiographic images acquired of the lumbar spine. AP, a xial, and lateral views of the sacrum. LIMITATIONS: None. FINDINGS: MINERALIZATION: Osteopenia. SEGMENTATION: Normal. No transitional anatomy. ALIGNMENT: Normal alignment. VERTEBRAE: Chronic compression deformity at L2 is stable from previous examination. Mild anterior we dging at L1 with subchondral sclerosis at the superior endplate also stable. No acute fracture or de structive bone lesion. DISCS: Degenerative disc disease with mild loss of intervertebral disc height at multiple levels. POSTERIOR ELEMENTS: Pedicles and facets are intact. No pars defect or posterior arch defects. HARDWARE: None in the spine. PARASPINAL SOFT TISSUES: Normal. PELVIS/SACRUM: The sacrum is intact. No cortical irregularity. Visualized pelvis is intact. Mild o steoarthritis at the right hip. OTHER: No other significant finding. IMPRESSION: No acute fracture or dislocation of the lumbar spine or sacrum. Chronic degenerative di sc disease and spondylosis is stable. TECHNICAL DOCUMENTATION: JOB ID: [id number] [employer]- All Rights Reserved Reading location - IP/workstation name: [email or web address]
--- NOTE | 2019-11-23 16:12 | RADIOLOGY REPORT (SQ) ---
EXAM DESCRIPTION: HAND LEFT 3 VIEWS IMAGES COMPLETED DATE/TIME: 11/23/2019 2:44 pm REASON FOR STUDY: PAIN IN LEFT HAND M79.671 PAIN IN RIGHT FOOT M54.9 DORSALGIA, UNSPECIFIED M79.64 2 PAIN IN LEFT HAND COMPARISON: None. EXAM PARAMETERS: NUMBER OF VIEWS: Three views. TECHNIQUE: AP, lateral and oblique radiographic images acquired of the left hand. LIMITATIONS: None. FINDINGS: MINERALIZATION: Normal. BONES: No acute fracture or dislocation. No worrisome bone lesions. JOINTS: No effusions. SOFT TISSUES: Mild soft tissue swelling over the dorsal distal metacarpals. No radiopaque foreign reuben dy. OTHER: No other significant finding. IMPRESSION: Soft tissue swelling. No radiopaque foreign body or underlying fracture. TECHNICAL DOCUMENTATION: JOB ID: [id number] 2010 [employer]- All Rights Reserved Reading location - IP/workstation name: [email or web address]
== END ==
LOC: OD 15:01
PROVIDERS: ATTEND Family Medicine Geriatric Medicine
DX: M79.671 Pain in right foot (principal); M85.871 Other specified disorders of bone density and structure, right ankle and foot; M54.2 Cervicalgia; M79.642 Pain in left hand; M51.36 Other intervertebral disc degeneration, lumbar region; M47.816 Spondylosis without myelopathy or radiculopathy, lumbar region; M79.89 Other specified soft tissue disorders
CPT/HCPCS: 72070; 72110; 72220

== ENCOUNTER → 2019-12-15 | Outpatient (CLI) | payer MEDICAID ==
[2019-12-15 12:43] LABS: ABSOLUTE BASOPHILS # (AUTO) 0.1 10^3/uL (0.0-0.2); ABSOLUTE EOSINOPHILS # (AUTO) 0.1 10^3/uL (0.0-0.6); ABSOLUTE LYMPHOCYTES (AUTO) 2.2 10^3/uL (0.5-4.7); ABSOLUTE MONOCYTES (AUTO) 0.4 10^3/uL (0.1-1.4); ABSOLUTE NEUT (AUTO) 3.1 10^3/uL (1.7-8.2); BASOPHILS % (AUTO) 0.9 % (0-2); EOSINOPHILS % (AUTO) 2.1 % (0-6); HEMATOCRIT 38.6 % (36.0-47.0); HEMOGLOBIN 13.2 g/dL (12.0-15.5); LYMPHOCYTES % (AUTO) 37.3 % (13-45); MEAN CORPUSCULAR HEMOGLOBIN 31.3 pg (27.0-33.4); MEAN CORPUSCULAR HGB CONC 34.3 g/dL (32.0-36.0); MEAN CORPUSCULAR VOLUME 91 fl (80-97); MONOCYTES % (AUTO) 6.9 % (3-13); PLATELET COUNT 200 10^3/uL (150-450); RED BLOOD COUNT 4.23 10^6/uL (3.72-5.28); SEGMENTED NEUTROPHILS % (AUTO) 52.8 % (42-78); TOTAL CELLS COUNTED % (AUTO) 100 %; WHITE BLOOD COUNT 5.9 10^3/uL (4.0-10.5)
[2019-12-15 13:07] LABS: ALBUMIN 4.3 g/dL (3.5-5.0); ALKALINE PHOSPHATASE 121 U/L (38-126); ANION GAP 6 (5-19); ASPARTATE AMINO TRANSFERASE 31 U/L (14-36); BILIRUBIN,DIRECT 0.3 mg/dL (0.0-0.4); BILIRUBIN,TOTAL 0.6 mg/dL (0.2-1.3); BLOOD UREA NITROGEN 10 mg/dL (7-20); CALCIUM 9.7 mg/dL (8.4-10.2); CARBON DIOXIDE 27 mmol/L (22-30); CHLORIDE 102 mmol/L (98-107); CHOLESTEROL 172.97 mg/dL (0-200); GLUCOSE 83 mg/dL (75-110); POTASSIUM 4.3 mmol/L (3.6-5.0); TOTAL PROTEIN 6.6 g/dL (6.3-8.2); TRIGLYCERIDES 113 mg/dL (<150)
[2019-12-15 13:19] LABS: DIRECT LDL 83 mg/dL (<100)
[2019-12-16 11:38] LABS: CREATININE URINE 24.4 mg/dL (Not Estab.); MICROALBUMIN URINE <3.0 ug/mL (Not Estab.)
== END ==
LOC: OD 11:04
PROVIDERS: ATTEND Family Medicine Geriatric Medicine
DX: E11.9 Type 2 diabetes mellitus without complications (principal); E78.5 Hyperlipidemia, unspecified; I10 Essential (primary) hypertension; J44.9 Chronic obstructive pulmonary disease, unspecified; Z79.899 Other long term (current) drug therapy
CPT/HCPCS: 36415; 80053; 80061; 82043; 82570; 83036; 85025

== ENCOUNTER 2020-01-17 16:05 | Emergency (ER) | payer MEDICAID | END 2020-01-17 17:06 | disposition left against medical advice (07) | LOC: ER 16:05 | DX: Z53.21 Procedure and treatment not carried out due to patient leaving prior to being seen by health care provider (principal) ==